=== PATIENT | male | born 1960 | race Caucasian/White ===

== ENCOUNTER 2019-12-28 15:12 | Inpatient (IN) | payer BC ==
[2019-12-28] VITALS (7 sets, daily range): BP systolic 110–151; BP diastolic 89–100
[~2019-12-28] VITALS: Ht 177 cm; Wt 111.9 kg
[2019-12-28] MEDS ORDERED: THIAMINE INJECTION 100 MG, FOLIC ACID INJECTION 1 MG, VITAMIN MULTI INJECTION 10 ML, MA... IV STA ×5 (15:24)
--- NOTE | 2019-12-28 15:35 | ED Psychosocial ---
General Stated Complaint: SUICIDAL THOUGHTS Source: patient Exam Limitations: no limitations (DARSHAN CEJA) History of Present Illness Date Seen by Provider: Dec 28, 2019 Time Seen by Provider: 15:10 Initial Comments Patient presents to ER by EMS from home with chief complaint this morning he woke up felt very very depressed and wanted to . No plan how to kill himself. He found a bottle water in his refrigerator about 1 pint that had been replaced by vodka and he drank it. He is a recovering alcoholic and his was in [place] for the past couple days visiting family. She says whenever she leaves [facility] to visit family he behaves this way. He has had multiple suicidal ideations in the past but never a suicidal attempt according to the and patient. He's never stayed in inpatient psychiatric facility. He says the last time he drank was a few days before this. He said the reason he felt so bad and wanted to is because as a recovering alcoholic he is upset with himself for having started drinking again. He denies drinking anything else. He does not smoke or use recreational drugs. He says he has pain from his head down to his toe at the shame of having drank alcohol again. His further related to EMS that he has a background of dementia related to his alcoholism. (DARSHAN CEJA) Allergies and Home Medications Allergies Coded Allergies: No Known Drug Allergies (Unverified , 12/28/19) Patient Home Medication List Home Medication List Reviewed: Yes (DARSHAN CEJA) Review of Systems Constitutional: No chills, No diaphoresis EENTM: No ear discharge, No hearing loss Respiratory: No cough, No short of breath Cardiovascular: No chest pain, No edema Gastrointestinal: No abdominal pain, No nausea, No vomiting Genitourinary: No discharge, No dysuria Musculoskeletal: No back pain, No joint pain (DARSHAN CEJA) All Other Systems Reviewed Negative Unless Noted: Yes (DARSHAN CEJA) Past Rvxppub-Wefswd-Mkdner Hx Patient Social History Alcohol Use: Regular Use Alcohol Beverage of Choice: Vodka Smoking Status: Never a Smoker Recent Foreign Travel: No Contact w/Someone Who Travel: No (DARSHAN CEJA) Physical Exam Vital Signs - First Documented 12/28/19 15:12 Temp 36.9 Pulse 116 Resp 20 B/P (MAP) 118/88 (98) Pulse Ox 99 O2 Delivery Room Air (FABIOLA RO APRN) Capillary Refill : (DARSHAN CEJA) Height, Weight, BMI Height: '" Weight: lbs. oz. 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 tested, no motor/sensory deficits, alert, normal mood/affect, oriented x 3 Appearance/Memory: No denies illness; disheveled Behavior/Eye Contact: cooperative, good eye contact, normal speech, other (tearful) Thoughts/Hallucinations: normal thought pattern, no apparent hallucination; No delusions Skin: normal color, warm/dry (DARSHAN CEJA) Progress/Results/Core Measures Results/Orders Lab Results Laboratory Tests Test 12/28/19 15:25 12/28/19 16:01 12/28/19 19:14 Range/Units White Blood Count 6.5 4.3-11.0 10^3/uL Red Blood Count 4.35 4.35-5.85 10^6/uL Hemoglobin 15.1 13.3-17.7 G/DL Hematocrit 44 40-54 % Mean Corpuscular Volume 101 H 80-99 FL Mean Corpuscular Hemoglobin 35 H 25-34 PG Mean Corpuscular Hemoglobin Concent 34 32-36 G/DL Red Cell Distribution Width 14.0 10.0-14.5 % Platelet Count 107 L 130-400 10^3/uL Mean Platelet Volume 9.8 7.4-10.4 FL Neutrophils (%) (Auto) 49 42-75 % Lymphocytes (%) (Auto) 37 12-44 % Monocytes (%) (Auto) 11 0-12 % Eosinophils (%) (Auto) 3 0-10 % Basophils (%) (Auto) 0 0-10 % Neutrophils # (Auto) 3.2 1.8-7.8 X 10^3 Lymphocytes # (Auto) 2.4 1.0-4.0 X 10^3 Monocytes # (Auto) 0.7 0.0-1.0 X 10^3 Eosinophils # (Auto) 0.2 0.0-0.3 10^3/uL Basophils # (Auto) 0.0 0.0-0.1 10^3/uL Sodium Level 143 135-145 MMOL/L Potassium Level 3.5 L 3.6-5.0 MMOL/L Chloride Level 109 H 98-107 MMOL/L Carbon Dioxide Level 20 L 21-32 MMOL/L Anion Gap 14 5-14 MMOL/L Blood Urea Nitrogen 20 H 7-18 MG/DL Creatinine 1.12 0.60-1.30 MG/DL Estimat Glomerular Filtration Rate > 60 BUN/Creatinine Ratio 18 Glucose Level 123 H 70-105 MG/DL Calcium Level 9.8 8.5-10.1 MG/DL Corrected Calcium 10.2 H 8.5-10.1 MG/DL Total Bilirubin 0.4 0.1-1.0 MG/DL Aspartate Amino Transf (AST/SGOT) 64 H 5-34 U/L Alanine Aminotransferase (ALT/SGPT) 55 0-55 U/L Alkaline Phosphatase 85 40-136 U/L Total Protein 7.0 6.4-8.2 GM/DL Albumin 3.5 3.2-4.5 GM/DL Salicylates Level < 5.0 L 5.0-20.0 MG/DL Acetaminophen Level < 10 L 10-30 UG/ML Serum Alcohol 274 H 199 H <10 MG/DL Urine Color YELLOW Urine Clarity CLEAR Urine pH 6.0 5-9 Urine Specific [place] 1.020 1.016-1.022 Urine Protein 1+ H NEGATIVE Urine Glucose (UA) NEGATIVE NEGATIVE Urine Ketones NEGATIVE NEGATIVE Urine Nitrite NEGATIVE NEGATIVE Urine Bilirubin NEGATIVE NEGATIVE Urine Urobilinogen 1.0 < = 1.0 MG/DL Urine Leukocyte Esterase NEGATIVE NEGATIVE Urine RBC (Auto) 2+ H NEGATIVE Urine RBC 5-10 H /HPF Urine WBC 0-2 /HPF Urine Crystals PRESENT H /LPF Urine Amorphous Sediment FEW MESHA URATES H /LPF Urine Bacteria TRACE /HPF Urine Casts NONE /LPF Urine Mucus MODERATE H /LPF Urine Culture Indicated NO Urine Opiates Screen NEGATIVE NEGATIVE Urine Oxycodone Screen NEGATIVE NEGATIVE Urine Methadone Screen NEGATIVE NEGATIVE Urine Propoxyphene Screen NEGATIVE NEGATIVE Urine Barbiturates Screen NEGATIVE NEGATIVE Ur Tricyclic Antidepressants Screen NEGATIVE NEGATIVE Urine Phencyclidine Screen NEGATIVE NEGATIVE Urine Amphetamines Screen NEGATIVE NEGATIVE Urine Methamphetamines Screen NEGATIVE NEGATIVE Urine Benzodiazepines Screen POSITIVE H NEGATIVE Urine Cocaine Screen NEGATIVE NEGATIVE Urine Cannabinoids Screen NEGATIVE NEGATIVE (FABIOLA RO APRN) My Orders Orders - FABIOLA RO APRN Lorazepam Injection (Ativan Injection) (12/28/19 20:30) (FABIOLA RO APRN) Vital Signs/I&O 12/28/19 15:12 Temp 36.9 Pulse 116 Resp 20 B/P (MAP) 118/88 (98) Pulse Ox 99 O2 Delivery Room Air (FABIOLA RO APRN) Progress Progress Note : Time: 15:33 Progress Note Banana bag, tox screen and alcohol level. When his alcohol level is below the legal limit we can have [facility] evaluate him. We'll see if he still endorsing suicidality at that time. His says that typically when he myke up he's no longer suicidal. We'll give him a second liter of fluids and observe him. (DARSHAN CEJA) Initial ECG Impression Date: Dec 28, 2019 Initial ECG Impression Time: 15:19 Initial ECG Rate: 109 Initial ECG Rhythm: S.Tach Initial ECG Intervals: QT (480) Initial ECG Impression: Normal Initial ECG Comparisson: No Previous ECG Available Comment Sinus tachycardia with prolonged QT interval but no ST elevation or depression. (DARSHAN CEJA) Transfer of Care Time: 18:00 Care transferred to: Fabiola Ro (DARSHAN CEJA) Departure Communication (Admissions) Time/Spoke to Admitting Phy: 20:24 2022-I discussed the case with [facility] screening [facility] bath at [facility]. They would like him to be likely detoxed for 24 hours to ensure he doesn't develop detox symptoms while in the unit over there. She would be happy to come screen him today and tentatively accept him over there on Thursday. Patient is agreeable with this plan and would like to go. Patient's called, she is in [place] visiting [employer]. Patient himself reports that he hasn't drank for a couple of months and then restarted today. Patient's states this is absolutely not true, he's been drinking frequently including the past few days. She also reports that they just moved here from [facility], he most recently just completed a 3 month inpatient rehabilitation program and did very well, but then as soon as she leaves or soon as he gets home he relapses. (FABIOLA RO APRN) Impression Primary Impression: Suicidal intent Additional Impression: Alcohol use Disposition: HOME, SELF-CARE Condition: Stable Admissions Decision to Admit Reason: Admit from ER (General) Decision to Admit/Date: Dec 28, 2019 Time/Decision to Admit Time: 20:25 (FABIOLA RO APRN) Departure-Patient Inst. Referrals: NO,LOCAL PHYSICIAN (PCP) Primary Care Physician DARSHAN CEJA Dec 28, 2019 15:34 FABIOLA RO APRN Dec 28, 2019 19:49
[2019-12-28 15:38] LABS: BASOPHILS % (AUTO) 0 % (0-10); EOSINOPHILS # (AUTO) 0.2 10^3/uL (0.0-0.3); EOSINOPHILS % (AUTO) 3 % (0-10); HEMATOCRIT 44 % (40-54); HEMOGLOBIN 15.1 G/DL (13.3-17.7); LYMPHOCYTES # (AUTO) 2.4 X 10^3 (1.0-4.0); LYMPHOCYTES % (AUTO) 37 % (12-44); MEAN CORPUSCULAR HEMOGLOBIN 35 PG (25-34); MEAN CORPUSCULAR HGB CONC 34 G/DL (32-36); MEAN CORPUSCULAR VOLUME 101 FL (80-99); MEAN PLATELET VOLUME 9.8 FL (7.4-10.4); MONOCYTES # (AUTO) 0.7 X 10^3 (0.0-1.0); MONOCYTES % (AUTO) 11 % (0-12); NEUTROPHILS # (AUTO) 3.2 X 10^3 (1.8-7.8); NEUTROPHILS % (AUTO) 49 % (42-75); PLATELET COUNT 107 10^3/uL (130-400); WHITE BLOOD COUNT 6.5 10^3/uL (4.3-11.0)
[2019-12-28 16:05] LABS: ACETAMINOPHEN < 10 UG/ML (10-30); ALANINE AMINOTRANSFERASE 55 U/L (0-55); ALBUMIN 3.5 GM/DL (3.2-4.5); ALKALINE PHOSPHATASE 85 U/L (40-136); BILIRUBIN,TOTAL 0.4 MG/DL (0.1-1.0); BUN/CREATININE RATIO 18; CALCIUM 9.8 MG/DL (8.5-10.1); CARBON DIOXIDE 20 MMOL/L (21-32); CHLORIDE 109 MMOL/L (98-107); CREATININE SERUM 1.12 MG/DL (0.60-1.30); GFR ESTIMATED > 60; GLUCOSE 123 MG/DL (70-105); POTASSIUM 3.5 MMOL/L (3.6-5.0); SALICYLATE < 5.0 MG/DL (5.0-20.0); SODIUM 143 MMOL/L (135-145)
[2019-12-28 16:18] LABS: BILIRUBIN,URINE NEGATIVE (NEGATIVE); CLARITY,URINE CLEAR; COLOR,URINE YELLOW; GLUCOSE, URINE (UA) NEGATIVE (NEGATIVE); KETONES,URINE NEGATIVE (NEGATIVE); LEUKOCYTE ESTERASE ,URINE NEGATIVE (NEGATIVE); NITRITE,URINE NEGATIVE (NEGATIVE); PROTEIN,URINE 1+ (NEGATIVE)
[2019-12-28 16:27] LABS: WBC,URINE 0-2 /HPF
[2019-12-28 16:28] LABS: AMORPHOUS SEDIMENT,UR FEW AMOR URATES /LPF; BACTERIA,URINE TRACE /HPF
--- NOTE | 2019-12-28 16:47 | NUR ---
[facility] MH CONTACTS THIS NURSE FOR OVER THE PHONE REPORT. BAO WITH [facility] STATES THE PT DOES NOT REQUIRE A MH SCREEN AT THIS TIME D/T NOT VERBALIZING S.I.
[2019-12-28 17:06] LABS: AMPHETAMINE SCREEN, URINE NEGATIVE (NEGATIVE); BARBITURATE SCREEN URINE NEGATIVE (NEGATIVE); BENZODIAZEPINES SCREEN URINE POSITIVE (NEGATIVE); CANNABINOID SCREEN, URINE NEGATIVE (NEGATIVE); COCAINE SCREEN URINE NEGATIVE (NEGATIVE); METHADONE STAT NEGATIVE (NEGATIVE); METHAMPHETAMINE SCREEN URINE S NEGATIVE (NEGATIVE); OPIATE SCREEN URINE NEGATIVE (NEGATIVE); OXYCODONE STAT NEGATIVE (NEGATIVE); PROPOXYPHENE STAT NEGATIVE (NEGATIVE); TRICYCLIC ANTIDEPRESSANTS SCRE NEGATIVE (NEGATIVE)
[2019-12-28] MEDS ORDERED: NS IV 1000 ML 1,000 ML IV SCH (17:31)
[2019-12-28] MEDS ORDERED: 1/2 NS W/KCL 20 MEQ/L 1,000 ML IV SCH (17:45)
[2019-12-28] MEDS ORDERED: LORazepam INJ 2 MG/ML (ATIVAN) VIAL IVP ONE (20:30)
--- NOTE | 2019-12-28 21:03 | NUR ---
RECEIVED REPORT FROM ROBERT LEWIS.
--- NOTE | 2019-12-28 21:22 | NUR ---
JORGE A FIELD admitted to room CU9-1, with an admitting diagnosis of SUICIDAL IDEATIONS, ETOH ABUSE, on 12/28/19 from [facility] ER via [facility], accompanied by ROBERT LEWIS. JORGE A FIELD introduced to surroundings, call light, bed controls, phone, TV, temperature control, lights, meal times, smoking policy, visitor policy, side rail policy, bathrooms and showers. Patient Rights given to patient in the handbook.JORGE A FIELD verbalizes understanding that [facility] is not responsible for the loss or damage to any personal effects or valuables that are kept in the patients possession during their hospitalization. JORGE A FIELD verbalizes understanding of Interdisciplinary Patient Education. Patient and/or family were informed about the Rapid Response Team and its purpose.
[2019-12-28] MEDS ORDERED: 1/2 NS IV SOLUTION 1,000 ML IV PRN (21:54)
[2019-12-28] MEDS ORDERED: LORazepam INJ 2 MG/ML (ATIVAN) VIAL IV PRN (22:00)
[2019-12-28] MEDS ORDERED: LORazepam 1 MG (ATIVAN) TAB PO PRN (22:00)
[2019-12-28] MEDS ORDERED: ONDANSETRON 4 MG/2 ML (SDV) Z0FRAN IV PRN (22:00)
[2019-12-28] MEDS ORDERED: D5 1/2 NS 1000 ML IV SOLUTION 1,000 ML IV PRN (22:00)
[2019-12-28] MEDS ORDERED: PROMETHAZINE INJ 25 MG/ML (PHENERGAN) AMP IV PRN (22:00)
[2019-12-28] MEDS ORDERED: ONDANSETRON 4 MG (ZOFRAN) ORAL DISSOLVE TAB SL PRN (22:00)
[2019-12-28] MEDS ORDERED: ANTACID SUSP 30 ML UDC (MYLANTA) PO PRN (22:00)
[2019-12-28] MEDS ORDERED: SENNA W/DOCUSATE (SENOKOT S) TABLET PO PRN (22:00)
[2019-12-28] MEDS ORDERED: LORazepam INJ 2 MG/ML (ATIVAN) VIAL IM/IV PRN (22:00)
--- NOTE | 2019-12-28 22:25 | NUR ---
PT CELLPHONE PLACED INTO BIOHAZARD BAG AND LABELED WITH PATIENT STICKER AND PLACED INTO SAFE PROOF BAG. SHINGLES ROOFER LOCKED BAGGED CELLPHONE IN SAFE LOCATED IN ER. PATIENT CLOTHING PLACED IN GREEN PT BELONGINGS BAG AND LABELED WITH PT STICKER AND LOCKED IN [place] CABINET IN ICU STORAGE AREA ALONG WITH PT'S CANE THAT WAS ALSO LABELED WITH PT STICKER. PT AWARE OF REASONING OF TAKING PT BELONGINGS AND AGREED WITH PROTOCOL.
[2019-12-28] MEDS: THIAMINE INJECTION 100 MG, FOLIC ACID INJECTION 1 MG, MAGNESIUM SULFATE 2 GM, VITAMIN M... IV SCH ×5 (22:38)
[2019-12-28] MEDS: D5 1/2 NS W/KCL 20 MEQ/L 1,000 ML IV SCH (23:18)
--- NOTE | 2019-12-28 23:28 | NUR ---
SCDs NOT APPLIED DUE TO PT HAVING SUICIDAL IDEATIONS AND SUICIDE RISK. PT BLOOD ALCOHOL LEVELS ELEVATED AND RISK FOR FALLS.
[2019-12-29] VITALS (15 sets, daily range): BP systolic 120–154; BP diastolic 72–112
[2019-12-29 03:42] LABS: BASOPHILS % (AUTO) 1 % (0-10); EOSINOPHILS # (AUTO) 0.2 10^3/uL (0.0-0.3); EOSINOPHILS % (AUTO) 6 % (0-10); HEMATOCRIT 39 % (40-54); HEMOGLOBIN 13.4 G/DL (13.3-17.7); LYMPHOCYTES # (AUTO) 1.4 X 10^3 (1.0-4.0); LYMPHOCYTES % (AUTO) 31 % (12-44); MEAN CORPUSCULAR HEMOGLOBIN 35 PG (25-34); MEAN CORPUSCULAR HGB CONC 34 G/DL (32-36); MEAN CORPUSCULAR VOLUME 103 FL (80-99); MEAN PLATELET VOLUME 10.1 FL (7.4-10.4); MONOCYTES # (AUTO) 0.5 X 10^3 (0.0-1.0); MONOCYTES % (AUTO) 11 % (0-12); NEUTROPHILS # (AUTO) 2.3 X 10^3 (1.8-7.8); NEUTROPHILS % (AUTO) 52 % (42-75); PLATELET COUNT 77 10^3/uL (130-400); RED CELL DISTRIBUTION WIDTH 13.8 % (10.0-14.5); WHITE BLOOD COUNT 4.3 10^3/uL (4.3-11.0)
--- NOTE | 2019-12-29 03:50 | Pulmonary Consultation ---
History of Present Illness History of Present Illness Date Seen by Provider: Dec 29, 2019 Time Seen by Provider: 03:47 Date of Admission History of Present Illness 59yo with hx of alcohol dependance, depression presented to ED secondary to wanting to quit alcohol use and also feeling suicidal. Pt has no plan to kill himself. Pt states he has been trying to quit drinking however has been unsuccessful. He does not smoke or use recreational drugs. Pt was admitted to ICU with alcohol dependance. Allergies and Home Medications Allergies Coded Allergies: No Known Drug Allergies (Unverified , 12/28/19) Past Iteaylz-Zietjs-Kdkztr Hx Patient Social History Alcohol Use: Regular Use Number of Drinks Today: 8 Alcohol Beverage of Choice: Vodka Recreational Drug Use: No Smoking Status: Never a Smoker Recent Foreign Travel: No Contact w/Someone Who Travel: No Recent Infectious Disease Expo: No Recent Hopitalizations: No Physical Abuse: No Sexual Abuse: No Mistreated: No Fear: No Immunizations Up To Date Tetanus Booster (TDap): Unknown PED Vaccines UTD: Yes Seasonal Allergies Seasonal Allergies: No Past Medical History Surgeries: Yes (HEMRRHOID) Respiratory: No Cardiac: No Neurological: Yes (TREMORS) Dementia Genitourinary: No Gastrointestinal: No Musculoskeletal: No Endocrine: No HEENT: No Cancer: No Psychosocial: Yes (ETOH ABUSE HX) Integumentary: No Blood Disorders: No Adverse Reaction/Blood Tranf: No Family Medical History FH: breast cancer 19 MOTHER Hypertension 19 MOTHER Review of Systems Time Seen by Provider: 05:55 Constitutional: Weakness, Malaise; No: Fever, Chills, Sweats, Other Eyes: Pain, Vision change, Conjunctivae inflammation, Eyelid inflammation, Other, Redness ENT: No: Ear pain, Ear discharge, Nose pain, Nose discharge, Nose congestion, Mouth pain, Mouth swelling, Throat pain, Throat swelling, Other Respiratory: No: Cough, Dry, Shortness of breath, SOB with excertion, Wheezing, Hemoptysis, Pleuritic Pain, Sputum, Wheezing, Other Cardiovascular: No: Chest Pain, Palpitations, Orthopnea, Paroxysmal Noc. Dyspnea, Edema, Lt Headedness, Other Gastrointestinal: No: Nausea, Vomiting, Abdominal Pain, Diarrhea, Constipation, Melena, Hematochezia, Other Sepsis Event Evaluation Height, Weight, BMI Height: '" Weight: lbs. oz. kg; 31.00 BMI Method: Exam Exam Vital Signs Date Time Temp Pulse Resp B/P (MAP) Pulse Ox O2 Delivery O2 Flow Rate FiO2 12/29/19 01:00 109 12/29/19 01:00 106 23 139/90 (106) 92 Room Air 12/29/19 00:04 Room Air 12/29/19 00:00 109 19 120/82 (95) 95 Room Air 12/28/19 23:40 37.8 12/28/19 23:00 110 19 142/93 (109) 94 Room Air 12/28/19 22:45 106 19 131/92 (105) 94 Room Air 12/28/19 22:32 37.8 12/28/19 22:30 105 16 136/92 (107) 97 Room Air 12/28/19 22:15 111 13 110/92 (98) 96 Room Air 12/28/19 22:00 110 20 143/89 (107) 97 Room Air 12/28/19 21:45 114 10 151/100 (117) 97 Room Air 12/28/19 21:34 112 12/28/19 21:30 112 17 143/97 (112) Room Air 12/28/19 21:22 98 Room Air 12/28/19 21:18 36.9 98 20 118/88 (98) 99 12/28/19 15:12 36.9 116 20 118/88 (98) 99 Room Air I & O 12/29/19 07:00 Intake Total 3775 ml Output Total 405 ml Balance 3370 ml Height & Weight Height: '" Weight: lbs. oz. kg; 31.00 BMI Method: General Appearance: No Apparent Distress, WD/WN, Anxious HEENT: PERRL/EOMI, Pharynx Normal Neck: Full Range of Motion, Non Tender, Supple Respiratory: Chest Non Tender, Lungs Clear, No Accessory Muscle Use, No Respiratory Distress Cardiovascular: Regular Rate, Rhythm, No Edema, No Murmur Capillary Refill: Less Than 3 Seconds Gastrointestinal: normal bowel sounds, non tender, soft Extremity: Normal Capillary Refill, No Pedal Edema Neurologic/Psychiatric: Alert, Oriented x3 Skin: Normal Color, Warm/Dry Lymphatic: No Adenopathy Results Lab Laboratory Tests 12/28/19 15:25 12/29/19 03:35 Assessment/Plan Assessment/Plan Suicidal ideation/major depression -Suicidal precautions -Behavioral health ETOH intoxication/Dependance -[facility] protocol -Monitor LINDA YU DO Dec 29, 2019 03:50
[2019-12-29] MEDS: D5 1/2 NS W/KCL 20 MEQ/L 1,000 ML IV SCH ×4 (04:24→23:39)
[2019-12-29] MEDS: THIAMINE INJECTION 100 MG, FOLIC ACID INJECTION 1 MG, MAGNESIUM SULFATE 2 GM, VITAMIN M... IV SCH ×5 (04:37)
[2019-12-29 04:38] LABS: ALANINE AMINOTRANSFERASE 42 U/L (0-55); ALBUMIN 3.1 GM/DL (3.2-4.5); ALKALINE PHOSPHATASE 65 U/L (40-136); BILIRUBIN,TOTAL 0.6 MG/DL (0.1-1.0); BUN/CREATININE RATIO 15; CALCIUM 7.8 MG/DL (8.5-10.1); CARBON DIOXIDE 21 MMOL/L (21-32); CHLORIDE 110 MMOL/L (98-107); CREATININE SERUM 0.97 MG/DL (0.60-1.30); GFR ESTIMATED > 60; GLUCOSE 104 MG/DL (70-105); PHOSPHORUS 2.6 MG/DL (2.3-4.7); POTASSIUM 3.8 MMOL/L (3.6-5.0); SODIUM 142 MMOL/L (135-145); TOTAL PROTEIN 6.1 GM/DL (6.4-8.2)
[2019-12-29 04:54] LABS: MAGNESIUM 1.8 MG/DL (1.6-2.4)
[2019-12-29] MEDS: morphine INJ 4 MG/ML 1 ML (VIAL/SYRINGE) IVP PRN ×3 (05:16→21:47)
[2019-12-29] MEDS ORDERED: KCL 20 MEQ TAB (K-DUR) PO SCH (06:00)
[2019-12-29] MEDS ORDERED: POTASSIUM CL 10MEQ/50ML IVPB 50 ML IV SCH (06:00)
[2019-12-29] MEDS ORDERED: MAGNESIUM 1 GM/100 ML IVPB 100 ML IV SCH (06:00)
--- NOTE | 2019-12-29 07:26 | Diagnostic Imaging Report ---
INDICATION: Ethanol abuse and suicidal ideation. FINDINGS: The heart size, mediastinal configuration, and pulmonary vascularity are within normal limits. There is no pleural effusion, pneumothorax, or pneumonia. The osseous structures are unremarkable. IMPRESSION: No acute cardiopulmonary abnormality. Dictated by: Dictated on workstation # [id number]
[2019-12-29] MEDS ORDERED: FLU QUADRIvalent (5+ YOA) 2019-2020 (AFLURIA) 0.5 ML IM ONE (07:30)
[2019-12-29] MEDS: PANTOPRAZOLE 40 MG (PROTONIX) VIAL IV SCH (08:03)
[2019-12-29] MEDS: ENOXAPARIN 40 MG/0.4 ML (LOVENOX) SYR SC SCH (08:03)
[2019-12-29] MEDS: THIAMINE INJECTION 100 MG, FOLIC ACID INJECTION 1 MG, VITAMIN MULTI INJECTION 10 ML, MA... IV SCH ×5 (08:04)
[2019-12-29] MEDS ORDERED: PROP10TA8 PO (11:11)
[2019-12-29] MEDS ORDERED: CHLO25CA10 PO (11:11)
[2019-12-29] MEDS ORDERED: NALT50TA PO (11:11)
[2019-12-29] MEDS ORDERED: SERT100T8 PO (11:11)
[2019-12-29] MEDS ORDERED: POTA10TA36 PO (11:11)
[2019-12-29] MEDS ORDERED: TOPI25TA10 PO (11:11)
[2019-12-29] MEDS: PROPRANOLOL 20 MG (INDERAL) TABLET PO SCH ×3 (12:24→21:35)
[2019-12-29] MEDS ORDERED: chlordiazePOXIDE 25 MG (LIBRIUM) CAP NON-FORMULARY PO SCH (13:00)
--- NOTE | 2019-12-29 13:17 | History & Physical-Hospitalist ---
History of Present Illness HPI/Chief Complaint Tavo Pichardo is a 59-year-old male with past medical history of depression, alcohol abuse, essential tremor, who presented with acute alcohol intoxication and passive suicidal ideation. He reports that he has a long history of alcoholism. He says that he has been drinking vodka for the past couple days. His went on vacation and he started drinking a stash of vodka that he had set aside. He reports that last night he got depressed and thought about ending his life. He did not have any specific plan. He became very concerned and called 911 who came to his house and brought him to the emergency room. This morning, he reports no suicidal ideation or intent. He is worried that if he goes home he will drink again and then want to harm himself. He has no other complaints or concerns including: Fevers, chills, chest pain, shortness of breath, abdominal pain, nausea, vomiting, diarrhea, dysuria, rash. Source: patient Exam Limitations: no limitations Date Seen 12/29/19 Time Seen by a Provider: 09:05 Attending Physician Piper Steinberg DO PCP No,Local Physician Referring Physician Date of Admission Dec 28, 2019 at 20:08 Home Medications & Allergies Home Medications Reviewed patient Home Medication Reconciliation performed by pharmacy medication reconciliations safe technician and/or nursing. Patients Allergies have been reviewed. Allergies Allergies Coded Allergies No Known Drug Allergies (Unverified12/28/19) Past Kyaqlrr-Wzmhys-Zjhtlk Hx Past Med/Social Hx: Reviewed Nursing Past Med/Soc Hx Patient Social History Alcohol Use: Regular Use Number of Drinks Today: 8 Alcohol Beverage of Choice: Vodka Recreational Drug Use: No Smoking Status: Never a Smoker Recent Foreign Travel: No Contact w/other who traveled: No Recent Hopitalizations: No Recent Infectious Disease Expo: No Immunizations Up To Date Tetanus Booster (TDap): Unknown Pediatric: Yes Seasonal Allergies Seasonal Allergies: No Past Medical History Neurological: Dementia History of Blood Disorders: No Adverse Reaction to Blood Lee: No Family History FH: breast cancer 19 MOTHER Hypertension 19 MOTHER Review of Systems Constitutional: no symptoms reported EENTM: no symptoms reported Respiratory: no symptoms reported Cardiovascular: no symptoms reported Gastrointestinal: no symptoms reported Genitourinary: no symptoms reported Musculoskeletal: no symptoms reported Skin: no symptoms reported Psychiatric/Neurological: See HPI, Depressed Physical Exam Physical Exam Vital Signs Vital Signs - First Documented 12/28/19 15:12 Temp 36.9 Pulse 116 Resp 20 B/P (MAP) 118/88 (98) Pulse Ox 99 O2 Delivery Room Air Capillary Refill : Less Than 3 Seconds Height, Weight, BMI Height: '" Weight: lbs. oz. kg; 31.00 BMI Method: General Appearance: No Apparent Distress, WD/WN, Obese HEENT: PERRL/EOMI, Pharynx Normal Neck: Normal Inspection, Supple Respiratory: Lungs Clear, Normal Breath Sounds, No Respiratory Distress Cardiovascular: Regular Rate, Rhythm, No Edema, No Murmur Gastrointestinal: Normal Bowel Sounds, Non Tender, Soft Extremity: Normal Inspection, Non Tender, No Pedal Edema Neurologic/Psychiatric: Alert, Oriented x3, No Motor/Sensory Deficits, Depressed Affect Skin: Normal Color, Warm/Dry Results Results/Procedures Labs Laboratory Tests 12/28/19 15:25 12/29/19 03:35 Patient resulted labs reviewed. Imaging: Reviewed Imaging Report Assessment/Plan Admission Diagnosis Suicidal ideation Admission Status: Inpatient Order (span 2 midnights) Reason for Inpatient Admission: acute alcohol intoxication with suicidal ideation Assessment and Plan Alcohol dependence with acute intoxication Suicidal ideation Depression called EMS due to suicidal ideation alcohol 274 on arrival monitor for withdrawal Will screen for inpatient psychiatry Social work consulted, appreciate assistance Tele-sitter in place continue sertraline Essential tremor Continue propranolol DVT prophylaxis: Lovenox Clinical Quality Measures DVT/VTE Risk/Contraindication: Risk Factor Score Per Nursin RFS Level Per Nursing on Admit: 4+=Very High JD BERNABE MD Dec 29, 2019 13:17
--- NOTE | 2019-12-29 14:25 | NUR ---
Pt states he's not safe to go home alone and won't return till Thursday. Discussed treatment options due to history of depression and anxiety. He has battled alcohol addiction for nearly 17 years. He's been to multiple treatment facilities and longest period of sobriety has been over 2 years. Pt is estranged from adult children due to his alcoholism. He is very dependent on his of nearly 40 years. They recently moved here to be near 's family. doesn't really live with pt due to the severity of his symptoms and behavior but she remains his DPOA. Nicole Mai, Director of [facility] will be here this afternoon to discuss possible admission to their facility. Pt is willing to be evaluated for possible admission.
--- NOTE | 2019-12-29 20:00 | NUR ---
PATIENT TRANSFERRED TO MED/SURG FLOOR. REPORT GIVEN TO ROBERT GREEN
--- NOTE | 2019-12-29 20:05 | NUR ---
PT ARRIVE ON FLOOR, BEDSIDE REPORT RECEIVED FROM ROBERT SHAIKH
[2019-12-29] MEDS ORDERED: NALTREXONE HCL 50 MG PO SCH (21:00)
[2019-12-29] MEDS: toPIRamate 25 MG (TOPAMAX) TAB PO SCH (21:36)
[2019-12-30] VITALS: BP 131/61
[2019-12-30 04:00] VITALS: BP 135/75
[2019-12-30] MEDS: morphine INJ 4 MG/ML 1 ML (VIAL/SYRINGE) IVP PRN (04:44)
[2019-12-30 05:04] LABS: BASOPHILS % (AUTO) 0 % (0-10); EOSINOPHILS # (AUTO) 0.3 10^3/uL (0.0-0.3); EOSINOPHILS % (AUTO) 8 % (0-10); HEMATOCRIT 40 % (40-54); HEMOGLOBIN 13.1 G/DL (13.3-17.7); LYMPHOCYTES # (AUTO) 0.8 X 10^3 (1.0-4.0); LYMPHOCYTES % (AUTO) 22 % (12-44); MEAN CORPUSCULAR HEMOGLOBIN 34 PG (25-34); MEAN CORPUSCULAR HGB CONC 33 G/DL (32-36); MEAN CORPUSCULAR VOLUME 103 FL (80-99); MEAN PLATELET VOLUME 10.6 FL (7.4-10.4); MONOCYTES # (AUTO) 0.4 X 10^3 (0.0-1.0); MONOCYTES % (AUTO) 11 % (0-12); NEUTROPHILS % (AUTO) 59 % (42-75); PLATELET COUNT 56 10^3/uL (130-400); RED CELL DISTRIBUTION WIDTH 13.3 % (10.0-14.5); WHITE BLOOD COUNT 3.4 10^3/uL (4.3-11.0)
[2019-12-30 05:22] LABS: BUN/CREATININE RATIO 15; CALCIUM 7.7 MG/DL (8.5-10.1); CARBON DIOXIDE 18 MMOL/L (21-32); CHLORIDE 109 MMOL/L (98-107); CREATININE SERUM 0.81 MG/DL (0.60-1.30); GFR ESTIMATED > 60; GLUCOSE 100 MG/DL (70-105); MAGNESIUM 2.1 MG/DL (1.6-2.4); PHOSPHORUS 1.8 MG/DL (2.3-4.7); SODIUM 136 MMOL/L (135-145)
[2019-12-30] MEDS: D5 1/2 NS W/KCL 20 MEQ/L 1,000 ML IV SCH (07:37)
[2019-12-30 08:00] VITALS: BP 151/80
--- NOTE | 2019-12-30 09:17 | NUR ---
Pt denied admission to the [facility]. They recommended drug and alcohol treatment . Will discuss options and continued care plans with pt.
[2019-12-30] MEDS: PROPRANOLOL 20 MG (INDERAL) TABLET PO SCH ×4 (09:52→21:54)
[2019-12-30] MEDS: SERTRALINE 100 MG (ZOLOFT) TAB PO SCH (09:52)
[2019-12-30] MEDS: PANTOPRAZOLE 40 MG (PROTONIX) VIAL IV SCH (09:53)
[2019-12-30] MEDS: ENOXAPARIN 40 MG/0.4 ML (LOVENOX) SYR SC SCH (09:53)
[2019-12-30] MEDS: THIAMINE INJECTION 100 MG, FOLIC ACID INJECTION 1 MG, VITAMIN MULTI INJECTION 10 ML, MA... IV SCH ×5 (10:42)
--- NOTE | 2019-12-30 11:32 | Progress Note - Hospitalist ---
Subjective HPI/CC On Admission Date Seen by Provider: Dec 30, 2019 Time Seen by Provider: 09:05 Tavo Pichardo is a 59-year-old male with past medical history of depression, alcohol abuse, essential tremor, who presented with acute alcohol intoxication and passive suicidal ideation. He reports that he has a long history of alcoholism. He says that he has been drinking vodka for the past couple days. His went on vacation and he started drinking a stash of vodka that he had set aside. He reports that last night he got depressed and thought about ending his life. He did not have any specific plan. He became very concerned and called 911 who came to his house and brought him to the emergency room. This morning, he reports no suicidal ideation or intent. He is worried that if he goes home he will drink again and then want to harm himself. He has no other complaints or concerns including: Fevers, chills, chest pain, shortness of breath, abdominal pain, nausea, vomiting, diarrhea, dysuria, rash. Subjective/Events-last exam he denies any complaints or concerns. He does not feel like he is withdrawing from alcohol. He denies any fevers or chills. He denies any shortness of breath or cough. He denies any chest pain. He denies any abdominal pain, nausea, or vomiting. Objective Exam Vital Signs Vital Signs Date Time Temp Pulse Resp B/P (MAP) Pulse Ox O2 Delivery O2 Flow Rate FiO2 12/30/19 09:00 97 Room Air 12/30/19 08:00 37.2 71 20 151/80 (103) Capillary Refill : Less Than 3 Seconds General Appearance: No Apparent Distress, Obese Respiratory: Lungs Clear, Normal Breath Sounds, No Respiratory Distress Cardiovascular: Regular Rate, Rhythm, No Edema, No Murmur Gastrointestinal: Normal Bowel Sounds, Non Tender, Soft Extremity: Normal Inspection, Non Tender, No Pedal Edema Neurologic/Psychiatric: Alert, Oriented x3, No Motor/Sensory Deficits, Normal Mood/Affect Skin: Normal Color, Warm/Dry Results/Procedures Lab Laboratory Tests 12/30/19 04:12 Patient resulted labs reviewed. Assessment/Plan Assessment and Plan Assess & Plan/Chief Complaint Alcohol dependence with acute intoxication Suicidal ideation Depression did not qualify for inpatient psychiatry due to no active suicidal ideation Social work consulted, appreciate assistance continue sertraline planning to discharge to [facility] tomorrow Essential tremor Continue propranolol DVT prophylaxis: Lovenox Diagnosis/Problems Diagnosis/Problems (1) Alcohol dependence with acute alcoholic intoxication Status: Resolved Qualifiers: Complication of substance-induced condition: uncomplicated Qualified Codes: F10.220 - Alcohol dependence with intoxication, uncomplicated Resolution Date/Time: 12/30/19 @ 11:32 (2) Suicidal ideation Status: Resolved Resolution Date/Time: 12/30/19 @ 11:32 (3) Depression Status: Chronic (4) Essential tremor Status: Chronic Clinical Quality Measures DVT/VTE Risk/Contraindication: Risk Factor Score Per Nursin RFS Level Per Nursing on Admit: 4+=Very High JD BERNABE MD Dec 30, 2019 11:32
[2019-12-30 12:00] VITALS: BP 132/72
--- NOTE | 2019-12-30 12:07 | Physical Therapy Evaluation ---
PT Evaluation-General Medical Diagnosis Admission Date Dec 28, 2019 at 20:08 Medical Diagnosis: Suicidal, ETOH abuse Onset Date: Dec 28, 2019 Therapy Diagnosis Therapy Diagnosis: Deconditioning Precautions Precautions/Isolations: Fall Prevention, Standard Precautions, Suicide Weight Bear Status Right Lower Extremity: Right Weight Bearing/Tolerated Left Lower Extremity: Left Weight Bearing/Tolerated Referral Physician: April Reason for Referral: Evaluation/Treatment Medical History Pertinent Medical History: Alcoholism, Dementia Current History Patient presents to ER with suicidal ideation, stating that he woke up and wanted to . Reviewed History: Yes Social History Home: Single Level Current Living Status: Spouse ( but states does not really live with him anymore but she is his DPOA) PT Steps Into Home: 0 PT Steps Inside Home: 0 Prior Prior Level of Function SCALE: Activities may be completed with or without assistive devices. 7-Qrnmwtheer-oybdfec completes the activity by him/herself with no assistance from a helper. 5-Set-up or Clean-up Assistance-helper sets up or cleans up; patient completes activity. [place] assists only prior to or following the activity. 4-Supervision or Touching Assistance-helper provides verbal cues and/or touching/steadying and/or contact guard assistance as patient completes activity. Assistance may be provided throughout the activity or intermittently. 3-Partial/Moderate Assistance-helper does LESS THAN HALF the effort. [place] lifts, holds or supports trunk or limbs, but provides less than half the effort. 2-Substantial/Maximal Assistance-helper does MORE THAN HALF the effort. [place] lifts or holds trunk or limbs and provides more than half the effort. 8-Tthbghmil-ybmfqc does ALL the effort. Patient does none of the effort to complete the activity. Or, the assistance of 2 or more helpers is required for the patient to complete the activity. If activity was not attempted, code reason: 7-Patient Refused. 9-Not Applicable-not attempted and the patient did not perform the activity before the current illness, exacerbation or injury. 10-Not Attempted due to Environmental Limitations-(lack of equipment, weather restraints, etc.). 88-Not Attempted due to Medical Conditions or Safety Concerns. Bed Mobility: 6 Transfers (B,C,W/C): 6 Gait: 6 Indoor Mobility (Ambulation): Independent Stairs: Independent Prior Devices Use: Walker PT Evaluation-Current Subjective Patient is agreeable to therapy at this time and reports no pain. Pain Numeric Pain Scale: 0-No Pain Objective Patient Orientation: Person, Place Attachments: IV ROM/Strength ROM Lower Extremities WNL BLE Strength Lower Extremities 4+/5 gross BLE Integumentary/Posture Integumentary See nursing notes. Bowel Incontinence: No Bladder Incontinence: No Neuromuscular (Tone, Coordination, Reflexes) grossly intact Sensory Vision: Wears Glasses Hearing: Functional Transfers Roll Left to Right (QC): 6 Sit to Lying (QC): 6 Lying to Sitting/Side of Bed(Q: 6 Sit to Stand (QC): 6 Chair/Krd-op-Yccvu Xfer(QC): 6 Toilet Transfer: 6 IND toileting hygiene Gait Does the Patient Walk?: Yes Mode of Locomotion: Walk Anticipated Mode of Locomotion: Walk Walk 10 feet (QC): 6 Walk 50 ft with 2 Turns(QC): 6 Walk 150 ft (QC): 6 Distance: 400' Gait Assistive Device: FWW Comments/Gait Description Patient is steady during ambulation. Balance Sitting Static: Normal Sitting Dynamic: Normal Standing Static: Normal Standing Dynamic: Normal Assessment/Needs Patient is steady during ambulation and tolerates ambulation well. Patient does not require skilled services at this time due to high functioning level. Rehab Potential: Good PT Plan Treatment/Plan Treatment Plan: Discontinue PT Treatment Duration: Dec 30, 2019 Frequency: 1 time per week Estimated Hrs Per Day: .25 hour per day Patient and/or Family Agrees t: Yes Time/GCodes Time In: 1055 Time Out: 1109 Total Billed Treatment Time: 14 Total Billed Treatment 1 visit EVL 14 GÓMEZ MAIER PT Dec 30, 2019 12:07
--- NOTE | 2019-12-30 13:27 | NUR ---
Met with pt to discuss treatment options. Currently due to his history of completing multiple alcohol treatment programs he doesn't want to admit to another treatment program at this time. He is wanting to return to [facility] but will not be returning to [place] [facility] [place] but rather he will have a room inside the Assisted Living facility so will have staff available to assist and he won't be alone which is when he is most vulnerable to depression and anxiety symptoms. He states he will arrange for transportation from the hospital to [place] and will be meeting with his AA sponsors until his returns on Thursday. His Didi Pichardo was notified of plan and is in agreement and made the care arrangement with Mirella who is the Director of [facility].
--- NOTE | 2019-12-30 13:28 | Occupational Therapy Eval ---
OT Evaluation-General/PLF Medical Diagnosis Admission Date Dec 28, 2019 at 20:08 Medical Diagnosis: Suicidal, ETOH abuse Onset Date: Dec 28, 2019 Therapy Diagnosis Therapy Diagnosis: debility Precautions Precautions/Isolations: Fall Prevention, Standard Precautions, Suicide Safety Interventions: Bed Exit Alarm Referral Physician: April Medical History Pertinent Medical History: Alcoholism, Dementia Additional Medical History essential tremors Reviewed History: Yes Social History Home: Single Level Current Living Status: Spouse ( but states does not really live with him anymore but she is his DPOA) Steps Into Home: 0 Steps Inside Home: 0 ADL-Prior Level of Function SCALE: Activities may be completed with or without assistive devices. 2-Yxsdtqbswx-iwxypif completes the activity by him/herself with no assistance from a helper. 5-Set-up or Clean-up Assistance-helper sets up or cleans up; patient completes activity. [place] assists only prior to or following the activity. 4-Supervision or Touching Assistance-helper provides verbal cues and/or touching/steadying and/or contact guard assistance as patient completes activity. Assistance may be provided throughout the activity or intermittently. 3-Partial/Moderate Assistance-helper does LESS THAN HALF the effort. [place] lifts, holds or supports trunk or limbs, but provides less than half the effort. 2-Substantial/Maximal Assistance-helper does MORE THAN HALF the effort. [place] lifts or holds trunk or limbs and provides more than half the effort. 3-Ytsqastls-jtlmyz does ALL the effort. Patient does none of the effort to complete the activity. Or, the assistance of 2 or more helpers is required for the patient to complete the activity. If activity was not attempted, code reason: 7-Patient Refused. 9-Not Applicable-not attempted and the patient did not perform the activity before the current illness, exacerbation or injury. 10-Not Attempted due to Environmental Limitations-(lack of equipment, weather restraints, etc.). 88-Not Attempted due to Medical Conditions or Safety Concerns. ADL PLOF Comments Pt reports being independent prior to admission. Used FWW or cane for mobility. Self Care: Independent DME/Equipment: Grab Bars (by toilet), Tub/Shower Drive Self: Yes OT Current Status Subjective Pt sitting in chair, agrees to therapy. Pt reports pain in knees. Mental Status/Objective Patient Orientation: Person, Place, Situation Current Glasses/Contacts: Yes Hearing Aids: No Dentures/Partials: No Hand Dominance: Right Upper Extremity ROM WFL Upper Extremity Coordination Decreased secondary to tremors. Pt states this is baseline Upper Extremity Strength grossly WFL ADL-Treatment ADL-Current Pt participated in UE assessment while seated. Doff/don socks independently. Sit to stand with modified independence. Gait to restroom without LOB. Pt stood at toilet to urinate without assist. Washed hands at sink independently. Pt has already showered this morning. Nurse aide states pt completed task independently. Pt sitting in chair with needs met and telesitter in room after session. Eating (QC): 6 Shower/Bathe Self (QC): 6 (per nurse aide report) On/Off Footwear (QC): 6 Toileting Hygiene (QC): 6 Education OT Patient Education: Rehab process Teaching Recipient: Patient Teaching Methods: Discussion Response to Teaching: Verbalize Understanding OT Education/Plan Problem List/Assessment Assessment: No Skilled OT Needs ID'd Pt admitted to hospital with suicidal ideations/ ETOH abuse. Pt demonstrates good strength. Performed transfers in room with modified independence. Pt demonstrates ability to perform dressing tasks. Per nurse aide, pt showered without assist this morning. No skilled OT intervention indicated at this time. D/c OT at this time. Discharge Recommendations Plan/Recommendations: Discontinue OT Treatment Plan/Plan of Care Treatment,Training & Education: No Plan of Care: OTHER (not skilled OT intervention indicated) Treatment Duration: Dec 30, 2019 Frequency: 1 time per week (eval only) Estimated Hrs Per Day: Other (eval only) Rehab Potential: Good Time/GCodes Start Time: 11:19 Stop Time: 11:45 Total Time Billed (hr/min): 26 Billed Treatment Time 1 visit, EVL(15minutes), ADL(11minutes) PETR VILLAGOMEZ OT Dec 30, 2019 13:28
[2019-12-30 16:28] VITALS: BP 154/80
[2019-12-30] MEDS ORDERED: ACETAMINOPHEN 500 MG TAB (TYLENOL) PO PRN (16:45)
[2019-12-30] MEDS ORDERED: IBUPROFEN 600 MG (MOTRIN) TAB PO PRN (16:45)
[2019-12-30] MEDS ORDERED: ACETAMINOPHEN 325 MG TABLET PO PRN (17:15)
[2019-12-30 20:12] VITALS: BP 142/74
[2019-12-30] MEDS: toPIRamate 25 MG (TOPAMAX) TAB PO SCH (21:46)
[2019-12-30] MEDS: oxyCODONE/APAP 5/325MG (PERCOCET 5) TABLET PO PRN (21:48)
[2019-12-31 00:10] VITALS: BP 156/79
[2019-12-31 04:30] VITALS: BP 120/71
[2019-12-31 04:51] LABS: BASOPHILS % (AUTO) 0 % (0-10); EOSINOPHILS # (AUTO) 0.3 10^3/uL (0.0-0.3); EOSINOPHILS % (AUTO) 8 % (0-10); HEMATOCRIT 41 % (40-54); HEMOGLOBIN 13.7 G/DL (13.3-17.7); LYMPHOCYTES # (AUTO) 1.1 X 10^3 (1.0-4.0); LYMPHOCYTES % (AUTO) 30 % (12-44); MEAN CORPUSCULAR HEMOGLOBIN 34 PG (25-34); MEAN CORPUSCULAR HGB CONC 33 G/DL (32-36); MEAN CORPUSCULAR VOLUME 103 FL (80-99); MEAN PLATELET VOLUME 10.4 FL (7.4-10.4); MONOCYTES # (AUTO) 0.4 X 10^3 (0.0-1.0); MONOCYTES % (AUTO) 11 % (0-12); NEUTROPHILS # (AUTO) 1.9 X 10^3 (1.8-7.8); NEUTROPHILS % (AUTO) 51 % (42-75); PLATELET COUNT 56 10^3/uL (130-400); RED CELL DISTRIBUTION WIDTH 13.6 % (10.0-14.5); WHITE BLOOD COUNT 3.7 10^3/uL (4.3-11.0)
[2019-12-31 05:13] LABS: BUN/CREATININE RATIO 15; CALCIUM 8.1 MG/DL (8.5-10.1); CARBON DIOXIDE 18 MMOL/L (21-32); CHLORIDE 111 MMOL/L (98-107); GFR ESTIMATED > 60; GLUCOSE 85 MG/DL (70-105); MAGNESIUM 2.2 MG/DL (1.6-2.4); PHOSPHORUS 2.5 MG/DL (2.3-4.7); POTASSIUM 3.9 MMOL/L (3.6-5.0); SODIUM 138 MMOL/L (135-145)
[2019-12-31] MEDS: PANTOPRAZOLE 40 MG (PROTONIX) VIAL IV SCH (08:22)
[2019-12-31] MEDS: SERTRALINE 100 MG (ZOLOFT) TAB PO SCH (08:23)
[2019-12-31] MEDS: ENOXAPARIN 40 MG/0.4 ML (LOVENOX) SYR SC SCH (08:23)
[2019-12-31] MEDS: PROPRANOLOL 20 MG (INDERAL) TABLET PO SCH (08:24)
[2019-12-31] MEDS: oxyCODONE/APAP 5/325MG (PERCOCET 5) TABLET PO PRN (08:37)
[2019-12-31 08:47] VITALS: BP 105/76
--- NOTE | 2019-12-31 10:31 | Discharge Summary ---
Discharge Summary Hospital Course Problems/Dx: (1) Alcohol dependence with acute alcoholic intoxication Status: Resolved Qualifiers: Qualified Codes: F10.220 - Alcohol dependence with intoxication, uncomplicated (2) Suicidal ideation Status: Resolved (3) Depression Status: Chronic (4) Essential tremor Status: Chronic Hospital Course Date of Admission: Dec 28, 2019 at 20:08 Admission Diagnosis : Alcohol dependence with acute alcohol intoxication Family Physician/Provider: Inez Mcnair Physician Date of Discharge: 12/31/19 Discharge Diagnosis: Alcohol dependence with acute alcohol intoxication Hospital Course: Tavo Pichardo is a 59-year-old male with past medical history of alcohol dependence who presented with acute alcohol intoxication and suicidal ideation. Once through the acute alcohol intoxication, he did not have any significant withdrawals. He also did not have any ongoing suicidal ideation or intent. He never had a plan. He was screened by [facility] but not deemed a candidate for inpatient psychiatric hospitalization. He was discharged to [facility] and plans to participate in AA. He should follow-up with his primary care physician in about a week. Labs and Pending Lab Test: Laboratory Tests 12/31/19 04:28: White Blood Count 3.7L, Red Blood Count 3.98L, Hemoglobin 13.7, Hematocrit 41, Mean Corpuscular Volume 103H, Mean Corpuscular Hemoglobin 34, Mean Corpuscular Hemoglobin Concent 33, Red Cell Distribution Width 13.6, Platelet Count 56L, Mean Platelet Volume 10.4, Neutrophils (%) (Auto) 51, Lymphocytes (%) (Auto) 30, Monocytes (%) (Auto) 11, Eosinophils (%) (Auto) 8, Basophils (%) (Auto) 0, Neutrophils # (Auto) 1.9, Lymphocytes # (Auto) 1.1, Monocytes # (Auto) 0.4, Eosinophils # (Auto) 0.3, Basophils # (Auto) 0.0, Sodium Level 138, Potassium Level 3.9, Chloride Level 111H, Carbon Dioxide Level 18L, Anion Gap 9, Blood Urea Nitrogen 12, Creatinine 0.80, Estimat Glomerular Filtration Rate > 60, BUN/Creatinine Ratio 15, Glucose Level 85, Calcium Level 8.1L, Phosphorus Level 2.5, Magnesium Level 2.2 Microbiology 12/28/19 MRSA Screen - Final, Complete MRSA not isolated Home Meds Active Reported Sertraline HCl 100 Mg Tablet 100 Mg PO DAILY Naltrexone HCl 50 Mg Tablet 50 Mg PO HS Chlordiazepoxide HCl 25 Mg Capsule 25 Mg PO TID Potassium Chloride 10 Meq Tab.er.prt 20 Meq PO DAILY take 2 of the 10 meq tabs Topiramate 25 Mg Tablet 75 Mg PO HS takes 3 tabs of 25mg Propranolol HCl 10 Mg Tablet 10 Mg PO QID Assessment/Pt Instructions Take medications as prescribed. Avoid alcohol. Follow up with her primary care physician. Discharge Planning: <30 minutes discharge planning Discharge Instructions Discharge Diet: No Restrictions Activity as Tolerated: Yes Pneumonia Vaccine Order Indica: Yes Discharge Physical Examination Vital Signs Vital Signs Date Time Temp Pulse Resp B/P (MAP) Pulse Ox O2 Delivery O2 Flow Rate FiO2 12/31/19 08:47 36.5 102 20 105/76 (86) 92 Room Air General Appearance: No Apparent Distress, Obese Respiratory: Lungs Clear, Normal Breath Sounds, No Respiratory Distress Cardiovascular: Regular Rate, Rhythm, No Murmur Gastrointestinal: Normal Bowel Sounds, Non Tender, Soft Extremity: Normal Inspection, Non Tender, Pedal Edema Skin: Normal Color, Warm/Dry Neurologic/Psychiatric: Alert, Oriented x3, No Motor/Sensory Deficits, Normal Mood/Affect Allergies: Coded Allergies: No Known Drug Allergies (Unverified , 12/28/19) Discharge Summary Date of Admission Dec 28, 2019 at 20:08 Date of Discharge Discharge Date: Dec 31, 2019 Discharge Time: 10:31 Admission Diagnosis Suicidal ideation Discharge Diagnosis Alcohol dependence with acute intoxication, Suicidal ideation (1) Alcohol dependence with acute alcoholic intoxication Status: Resolved Qualifiers: Qualified Codes: F10.220 - Alcohol dependence with intoxication, u ncomplicated (2) Suicidal ideation Status: Resolved (3) Depression Status: Chronic (4) Essential tremor Status: Chronic Clinical Quality Measures DVT/VTE Risk/Contraindication: Risk Factor Score Per Nursin RFS Level Per Nursing on Admit: 4+=Very High JD BERNABE MD Dec 31, 2019 10:28
[2019-12-31 11:29] VITALS: BP 105/76
== END 2019-12-31 11:30 | DRG 897 ==
LOC: ER 15:14 → ICU 20:08 → 4TH 12-29 21:44
PROVIDERS: ADMIT Internal Medicine; ATTEND Internal Medicine
DX: F10.229 Alcohol dependence with intoxication, unspecified (principal); F10.27 Alcohol dependence with alcohol-induced persisting dementia; R45.851 Suicidal ideations; F32.9 Major depressive disorder, single episode, unspecified; G25.0 Essential tremor; E66.9 Obesity, unspecified; Y90.8 Blood alcohol level of 240 mg/100 ml or more; Z68.36 Body mass index [BMI] 36.0-36.9, adult; Z23 Encounter for immunization
CPT/HCPCS: 36415; 71045; 80048; 80053; 80306; 80320; 80329; 81000; 83735; 84100; 85025; 87081; 93005; 93041; 96361; 96365; 96366; 96375

== ENCOUNTER 2020-04-16 22:11 | Observation (INO) | payer BC ==
[~2020-04-16] VITALS: Ht 180 cm; Wt 105.0 kg
[~2020-04-16 22:11] MED LIST: CHLO25CA10 PO; NALT50TA PO; POTA10TA36 PO; PROP10TA8 PO; SERT100T8 PO; TOPI25TA10 PO
[2020-04-16] MEDS ORDERED: LACTATED RINGERS 1,000 ML IV ONE (22:24)
--- NOTE | 2020-04-16 22:26 | ED Fall/Injury ---
General Chief Complaint: Trauma-Non Activation Stated Complaint: FALL,ETOH Nursing Triage Note: PT TO rm 7 VIA [facility] AFTER FALLING ON FLOOR 2 HRS QUALITY MANAGEMENT COORDINATOR, REPORTS THEY DIDNT'T HIT ANYTHING. PT REPORTS THEY DRANK 1 PINT OF VODKA THIS EVENING. PT REPORTS HE WANTED TO COME IN BECAUSE WHEN HE FELL HE COULDN'T GET UP. PT DENIES HITTING HEAD OR LOC Source: patient, EMS Exam Limitations: no limitations History of Present Illness Date Seen by Provider: Apr 16, 2020 Time Seen by Provider: 22:14 Initial Comments Patient presents ER by private conveyance saying that he had a fall about 2 hours prior to arrival in the middle of his floor and denies striking anything or having any pain now. He says that he was just not able to stand back up. So he called EMS. He has a history of alcoholism drinking vodka but says he is not drinking more than usual. He denies use recreational drugs or smoking. He has no shortness of breath chest pain nausea fever chills cough or recent travel. He has a history of coming to the ER after a fall related to his drinking that usually happens while his is out of town in [place] visiting family. Allergies and Home Medications Allergies Coded Allergies: No Known Drug Allergies (Unverified , 12/28/19) Home Medications Chlordiazepoxide HCl 25 Mg Capsule, 25 MG PO TID, (Reported) Naltrexone HCl 50 Mg Tablet, 50 MG PO HS, (Reported) Potassium Chloride 10 Meq Tab.er.prt, 20 MEQ PO DAILY, (Reported) take 2 of the 10 meq tabs Propranolol HCl 10 Mg Tablet, 10 MG PO QID, (Reported) Sertraline HCl 100 Mg Tablet, 100 MG PO DAILY, (Reported) Topiramate 25 Mg Tablet, 75 MG PO HS, (Reported) takes 3 tabs of 25mg Patient Home Medication List Home Medication List Reviewed: Yes Review of Systems Review of Systems Constitutional: No chills, No diaphoresis Eyes: Denies Blindness, Denies Blurred Vision Ears, Nose, Mouth, Throat: denies ear pain, denies ear discharge Respiratory: No cough, No short of breath Cardiovascular: No chest pain, No edema Gastrointestinal: No abdominal pain, No nausea, No vomiting Genitourinary: No decreased output, No discharge Musculoskeletal: No back pain, No joint pain Skin: No pruritus, No rash Psychiatric/Neurological: Denies Headache, Denies Numbness All Other Systems Reviewed Negative Unless Noted: Yes Past Jxwxyqu-Ekhkfc-Ewwgpo Hx Patient Social History Alcohol Use: Regular Use Number of Drinks Today: FF Alcohol Beverage of Choice: Vodka Recreational Drug Use: No Smoking Status: Never a Smoker Recent Foreign Travel: No Contact w/Someone Who Travel: No Recent Infectious Disease Expo: No Recent Hopitalizations: No Physical Abuse: No Sexual Abuse: No Mistreated: No Fear: No Immunizations Up To Date Tetanus Booster (TDap): Unknown PED Vaccines UTD: Yes Seasonal Allergies Seasonal Allergies: No Past Medical History Surgeries: Yes (HEMRRHOID) Respiratory: No Cardiac: No Neurological: Yes (TREMORS) Dementia Genitourinary: No Gastrointestinal: No Musculoskeletal: No Endocrine: No HEENT: No Cancer: No Psychosocial: Yes (ETOH ABUSE HX) Integumentary: No Blood Disorders: No Adverse Reaction/Blood Tranf: No Family Medical History FH: breast cancer 19 MOTHER Hypertension 19 MOTHER Physical Exam Vital Signs Vital Signs - First Documented 04/16/20 22:16 Temp 37.1 Pulse 126 Resp 17 B/P (MAP) 116/75 (89) Pulse Ox 96 O2 Delivery Room Air Capillary Refill : Less Than 3 Seconds Height, Weight, BMI Height: '" Weight: lbs. oz. kg; 32.00 BMI Method: General Appearance: WD/WN, mild distress HEENT: PERRL/EOMI, normal ENT inspection, TMs normal, pharynx normal, other (atraumatic head without Joy sign or raccoon eyes) Neck: full range of motion, supple, normal inspection Cardiovascular: normal peripheral pulses, regular rate, rhythm, no edema Respiratory: lungs clear, normal breath sounds, no respiratory distress, no accessory muscle use Peripheral Pulses: 2+ Radial Pulses (R), 2+ Radial Pulses (L) Gastrointestinal: normal bowel sounds, non tender, soft Extremities: normal range of motion, non-tender, normal capillary refill Neurologic/Psychiatric: alert, normal mood/affect, other (oriented to person place and situation but not time which is consistent with his baseline of dementia) Skin: normal color, warm/dry Malina Coma Score Best Eye Response: (4) Open Spontaneously Best Verbal Response: (5) Oriented Best Motor Response: (6) Obeys Commands Malina Total: 15 Progress/Results/Core Measures Results/Orders Lab Results Laboratory Tests Test 04/16/20 22:22 04/16/20 23:45 Range/Units White Blood Count 6.2 4.3-11.0 10^3/uL Red Blood Count 3.55 L 4.35-5.85 10^6/uL Hemoglobin 12.6 L 13.3-17.7 G/DL Hematocrit 35 L 40-54 % Mean Corpuscular Volume 99 80-99 FL Mean Corpuscular Hemoglobin 36 H 25-34 PG Mean Corpuscular Hemoglobin Concent 36 32-36 G/DL Red Cell Distribution Width 13.5 10.0-14.5 % Platelet Count 89 L 130-400 10^3/uL Mean Platelet Volume 9.7 7.4-10.4 FL Neutrophils (%) (Auto) 52 42-75 % Lymphocytes (%) (Auto) 33 12-44 % Monocytes (%) (Auto) 13 H 0-12 % Eosinophils (%) (Auto) 2 0-10 % Basophils (%) (Auto) 0 0-10 % Neutrophils # (Auto) 3.2 1.8-7.8 X 10^3 Lymphocytes # (Auto) 2.0 1.0-4.0 X 10^3 Monocytes # (Auto) 0.8 0.0-1.0 X 10^3 Eosinophils # (Auto) 0.1 0.0-0.3 10^3/uL Basophils # (Auto) 0.0 0.0-0.1 10^3/uL Sodium Level 140 135-145 MMOL/L Potassium Level 2.7 L 3.6-5.0 MMOL/L Chloride Level 104 98-107 MMOL/L Carbon Dioxide Level 17 L 21-32 MMOL/L Anion Gap 19 H 5-14 MMOL/L Blood Urea Nitrogen 18 7-18 MG/DL Creatinine 1.46 H 0.60-1.30 MG/DL Estimat Glomerular Filtration Rate 49 BUN/Creatinine Ratio 12 Glucose Level 104 70-105 MG/DL Calcium Level 8.6 8.5-10.1 MG/DL Corrected Calcium 9.2 8.5-10.1 MG/DL Total Bilirubin 0.8 0.1-1.0 MG/DL Aspartate Amino Transf (AST/SGOT) 47 H 5-34 U/L Alanine Aminotransferase (ALT/SGPT) 26 0-55 U/L Alkaline Phosphatase 99 40-136 U/L Total Creatine Kinase 77 30-200 U/L Troponin I < 0.028 <0.028 NG/ML Total Protein 7.1 6.4-8.2 GM/DL Albumin 3.3 3.2-4.5 GM/DL Serum Alcohol 187 H <10 MG/DL Urine Color DARK YELLOW Urine Clarity CLOUDY H Urine pH 7.0 5-9 Urine Specific Benedict 1.015 L 1.016-1.022 Urine Protein TRACE H NEGATIVE Urine Glucose (UA) NEGATIVE NEGATIVE Urine Ketones NEGATIVE NEGATIVE Urine Nitrite NEGATIVE NEGATIVE Urine Bilirubin NEGATIVE NEGATIVE Urine Urobilinogen 0.2 < = 1.0 MG/DL Urine Leukocyte Esterase 3+ H NEGATIVE Urine RBC (Auto) 1+ H NEGATIVE Urine RBC 5-10 H /HPF Urine WBC TNTC H /HPF Urine Squamous Epithelial Cells 2-5 /HPF Urine Crystals PRESENT H /LPF Urine Amorphous Sediment FEW MESHA URATES H /LPF Urine Bacteria TRACE /HPF Urine Casts NONE /LPF Urine Mucus SMALL H /LPF Urine Culture Indicated YES Urine Opiates Screen NEGATIVE NEGATIVE Urine Oxycodone Screen NEGATIVE NEGATIVE Urine Methadone Screen NEGATIVE NEGATIVE Urine Propoxyphene Screen NEGATIVE NEGATIVE Urine Barbiturates Screen NEGATIVE NEGATIVE Ur Tricyclic Antidepressants Screen NEGATIVE NEGATIVE Urine Phencyclidine Screen NEGATIVE NEGATIVE Urine Amphetamines Screen NEGATIVE NEGATIVE Urine Methamphetamines Screen NEGATIVE NEGATIVE Urine Benzodiazepines Screen NEGATIVE NEGATIVE Urine Cocaine Screen NEGATIVE NEGATIVE Urine Cannabinoids Screen NEGATIVE NEGATIVE My Orders Orders - DARSHAN CEJA Ct Head/Cervical Spine Wo (04/16/20 22:22) Chest 1 View, Ap/Pa Only (04/16/20 22:22) Ed Iv/Invasive Line Start (04/16/20 22:22) Thiamine Tablet (Vitamin B-1 Tablet) (04/16/20 22:30) Folic Acid Tablet (Folic Acid Tablet) (04/16/20 22:30) Cbc With Automated Diff (04/16/20 22:22) Comprehensive Metabolic Panel (04/16/20 22:22) Creatine Kinase (04/16/20 22:22) Troponin I (04/16/20 22:22) Ua Culture If Indicated (04/16/20 22:22) Alcohol (04/16/20 22:22) Drug Screen Stat (Urine) (04/16/20 22:22) Ed Iv/Invasive Line Start (04/16/20 22:24) Lactated Ringers (Lr 1000 Ml Iv Solution (04/16/20 22:24) Acetaminophen Tablet (Tylenol Tablet) (04/17/20 00:15) Urine Culture (04/16/20 23:45) Potassium Chloride (Tablet) (K Dur Table (04/17/20 00:30) Ceftriaxone For Iv Use (Rocephin For I (04/17/20 00:30) Medications Given in ED Current Medications Medications Dose Ordered Sig/Una Route Start Time Stop Time Status Last Admin Dose Admin Acetaminophen 1,000 mg ONCE ONCE PO 04/17/20 00:15 04/17/20 00:16 DC 04/17/20 00:23 1,000 MG Ceftriaxone Sodium 1000 mg/ Sterile Water 10 ml @ 200 mls/hr ONCE ONCE IV 04/17/20 00:30 04/17/20 00:32 DC 04/17/20 00:35 200 MLS/HR Folic Acid 1 mg ONCE ONCE PO 04/16/20 22:30 04/16/20 22:31 DC 04/16/20 22:47 1 MG Lactated Ringer's 1,000 ml @ 0 mls/hr Q0M ONCE IV 04/16/20 22:24 04/16/20 22:25 DC 04/16/20 22:47 0 MLS/HR Potassium Chloride 40 meq ONCE ONCE PO 04/17/20 00:30 04/17/20 00:31 DC 04/17/20 00:36 40 MEQ Thiamine HCl 100 mg ONCE ONCE PO 04/16/20 22:30 04/16/20 22:31 DC 04/16/20 22:55 100 MG Vital Signs/I&O 04/16/20 22:16 Temp 37.1 Pulse 126 Resp 17 B/P (MAP) 116/75 (89) Pulse Ox 96 O2 Delivery Room Air Blood Pressure Mean: 89 Initial ECG Impression Date: Apr 16, 2020 Initial ECG Impression Time: 22:40 Initial ECG Rate: 119 Initial ECG Rhythm: S.Tach Initial ECG Intervals: QT (483) Initial ECG Impression: Normal, Nonspecific Changes Comment Sinus tachycardia without clinically relevant ST changes. Diagnostic Imaging Diagonstic Imaging: CT Plain Films/CT/US/NM/MRI: c-spine, head Comments No intracranial hemorrhage, mass effect, midline shift or tumor. No calvarial fracture. No C-spine fracture or malalignment. Reviewed: Reviewed [place] Study, Reviewed by Me Diagonstic Imaging: Xray Plain Films/CT/US/NM/MRI: chest Comments Unremarkable chest x-ray 1 view Reviewed: Reviewed by Me Departure Communication (Admissions) Time/Spoke to Admitting Phy: 00:35 Discussed the case with Dr. Steinberg and she is familiar with the patient and would like him put in the ICU overnight on observation. Impression Primary Impression: UTI (urinary tract infection) Qualified Codes: N30.01 - Acute cystitis with hematuria Additional Impressions: Dehydration Physical debility Hypokalemia Disposition: ADMITTED INPATIENT Condition: Stable Admissions Decision to Admit Reason: Admit from ER (General) Decision to Admit/Date: Apr 17, 2020 Time/Decision to Admit Time: 00:33 Departure-Patient Inst. Referrals: NO,LOCAL PHYSICIAN (PCP/Family) Primary Care Physician DARSHAN CEJA Apr 16, 2020 22:26
[2020-04-16 22:30] LABS: BASOPHILS % (AUTO) 0 % (0-10); EOSINOPHILS # (AUTO) 0.1 10^3/uL (0.0-0.3); EOSINOPHILS % (AUTO) 2 % (0-10); HEMATOCRIT 35 % (40-54); HEMOGLOBIN 12.6 G/DL (13.3-17.7); LYMPHOCYTES % (AUTO) 33 % (12-44); MEAN CORPUSCULAR HEMOGLOBIN 36 PG (25-34); MEAN CORPUSCULAR HGB CONC 36 G/DL (32-36); MEAN CORPUSCULAR VOLUME 99 FL (80-99); MEAN PLATELET VOLUME 9.7 FL (7.4-10.4); MONOCYTES # (AUTO) 0.8 X 10^3 (0.0-1.0); MONOCYTES % (AUTO) 13 % (0-12); NEUTROPHILS # (AUTO) 3.2 X 10^3 (1.8-7.8); NEUTROPHILS % (AUTO) 52 % (42-75); PLATELET COUNT 89 10^3/uL (130-400); RED CELL DISTRIBUTION WIDTH 13.5 % (10.0-14.5); WHITE BLOOD COUNT 6.2 10^3/uL (4.3-11.0)
[2020-04-16] MEDS ORDERED: THIAMINE 100 MG (VITAMIN B-1) TAB PO ONE (22:30)
[2020-04-16] MEDS ORDERED: FOLIC ACID 1 MG TAB PO ONE (22:30)
[2020-04-16 22:36] LABS: ALBUMIN 3.3 GM/DL (3.2-4.5); CHLORIDE 104 MMOL/L (98-107); POTASSIUM 2.7 MMOL/L (3.6-5.0); SODIUM 140 MMOL/L (135-145)
[2020-04-16 22:38] LABS: CALCIUM 8.6 MG/DL (8.5-10.1)
[2020-04-16 22:39] LABS: GLUCOSE 104 MG/DL (70-105); TOTAL PROTEIN 7.1 GM/DL (6.4-8.2)
[2020-04-16 22:40] LABS: CARBON DIOXIDE 17 MMOL/L (21-32)
[2020-04-16 22:41] LABS: BILIRUBIN,TOTAL 0.8 MG/DL (0.1-1.0)
[2020-04-16 22:42] LABS: ALKALINE PHOSPHATASE 99 U/L (40-136)
[2020-04-16 22:43] LABS: CREATININE SERUM 1.46 MG/DL (0.60-1.30); GFR ESTIMATED 49
[2020-04-16 22:44] LABS: BUN/CREATININE RATIO 12
[2020-04-16 22:45] LABS: ALANINE AMINOTRANSFERASE 26 U/L (0-55)
[2020-04-16 22:46] LABS: CREATINE KINASE 77 U/L (30-200)
[2020-04-17] VITALS (21 sets, daily range): BP systolic 102–150; BP diastolic 73–104
[2020-04-17 00:05] LABS: CLARITY,URINE CLOUDY; COLOR,URINE DARK YELLOW
[2020-04-17 00:06] LABS: GLUCOSE, URINE (UA) NEGATIVE (NEGATIVE); KETONES,URINE NEGATIVE (NEGATIVE); NITRITE,URINE NEGATIVE (NEGATIVE); PROTEIN,URINE TRACE (NEGATIVE)
[2020-04-17 00:07] LABS: BACTERIA,URINE TRACE /HPF; BILIRUBIN,URINE NEGATIVE (NEGATIVE); LEUKOCYTE ESTERASE ,URINE 3+ (NEGATIVE); WBC,URINE TNTC /HPF
[2020-04-17 00:08] LABS: AMORPHOUS SEDIMENT,UR FEW AMOR URATES /LPF
[2020-04-17 00:11] LABS: AMPHETAMINE SCREEN, URINE NEGATIVE (NEGATIVE); BARBITURATE SCREEN URINE NEGATIVE (NEGATIVE); BENZODIAZEPINES SCREEN URINE NEGATIVE (NEGATIVE); CANNABINOID SCREEN, URINE NEGATIVE (NEGATIVE); COCAINE SCREEN URINE NEGATIVE (NEGATIVE); METHADONE STAT NEGATIVE (NEGATIVE); METHAMPHETAMINE SCREEN URINE S NEGATIVE (NEGATIVE); OPIATE SCREEN URINE NEGATIVE (NEGATIVE); OXYCODONE STAT NEGATIVE (NEGATIVE); PROPOXYPHENE STAT NEGATIVE (NEGATIVE); TRICYCLIC ANTIDEPRESSANTS SCRE NEGATIVE (NEGATIVE)
[2020-04-17] MEDS ORDERED: ACETAMINOPHEN 500 MG TAB (TYLENOL) PO ONE (00:15)
[2020-04-17] MEDS ORDERED: cefTRIAXone FOR IV USE 1,000 MG in WATER (STERILE) FOR INJECTION 10 ML IV ONE (00:30)
[2020-04-17] MEDS ORDERED: KCL 20 MEQ TAB (K-DUR) PO ONE ×3 (00:30→07:45)
[2020-04-17] MEDS ORDERED: LACTATED RINGERS 1,000 ML IV ONE (01:38)
--- OUTSIDE RECORDS SUMMARY | 2020-04-17 01:39 | XMS REPORT | Continuity of Care Document ---
Demographics Preferred Language Unknown Marital Status Unknown Pentecostal Affiliation Unknown Race Unknown Ethnic Group Unknown Author Organization Unknown Address Unknown Phone Unavailable Allergies Active Description Code Type Severity Reaction Onset Reported/Identified Relationship to Patient Clinical Status Yes No Known Drug Allergies [id number] Drug Allergy Unknown N/A 12/28/2019 Medications There is no data. Problems Date Dx Coded Attending Type Code Diagnosis Diagnosed By 12/31/2019 MONTILLA DO, RAMSEY Ot E66.9 OBESITY, UNSPECIFIED 12/31/2019 MONTILLA DO, RAMSEY Ot F10.22 9 ALCOHOL DEPENDENCE WITH INTOXICATION, UN 12/31/2019 MONTILLA DO, RAMSEY Ot F10.27 ALCOHOL DEPENDENCE WITH ALCOHOL-INDUCED 12/31/2019 MONTILLA DO, RAMSEY Ot F32.9 MAJOR DEPRESSIVE DISORDER, SINGLE EPISOD 12/31/2019 MONTILLA DO, RAMSEY Ot G25.0 ESSENTIAL TREMOR 12/31/2019 MONTILLA DO, RAMSEY Ot R45.85 1 SUICIDAL IDEATIONS 12/31/2019 MONTILLA DO, RAMSEY Ot Y90.8 BLOOD ALCOHOL LEVEL OF 240 MG/100 ML OR 12/31/2019 MONTILLA DO, RAMSEY Ot Z23 ENCOUNTER FOR IMMUNIZATION 12/31/2019 MONTILLA DO, RAMSEY Ot Z68.36 BODY MASS INDEX (BMI) 36.0-36.9, ADULT 12/31/2019 MONTILLA DO, RAMSEY Ot E66.9 OBESITY, UNSPECIFIED 12/31/2019 MONTILAL DO, RAMSEY Ot F10.22 9 ALCOHOL DEPENDENCE WITH INTOXICATION, UN 12/31/2019 MONTILLA DO, RAMSEY Ot F10.27 ALCOHOL DEPENDENCE WITH ALCOHOL-INDUCED 12/31/2019 MONTILLA DO, RAMSEY Ot F32.9 MAJOR DEPRESSIVE DISORDER, SINGLE EPISOD 12/31/2019 MONTILLA DO, RAMSEY Ot G25.0 ESSENTIAL TREMOR 12/31/2019 MONTILLA DO, RAMSEY Ot R45.85 1 SUICIDAL IDEATIONS 12/31/2019 MONTILLA DO, RAMSEY Ot Y90.8 BLOOD ALCOHOL LEVEL OF 240 MG/100 ML OR 12/31/2019 MONTILLA DO, RAMSEY Ot Z23 ENCOUNTER FOR IMMUNIZATION 12/31/2019 MONTILLA DO, RAMSEY Ot Z68.36 BODY MASS INDEX (BMI) 36.0-36.9, ADULT Procedures There is no data. Results Test Result Range Complete blood count (CBC) with automate d white blood cell (WBC) differential - 12/28/19 15:25 Blood leukocytes automated count (number/volume) 6.5 10*3/uL 4.3-11.0 Blood erythrocytes automated count (number/volume) 4.35 10*6/uL 4.35-5.85 Venous blood hemoglobin measurement (mass/volume) 15.1 g/dL 13.3-17.7 Blood hematocrit (volume fraction) 44 % 40-54 Automated erythrocyte mean corpuscular volume 101 [foz_us] 80-99 Automated erythrocyte mean corpuscular h emoglobin (mass per erythrocyte) 35 pg 25-34 Automated erythrocyte mean corpuscular h emoglobin concentration measurement (mass/volume) 34 g/dL 32-36 Automated erythrocyte distribution width ratio 14. 0 % 10.0- 14.5 Automated blood platelet count (count/volume) 107 10*3/uL 130-400 Automated blood platelet mean volume measurement 9.8 [foz_us] 7.4-10.4 Automated blood neutrophils/100 leukocytes 49 % 42-75 Automated blood lymphocytes/100 leukocytes 37 % 12-44 Blood monocytes/100 leukocytes 11 % 0-12 Automated blood eosinophils/100 leukocytes 3 % 0-10 Automated blood basophils/100 leukocytes 0 % 0-10 Blood neutrophils automated count (number/volume) 3.2 10*3 1.8-7.8 Blood lymphocytes automated count (number/volume) 2.4 10*3 1.0-4.0 Blood monocytes automated count (number/volume) 0. 7 10*3 0.0-1.0 Automated eosinophil count 0.2 10*3/uL 0 .0-0.3 Automated blood basophil count (count/volume) 0.0 10*3/uL 0.0-0.1 Comprehensive metabolic panel - 12/28/19 15:25 Serum or plasma sodium measurement (moles/volume) 143 mmol/L 135-145 Serum or plasma potassium measurement (moles/volume) 3.5 mmol/L 3.6-5.0 Serum or plasma chloride measurement (moles/volume) 109 mmol/L 98-107 Carbon dioxide 20 mmol/L 21-32 Serum or plasma anion gap determination (moles/volume) 14 mmol/L 5-14 Serum or plasma urea nitrogen measurement (mass/volume ) 20 mg/dL 7-18 Serum or plasma creatinine measurement (mass/volume) 1.12 mg/dL 0.60-1.30 Serum or plasma urea nitrogen/creatinine mass ratio 18 NRG Serum or plasma creatinine measurement w ith calculation of estimated glomerular filtration rate > NRG Serum or plasma glucose measurement (mass/volume) 123 mg/dL 70-105 Serum or plasma calcium measurement (mass/volume) 9.8 mg/dL 8.5-10.1 Serum or plasma total bilirubin measurement (mass/volu me) 0.4 mg/dL 0.1-1.0 Serum or plasma alkaline phosphatase stephy surement (enzymatic activity/volume) 85 U/L 40-136 Serum or plasma aspartate aminotransfera se measurement (enzymatic activity/volume) 64 U/L 5-34 Serum or plasma alanine aminotransferase measurement (enzymatic activity/volume) 55 U/L 0-55 Serum or plasma protein measurement (mass/volume) 7.0 g/dL 6.4-8.2 Serum or plasma albumin measurement (mass/volume) 3.5 g/dL 3.2-4.5 CALCIUM CORRECTED 10.2 mg/dL 8.5-10.1 Serum or plasma ethanol measurement (mas s/volume) - 12/28/19 15:25 Serum or plasma ethanol measurement (mass/volume) 274 mg/dL <10 Serum or plasma salicylates measurement (mass/volume) - 12/28/19 15:25 Serum or plasma salicylates measurement (mass/volume) < mg/dL 5.0-20.0 Serum or plasma acetaminophen measuremen t (mass/volume) - 12/28/19 15:25 Serum or plasma acetaminophen measurement (mass/volume ) < ug/mL 10-30 Serum or plasma ethanol measurement (mas s/volume) - 12/28/19 15:25 Serum or plasma ethanol measurement (mass/volume) 274 mg/dL <10 Complete urinalysis with reflex to cultu re - 12/28/19 16:01 Urine color determination YELLOW NRG Urine clarity determination CLEAR NR G Urine pH measurement by test strip 6.0 5-9 Specific gravity of urine by test strip 1.020 1.016-1.022 Urine protein assay by test strip, semi-quantitative 1+ NEGATIVE Urine glucose detection by automated test strip NE GATIVE NEGATIVE Erythrocytes detection in urine sediment by light micr oscopy 2+ NEGATIVE Urine ketones detection by automated test strip NE GATIVE NEGATIVE Urine nitrite detection by test strip NEGATIVE NEGATIVE Urine total bilirubin detection by test strip NEGA TIVE NEGATIVE Urine urobilinogen measurement by automated test strip (mass/volume) 1.0 mg/dL < = 1.0 Urine leukocyte esterase detection by dipstick NEG ATIVE NEGATIVE Automated urine sediment erythrocyte cou nt by microscopy (number/high power field) [HPF] NRG Automated urine sediment leukocyte count by microscopy (number/high power field) [HPF] NRG Bacteria detection in urine sediment by light microsco py TRACE NRG Crystals detection in urine sediment by light microsco py PRESENT NRG Casts detection in urine sediment by light microscopy NONE NRG Mucus detection in urine sediment by light microscopy MODERATE NRG Complete urinalysis with reflex to culture NO NRG Amorphous sediment detection in urine sediment by ligh t microscopy FEW MESHA URATES NRG Urine drug screening test - 12/28/19 16: 01 Urine phencyclidine detection by screening method NEGATIVE NEGATIVE Urine benzodiazepines detection by screening method POSITIVE NEGATIVE Urine cocaine detection NEGATIVE NEGATI VE Urine amphetamines detection by screening method N EGATIVE NEGATIVE Urine methamphetamine detection by screening method NEGATIVE NEGATIVE Urine cannabinoids detection by screening method N EGATIVE NEGATIVE Urine opiates detection by screening method NEGATI VE NEGATIVE Urine barbiturates detection NEGATIVE N EGATIVE Screening urine tricyclic antidepressants detection NEGATIVE NEGATIVE Urine methadone detection by screening method NEGA TIVE NEGATIVE Urine oxycodone detection NEGATIVE NEGA TIVE Urine propoxyphene detection NEGATIVE N EGATIVE Serum or plasma ethanol measurement (mas s/volume) - 12/28/19 19:14 Serum or plasma ethanol measurement (mass/volume) 199 mg/dL <10 Methicillin resistant Staphylococcus aur eus (MRSA) screening culture - 12/28/19 21:30 Methicillin resistant Staphylococcus aureus (MRSA) scr eening culture NEG NRG Complete blood count (CBC) with automate d white blood cell (WBC) differential - 12/29/19 03:35 Blood leukocytes automated count (number/volume) 4.3 10*3/uL 4.3-11.0 Blood erythrocytes automated count (number/volume) 3.81 10*6/uL 4.35-5.85 Venous blood hemoglobin measurement (mass/volume) 13.4 g/dL 13.3-17.7 Blood hematocrit (volume fraction) 39 % 40-54 Automated erythrocyte mean corpuscular volume 103 [foz_us] 80-99 Automated erythrocyte mean corpuscular h emoglobin (mass per erythrocyte) 35 pg 25-34 Automated erythrocyte mean corpuscular h emoglobin concentration measurement (mass/volume) 34 g/dL 32-36 Automated erythrocyte distribution width ratio 13. 8 % 10.0- 14.5 Automated blood platelet count (count/volume) 77 1 0*3/uL 130-400 Automated blood platelet mean volume measurement 10.1 [foz_us] 7.4-10.4 Automated blood neutrophils/100 leukocytes 52 % 42-75 Automated blood lymphocytes/100 leukocytes 31 % 12-44 Blood monocytes/100 leukocytes 11 % 0-12 Automated blood eosinophils/100 leukocytes 6 % 0-10 Automated blood basophils/100 leukocytes 1 % 0-10 Blood neutrophils automated count (number/volume) 2.3 10*3 1.8-7.8 Blood lymphocytes automated count (number/volume) 1.4 10*3 1.0-4.0 Blood monocytes automated count (number/volume) 0. 5 10*3 0.0-1.0 Automated eosinophil count 0.2 10*3/uL 0 .0-0.3 Automated blood basophil count (count/volume) 0.0 10*3/uL 0.0-0.1 Comprehensive metabolic panel - 12/29/19 03:35 Serum or plasma sodium measurement (moles/volume) 142 mmol/L 135-145 Serum or plasma potassium measurement (moles/volume) 3.8 mmol/L 3.6-5.0 Serum or plasma chloride measurement (moles/volume) 110 mmol/L 98-107 Carbon dioxide 21 mmol/L 21-32 Serum or plasma anion gap determination (moles/volume) 11 mmol/L 5-14 Serum or plasma urea nitrogen measurement (mass/volume ) 15 mg/dL 7-18 Serum or plasma creatinine measurement (mass/volume) 0.97 mg/dL 0.60-1.30 Serum or plasma urea nitrogen/creatinine mass ratio 15 NRG Serum or plasma creatinine measurement w ith calculation of estimated glomerular filtration rate > NRG Serum or plasma glucose measurement (mass/volume) 104 mg/dL 70-105 Serum or plasma calcium measurement (mass/volume) 7.8 mg/dL 8.5-10.1 Serum or plasma total bilirubin measurement (mass/volu me) 0.6 mg/dL 0.1-1.0 Serum or plasma alkaline phosphatase stephy surement (enzymatic activity/volume) 65 U/L 40-136 Serum or plasma aspartate aminotransfera se measurement (enzymatic activity/volume) 48 U/L 5-34 Serum or plasma alanine aminotransferase measurement (enzymatic activity/volume) 42 U/L 0-55 Serum or plasma protein measurement (mass/volume) 6.1 g/dL 6.4-8.2 Serum or plasma albumin measurement (mass/volume) 3.1 g/dL 3.2-4.5 CALCIUM CORRECTED 8.5 mg/dL 8.5-10.1 Serum or plasma phosphate measurement (m ass/volume) - 12/29/19 03:35 Serum or plasma phosphate measurement (mass/volume) 2.6 mg/dL 2.3-4.7 Magnesium - 12/29/19 03:35 Magnesium 1.8 mg/dL 1.6-2.4 Complete blood count (CBC) with automate d white blood cell (WBC) differential - 12/30/19 04:12 Blood leukocytes automated count (number/volume) 3.4 10*3/uL 4.3-11.0 Blood erythrocytes automated count (number/volume) 3.84 10*6/uL 4.35-5.85 Venous blood hemoglobin measurement (mass/volume) 13.1 g/dL 13.3-17.7 Blood hematocrit (volume fraction) 40 % 40-54 Automated erythrocyte mean corpuscular volume 103 [foz_us] 80-99 Automated erythrocyte mean corpuscular h emoglobin (mass per erythrocyte) 34 pg 25-34 Automated erythrocyte mean corpuscular h emoglobin concentration measurement (mass/volume) 33 g/dL 32-36 Automated erythrocyte distribution width ratio 13. 3 % 10.0- 14.5 Automated blood platelet count (count/volume) 56 1 0*3/uL 130-400 Automated blood platelet mean volume measurement 10.6 [foz_us] 7.4-10.4 Automated blood neutrophils/100 leukocytes 59 % 42-75 Automated blood lymphocytes/100 leukocytes 22 % 12-44 Blood monocytes/100 leukocytes 11 % 0-12 Automated blood eosinophils/100 leukocytes 8 % 0-10 Automated blood basophils/100 leukocytes 0 % 0-10 Blood neutrophils automated count (number/volume) 2.0 10*3 1.8-7.8 Blood lymphocytes automated count (number/volume) 0.8 10*3 1.0-4.0 Blood monocytes automated count (number/volume) 0. 4 10*3 0.0-1.0 Automated eosinophil count 0.3 10*3/uL 0 .0-0.3 Automated blood basophil count (count/volume) 0.0 10*3/uL 0.0-0.1 Whole blood basic metabolic panel - 12/11 11/28 04:12 Serum or plasma sodium measurement (moles/volume) 136 mmol/L 135-145 Serum or plasma potassium measurement (moles/volume) 4.0 mmol/L 3.6-5.0 Serum or plasma chloride measurement (moles/volume) 109 mmol/L 98-107 Carbon dioxide 18 mmol/L 21-32 Serum or plasma anion gap determination (moles/volume) 9 mmol/L 5-14 Serum or plasma urea nitrogen measurement (mass/volume ) 12 mg/dL 7-18 Serum or plasma creatinine measurement (mass/volume) 0.81 mg/dL 0.60-1.30 Serum or plasma urea nitrogen/creatinine mass ratio 15 NRG Serum or plasma creatinine measurement w ith calculation of estimated glomerular filtration rate > NRG Serum or plasma glucose measurement (mass/volume) 100 mg/dL 70-105 Serum or plasma calcium measurement (mass/volume) 7.7 mg/dL 8.5-10.1 Serum or plasma phosphate measurement (m ass/volume) - 12/30/19 04:12 Serum or plasma phosphate measurement (mass/volume) 1.8 mg/dL 2.3-4.7 Magnesium - 12/30/19 04:12 Magnesium 2.1 mg/dL 1.6-2.4 Complete blood count (CBC) with automate d white blood cell (WBC) differential - 12/31/19 04:28 Blood leukocytes automated count (number/volume) 3.7 10*3/uL 4.3-11.0 Blood erythrocytes automated count (number/volume) 3.98 10*6/uL 4.35-5.85 Venous blood hemoglobin measurement (mass/volume) 13.7 g/dL 13.3-17.7 Blood hematocrit (volume fraction) 41 % 40-54 Automated erythrocyte mean corpuscular volume 103 [foz_us] 80-99 Automated erythrocyte mean corpuscular h emoglobin (mass per erythrocyte) 34 pg 25-34 Automated erythrocyte mean corpuscular h emoglobin concentration measurement (mass/volume) 33 g/dL 32-36 Automated erythrocyte distribution width ratio 13. 6 % 10.0- 14.5 Automated blood platelet count (count/volume) 56 1 0*3/uL 130-400 Automated blood platelet mean volume measurement 10.4 [foz_us] 7.4-10.4 Automated blood neutrophils/100 leukocytes 51 % 42-75 Automated blood lymphocytes/100 leukocytes 30 % 12-44 Blood monocytes/100 leukocytes 11 % 0-12 Automated blood eosinophils/100 leukocytes 8 % 0-10 Automated blood basophils/100 leukocytes 0 % 0-10 Blood neutrophils automated count (number/volume) 1.9 10*3 1.8-7.8 Blood lymphocytes automated count (number/volume) 1.1 10*3 1.0-4.0 Blood monocytes automated count (number/volume) 0. 4 10*3 0.0-1.0 Automated eosinophil count 0.3 10*3/uL 0 .0-0.3 Automated blood basophil count (count/volume) 0.0 10*3/uL 0.0-0.1 Whole blood basic metabolic panel - 12/11 12/29 04:28 Serum or plasma sodium measurement (moles/volume) 138 mmol/L 135-145 Serum or plasma potassium measurement (moles/volume) 3.9 mmol/L 3.6-5.0 Serum or plasma chloride measurement (moles/volume) 111 mmol/L 98-107 Carbon dioxide 18 mmol/L 21-32 Serum or plasma anion gap determination (moles/volume) 9 mmol/L 5-14 Serum or plasma urea nitrogen measurement (mass/volume ) 12 mg/dL 7-18 Serum or plasma creatinine measurement (mass/volume) 0.80 mg/dL 0.60-1.30 Serum or plasma urea nitrogen/creatinine mass ratio 15 NRG Serum or plasma creatinine measurement w ith calculation of estimated glomerular filtration rate > NRG Serum or plasma glucose measurement (mass/volume) 85 mg/dL 70-105 Serum or plasma calcium measurement (mass/volume) 8.1 mg/dL 8.5-10.1 Serum or plasma phosphate measurement (m ass/volume) - 12/31/19 04:28 Serum or plasma phosphate measurement (mass/volume) 2.5 mg/dL 2.3-4.7 Magnesium - 12/31/19 04:28 Magnesium 2.2 mg/dL 1.6-2.4 TSH - 04/04/20 11:11 TSH 2.39 mIU/L 0.40-4.50 VITAMIN B12/FOLATE, SERUM PANEL - 11:11 VITAMIN B12 686 pg/mL 200-1100 FOLATE, SERUM 7.5 ng/mL NRG Complete blood count (CBC) with automate d white blood cell (WBC) differential - 04/16/20 22:22 Blood leukocytes automated count (number/volume) 6.2 10*3/uL 4.3-11.0 Blood erythrocytes automated count (number/volume) 3.55 10*6/uL 4.35-5.85 Venous blood hemoglobin measurement (mass/volume) 12.6 g/dL 13.3-17.7 Blood hematocrit (volume fraction) 35 % 40-54 Automated erythrocyte mean corpuscular volume 99 [ foz_us] 80-99 Automated erythrocyte mean corpuscular h emoglobin (mass per erythrocyte) 36 pg 25-34 Automated erythrocyte mean corpuscular h emoglobin concentration measurement (mass/volume) 36 g/dL 32-36 Automated erythrocyte distribution width ratio 13. 5 % 10.0- 14.5 Automated blood platelet count (count/volume) 89 1 0*3/uL 130-400 Automated blood platelet mean volume measurement 9.7 [foz_us] 7.4-10.4 Automated blood neutrophils/100 leukocytes 52 % 42-75 Automated blood lymphocytes/100 leukocytes 33 % 12-44 Blood monocytes/100 leukocytes 13 % 0-12 Automated blood eosinophils/100 leukocytes 2 % 0-10 Automated blood basophils/100 leukocytes 0 % 0-10 Blood neutrophils automated count (number/volume) 3.2 10*3 1.8-7.8 Blood lymphocytes automated count (number/volume) 2.0 10*3 1.0-4.0 Blood monocytes automated count (number/volume) 0. 8 10*3 0.0-1.0 Automated eosinophil count 0.1 10*3/uL 0 .0-0.3 Automated blood basophil count (count/volume) 0.0 10*3/uL 0.0-0.1 Comprehensive metabolic panel - 04/16/20 22:22 Serum or plasma sodium measurement (moles/volume) 140 mmol/L 135-145 Serum or plasma potassium measurement (moles/volume) 2.7 mmol/L 3.6-5.0 Serum or plasma chloride measurement (moles/volume) 104 mmol/L 98-107 Carbon dioxide 17 mmol/L 21-32 Serum or plasma anion gap determination (moles/volume) 19 mmol/L 5-14 Serum or plasma urea nitrogen measurement (mass/volume ) 18 mg/dL 7-18 Serum or plasma creatinine measurement (mass/volume) 1.46 mg/dL 0.60-1.30 Serum or plasma urea nitrogen/creatinine mass ratio 12 NRG Serum or plasma creatinine measurement w ith calculation of estimated glomerular filtration rate 49 NRG Serum or plasma glucose measurement (mass/volume) 104 mg/dL 70-105 Serum or plasma calcium measurement (mass/volume) 8.6 mg/dL 8.5-10.1 Serum or plasma total bilirubin measurement (mass/volu me) 0.8 mg/dL 0.1-1.0 Serum or plasma alkaline phosphatase stephy surement (enzymatic activity/volume) 99 U/L 40-136 Serum or plasma aspartate aminotransfera se measurement (enzymatic activity/volume) 47 U/L 5-34 Serum or plasma alanine aminotransferase measurement (enzymatic activity/volume) 26 U/L 0-55 Serum or plasma protein measurement (mass/volume) 7.1 g/dL 6.4-8.2 Serum or plasma albumin measurement (mass/volume) 3.3 g/dL 3.2-4.5 CALCIUM CORRECTED 9.2 mg/dL 8.5-10.1 Serum or plasma creatine kinase measurem ent (enzymatic activity/volume) - 04/16/20 22:22 Serum or plasma creatine kinase measurem ent (enzymatic activity/volume) 77 U/L 30-200 Serum or plasma troponin i.cardiac measu rement (mass/volume) - 04/16/20 22:22 Serum or plasma troponin i.cardiac measurement (mass/v olume) < ng/mL <0.028 Serum or plasma ethanol measurement (mas s/volume) - 04/16/20 22:22 Serum or plasma ethanol measurement (mass/volume) 187 mg/dL <10 Complete urinalysis with reflex to cultu re - 04/16/20 23:45 Urine color determination DARK YELLOW N RG Urine clarity determination CLOUDY NR G Urine pH measurement by test strip 7.0 5-9 Specific gravity of urine by test strip 1.015 1.016-1.022 Urine protein assay by test strip, semi-quantitative TRACE NEGATIVE Urine glucose detection by automated test strip NE GATIVE NEGATIVE Erythrocytes detection in urine sediment by light micr oscopy 1+ NEGATIVE Urine ketones detection by automated test strip NE GATIVE NEGATIVE Urine nitrite detection by test strip NEGATIVE NEGATIVE Urine total bilirubin detection by test strip NEGA TIVE NEGATIVE Urine urobilinogen measurement by automated test strip (mass/volume) 0.2 mg/dL < = 1.0 Urine leukocyte esterase detection by dipstick 3+ NEGATIVE Automated urine sediment erythrocyte cou nt by microscopy (number/high power field) [HPF] NRG Automated urine sediment leukocyte count by microscopy (number/high power field) TNTC NRG Bacteria detection in urine sediment by light microsco py TRACE NRG Squamous epithelial cells detection in u rine sediment by light microscopy 2-5 NRG Crystals detection in urine sediment by light microsco py PRESENT NRG Casts detection in urine sediment by light microscopy NONE NRG Mucus detection in urine sediment by light microscopy SMALL NRG Complete urinalysis with reflex to culture YES NRG Amorphous sediment detection in urine sediment by ligh t microscopy FEW MESHA URATES NRG Urine drug screening test - 04/16/20 23: 45 Urine phencyclidine detection by screening method NEGATIVE NEGATIVE Urine benzodiazepines detection by screening method NEGATIVE NEGATIVE Urine cocaine detection NEGATIVE NEGATI VE Urine amphetamines detection by screening method N EGATIVE NEGATIVE Urine methamphetamine detection by screening method NEGATIVE NEGATIVE Urine cannabinoids detection by screening method N EGATIVE NEGATIVE Urine opiates detection by screening method NEGATI VE NEGATIVE Urine barbiturates detection NEGATIVE N EGATIVE Screening urine tricyclic antidepressants detection NEGATIVE NEGATIVE Urine methadone detection by screening method NEGA TIVE NEGATIVE Urine oxycodone detection NEGATIVE NEGA TIVE Urine propoxyphene detection NEGATIVE N EGATIVE Encounters ACCT No. Visit Date/Time Discharge Status Pt. Type Provider Facility Loc./Unit Complaint [id number] 04/04/2020 10:00:00 Document Registration [id number] 12/28/2019 20:08:00 020 11:30:00 DIS Inpatient MONTILLA DO, RAMSEY V ia [facility] 4TH SUICIDAL, ETOH ABUSE [id number] 04/17/2020 00:40:[address] Inpatient RAMSEY MONTILLA DO Via [facility] ICU UTI,DEBILITY,DEHYDRATION,HYP OKALEMIA
[2020-04-17] MEDS ORDERED: LORazepam 1 MG (ATIVAN) TAB PO PRN (01:45)
[2020-04-17] MEDS ORDERED: ONDANSETRON 4 MG/2 ML (SDV) Z0FRAN IV PRN (01:45)
[2020-04-17] MEDS ORDERED: ACETAMINOPHEN 500 MG TAB (TYLENOL) PO PRN (01:45)
[2020-04-17] MEDS ORDERED: IBUPROFEN 800 MG (MOTRIN) TAB PO PRN (01:45)
[2020-04-17] MEDS ORDERED: 1/2 NS IV SOLUTION 1,000 ML IV PRN (01:46)
[2020-04-17] MEDS ORDERED: LORazepam INJ 2 MG/ML (ATIVAN) VIAL IM/IV PRN (02:00)
[2020-04-17] MEDS ORDERED: ONDANSETRON 4 MG (ZOFRAN) ORAL DISSOLVE TAB SL PRN (02:00)
[2020-04-17] MEDS ORDERED: SENNA W/DOCUSATE (SENOKOT S) TABLET PO PRN (02:00)
[2020-04-17] MEDS ORDERED: LORazepam INJ 2 MG/ML (ATIVAN) VIAL IV PRN (02:00)
[2020-04-17] MEDS ORDERED: ANTACID SUSP 30 ML UDC (MYLANTA) PO PRN (02:00)
[2020-04-17] MEDS ORDERED: D5 1/2 NS 1000 ML IV SOLUTION 1,000 ML IV PRN (02:00)
[2020-04-17] MEDS: LACTATED RINGERS 1,000 ML IV SCH ×4 (02:18→23:15)
--- OUTSIDE RECORDS SUMMARY | 2020-04-17 03:03 | XMS REPORT | Continuity of Care Document ---
Demographics Preferred Language Unknown Marital Status Unknown Restoration Affiliation Unknown Race Unknown Ethnic Group Unknown Author Organization Unknown Address Unknown Phone Unavailable Allergies Active Description Code Type Severity Reaction Onset Reported/Identified Relationship to Patient Clinical Status Yes No Known Drug Allergies [id number] Drug Allergy Unknown N/A 12/28/2019 Medications There [...] Status Pt. Type Provider Facility Loc./Unit Complaint [id number] 04/04/2020 10:00:00 Document Registration [id number] 12/28/2019 20:08:00 020 11:30:00 DIS Inpatient MONTILLA DO, RAMSEY V ia [facility] 4TH SUICIDAL, ETOH ABUSE [id number] 04/17/2020 00:40:[address] Inpatient RAMSEY MONTILLA DO Via [facility] ICU UTI,DEBILITY,DEHYDRATION,HYP OKALEMIA
[2020-04-17 03:13] LABS: BASOPHILS % (AUTO) 0 % (0-10); EOSINOPHILS # (AUTO) 0.1 10^3/uL (0.0-0.3); EOSINOPHILS % (AUTO) 2 % (0-10); HEMATOCRIT 32 % (40-54); HEMOGLOBIN 11.4 G/DL (13.3-17.7); LYMPHOCYTES # (AUTO) 1.4 X 10^3 (1.0-4.0); LYMPHOCYTES % (AUTO) 38 % (12-44); MEAN CORPUSCULAR HEMOGLOBIN 35 PG (25-34); MEAN CORPUSCULAR HGB CONC 35 G/DL (32-36); MEAN CORPUSCULAR VOLUME 100 FL (80-99); MEAN PLATELET VOLUME 9.9 FL (7.4-10.4); MONOCYTES # (AUTO) 0.5 X 10^3 (0.0-1.0); MONOCYTES % (AUTO) 13 % (0-12); NEUTROPHILS # (AUTO) 1.7 X 10^3 (1.8-7.8); NEUTROPHILS % (AUTO) 46 % (42-75); PLATELET COUNT 63 10^3/uL (130-400); RED CELL DISTRIBUTION WIDTH 13.6 % (10.0-14.5); WHITE BLOOD COUNT 3.7 10^3/uL (4.3-11.0)
[2020-04-17 03:27] LABS: ALBUMIN 3.1 GM/DL (3.2-4.5); POTASSIUM 2.7 MMOL/L (3.6-5.0)
[2020-04-17 03:29] LABS: CALCIUM 8.3 MG/DL (8.5-10.1)
[2020-04-17 03:30] LABS: TOTAL PROTEIN 6.5 GM/DL (6.4-8.2)
[2020-04-17 03:32] LABS: BILIRUBIN,TOTAL 0.6 MG/DL (0.1-1.0)
[2020-04-17 03:33] LABS: PHOSPHORUS 2.4 MG/DL (2.3-4.7)
[2020-04-17 03:34] LABS: CREATININE SERUM 1.27 MG/DL (0.60-1.30)
[2020-04-17 03:36] LABS: MAGNESIUM 1.4 MG/DL (1.6-2.4)
--- NOTE | 2020-04-17 05:14 | Pulmonary Consultation ---
History of Present Illness History of Present Illness Date Seen by Provider: Apr 17, 2020 Time Seen by Provider: 05:09 Date of Admission Allergies and Home Medications Allergies Coded Allergies: No Known Drug Allergies (Unverified , 12/28/19) Home Medications Chlordiazepoxide HCl 25 Mg Capsule, 25 MG PO TID, (Reported) Naltrexone HCl 50 Mg Tablet, 50 MG PO HS, (Reported) Potassium Chloride 10 Meq Tab.er.prt, 20 MEQ PO DAILY, (Reported) take 2 of the 10 meq tabs Propranolol HCl 10 Mg Tablet, 10 MG PO QID, (Reported) Sertraline HCl 100 Mg Tablet, 100 MG PO DAILY, (Reported) Topiramate 25 Mg Tablet, 75 MG PO HS, (Reported) takes 3 tabs of 25mg Past Cuizhxy-Jrfcqo-Iufgaa Hx Patient Social History Alcohol Use: Regular Use Number of Drinks Today: FF Alcohol Beverage of Choice: Vodka Recreational Drug Use: No Smoking Status: Never a Smoker Recent Foreign Travel: No Contact w/Someone Who Travel: No Recent Infectious Disease Expo: No Recent Hopitalizations: No Physical Abuse: No Sexual Abuse: No Mistreated: No Fear: No Immunizations Up To Date Tetanus Booster (TDap): Unknown PED Vaccines UTD: Yes Seasonal Allergies Seasonal Allergies: No Past Medical History Surgeries: Yes (HEMRRHOID) Respiratory: No Cardiac: No Neurological: Yes (TREMORS) Dementia Genitourinary: No Gastrointestinal: No Musculoskeletal: No Endocrine: No HEENT: No Cancer: No Psychosocial: Yes (ETOH ABUSE HX) Integumentary: No Blood Disorders: No Adverse Reaction/Blood Tranf: No Family Medical History FH: breast cancer 19 MOTHER Hypertension 19 MOTHER Sepsis Event Evaluation Height, Weight, BMI Height: '" Weight: lbs. oz. kg; 32.00 BMI Method: Exam Exam Vital Signs Date Time Temp Pulse Resp B/P (MAP) Pulse Ox O2 Delivery O2 Flow Rate FiO2 04/17/20 04:00 115 23 125/86 (99) 96 Room Air 04/17/20 03:00 115 16 122/85 (97) 97 Room Air 04/17/20 02:30 112 15 127/89 (102) 98 Room Air 04/17/20 02:15 120 24 130/95 (107) 98 Room Air 04/17/20 02:00 116 18 129/83 (98) 96 Room Air 04/17/20 01:45 118 22 137/97 (110) 98 Room Air 04/17/20 01:41 117 04/17/20 01:37 122 19 150/104 (119) 97 Room Air 04/17/20 01:30 96 Room Air 04/17/20 01:18 37.1 113 18 130/86 (89) 97 04/16/20 22:16 37.1 126 17 116/75 (89) 96 Room Air I & O 04/17/20 07:00 Intake Total 1010 ml Balance 1010 ml Height & Weight Height: '" Weight: lbs. oz. kg; 32.00 BMI Method: Capillary Refill: Less Than 3 Seconds Peripheral Pulses: 2+ Radial Pulses (R), 2+ Radial Pulses (L) Gastrointestinal: normal bowel sounds, non tender, soft Results Lab Laboratory Tests 04/16/20 22:22 04/17/20 02:50 Assessment/Plan Assessment/Plan Alcohol dependance -CIWA -Monitor UTI -Rocephin Dehydration -LR at 150 Severe hypokalemia -replace hypophos and hypomag -replace debility from assisted living LINDA YU DO Apr 17, 2020 05:14
--- NOTE | 2020-04-17 05:24 | Diagnostic Imaging Report ---
INDICATION: Fall. COMPARISON: 12/29/2019 FINDINGS: Single frontal view of the chest demonstrates normal heart size and pulmonary vascularity. The lungs are well aerated and clear. No large pleural effusion or pneumothorax is seen. The visualized osseous structures show no acute abnormalities. IMPRESSION: 1. No acute cardiopulmonary process. Dictated by: Dictated on workstation # [id number]
[2020-04-17 05:33] LABS: BASOPHILS % (AUTO) 0 % (0-10); EOSINOPHILS # (AUTO) 0.1 10^3/uL (0.0-0.3); EOSINOPHILS % (AUTO) 3 % (0-10); HEMATOCRIT 32 % (40-54); HEMOGLOBIN 11.3 G/DL (13.3-17.7); LYMPHOCYTES % (AUTO) 30 % (12-44); MEAN CORPUSCULAR HEMOGLOBIN 36 PG (25-34); MEAN CORPUSCULAR HGB CONC 36 G/DL (32-36); MEAN CORPUSCULAR VOLUME 100 FL (80-99); MEAN PLATELET VOLUME 10.2 FL (7.4-10.4); MONOCYTES # (AUTO) 0.4 X 10^3 (0.0-1.0); MONOCYTES % (AUTO) 13 % (0-12); NEUTROPHILS # (AUTO) 1.8 X 10^3 (1.8-7.8); NEUTROPHILS % (AUTO) 54 % (42-75); PLATELET COUNT 54 10^3/uL (130-400); RED CELL DISTRIBUTION WIDTH 13.6 % (10.0-14.5); WHITE BLOOD COUNT 3.3 10^3/uL (4.3-11.0)
[2020-04-17] MEDS ORDERED: KCL 8 MEQ (MICRO K) TABLET PO ONE (05:45)
[2020-04-17] MEDS: POTASSIUM CL 10MEQ/50ML IVPB 50 ML IV SCH ×4 (05:57→10:39)
[2020-04-17] MEDS: ENOXAPARIN 40 MG/0.4 ML (LOVENOX) SYR SC SCH (06:00)
[2020-04-17] MEDS ORDERED: MAGNESIUM 1 GM/100 ML IVPB 100 ML IV SCH (06:00)
[2020-04-17] MEDS ORDERED: KCL 20 MEQ TAB (K-DUR) PO SCH (06:00)
[2020-04-17] MEDS ORDERED: POTASSIUM CL 10MEQ/50ML IVPB 50 ML IV SCH (06:00)
[2020-04-17] MEDS: THIAMINE 100 MG (VITAMIN B-1) TAB PO SCH (06:05)
[2020-04-17] MEDS: MULTIVIT W/MINERALS TAB (THERAGRAN M) PO SCH (06:05)
--- NOTE | 2020-04-17 06:10 | Diagnostic Imaging Report ---
PROCEDURE: CT head and CT cervical spine without contrast. TECHNIQUE: Multiple contiguous axial images were obtained through the brain and cervical spine without the use of intravenous contrast. Sagittal and coronal reformations through the cervical spine were then performed. Auto Exposure Controls were utilized during the CT exam to meet ALARA standards for radiation dose reduction. INDICATION: Fall. COMPARISON: None. FINDINGS: CT HEAD: No intracranial hemorrhage, mass effect, hydrocephalus or extra-axial fluid collections. No CT evidence of a territorial infarction. Complete opacification of the right maxillary sinus. Osseous structures are intact. The mastoids are clear. CT cervical spine: Normal alignment. Vertebral body heights are preserved. No fractures. Moderate degenerative endplate changes. No evidence of high-grade spinal canal stenosis on soft tissue windows. The visualized paravertebral soft tissues are unremarkable. IMPRESSION: No acute intracranial or cervical spine CT findings. Dictated by: Dictated on workstation # [id number]
[2020-04-17 06:13] LABS: CALCIUM 8.1 MG/DL (8.5-10.1); CHLORIDE 107 MMOL/L (98-107); GLUCOSE 88 MG/DL (70-105); POTASSIUM 2.9 MMOL/L (3.6-5.0); SODIUM 141 MMOL/L (135-145); TOTAL PROTEIN 6.3 GM/DL (6.4-8.2)
[2020-04-17 06:14] LABS: BILIRUBIN,TOTAL 0.7 MG/DL (0.1-1.0); CARBON DIOXIDE 19 MMOL/L (21-32); PHOSPHORUS 2.7 MG/DL (2.3-4.7)
[2020-04-17 06:25] LABS: MAGNESIUM 1.4 MG/DL (1.6-2.4)
[2020-04-17 06:29] LABS: ALANINE AMINOTRANSFERASE 23 U/L (0-55); ALKALINE PHOSPHATASE 82 U/L (40-136); BUN/CREATININE RATIO 14; CREATININE SERUM 1.18 MG/DL (0.60-1.30); GFR ESTIMATED > 60
[2020-04-17] MEDS: PANTOPRAZOLE 40 MG (PROTONIX) TAB PO SCH (08:00)
[2020-04-17] MEDS: MAGNESIUM OXIDE (MAG-OX)400 MG TAB PO SCH ×2 (08:00→20:03)
[2020-04-17] MEDS: FOLIC ACID 1 MG TAB PO SCH (08:01)
[2020-04-17] MEDS: MAGNESIUM 1 GM/100 ML IVPB 100 ML IV SCH ×3 (08:13→10:39)
[2020-04-17] MEDS: LORazepam 1 MG (ATIVAN) TAB PO PRN ×4 (09:19→21:55)
[2020-04-17] MEDS ORDERED: TOPI50TA13 PO (10:19)
[2020-04-17] MEDS ORDERED: NAPH30DR5 OU (10:19)
[2020-04-17] MEDS ORDERED: TOPI25CA4 PO (10:19)
[2020-04-17] MEDS ORDERED: MULT-1136 PO (10:19)
--- NOTE | 2020-04-17 10:20 | NUR ---
SPOKE WITH THE PT AND WENT THRU THE EXT MED HISTORY TO COMPLETE THE MED REC PT TAKES TOPAMAX 25MG & 50MG AND PROPRANOLOL 10MG BUT ONLY TAKES PRN TREMORS PT DOES TAKE SERTRALINE 100MG EVERY NIGHT OTC MEDS: [employer] CLEAR EYES REDNESS DROPS
--- NOTE | 2020-04-17 10:44 | Physical Therapy Evaluation ---
PT Evaluation-General Medical Diagnosis Admission Date Apr 17, 2020 at 00:40 Medical Diagnosis: UTI/debility/dehydration/hypokalemia Onset Date: Apr 17, 2020 Therapy Diagnosis Therapy Diagnosis: debility Precautions Precautions/Isolations: Fall Prevention, Standard Precautions Weight Bear Status Right Lower Extremity: Right Weight Bearing/Tolerated Left Lower Extremity: Left Weight Bearing/Tolerated Referral Physician: April Reason for Referral: Evaluation/Treatment Medical History Pertinent Medical History: Alcoholism, Dementia Current History EMS secondary to fall/ETOH Reviewed History: Yes Social History Home: Assisted Living Prior Prior Level of Function SCALE: Activities may be completed with or without assistive devices. 9-Lymkmtixnr-pbtdtxz completes the activity by him/herself with no assistance from a helper. 5-Set-up or Clean-up Assistance-helper sets up or cleans up; patient completes activity. [place] assists only prior to or following the activity. 4-Supervision or Touching Assistance-helper provides verbal cues and/or touching/steadying and/or contact guard assistance as patient completes activity. Assistance may be provided throughout the activity or intermittently. 3-Partial/Moderate Assistance-helper does LESS THAN HALF the effort. [place] lifts, holds or supports trunk or limbs, but provides less than half the effort. 2-Substantial/Maximal Assistance-helper does MORE THAN HALF the effort. [place] lifts or holds trunk or limbs and provides more than half the effort. 7-Jvhedybfe-avicum does ALL the effort. Patient does none of the effort to complete the activity. Or, the assistance of 2 or more helpers is required for the patient to complete the activity. If activity was not attempted, code reason: 7-Patient Refused. 9-Not Applicable-not attempted and the patient did not perform the activity before the current illness, exacerbation or injury. 10-Not Attempted due to Environmental Limitations-(lack of equipment, weather restraints, etc.). 88-Not Attempted due to Medical Conditions or Safety Concerns. Bed Mobility: 6 Transfers (B,C,W/C): 6 Gait: 6 Stairs: 9 Indoor Mobility (Ambulation): Independent Stairs: Not Applicalbe Prior Devices Use: Walker PT Evaluation-Current Subjective Patient agrees to PT. No c/o. Noted tremors total body. Pain Numeric Pain Scale: 0-No Pain Location: No Pain Reported Objective Patient Orientation: Person, Time, Situation Attachments: IV ROM/Strength ROM Lower Extremities bilateral LE WFL Strength Lower Extremities 4/5 grossly bilateral LE Integumentary/Posture Integumentary refer to nursing notes Bowel Incontinence: Yes Bladder Incontinence: Yes Posture WFL Neuromuscular (Tone, Coordination, Reflexes) noted tremors total body Sensory Vision: Wears Glasses Hearing: Functional Sensation Right Lower Extremit: Intact Sensation Left Lower Extremity: Intact Transfers Roll Left to Right (QC): 6 Sit to Lying (QC): 6 Lying to Sitting/Side of Bed(Q: 6 Sit to Stand (QC): 5 Chair/Tcq-ej-Twvyu Xfer(QC): 5 Gait Does the Patient Walk?: Yes Mode of Locomotion: Walk Anticipated Mode of Locomotion: Walk Walk 10 feet (QC): 5 Walk 50 ft with 2 Turns(QC): 5 Walk 150 ft (QC): 5 Distance: 275' Gait Assistive Device: FWW Comments/Gait Description safe and functional with no deviation Wheelchair Training Does the Pt Use a Wheelchair?: No Balance Sitting Static: Normal Sitting Dynamic: Normal Standing Static: Normal Standing Dynamic: Normal Assessment/Needs 60 y.o. male, will be seen short term by skilled PT to ensure safe return to AL at maximum LOF. Patient utilizes FWW at AL PLOF. Rehab Potential: Fair Post Rehab Potential-Barriers: compliance PT Short Term Goals Short Term Goals Time Frame: Apr 20, 2020 Roll Left & Right: 6 Sit to lyin Lying to sitting on side of be: 6 Sit to stand: 6 Chair/eyk-vq-okyfj transfer: 6 Toilet transfer: 6 Walk 10 feet: 6 Walk 50 feet with two turns: 6 Walk 150 feet: 6 PT Plan Problem List Problem List: Activity Tolerance, Safety Treatment/Plan Treatment Plan: Continue Plan of Care Treatment Plan: Education, Functional Activity Flex, Functional Strength, Gait, Safety, Therapeutic Exercise Treatment Duration: Apr 20, 2020 Frequency: 4 times per week Estimated Hrs Per Day: .25 hour per day Patient and/or Family Agrees t: Yes Time/GCodes Time In: 1015 Time Out: 1034 Total Billed Treatment Time: 19 Total Billed Treatment 1 visit EVModC 19 min GÓMEZ MAIER PT Apr 17, 2020 10:44
--- NOTE | 2020-04-17 11:00 | NUR ---
Pastoral care visit, extensive visit with pt regarding his addiction journey.
--- NOTE | 2020-04-17 11:56 | NUR ---
Pt lives in an independent cottage at [facility]. HE lives alone and admits quite isolated. His of 40 years is currently caring for grandchildren in [place], [place]. Pt has chronic addition to alcohol lasting the past 17 years. The recently relocated from their home in [place] and pt's resides with her mother locally due to pt's chronic use of alcohol and depression.Pt states he accidently found a water bottle filled with vodka in his freezer which set him off to resume drinking. Apparently he has a pattern of drinking when leaves town to visit their 3 children in [place]. pt became light headed during our interview but he did want me to check into a residential treatment program near [place].Attempted to contact his and she is to call me back about continued care plans will follow
[2020-04-17 12:45] LABS: BUN/CREATININE RATIO 13; CALCIUM 8.1 MG/DL (8.5-10.1); CARBON DIOXIDE 19 MMOL/L (21-32); CHLORIDE 106 MMOL/L (98-107); CREATININE SERUM 1.11 MG/DL (0.60-1.30); GFR ESTIMATED > 60; GLUCOSE 109 MG/DL (70-105); POTASSIUM 3.4 MMOL/L (3.6-5.0); SODIUM 137 MMOL/L (135-145)
--- NOTE | 2020-04-17 13:02 | Occupational Therapy Eval ---
OT Evaluation-General/PLF Medical Diagnosis Admission Date Apr 17, 2020 at 00:40 Medical Diagnosis: UTI/debility/dehydration/hypokalemia Onset Date: Apr 17, 2020 Therapy Diagnosis Therapy Diagnosis: weakness, Decreased ADL skills Precautions Precautions/Isolations: Fall Prevention, Standard Precautions Weight Bear Status Weight Bearing Restriction: Weight Bearing/Tolerated Referral Physician: April Referral Reason: Activity Tolerance, Self Care, Evaluation/Treatment, Strengthening/ROM Medical History Pertinent Medical History: Alcoholism, Dementia Additional Medical History Familial tremors Current History Pt. drank 1 pt. of vodka. Fell at home. Was unable to get up and so EMS was called. Reviewed History: Yes Social History Home: Single Level Current Living Status: Spouse ADL-Prior Level of Function SCALE: Activities may be completed with or without assistive devices. 5-Vcyqaxbecd-gcuyjjz completes the activity by him/herself with no assistance from a helper. 5-Set-up or Clean-up Assistance-helper sets up or cleans up; patient completes activity. [place] assists only prior to or following the activity. 4-Supervision or Touching Assistance-helper provides verbal cues and/or touching/steadying and/or contact guard assistance as patient completes activity. Assistance may be provided throughout the activity or intermittently. 3-Partial/Moderate Assistance-helper does LESS THAN HALF the effort. [place] lifts, holds or supports trunk or limbs, but provides less than half the effort. 2-Substantial/Maximal Assistance-helper does MORE THAN HALF the effort. [place] lifts or holds trunk or limbs and provides more than half the effort. 9-Nzeqxjsnh-hysyjp does ALL the effort. Patient does none of the effort to com plete the activity. Or, the assistance of 2 or more helpers is required for the patient to complete the activity. If activity was not attempted, code reason: 7-Patient Refused. 9-Not Applicable-not attempted and the patient did not perform the activity before the current illness, exacerbation or injury. 10-Not Attempted due to Environmental Limitations-(lack of equipment, weather restraints, etc.). 88-Not Attempted due to Medical Conditions or Safety Concerns. 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 Otherwise, pt. states that he typically has no difficulty with bathing/dressing, toileting. Pt. uses a walker in his home. Pt. drives. Retired. Self Care: Independent Functional Cognition: Unknown DME/Equipment: Bath Chair, Grab Bars, Shower Drive Self: Yes OT Current Status Subjective Pt. does not report pain. Appearance Pt. in bed. Alert and agrees to work with OT. Mental Status/Objective Patient Orientation: Person, Place, Time, Situation Attachments: IV, Telemetry Current Upper Extremity ROM WFL Upper Extremity Coordination Impaired due to tremors. ADL-Treatment Eating (QC): 4 On/Off Footwear (QC): 4 Other Treatments Pt. agrees to work with OT. Pt. transfers supine-sit with SBA. Increased eff ort noted. Pt. able to bring bilateral feet up to him and doff/don slipper socks. Pt. able to stand with CGA and take steps toward HOB. Pt. verbalizes that due to his tremors, he has difficulty keeping his food on his spoon. OT brought in 1 lb. wrist weight, built up foam handles, plate guard, and weighted fork in. Pt. educated on using the weight and weighted utensil to assist with decreasing tremors. Pt. verbalizes that he will attempt this. Pt. educated on using plate guard and other equipment as well. Also educated on safety when donning clothing, and need to bring feet to him vs. bending over to them. Pt. verbalizes understanding. Pt. transferred sit-supine with SBA. All needs met. Education OT Patient Education: Correct positioning, Modified ADL techniques, Progress toward Goal/Update tx plan, Purpose of tx/functional activities, Reviewed precautions, Rehab process, Transfer techniques, Use of adapted equipment Teaching Recipient: Patient Teaching Methods: Demonstration, Discussion Response to Teaching: Verbalize Understanding, Return Demonstration OT Half-Way Goals Smoking Pipe Mounter Goals Time Frame: Apr 24, 2020 Eating (QC): 6 Oral Hygiene (QC): 6 Toileting Hygiene (QC): 5 Shower/Bathe Self (QC): 4 Upper Body Dressing (QC): 5 Lower Body Dressing (QC): 5 On/Off Footwear (QC): 5 Additional Goals: 1-Demonstrate ADL Tasks, 2-Verbalize Understanding, 3- ImproveStrength/Flex 1=Demonstrate adherence to instructed precautions during ADL tasks. 2=Patient will verbalize/demonstrate understanding of assistive devices/modifications for ADL. 3=Patient will improve strength/tolerance for activity to enable patient to perform ADL's. OT Education/Plan Problem List/Assessment Assessment: Decreased Activ Tolerance, Dependent Transfers, Impaired Bed Mobility, Impaired Coordination, Impaired Funct Balance, Impaired I ADL's, Impaired Self-Care Skills Discharge Recommendations Plan/Recommendations: Continue POC Therapy Discharge Recommendati: Home & Family, Post Acute OT Treatment Plan/Plan of Care Treatment,Training & Education: Yes Patient would benefit from OT for education, treatment and training to promote independence in ADL's, mobility, safety and/or upper extremity function for ADL's. Plan of Care: ADL Retraining, Functional Mobility, UE Funct Exercise/Act Treatment Duration: Apr 24, 2020 Frequency: 5 times per week Estimated Hrs Per Day: .25 hour per day Agreement: Yes Rehab Potential: Good Time/GCodes Start Time: 11:15 Stop Time: 11:35 Total Time Billed (hr/min): 20 Billed Treatment Time 1, KLAUS ROSSI OT Apr 17, 2020 13:02
--- NOTE | 2020-04-17 14:10 | History & Physical-Hospitalist ---
History of Present Illness HPI/Chief Complaint Tavo Pichardo is a 60-year-old male with past medical history of depression, alcohol abuse, essential tremor, who presented after a fall. He denies striking anything on his way down. He denies hitting his head. He denies any pain at this time. He had been drinking. He has a history of alcohol abuse and dependence. His last drink was yesterday. He is complaining of a headache. He has having a tremor, which she attributes to his essential tremor. He denies any fevers or chills. He denies any shortness of breath or cough. He denies any chest pain. He denies any nausea or vomiting. He denies any abdominal pain. Source: patient Exam Limitations: no limitations Date Seen 04/17/20 Time Seen by a Provider: 09:20 Attending Physician Laury Bernabe MD PCP No,Local Physician Referring Physician Date of Admission Apr 17, 2020 at 00:40 Home Medications & Allergies Home Medications Reviewed patient Home Medication Reconciliation performed by pharmacy medication reconciliations auto transmission technician and/or nursing. Patients Allergies have been reviewed. Allergies Allergies Coded Allergies No Known Drug Allergies (Unverified12/28/19) Past Jxytdiq-Smkeqs-Ysyozc Hx Past Med/Social Hx: Reviewed Nursing Past Med/Soc Hx Patient Social History Alcohol Use: Regular Use Number of Drinks Today: FF Alcohol Beverage of Choice: Vodka Recreational Drug Use: No Smoking Status: Never a Smoker Recent Foreign Travel: No Contact w/other who traveled: No Recent Hopitalizations: No Recent Infectious Disease Expo: No Immunizations Up To Date Tetanus Booster (TDap): Unknown Pediatric: Yes Seasonal Allergies Seasonal Allergies: No Past Medical History Neurological: Dementia History of Blood Disorders: No Adverse Reaction to Blood Lee: No Family History FH: breast cancer 19 MOTHER Hypertension 19 MOTHER Review of Systems Constitutional: weakness EENTM: no symptoms reported Respiratory: no symptoms reported Cardiovascular: no symptoms reported Gastrointestinal: no symptoms reported Genitourinary: no symptoms reported Musculoskeletal: muscle weakness Skin: no symptoms reported Psychiatric/Neurological: No Symptoms Reported Physical Exam Physical Exam Vital Signs Vital Signs - First Documented 04/16/20 22:16 Temp 37.1 Pulse 126 Resp 17 B/P (MAP) 116/75 (89) Pulse Ox 96 O2 Delivery Room Air Capillary Refill : Less Than 3 Seconds Height, Weight, BMI Height: '" Weight: lbs. oz. kg; 32.00 BMI Method: General Appearance: No Apparent Distress, Obese HEENT: PERRL/EOMI, Pharynx Normal Neck: Normal Inspection, Supple Respiratory: Lungs Clear, Normal Breath Sounds, No Respiratory Distress Cardiovascular: Regular Rate, Rhythm, No Edema, No Murmur Gastrointestinal: Normal Bowel Sounds, Non Tender, Soft Extremity: Normal Inspection, Non Tender, No Pedal Edema Neurologic/Psychiatric: Alert, Oriented x3, No Motor/Sensory Deficits, Normal Mood/Affect, Other (Tremulous) Skin: Normal Color, Warm/Dry Results Results/Procedures Labs Laboratory Tests 04/16/20 22:22 04/17/20 02:50 04/17/20 05:25 04/17/20 11:58 Patient resulted labs reviewed. Imaging: Reviewed Imaging Report Assessment/Plan Admission Diagnosis Acute alcohol intoxication Admission Status: Observation Assessment and Plan Acute alcohol intoxication Alcohol withdrawal CT head with no acute abnormalities Alcohol level 187 on arrival, down to 95 this morning WA protocol ordered Debility PT/OT consulted Pancytopenia WBC 3.3, hemoglobin 11.3, platelets 54 Check folic acid level, pancytopenia likely due to alcohol abuse Electrolyte abnormalities Potassium 2.9, magnesium 1.4, continue to monitor and replace as needed Urinary tract infection UA consistent with urinary tract infection Started on ceftriaxone Await urine culture DVT prophylaxis: Lovenox Diagnosis/Problems Diagnosis/Problems (1) Alcohol dependence with acute alcoholic intoxication Status: Acute Qualifiers: Complication of substance-induced condition: uncomplicated Qualified Codes: F10.220 - Alcohol dependence with intoxication, uncomplicated (2) Pancytopenia Status: Acute (3) Electrolyte abnormality Status: Acute (4) UTI (urinary tract infection) Status: Acute Qualifiers: Urinary tract infection type: acute cystitis Hematuria presence: with hematuria Qualified Codes: N30.01 - Acute cystitis with hematuria (5) Physical debility Status: Acute Clinical Quality Measures DVT/VTE Risk/Contraindication: Risk Factor Score Per Nursin RFS Level Per Nursing on Admit: 4+=Very High LAURY BERNABE MD Apr 17, 2020 14:10
--- NOTE | 2020-04-17 23:03 | NUR ---
PT MOVED TO CSD STATUS PER DR MONTILLA.
[2020-04-17] MEDS ORDERED: cefTRIAXone 1,000 MG IV (ROCEPHIN) VIAL ONE (23:11)
[2020-04-17] MEDS ORDERED: WATER (STERILE) FOR INJECTION 10 ML ONE (23:11)
[2020-04-18] MEDS ORDERED: cefTRIAXone 1,000 MG/SWFI 10 ML IV PUSH IV SCH ×2
[2020-04-18 03:40] VITALS: BP 147/84
[2020-04-18 04:00] VITALS: BP 147/84
--- NOTE | 2020-04-18 04:59 | Pulmonary Progress Note ---
Subjective Time Seen by a Provider: 04:58 Subjective/Events-last exam Pt is doing well no complications noted. Sepsis Event Evaluation Height, Weight, BMI Height: '" Weight: lbs. oz. kg; 32.00 BMI Method: Exam Exam Vital Signs Date Time Temp Pulse Resp B/P (MAP) Pulse Ox O2 Delivery O2 Flow Rate FiO2 04/18/20 03:40 37.2 93 20 147/84 (105) 97 Room Air 04/18/20 01:00 103 04/17/20 23:18 36.6 94 16 121/73 (89) 96 Room Air 04/17/20 20:06 37.3 04/17/20 20:00 Room Air 04/17/20 19:00 114 04/17/20 18:00 116 25 140/96 (111) 99 Room Air 04/17/20 17:00 107 19 143/88 (106) 98 Room Air 04/17/20 16:00 37.2 04/17/20 16:00 107 20 141/93 (109) 96 Room Air 04/17/20 15:00 105 15 132/88 (103) 98 Room Air 04/17/20 15:00 100 Room Air 04/17/20 14:00 109 13 133/94 (107) 94 Room Air 04/17/20 13:00 123 21 123/92 (102) 97 Room Air 04/17/20 12:50 121 04/17/20 12:00 120 17 102/79 (87) 97 Room Air 04/17/20 12:00 99 Room Air 04/17/20 12:00 37.7 04/17/20 11:00 129 20 128/92 (104) 97 Room Air 04/17/20 10:00 117 12 98 Room Air 04/17/20 09:00 124 19 127/95 (106) 98 Room Air 04/17/20 08:16 99 Room Air 04/17/20 08:00 118 19 125/81 (96) 97 Room Air 04/17/20 08:00 36.6 04/17/20 07:00 106 9 130/83 (99) 97 Room Air 04/17/20 07:00 117 04/17/20 06:00 111 13 143/74 (97) 96 Room Air 04/17/20 05:00 116 18 140/89 (106) 97 Room Air I & O 04/18/20 07:00 Intake Total 2720 ml Output Total 3075 ml Balance -355 ml Height & Weight Height: '" Weight: lbs. oz. kg; 32.00 BMI Method: General Appearance: No Apparent Distress, Obese HEENT: PERRL/EOMI, Pharynx Normal Neck: Normal Inspection, Supple Respiratory: Lungs Clear, Normal Breath Sounds, No Respiratory Distress Cardiovascular: Regular Rate, Rhythm, No Edema, No Murmur Capillary Refill: Less Than 3 Seconds Peripheral Pulses: 2+ Radial Pulses (R), 2+ Radial Pulses (L) Gastrointestinal: normal bowel sounds, non tender, soft Extremity: Normal Inspection, Non Tender, No Pedal Edema Neurologic/Psychiatric: Alert, Oriented x3, No Motor/Sensory Deficits, Normal Mood/Affect, Other (Tremulous) Skin: Normal Color, Warm/Dry Results Lab Laboratory Tests 04/16/20 22:22 04/17/20 02:50 04/17/20 05:25 04/17/20 11:58 Assessment/Plan Assessment/Plan Alcohol dependance -WA -Monitor -Labs pending UTI -Rocephin Dehydration -LR at 150 Severe hypokalemia -replace hypophos and hypomag -replace debility from assisted living LINDA YU DO Apr 18, 2020 04:59
[2020-04-18] MEDS: THIAMINE 100 MG (VITAMIN B-1) TAB PO SCH (05:42)
[2020-04-18] MEDS: LACTATED RINGERS 1,000 ML IV SCH (05:42)
[2020-04-18] MEDS: MULTIVIT W/MINERALS TAB (THERAGRAN M) PO SCH (05:42)
[2020-04-18 05:51] LABS: BASOPHILS % (AUTO) 1 % (0-10); EOSINOPHILS # (AUTO) 0.1 10^3/uL (0.0-0.3); EOSINOPHILS % (AUTO) 4 % (0-10); HEMATOCRIT 31 % (40-54); HEMOGLOBIN 10.7 G/DL (13.3-17.7); LYMPHOCYTES # (AUTO) 0.6 X 10^3 (1.0-4.0); LYMPHOCYTES % (AUTO) 28 % (12-44); MEAN CORPUSCULAR HEMOGLOBIN 35 PG (25-34); MEAN CORPUSCULAR HGB CONC 34 G/DL (32-36); MEAN CORPUSCULAR VOLUME 103 FL (80-99); MEAN PLATELET VOLUME 9.8 FL (7.4-10.4); MONOCYTES # (AUTO) 0.3 X 10^3 (0.0-1.0); MONOCYTES % (AUTO) 13 % (0-12); NEUTROPHILS # (AUTO) 1.1 X 10^3 (1.8-7.8); NEUTROPHILS % (AUTO) 55 % (42-75); PLATELET COUNT 41 10^3/uL (130-400)
[2020-04-18] MEDS: ENOXAPARIN 40 MG/0.4 ML (LOVENOX) SYR SC SCH (05:58)
--- NOTE | 2020-04-18 05:59 | NUR ---
D/C MARKY PER DR YU
[2020-04-18 06:22] LABS: CHLORIDE 110 MMOL/L (98-107); SODIUM 142 MMOL/L (135-145)
[2020-04-18 06:23] LABS: CALCIUM 7.8 MG/DL (8.5-10.1)
[2020-04-18 06:24] LABS: GLUCOSE 95 MG/DL (70-105)
[2020-04-18 06:25] LABS: CARBON DIOXIDE 21 MMOL/L (21-32)
[2020-04-18] MEDS ORDERED: POTASSIUM CL 10MEQ/50ML IVPB 250 ML IV ONE (06:26)
[2020-04-18 06:28] LABS: CREATININE SERUM 1.03 MG/DL (0.60-1.30); GFR ESTIMATED > 60; PHOSPHORUS 2.4 MG/DL (2.3-4.7)
[2020-04-18 06:29] LABS: BUN/CREATININE RATIO 11
[2020-04-18 06:30] LABS: MAGNESIUM 1.8 MG/DL (1.6-2.4)
[2020-04-18] MEDS: POTASSIUM CL 10MEQ/50ML IVPB 50 ML IV SCH ×4 (06:33→10:48)
[2020-04-18] MEDS ORDERED: MAGNESIUM 1 GM/100 ML IVPB 100 ML IV SCH (07:15)
[2020-04-18 07:54] VITALS: BP 151/85
[2020-04-18] MEDS: PANTOPRAZOLE 40 MG (PROTONIX) TAB PO SCH (08:14)
[2020-04-18] MEDS: FOLIC ACID 1 MG TAB PO SCH (08:14)
[2020-04-18] MEDS: POTASSIUM PHOSPHATE INJ 30 MM in NS (IVPB) 250 ML IV NR ×2 (08:14→10:48)
[2020-04-18] MEDS: MAGNESIUM OXIDE (MAG-OX)400 MG TAB PO SCH (08:14)
--- NOTE | 2020-04-18 10:11 | Occupational Ther Daily Note ---
OT Current Status-Daily Note Subjective Pt seen in bed, pt alert though confused. Pt acknowledges he's in hospital, educated on dx per charts and reasoning for confusion. Pt denies pain and agrees to sponge bath EOB/ in recliner. Mental Status/Objective Attachments: IV ADL-Treatment Therapy Code Descriptions/Definitions Functional [place] Measure: 0=Not Assessed/NA 4=Minimal Assistance 1=Total Assistance 5=Supervision or Setup 2=Maximal Assistance 6=Modified [place] 3=Moderate Assistance 7=Complete IndependenceSCALE: Activities may be completed with or without assistive devices. 1-Rmtpevhkkx-oqcdcgj completes the activity by him/herself with no assistance from a helper. 5-Set-up or Clean-up Assistance-helper sets up or cleans up; patient completes activity. [place] assists only prior to or following the activity. 4-Supervision or Touching Assistance-helper provides verbal cues and/or touching/steadying and/or contact guard assistance as patient completes activity. Assistance may be provided throughout the activity or intermittently. 3-Partial/Moderate Assistance-helper does LESS THAN HALF the effort. [place] lifts, holds or supports trunk or limbs, but provides less than half the effort. 2-Substantial/Maximal Assistance-helper does MORE THAN HALF the effort. [place] lifts or holds trunk or limbs and provides more than half the effort. 4-Uhqlwriyj-aucbgk does ALL the effort. Patient does none of the effort to complete the activity. Or, the assistance of 2 or more helpers is required for the patient to complete the activity. If activity was not attempted, code reason: 7-Patient Refused. 9-Not Applicable-not attempted and the patient did not perform the activity before the current illness, exacerbation or injury. 10-Not Attempted due to Environmental Limitations-(lack of equipment, weather restraints, etc.). 88-Not Attempted due to Medical Conditions or Safety Concerns. Bathing Location: L Arm, R Arm, L Upper Leg, R Upper Leg, L Lower Leg (including foot), R Lower Leg (including foot), Chest, Abdomen, Perineal Area Shower/Bathe Self (QC): 3 (min A for feet/ bottom hygiene. CGA in stance. ) Upper Body Dressing (QC): 3 (min A due to confusion of gown.) Lower Body Dressing (QC): 2 (max A breif donning while in stance) On/Off Footwear: 4 (CGA EOB due to decreased balance.) Toileting Hygiene (QC): 2 (max A bottom hygiene for thoroughness) Other Treatment Pt agrees to therapy. Pt completes bed mob with SBA, reaches EOB and slight LOB requiring CGA at first. Pt states lightheaded/ dizziness; nursing and DO come in during session. Pt continues sponge bath EOB, requires clean up on bottom due to incontinence of bowel/ bladder. Pt sits recliner chair after sit to stand SBA and c/o lightheadedness. pt monitors self. Pt completes rest of ADLs in recliner, requires cues for attention throughout. Pt states he has been eating with normal utensils, though has utilized weighted fork and found benefits in tremor activity. Pt left in recliner with all needs met, call light attached to blanket on lap. Nursing notified of pt's incontinence and placement in chair. Education OT Patient Education: Correct positioning, Modified ADL techniques, Purpose of tx/functional activities, Safety issues, Transfer techniques Teaching Recipient: Patient Teaching Methods: Demonstration, Discussion Response to Teaching: Verbalize Understanding, Return Demonstration, Reinforcement Needed OT Biological Science Technician Fish Goals Longterm Goals Time Frame: Apr 24, 2020 Eating (QC): 6 Oral Hygiene (QC): 6 Toileting Hygiene (QC): 5 Shower/Bathe Self (QC): 4 Upper Body Dressing (QC): 5 Lower Body Dressing (QC): 5 On/Off Footwear (QC): 5 Additional Goals: 1-Demonstrate ADL Tasks, 2-Verbalize Understanding, 3- ImproveStrength/Flex 1=Demonstrate adherence to instructed precautions during ADL tasks. 2=Patient will verbalize/demonstrate understanding of assistive devices/modifications for ADL. 3=Patient will improve strength/tolerance for activity to enable patient to perform ADL's. OT Education/Plan Problem List/Assessment Assessment: Decreased Activ Tolerance, Decreased Safety Aware, Dependent Transfers, Impaired Cognition, Impaired Funct Balance, Impaired I ADL's, Impaired Self-Care Skills Discharge Recommendations Plan/Recommendations: Continue POC Therapy Discharge Recommendati: Scheduled Assistance, Assisted Living, Home & Family Equpiment Recommendations-D/C: Other, See Comments (adaptive utensils ) Treatment Plan/Plan of Care Treatment,Training & Education: Yes Patient would benefit from OT for education, treatment and training to promote independence in ADL's, mobility, safety and/or upper extremity function for ADL's. Plan of Care: ADL Retraining, Functional Mobility, UE Funct Exercise/Act Treatment Duration: Apr 24, 2020 Frequency: 5 times per week Estimated Hrs Per Day: .25 hour per day Agreement: Yes Rehab Potential: Good Time/GCodes Start Time: 09:23 Stop Time: 10:03 Total Time Billed (hr/min): 40 Billed Treatment Time 1, ADL 3 (40) TREVOR DOMÍNGUEZ OTR Apr 18, 2020 10:11
[2020-04-18] MEDS ORDERED: POTASSIUM CL 10MEQ/50ML IVPB 50 ML IV ONE (10:30)
--- NOTE | 2020-04-18 10:32 | NUR ---
Discussed continued care options with pt's Didi who states since December when pt was dismissed from our hospital with AA support pt gradually stopped attending meetings and working closely with his sponsor. Last week he was seen by Dr. Fatuma Crabtree at the [facility] in [place] and plans to continue with her as his Primary. He also has appt. with Sriram Jones PhD Clinical Psychologist on the of this month. Pt's plans to return to [place] in a 1to 2 days and states that pt drinks vodka intermittently whether she iin town or out of town. She cares for him when going through Detox as she states he becomes unable to ambulate, becomes incontinent, weak, with inability to care for himself. She states he's participated in multiple short and skilled nursing treatment programs and has not been able to sustain sobriety so doesn't think residential treatment would be helpful.She would like him to [place] [facility] [place] and she will resume care and accompany him to see next week. She states that pt hasn't been the same since he lost his [employer] position due to his alcohol addiction 16 years ago.She states that cognitively he struggles with short-term memory impairment. will follow and arrange home health follow-up
--- NOTE | 2020-04-18 11:07 | Physical Therapy Daily Note ---
PT Daily Note-Current Subjective Patient in chair pre tx, agrees to PT, has no complaints of pain. Patient has to use his urinal and he does so without assist. Appearance Patient in recliner post tx with nurse call,phone, tray, all needs met. Mental Status Patient Orientation: Person, Confused (patient seems oriented but also slightly confused), Place, Situation Attachments: IV Transfers SCALE: Activities may be completed with or without assistive devices. 4-Piofmidjkl-hycoxvv completes the activity by him/herself with no assistance from a helper. 5-Set-up or Clean-up Assistance-helper sets up or cleans up; patient completes activity. [place] assists only prior to or following the activity. 4-Supervision or Touching Assistance-helper provides verbal cues and/or touching/steadying and/or contact guard assistance as patient completes activity. Assistance may be provided throughout the activity or intermittently. 3-Partial/Moderate Assistance-helper does LESS THAN HALF the effort. [place] lifts, holds or supports trunk or limbs, but provides less than half the effort. 2-Substantial/Maximal Assistance-helper does MORE THAN HALF the effort. [place] lifts or holds trunk or limbs and provides more than half the effort. 3-Qniutxlzg-abqxpw does ALL the effort. Patient does none of the effort to complete the activity. Or, the assistance of 2 or more helpers is required for the patient to complete the activity. If activity was not attempted, code reason: 7-Patient Refused. 9-Not Applicable-not attempted and the patient did not perform the activity before the current illness, exacerbation or injury. 10-Not Attempted due to Environmental Limitations-(lack of equipment, weather restraints, etc.). 88-Not Attempted due to Medical Conditions or Safety Concerns. Sit to Stand (QC): 4 Chair/Zha-lx-Pmcsi Xfer(QC): 4 Weight Bearing Right Lower Extremity: Right Weight Bearing/Tolerated Left Lower Extremity: Left Weight Bearing/Tolerated Gait Training Distance: 200' Walk 10 feet (QC): 4 Walk 50 ft with 2 Turns(QC): 4 Walk 150 ft (QC): 4 Gait Assistive Device: FWW CGA, slow ambulation, slight unsteadiness but no LOB Exercises Seated Therapy Exercises: Ankle pumps, Long arc quads Seated Reps: 20 Treatments transfers, ambulation, LE exercise Assessment Current Status: Poor Progress Patient was very shaky this morning not only during ambulation but while sitting using the urinal PT Short Term Goals Short Term Goals Time Frame: Apr 20, 2020 Roll Left & Right: 6 Sit to lyin Lying to sitting on side of be: 6 Sit to stand: 6 Chair/wdb-bb-cvxvq transfer: 6 Toilet transfer: 6 Walk 10 feet: 6 Walk 50 feet with two turns: 6 Walk 150 feet: 6 PT Plan Problem List Problem List: Activity Tolerance, Functional Strength, Safety, Balance, Gait, Transfer Treatment/Plan Treatment Plan: Continue Plan of Care Treatment Plan: Education, Functional Activity Flex, Functional Strength, Gait, Safety, Therapeutic Exercise Treatment Duration: Apr 20, 2020 Frequency: 4 times per week Estimated Hrs Per Day: .25 hour per day Patient and/or Family Agrees t: Yes Safety Risks/Education Patient Education: Gait Training, Transfer Techniques, Correct Positioning, Safety Issues Teaching Recipient: Patient Teaching Methods: Demonstration, Discussion Response to Teaching: Reinforcement Needed Time/GCodes Time In: 1040 Time Out: 1055 Total Billed Treatment Time: 15 Total Billed Treatment 1 visit GT 15' TARAH ROSS PT Apr 18, 2020 11:07
--- NOTE | 2020-04-18 11:08 | NUR ---
Pt states he's anxious about discharge back to his [facility] alone but states he will do whatever his physician recommends.
[2020-04-18 11:34] VITALS: BP 134/85
--- NOTE | 2020-04-18 13:56 | Discharge Summary ---
Discharge Summary Reconcile Patient Problems Problems Reviewed?: Yes Instructions for Patient Via Glance App, Assessment/Instructions Take medications as prescribed. You're being set up with home health for therapies. Follow-up with your primary care physician. Abstain from alcohol use. Physician to follow Patient: Fatuma Crabtree Discharge Diet for Home: No Restrictions Hospital Course Date of Admission: Apr 17, 2020 at 00:40 Admission Diagnosis : Alcohol dependence with acute alcohol intoxication Family Physician/Provider: Tabby,Local Physician Date of Discharge: 04/18/20 Discharge Diagnosis: Alcohol dependence with acute alcohol intoxication Hospital Course: Tavo Pichardo is a 60-year-old male with alcohol dependence who presented with acute alcohol intoxication. He was monitored for alcohol withdrawal but did not have any significant withdrawal symptoms. He suffered a fall at home and was evaluated by physical therapy and occupational therapy while inpatient. He was set up with home health care on discharge for ongoing therapies. He should follow-up with his primary care physician. Labs and Pending Lab Test: Laboratory Tests 04/18/20 05:05: White Blood Count 2.0L, Red Blood Count 3.06L, Hemoglobin 10.7L, Hematocrit 31L, Mean Corpuscular Volume 103H, Mean Corpuscular Hemoglobin 35H, Mean Corpuscular Hemoglobin Concent 34, Red Cell Distribution Width 14.0, Platelet Count 41L, Mean Platelet Volume 9.8, Neutrophils (%) (Auto) 55, Lymphocytes (%) (Auto) 28, Monocytes (%) (Auto) 13H, Eosinophils (%) (Auto) 4, Basophils (%) (Auto) 1, Neutrophils # (Auto) 1.1L, Lymphocytes # (Auto) 0.6L, Monocytes # (Auto) 0.3, Eosinophils # (Auto) 0.1, Basophils # (Auto) 0.0, Sodium Level 142, Potassium Level 3.0L, Chloride Level 110H, Carbon Dioxide Level 21, Anion Gap 11, Blood Urea Nitrogen 11, Creatinine 1.03, Estimat Glomerular Filtration Rate > 60, BUN/Creatinine Ratio 11, Glucose Level 95, Calcium Level 7.8L, Phosphorus Level 2.4, Magnesium Level 1.8 Microbiology 04/17/20 MRSA Screen - Final, Complete MRSA not isolated 04/16/20 Urine Culture - Preliminary, Resulted Probable Coag Negative Staph Home Meds Active Reported Clear Eyes Max Redness Rlf Drp (Naphazoline HCl/Glycerin) 30 Ml Drops 2 Drops OU PRN PRN Multivitamin 1 Each Tablet 1 Each PO DAILY Topiramate 50 Mg Tablet 50 Mg PO QID PRN Topiramate 25 Mg Cap.sprink 75 Mg PO HS PRN TAKES 3 (25MG) TABS Sertraline HCl 100 Mg Tablet 100 Mg PO HS Propranolol HCl 10 Mg Tablet 10 Mg PO QID PRN Patient Allergies: Coded Allergies: No Known Drug Allergies (Unverified , 12/28/19) Home Health Need/Face to Face Date of Face to Face: Apr 18, 2020 Clinical Findings: Instability, Muscle weakness, Unsteady gait I have seen Pt bggg-[id number]-avgh: Yes Discharged To: Home Diagnosis/Conditions: Debility, alcohol dependence Problems/Diagnosis/Condition: (1) Physical debility (2) Alcohol dependence with acute alcoholic intoxication Patient is Homebound due to: [place] fall risk due to instabilty, Muscle weakness Homebound Status Due to the above stated illness, injury or surgical procedure (medical condition or diagnosis) and associated clinical findings, the patient is homebound because of his/her inability to leave home except with aid of a supportive device and/or person AND leaving the home requires a considerable and taxing effort or is medically contraindicated. Pt req the following assistanc: Aid of another person Home Health Nursing Orders Home Health Services Order: Nursing Services, Campground Cleaning Attendant-Evaluate & Treat, Physical Therapy-Evaluate & Treat Home Health Infusion Therapy Line Start Date: Apr 16, 2020 Therapy Orders Therapy Orders: OT (must have SN or PT order), Physical Therapy Therapy Specific Orders: Gait training, Increase strength/endurance Certify Stmt I certify that this patient is under my care and that I, a nurse practitioner or a physician; a title i instructional assistant working with me, had a face to face encounter that - meets the physician face to face encounter requirements with this patient as dated. Discharge Physical Exam General: Alert, Oriented X3, Cooperative, No Acute Distress HEENT: Atraumatic, EOMI, Mucous Memb Moist/[place] Lungs: Clear to Auscultation, Normal Air Movement Heart: Regular Rate, Normal S1, Normal S2, No Murmurs Abdomen: Normal Bowel Sounds, Soft, No Tenderness Extremities: No Edema, Normal Pulses Skin: No Rashes, No Significant Lesion Neuro: Normal Speech, Normal Tone Psych/Mental Status: Mental Status NL, Mood NL JD BERNABE MD Apr 18, 2020 13:56
--- NOTE | 2020-04-18 15:16 | NUR ---
Arrangements complete for pt discharge to [place] [facility]. Received Dr. Chen's orders for home health care. Pt chose [facility] as they have a behavior home health program and will visit pt tomorrow. [facility] staff will provide pt transportation from the hospital and asked if staff could check on him intermittently as pt's will not return to the area till Thursday the . Physician orders and medical reports faxed to [facility], Advised pt and that Dr. Chen would like pt seen by Dr. Crabtree in one week. stated she will contact her office and make follow=up appt.
--- NOTE | 2020-04-18 15:25 | NUR ---
IV removed. entire discharge packet discussed with patient. Patient advised to follow up with his primary care physician per 's orders. pupil personnel services director set up arrangements with [facility] (facility patient resides) to cigar packer and picker patient. This nurse received a call at 1516 from registration that the [facility] transportation was here to get patient. Patient given his discharge packet. All of patients belongings gathered by patient, this nurse and patient both checked room to ensure that patient has all of his belongings. this nurse took patient to registration entrance and ensured patient made it safely into [facility] transportation vehicle. Patient entering vehicle at 1525.
== END 2020-04-18 15:25 | disposition home health service (06) ==
LOC: EDUNIT# 22:11 → ER 22:12 → ICU 04-17 00:40 → CSD 04-17 19:54
PROVIDERS: ADMIT Internal Medicine; ATTEND Internal Medicine
DX: F10.220 Alcohol dependence with intoxication, uncomplicated (principal); N30.01 Acute cystitis with hematuria; F02.80 Dementia in other diseases classified elsewhere, unspecified severity, without behavioral disturbance, psychotic disturbance, mood disturbance, and anxiety; F10.239 Alcohol dependence with withdrawal, unspecified; E86.0 Dehydration; E87.6 Hypokalemia; R53.81 Other malaise; D61.818 Other pancytopenia; R88.8 Abnormal findings in other body fluids and substances; F32.9 Major depressive disorder, single episode, unspecified; W01.0XXA Fall on same level from slipping, tripping and stumbling without subsequent striking against object, initial encounter; Z79.899 Other long term (current) drug therapy; Z80.3 Family history of malignant neoplasm of breast; Z82.49 Family history of ischemic heart disease and other diseases of the circulatory system
CPT/HCPCS: 36415; 70450; 71045; 72125; 80048; 80053; 80306; 80320; 81000; 82550; 82746; 83735; 84100; 84484; 85025; 85610; 85730; 87077; 87081; 87088; 87186; 93005

== ENCOUNTER 2020-04-21 23:28 | Observation (INO) | payer BC ==
[~2020-04-21 23:28] MED LIST changes: +MULT-1136 PO; +NAPH30DR5 OU; +TOPI25CA4 PO; +TOPI50TA13 PO
--- OUTSIDE RECORDS SUMMARY | 2020-04-21 23:33 | XMS REPORT | Continuity of Care Document ---
Demographics Preferred Language Unknown Marital Status Unknown Zoroastrianism Affiliation Unknown Race Unknown Ethnic Group Unknown Author Organization Unknown Address Unknown Phone Unavailable Allergies Active Description Code Type Severity Reaction Onset Reported/Identified Relationship to Patient Clinical Status Yes No Known Drug Allergies [id number] Drug Allergy Unknown N/A 12/28/2019 Medications There [...] Z68.36 BODY MASS INDEX (BMI) 36.0-36.9, ADULT 04/18/2020 JD BERNABE MD, Ot D61.818 OTHER PANCYTOPENIA 04/18/2020 JD BERNABE MD, Ot E86. 0 DEHYDRATION 04/18/2020 JD BERNABE MD, Ot E87. 6 HYPOKALEMIA 04/18/2020 JD BERNABE MD, Ot F02. 80 DEMENTIA IN OTH DISEASES CLASSD ELSWHR W 04/18/2020 JD BERNABE MD, Ot F10.220 ALCOHOL DEPENDENCE WITH INTOXICATION, UN 04/18/2020 JD BERNABE MD, Ot F10.239 ALCOHOL DEPENDENCE WITH WITHDRAWAL, UNSP 04/18/2020 JD BERNABE MD, Ot F32. 9 MAJOR DEPRESSIVE DISORDER, SINGLE EPISOD 04/18/2020 JD BERNABE MD, Ot N30. 01 ACUTE CYSTITIS WITH HEMATURIA 04/18/2020 JD BERNABE MD, Ot R53. 81 OTHER MALAISE 04/18/2020 JD BERNABE MD, Ot R88. 8 ABNORMAL FINDINGS IN OTHER BODY FLUIDS A 04/18/2020 JD BERNABE MD, Ot W01.0XXA FALL SAME LEV FROM SLIP/TRIP W/O STRIKE 04/18/2020 JD BERNABE MD, Ot Z79.899 OTHER LEAF BLENDER (CURRENT) DRUG THERAPY 04/18/2020 JD BERNABE MD, Ot Z80. 3 FAMILY HISTORY OF MALIGNANT NEOPLASM OF 04/18/2020 JD BERNABE MD, Ot Z82. 49 FAMILY HX OF ISCHEM HEART DIS AND OT DI Procedures There is no data. Results Test [...] TIVE Urine propoxyphene detection NEGATIVE N EGATIVE Bacterial urine culture - 04/16/20 23:45 Bacterial urine culture [id number] NRG COLONY COUNT >100,000/ML NRG SUSCEPTIBILITY SUSCEPTIBILITY REPORTED 04-20-20, 10 18 NRG RAPID ID PRELIM RAPID ID TESTING AT [facility] 04/17 17:40 NRG ID CONFIRMATION ID CONFIRMED [id number]. NRG Dirithromycin susceptibility test by dis k diffusion - 04/16/20 23:45 Oxacillin susceptibility test by minimum inhibitory co ncentration <= NRG Vancomycin susceptibility test by minimum inhibitory c oncentration 1 NRG Levofloxacin susceptibility test by minimum inhibitory concentration <= NRG Rifampin susceptibility test by minimum inhibitory con centration <= NRG Cefazolin susceptibility test by minimum inhibitory co ncentration <= NRG Nitrofurantoin susceptibility test by mi nimum inhibitory concentration <= NRG Methicillin resistant Staphylococcus aur eus (MRSA) screening culture - 04/17/20 01:45 Methicillin resistant Staphylococcus aureus (MRSA) scr eening culture NEG NRG Complete blood count (CBC) with automate d white blood cell (WBC) differential - 04/17/20 02:50 Blood leukocytes automated count (number/volume) 3.7 10*3/uL 4.3-11.0 Blood erythrocytes automated count (number/volume) 3.23 10*6/uL 4.35-5.85 Venous blood hemoglobin measurement (mass/volume) 11.4 g/dL 13.3-17.7 Blood hematocrit (volume fraction) 32 % 40-54 Automated erythrocyte mean corpuscular volume 100 [foz_us] 80-99 Automated erythrocyte mean corpuscular h emoglobin (mass per erythrocyte) 35 pg 25-34 Automated erythrocyte mean corpuscular h emoglobin concentration measurement (mass/volume) 35 g/dL 32-36 Automated erythrocyte distribution width ratio 13. 6 % 10.0- 14.5 Automated blood platelet count (count/volume) 63 1 0*3/uL 130-400 Automated blood platelet mean volume measurement 9.9 [foz_us] 7.4-10.4 Automated blood neutrophils/100 leukocytes 46 % 42-75 Automated blood lymphocytes/100 leukocytes 38 % 12-44 Blood monocytes/100 leukocytes 13 % 0-12 Automated blood eosinophils/100 leukocytes 2 % 0-10 Automated blood basophils/100 leukocytes 0 % 0-10 Blood neutrophils automated count (number/volume) 1.7 10*3 1.8-7.8 Blood lymphocytes automated count (number/volume) 1.4 10*3 1.0-4.0 Blood monocytes automated count (number/volume) 0. 5 10*3 0.0-1.0 Automated eosinophil count 0.1 10*3/uL 0 .0-0.3 Automated blood basophil count (count/volume) 0.0 10*3/uL 0.0-0.1 Comprehensive metabolic panel - 04/17/20 02:50 Serum or plasma sodium measurement (moles/volume) 141 mmol/L 135-145 Serum or plasma potassium measurement (moles/volume) 2.7 mmol/L 3.6-5.0 Serum or plasma chloride measurement (moles/volume) 106 mmol/L 98-107 Carbon dioxide 19 mmol/L 21-32 Serum or plasma anion gap determination (moles/volume) 16 mmol/L 5-14 Serum or plasma urea nitrogen measurement (mass/volume ) 16 mg/dL 7-18 Serum or plasma creatinine measurement (mass/volume) 1.27 mg/dL 0.60-1.30 Serum or plasma urea nitrogen/creatinine mass ratio 13 NRG Serum or plasma creatinine measurement w ith calculation of estimated glomerular filtration rate 58 NRG Serum or plasma glucose measurement (mass/volume) 86 mg/dL 70-105 Serum or plasma calcium measurement (mass/volume) 8.3 mg/dL 8.5-10.1 Serum or plasma total bilirubin measurement (mass/volu me) 0.6 mg/dL 0.1-1.0 Serum or plasma alkaline phosphatase stephy surement (enzymatic activity/volume) 82 U/L 40-136 Serum or plasma aspartate aminotransfera se measurement (enzymatic activity/volume) 43 U/L 5-34 Serum or plasma alanine aminotransferase measurement (enzymatic activity/volume) 23 U/L 0-55 Serum or plasma protein measurement (mass/volume) 6.5 g/dL 6.4-8.2 Serum or plasma albumin measurement (mass/volume) 3.1 g/dL 3.2-4.5 CALCIUM CORRECTED 9.0 mg/dL 8.5-10.1 Serum or plasma phosphate measurement (m ass/volume) - 04/17/20 02:50 Serum or plasma phosphate measurement (mass/volume) 2.4 mg/dL 2.3-4.7 Magnesium - 04/17/20 02:50 Magnesium 1.4 mg/dL 1.6-2.4 Serum or plasma ethanol measurement (mas s/volume) - 04/17/20 02:50 Serum or plasma ethanol measurement (mass/volume) 95 mg/dL <10 Serum or plasma folate measurement (mass /volume) - 04/17/20 02:50 Serum or plasma folate measurement (mass/volume) 7 .2 % >=4.0 PT panel in platelet poor plasma by coag ulation assay - 04/17/20 03:00 Prothrombin time (PT) in platelet poor plasma by coagu lation assay 14.0 s 12.2-14.7 INR in platelet poor plasma or blood by coagulation as say 1.0 0.8-1.4 Activated partial thromboplastin time (a PTT) in platelet poor plasma bycoagulation assay - 04/17/20 03:00 Activated partial thromboplastin time (a PTT) in platelet poor plasma bycoagulation assay 29 s 24-35 Complete blood count (CBC) with automate d white blood cell (WBC) differential - 04/17/20 05:25 Blood leukocytes automated count (number/volume) 3.3 10*3/uL 4.3-11.0 Blood erythrocytes automated count (number/volume) 3.17 10*6/uL 4.35-5.85 Venous blood hemoglobin measurement (mass/volume) 11.3 g/dL 13.3-17.7 Blood hematocrit (volume fraction) 32 % 40-54 Automated erythrocyte mean corpuscular volume 100 [foz_us] 80-99 Automated erythrocyte mean corpuscular h emoglobin (mass per erythrocyte) 36 pg 25-34 Automated erythrocyte mean corpuscular h emoglobin concentration measurement (mass/volume) 36 g/dL 32-36 Automated erythrocyte distribution width ratio 13. 6 % 10.0- 14.5 Automated blood platelet count (count/volume) 54 1 0*3/uL 130-400 Automated blood platelet mean volume measurement 10.2 [foz_us] 7.4-10.4 Automated blood neutrophils/100 leukocytes 54 % 42-75 Automated blood lymphocytes/100 leukocytes 30 % 12-44 Blood monocytes/100 leukocytes 13 % 0-12 Automated blood eosinophils/100 leukocytes 3 % 0-10 Automated blood basophils/100 leukocytes 0 % 0-10 Blood neutrophils automated count (number/volume) 1.8 10*3 1.8-7.8 Blood lymphocytes automated count (number/volume) 1.0 10*3 1.0-4.0 Blood monocytes automated count (number/volume) 0. 4 10*3 0.0-1.0 Automated eosinophil count 0.1 10*3/uL 0 .0-0.3 Automated blood basophil count (count/volume) 0.0 10*3/uL 0.0-0.1 Comprehensive metabolic panel - 04/17/20 05:25 Serum or plasma sodium measurement (moles/volume) 141 mmol/L 135-145 Serum or plasma potassium measurement (moles/volume) 2.9 mmol/L 3.6-5.0 Serum or plasma chloride measurement (moles/volume) 107 mmol/L 98-107 Carbon dioxide 19 mmol/L 21-32 Serum or plasma anion gap determination (moles/volume) 15 mmol/L 5-14 Serum or plasma urea nitrogen measurement (mass/volume ) 16 mg/dL 7-18 Serum or plasma creatinine measurement (mass/volume) 1.18 mg/dL 0.60-1.30 Serum or plasma urea nitrogen/creatinine mass ratio 14 NRG Serum or plasma creatinine measurement w ith calculation of estimated glomerular filtration rate > NRG Serum or plasma glucose measurement (mass/volume) 88 mg/dL 70-105 Serum or plasma calcium measurement (mass/volume) 8.1 mg/dL 8.5-10.1 Serum or plasma total bilirubin measurement (mass/volu me) 0.7 mg/dL 0.1-1.0 Serum or plasma alkaline phosphatase stephy surement (enzymatic activity/volume) 82 U/L 40-136 Serum or plasma aspartate aminotransfera se measurement (enzymatic activity/volume) 42 U/L 5-34 Serum or plasma alanine aminotransferase measurement (enzymatic activity/volume) 23 U/L 0-55 Serum or plasma protein measurement (mass/volume) 6.3 g/dL 6.4-8.2 Serum or plasma albumin measurement (mass/volume) 3.0 g/dL 3.2-4.5 CALCIUM CORRECTED 8.9 mg/dL 8.5-10.1 Serum or plasma phosphate measurement (m ass/volume) - 04/17/20 05:25 Serum or plasma phosphate measurement (mass/volume) 2.7 mg/dL 2.3-4.7 Magnesium - 04/17/20 05:25 Magnesium 1.4 mg/dL 1.6-2.4 Whole blood basic metabolic panel - 07/29 11:58 Serum or plasma sodium measurement (moles/volume) 137 mmol/L 135-145 Serum or plasma potassium measurement (moles/volume) 3.4 mmol/L 3.6-5.0 Serum or plasma chloride measurement (moles/volume) 106 mmol/L 98-107 Carbon dioxide 19 mmol/L 21-32 Serum or plasma anion gap determination (moles/volume) 12 mmol/L 5-14 Serum or plasma urea nitrogen measurement (mass/volume ) 14 mg/dL 7-18 Serum or plasma creatinine measurement (mass/volume) 1.11 mg/dL 0.60-1.30 Serum or plasma urea nitrogen/creatinine mass ratio 13 NRG Serum or plasma creatinine measurement w ith calculation of estimated glomerular filtration rate > NRG Serum or plasma glucose measurement (mass/volume) 109 mg/dL 70-105 Serum or plasma calcium measurement (mass/volume) 8.1 mg/dL 8.5-10.1 Complete blood count (CBC) with automate d white blood cell (WBC) differential - 04/18/20 05:05 Blood leukocytes automated count (number/volume) 2.0 10*3/uL 4.3-11.0 Blood erythrocytes automated count (number/volume) 3.06 10*6/uL 4.35-5.85 Venous blood hemoglobin measurement (mass/volume) 10.7 g/dL 13.3-17.7 Blood hematocrit (volume fraction) 31 % 40-54 Automated erythrocyte mean corpuscular volume 103 [foz_us] 80-99 Automated erythrocyte mean corpuscular h emoglobin (mass per erythrocyte) 35 pg 25-34 Automated erythrocyte mean corpuscular h emoglobin concentration measurement (mass/volume) 34 g/dL 32-36 Automated erythrocyte distribution width ratio 14. 0 % 10.0- 14.5 Automated blood platelet count (count/volume) 41 1 0*3/uL 130-400 Automated blood platelet mean volume measurement 9.8 [foz_us] 7.4-10.4 Automated blood neutrophils/100 leukocytes 55 % 42-75 Automated blood lymphocytes/100 leukocytes 28 % 12-44 Blood monocytes/100 leukocytes 13 % 0-12 Automated blood eosinophils/100 leukocytes 4 % 0-10 Automated blood basophils/100 leukocytes 1 % 0-10 Blood neutrophils automated count (number/volume) 1.1 10*3 1.8-7.8 Blood lymphocytes automated count (number/volume) 0.6 10*3 1.0-4.0 Blood monocytes automated count (number/volume) 0. 3 10*3 0.0-1.0 Automated eosinophil count 0.1 10*3/uL 0 .0-0.3 Automated blood basophil count (count/volume) 0.0 10*3/uL 0.0-0.1 Whole blood basic metabolic panel - 04/09 05:05 Serum or plasma sodium measurement (moles/volume) 142 mmol/L 135-145 Serum or plasma potassium measurement (moles/volume) 3.0 mmol/L 3.6-5.0 Serum or plasma chloride measurement (moles/volume) 110 mmol/L 98-107 Carbon dioxide 21 mmol/L 21-32 Serum or plasma anion gap determination (moles/volume) 11 mmol/L 5-14 Serum or plasma urea nitrogen measurement (mass/volume ) 11 mg/dL 7-18 Serum or plasma creatinine measurement (mass/volume) 1.03 mg/dL 0.60-1.30 Serum or plasma urea nitrogen/creatinine mass ratio 11 NRG Serum or plasma creatinine measurement w ith calculation of estimated glomerular filtration rate > NRG Serum or plasma glucose measurement (mass/volume) 95 mg/dL 70-105 Serum or plasma calcium measurement (mass/volume) 7.8 mg/dL 8.5-10.1 Serum or plasma phosphate measurement (m ass/volume) - 04/18/20 05:05 Serum or plasma phosphate measurement (mass/volume) 2.4 mg/dL 2.3-4.7 Magnesium - 04/18/20 05:05 Magnesium 1.8 mg/dL 1.6-2.4 Encounters ACCT No. Visit Date/Time Discharge Status Pt. Type Provider Facility Loc./Unit Complaint [id number] 04/04/2020 10:00:00 Document Registration [id number] 04/17/2020 00:40:00 020 15:25:00 DIS Outpatient FLORECITA FARRIS, JD Gallagher [facility] CSD UTI,DEBILITY,DEHYDRATION,HYPOKALEMIA [id number] 12/28/2019 20:08:00 020 11:30:00 DIS Inpatient RAMSEY MONTILLA DO [facility] 4TH SUICIDAL, ETOH ABUSE
--- NOTE | 2020-04-22 00:14 | ED Psychosocial ---
General Chief Complaint: Psych/Social Disorder Stated Complaint: PSYCH EVAL Source: patient Exam Limitations: intoxication (ANA PAULA DRAPER,MED STUDENT) History of Present Illness Date Seen by Provider: Apr 22, 2020 Time Seen by Provider: 23:50 Initial Comments Mr. Pichardo is a 60 year old male presenting to the emergency department for suicidal ideation. Tavo states the thoughts of harming himself starting this evening just prior to his call to EMS. He states this was the first time he has ever had suicidal ideations and it scared him. He states at the time of the thoughts he thought of "hundreds of ways" to end his life but most prominently was using a big knife he had in the home. He denies current suicidal ideations but fears going home and the thoughts returning. His is out of town and due to return tomorrow (Thursday). He states he has been struggling with depression for a few weeks now. He denies any life changes at that time. He admits to decr eased sleep, decreased appetite, decreased memory/concentration, and decreased energy. Although he denies current suicidal ideations he repeatedly states he is scared to go home , that the thoughts may return, and what he might do. He states he and his recently moved back to the area from [place], [place] and he has not yet established care. He voiced his desire to get help for his daily alcohol use, he states he has been using daily for several years. Associated Symptoms: anxiety, impaired concentration, insomnia, suicidal ideation (ANA PAULA DRAPER,MED STUDENT) Allergies and Home Medications Allergies Coded Allergies: No Known Drug Allergies (Unverified , 12/28/19) Home Medications Multivitamin 1 Each Tablet, 1 EACH PO DAILY, (Reported) Naphazoline HCl/Glycerin 30 Ml Drops, 2 DROPS OU PRN PRN for EYE REDNESS, (Reported) Propranolol HCl 10 Mg Tablet, 10 MG PO QID PRN for TREMORS, (Reported) Sertraline HCl 100 Mg Tablet, 100 MG PO HS, (Reported) Topiramate 25 Mg Cap.sprink, 75 MG PO HS PRN for TREMORS, (Reported) TAKES 3 (25MG) TABS Topiramate 50 Mg Tablet, 50 MG PO QID PRN for TREMORS, (Reported) Patient Home Medication List Home Medication List Reviewed: Yes (MANJINDER ZARAGOZA MD) Review of Systems Constitutional: no symptoms reported Respiratory: no symptoms reported Cardiovascular: no symptoms reported Gastrointestinal: no symptoms reported Genitourinary: no symptoms reported Musculoskeletal: other (chronic bilateral knee pain) Skin: no symptoms reported Psychiatric/Neurological: Anxiety, Depressed, Tremors (chronic) (ANA PAULA DRAPER MED STUDENT) Past Nakvnsj-Qdpshi-Vyknna Hx Past Med/Social Hx: Reviewed Nursing Past Med/Soc Hx (MANJINDER ZARAGOZA MD) Patient Social History Alcohol Use: Regular Use Alcohol Beverage of Choice: Vodka Recreational Drug Use: No Smoking Status: Never a Smoker Recent Hopitalizations: No (ANA PAULA DRAPER MED STUDENT) Immunizations Up To Date Tetanus Booster (TDap): Unknown PED Vaccines UTD: Yes (ANA PAULA DRAPER MED STUDENT) Seasonal Allergies Seasonal Allergies: No (ANA PAULA DRAPER MED STUDENT) Past Medical History Surgeries: Yes (HEMRRHOID) Respiratory: No Cardiac: No Neurological: Yes (TREMORS) Dementia Genitourinary: No Gastrointestinal: No Musculoskeletal: No Endocrine: No HEENT: No Cancer: No Psychosocial: Yes (ETOH ABUSE HX) Depression Integumentary: No Blood Disorders: No Adverse Reaction/Blood Tranf: No (ANA PAULA DRAPER MED STUDENT) Family Medical History FH: breast cancer 19 MOTHER Hypertension 19 MOTHER Physical Exam Vital Signs - First Documented 04/21/20 04/22/20 23:30 04:46 Temp 36.2 Pulse 120 Resp 18 B/P (MAP) 145/93 (110) Pulse Ox 98 O2 Delivery Room Air (MANJINDER ZARAGOZA MD) Capillary Refill : (ANA PAULA DRAEPR MED STUDENT) Height, Weight, BMI Height: '" Weight: lbs. oz. kg; 32.00 BMI Method: General Appearance: WD/WN, no apparent distress, other (tearful) HEENT: PERRL/EOMI Neck: non-tender, full range of motion Respiratory: chest non-tender, lungs clear, normal breath sounds, no respiratory distress, no accessory muscle use Cardiovascular: regular rate, rhythm, systolic murmur (2/6) Gastrointestinal: non tender, soft, no organomegaly Extremities: no pedal edema, no calf tenderness Neurologic/Psychiatric: alert, normal mood/affect, other (oriented to person and place ) Behavior/Eye Contact: cooperative, good eye contact, normal speech Thoughts/Hallucinations: normal thought pattern, no apparent hallucination Skin: normal color, warm/dry (ANA PAULA DRAPER,MED STUDENT) Progress/Results/Core Measures Results/Orders Lab Results Laboratory Tests Test 04/21/20 00:29 04/21/20 23:56 Range/Units White Blood Count 4.1 L 4.3-11.0 10^3/uL Red Blood Count 3.16 L 4.35-5.85 10^6/uL Hemoglobin 11.1 L 13.3-17.7 G/DL Hematocrit 33 L 40-54 % Mean Corpuscular Volume 105 H 80-99 FL Mean Corpuscular Hemoglobin 35 H 25-34 PG Mean Corpuscular Hemoglobin Concent 34 32-36 G/DL Red Cell Distribution Width 14.9 H 10.0-14.5 % Platelet Count 88 L 130-400 10^3/uL Mean Platelet Volume 9.3 7.4-10.4 FL Neutrophils (%) (Auto) 35 L 42-75 % Lymphocytes (%) (Auto) 39 12-44 % Monocytes (%) (Auto) 23 H 0-12 % Eosinophils (%) (Auto) 2 0-10 % Basophils (%) (Auto) 1 0-10 % Neutrophils # (Auto) 1.4 L 1.8-7.8 X 10^3 Lymphocytes # (Auto) 1.6 1.0-4.0 X 10^3 Monocytes # (Auto) 1.0 0.0-1.0 X 10^3 Eosinophils # (Auto) 0.1 0.0-0.3 10^3/uL Basophils # (Auto) 0.0 0.0-0.1 10^3/uL Neutrophils % (Manual) 47 % Lymphocytes % (Manual) 33 % Monocytes % (Manual) 16 % Eosinophils % (Manual) 4 % Macrocytosis SLIGHT Sodium Level 143 135-145 MMOL/L Potassium Level 3.1 L 3.6-5.0 MMOL/L Chloride Level 110 H 98-107 MMOL/L Carbon Dioxide Level 22 21-32 MMOL/L Anion Gap 11 5-14 MMOL/L Blood Urea Nitrogen 18 7-18 MG/DL Creatinine 0.98 0.60-1.30 MG/DL Estimat Glomerular Filtration Rate > 60 BUN/Creatinine Ratio 18 Glucose Level 92 70-105 MG/DL Calcium Level 8.7 8.5-10.1 MG/DL Corrected Calcium 9.6 8.5-10.1 MG/DL Total Bilirubin 0.4 0.1-1.0 MG/DL Aspartate Amino Transf (AST/SGOT) 73 H 5-34 U/L Alanine Aminotransferase (ALT/SGPT) 41 0-55 U/L Alkaline Phosphatase 70 40-136 U/L Total Protein 6.2 L 6.4-8.2 GM/DL Albumin 2.9 L 3.2-4.5 GM/DL TSH [place] Testing 1.55 0.35-4.94 UIU/ML Salicylates Level < 5.0 L 5.0-20.0 MG/DL Acetaminophen Level < 10 L 10-30 UG/ML Serum Alcohol 232 H <10 MG/DL Urine Color YELLOW Urine Clarity CLEAR Urine pH 6.5 5-9 Urine Specific [place] 1.015 L 1.016-1.022 Urine Protein NEGATIVE NEGATIVE Urine Glucose (UA) NEGATIVE NEGATIVE Urine Ketones NEGATIVE NEGATIVE Urine Nitrite NEGATIVE NEGATIVE Urine Bilirubin NEGATIVE NEGATIVE Urine Urobilinogen 0.2 < = 1.0 MG/DL Urine Leukocyte Esterase TRACE H NEGATIVE Urine RBC (Auto) 2+ H NEGATIVE Urine RBC 2-5 H /HPF Urine WBC NONE /HPF Urine Squamous Epithelial Cells RARE /HPF Urine Crystals NONE /LPF Urine Bacteria NEGATIVE /HPF Urine Casts NONE /LPF Urine Mucus SMALL H /LPF Urine Culture Indicated NO Urine Opiates Screen NEGATIVE NEGATIVE Urine Oxycodone Screen NEGATIVE NEGATIVE Urine Methadone Screen NEGATIVE NEGATIVE Urine Propoxyphene Screen NEGATIVE NEGATIVE Urine Barbiturates Screen NEGATIVE NEGATIVE Ur Tricyclic Antidepressants Screen NEGATIVE NEGATIVE Urine Phencyclidine Screen NEGATIVE NEGATIVE Urine Amphetamines Screen NEGATIVE NEGATIVE Urine Methamphetamines Screen NEGATIVE NEGATIVE Urine Benzodiazepines Screen NEGATIVE NEGATIVE Urine Cocaine Screen NEGATIVE NEGATIVE Urine Cannabinoids Screen NEGATIVE NEGATIVE (MANJINDER ZARAGOZA MD) My Orders Orders - MANJINDER ZARAGOZA MD Acetaminophen (04/21/20 23:41) Alcohol (04/21/20 23:41) Cbc With Automated Diff (04/21/20 23:41) Comprehensive Metabolic Panel (04/21/20 23:41) Drug Screen Stat (Urine) (04/21/20 23:41) Salicylate (04/21/20 23:41) Thyroid Analyzer (04/21/20 23:41) Ua Culture If Indicated (04/21/20 23:41) Manual Differential (04/21/20 00:29) Potassium Chloride (Tablet) (Klor Con Ta (04/22/20 02:00) (MANJINDER ZARAGOZA MD) Medications Given in ED Current Medications Medications Dose Ordered Sig/Una Route Start Time Stop Time Status Last Admin Dose Admin Potassium Chloride 40 meq ONCE ONCE PO 04/22/20 02:00 04/22/20 02:01 DC 04/22/20 02:08 40 MEQ (MANJINDER ZARAGOZA MD) Vital Signs/I&O 04/21/20 04/22/20 04/22/20 23:30 04:46 05:10 Temp 36.2 36.9 Pulse 120 97 Resp 18 16 B/P (MAP) 145/93 (110) 151/96 (110) Pulse Ox 98 O2 Delivery Room Air Room Air Room Air (MANJINDER ZARAGOZA MD) Progress Progress Note : Progress Note This patient was seen and examined and labs reviewed. Patient reports he has had recent suicidal thinking and would like help, possibly even inpatient psychiatric help. He reports his plan this evening was [place] a [place] struck him. He decided against this because he thought that would be unfair to the stock driver of the vehicle. He asked that I contact his and visit with her. Mrs. Pichardo shares that patient has had a struggle with alcohol for about 16 years. He was forced into early alf because of alcohol use. He has attempted rehabilitation numerous times but has been unsuccessful. Her impression is that he sometimes makes suicidal comments or gestures to get her attention. Patient stated to the medical student and me that he had never had suicidal ideation in the past. However, there is an admission record on file for suicidal ideation in the past. Patient asserts he would really like to be admitted for detox and admission to a psychiatric facility. He states his life is "a mess" and he really needs help. (MANJINDER ZARAGOZA MD) Departure Communication (Admissions) Time/Spoke to Admitting Phy: 04:05 Dr. Chen (MANJINDER ZARAGOZA MD) Impression Primary Impression: Suicidal ideation Additional Impressions: Hypokalemia Alcohol dependence Qualified Codes: F10.24 - Alcohol dependence with alcohol-induced mood disorder Disposition: ADMITTED INPATIENT Condition: Stable Admissions Decision to Admit Reason: Admit from ER (General) Decision to Admit/Date: Apr 22, 2020 Time/Decision to Admit Time: 04:05 (MANJINDER ZARAGOZA MD) Departure-Patient Inst. Referrals: NO,LOCAL PHYSICIAN (PCP/Family) Primary Care Physician I have seen and examined this patient along with Ana Paula Draper MS4. I agree with her history, physical, assessment, and plan area Exam: Gen.: Alert, oriented to person, place, and age. No acute distress HEENT: Normocephalic and atraumatic mucous membranes moist. Heart: Regular rate and rhythm with slight murmur Lungs: Clear to auscultation bilaterally Neuropsych: Alert, oriented to person, place, and age, no focal deficits, expresses depression and suicidal ideation. Case was discussed with Dr. Chen who was gracious to admit the patient. (MANJINDER ZARAGOZA MD) ANA PAULA DRAPER,MED STUDENT Apr 22, 2020 00:14 MANJINDER ZARAGOZA MD Apr 22, 2020 04:24
[2020-04-22 00:18] LABS: BILIRUBIN,URINE NEGATIVE (NEGATIVE); CLARITY,URINE CLEAR; COLOR,URINE YELLOW; GLUCOSE, URINE (UA) NEGATIVE (NEGATIVE); KETONES,URINE NEGATIVE (NEGATIVE); LEUKOCYTE ESTERASE ,URINE TRACE (NEGATIVE); NITRITE,URINE NEGATIVE (NEGATIVE); PH,URINE 6.5 (5-9); PROTEIN,URINE NEGATIVE (NEGATIVE)
[2020-04-22 00:25] LABS: BACTERIA,URINE NEGATIVE /HPF; SQUAMOUS EPITHELIAL CELL,UR RARE /HPF
[2020-04-22 00:31] LABS: AMPHETAMINE SCREEN, URINE NEGATIVE (NEGATIVE); BARBITURATE SCREEN URINE NEGATIVE (NEGATIVE); BENZODIAZEPINES SCREEN URINE NEGATIVE (NEGATIVE); CANNABINOID SCREEN, URINE NEGATIVE (NEGATIVE); COCAINE SCREEN URINE NEGATIVE (NEGATIVE); METHADONE STAT NEGATIVE (NEGATIVE); METHAMPHETAMINE SCREEN URINE S NEGATIVE (NEGATIVE); OPIATE SCREEN URINE NEGATIVE (NEGATIVE); OXYCODONE STAT NEGATIVE (NEGATIVE); PROPOXYPHENE STAT NEGATIVE (NEGATIVE); TRICYCLIC ANTIDEPRESSANTS SCRE NEGATIVE (NEGATIVE)
[2020-04-22 00:43] LABS: BASOPHILS % (AUTO) 1 % (0-10); EOSINOPHILS # (AUTO) 0.1 10^3/uL (0.0-0.3); EOSINOPHILS % (AUTO) 2 % (0-10); HEMATOCRIT 33 % (40-54); HEMOGLOBIN 11.1 G/DL (13.3-17.7); LYMPHOCYTES # (AUTO) 1.6 X 10^3 (1.0-4.0); LYMPHOCYTES % (AUTO) 39 % (12-44); MEAN CORPUSCULAR HEMOGLOBIN 35 PG (25-34); MEAN CORPUSCULAR HGB CONC 34 G/DL (32-36); MEAN CORPUSCULAR VOLUME 105 FL (80-99); MEAN PLATELET VOLUME 9.3 FL (7.4-10.4); MONOCYTES % (AUTO) 23 % (0-12); NEUTROPHILS # (AUTO) 1.4 X 10^3 (1.8-7.8); NEUTROPHILS % (AUTO) 35 % (42-75); PLATELET COUNT 88 10^3/uL (130-400); RED CELL DISTRIBUTION WIDTH 14.9 % (10.0-14.5); WHITE BLOOD COUNT 4.1 10^3/uL (4.3-11.0)
[2020-04-22 00:50] LABS: ALBUMIN 2.9 GM/DL (3.2-4.5); CHLORIDE 110 MMOL/L (98-107); POTASSIUM 3.1 MMOL/L (3.6-5.0); SODIUM 143 MMOL/L (135-145)
[2020-04-22 00:51] LABS: CALCIUM 8.7 MG/DL (8.5-10.1)
[2020-04-22 00:52] LABS: GLUCOSE 92 MG/DL (70-105)
[2020-04-22 00:53] LABS: CARBON DIOXIDE 22 MMOL/L (21-32); TOTAL PROTEIN 6.2 GM/DL (6.4-8.2)
[2020-04-22 00:54] LABS: BILIRUBIN,TOTAL 0.4 MG/DL (0.1-1.0)
[2020-04-22 00:56] LABS: ALKALINE PHOSPHATASE 70 U/L (40-136); CREATININE SERUM 0.98 MG/DL (0.60-1.30); GFR ESTIMATED > 60
[2020-04-22 00:57] LABS: BUN/CREATININE RATIO 18
[2020-04-22 00:59] LABS: SALICYLATE < 5.0 MG/DL (5.0-20.0)
[2020-04-22 01:00] LABS: ACETAMINOPHEN < 10 UG/ML (10-30)
[2020-04-22 01:08] LABS: EOSINOPHILS % (MANUAL) 4 %; LYMPHOCYTES % (MANUAL) 33 %; MONOCYTES % (MANUAL) 16 %; NEUTROPHILS % (MANUAL) 47 %
[2020-04-22 01:12] LABS: ALANINE AMINOTRANSFERASE 41 U/L (0-55)
[2020-04-22 01:19] LABS: TSH (THYROID ANALYZER) 1.55 UIU/ML (0.35-4.94)
[2020-04-22] MEDS ORDERED: KCL 10 MEQ TAB (MICRO K) PO ONE (02:00)
--- OUTSIDE RECORDS SUMMARY | 2020-04-22 04:37 | XMS REPORT | Continuity of Care Document ---
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 04/18/2020 JD BERNABE MD, [...] culture - 04/16/20 23:45 Bacterial urine culture [id number] NRG COLONY COUNT >100,000/ML NRG SUSCEPTIBILITY SUSCEPTIBILITY REPORTED 04-20-20, 10 18 NRG RAPID ID PRELIM RAPID ID TESTING AT [facility] 04/17 17:40 NRG ID CONFIRMATION [...] - 04/18/20 05:05 Magnesium 1.8 mg/dL 1.6-2.4 Complete blood count (CBC) with automate d white blood cell (WBC) differential - 04/21/20 00:29 Blood leukocytes automated count (number/volume) 4.1 10*3/uL 4.3-11.0 Blood erythrocytes automated count (number/volume) 3.16 10*6/uL 4.35-5.85 Venous blood hemoglobin measurement (mass/volume) 11.1 g/dL 13.3-17.7 Blood hematocrit (volume fraction) 33 % 40-54 Automated erythrocyte mean corpuscular volume 105 [foz_us] 80-99 Automated erythrocyte mean corpuscular h emoglobin (mass per erythrocyte) 35 pg 25-34 Automated erythrocyte mean corpuscular h emoglobin concentration measurement (mass/volume) 34 g/dL 32-36 Automated erythrocyte distribution width ratio 14. 9 % 10.0- 14.5 Automated blood platelet count (count/volume) 88 1 0*3/uL 130-400 Automated blood platelet mean volume measurement 9.3 [foz_us] 7.4-10.4 Automated blood neutrophils/100 leukocytes 35 % 42-75 Automated blood lymphocytes/100 leukocytes 39 % 12-44 Blood monocytes/100 leukocytes 23 % 0-12 Automated blood eosinophils/100 leukocytes 2 % 0-10 Automated blood basophils/100 leukocytes 1 % 0-10 Blood neutrophils automated count (number/volume) 1.4 10*3 1.8-7.8 Blood lymphocytes automated count (number/volume) 1.6 10*3 1.0-4.0 Blood monocytes automated count (number/volume) 1. 0 10*3 0.0-1.0 Automated eosinophil count 0.1 10*3/uL 0 .0-0.3 Automated blood basophil count (count/volume) 0.0 10*3/uL 0.0-0.1 Comprehensive metabolic panel - 04/21/20 00:29 Serum or plasma sodium measurement (moles/volume) 143 mmol/L 135-145 Serum or plasma potassium measurement (moles/volume) 3.1 mmol/L 3.6-5.0 Serum or plasma chloride measurement (moles/volume) 110 mmol/L 98-107 Carbon dioxide 22 mmol/L 21-32 Serum or plasma anion gap determination (moles/volume) 11 mmol/L 5-14 Serum or plasma urea nitrogen measurement (mass/volume ) 18 mg/dL 7-18 Serum or plasma creatinine measurement (mass/volume) 0.98 mg/dL 0.60-1.30 Serum or plasma urea nitrogen/creatinine mass ratio 18 NRG Serum or plasma creatinine measurement w ith calculation of estimated glomerular filtration rate > NRG Serum or plasma glucose measurement (mass/volume) 92 mg/dL 70-105 Serum or plasma calcium measurement (mass/volume) 8.7 mg/dL 8.5-10.1 Serum or plasma total bilirubin measurement (mass/volu me) 0.4 mg/dL 0.1-1.0 Serum or plasma alkaline phosphatase stephy surement (enzymatic activity/volume) 70 U/L 40-136 Serum or plasma aspartate aminotransfera se measurement (enzymatic activity/volume) 73 U/L 5-34 Serum or plasma alanine aminotransferase measurement (enzymatic activity/volume) 41 U/L 0-55 Serum or plasma protein measurement (mass/volume) 6.2 g/dL 6.4-8.2 Serum or plasma albumin measurement (mass/volume) 2.9 g/dL 3.2-4.5 CALCIUM CORRECTED 9.6 mg/dL 8.5-10.1 Serum or plasma thyrotropin measurement by detection limit <=0.05 miu/l (units/volume) - 04/21/20 00:29 Serum or plasma thyrotropin measurement by detection limit <=0.05 miu/l (units/volume) 1.55 u[iU]/mL 0.35-4.94 Serum or plasma salicylates measurement (mass/volume) - 04/21/20 00:29 Serum or plasma salicylates measurement (mass/volume) < mg/dL 5.0-20.0 Serum or plasma acetaminophen measuremen t (mass/volume) - 04/21/20 00:29 Serum or plasma acetaminophen measurement (mass/volume ) < ug/mL 10-30 Manual absolute plasma cell count - 04/09 01/26 00:29 Blood monocytes/100 leukocytes 16 % NRG Manual blood segmented neutrophils/100 leukocytes 47 % NRG Manual blood lymphocytes/100 leukocytes 33 % NRG Manual eosinophils/100 leukocytes in nose 4 % NRG Blood macrocytes detection by light microscopy SLI GHT NRG Serum or plasma ethanol measurement (mas s/volume) - 04/21/20 00:29 Serum or plasma ethanol measurement (mass/volume) 232 mg/dL <10 Complete urinalysis with reflex to cultu re - 04/21/20 23:56 Urine color determination YELLOW NRG Urine clarity determination CLEAR NR G Urine pH measurement by test strip 6.5 5-9 Specific gravity of urine by test strip 1.015 1.016-1.022 Urine protein assay by test strip, semi-quantitative NEGATIVE NEGATIVE Urine glucose detection by automated test [...] 1.0 Urine leukocyte esterase detection by dipstick TRA CE NEGATIVE Automated urine sediment erythrocyte cou nt by microscopy (number/high power field) [HPF] NRG Automated urine sediment leukocyte count by microscopy (number/high power field) NONE NRG Bacteria detection in urine sediment by light microsco py NEGATIVE NRG Squamous epithelial cells detection in u rine sediment by light microscopy RARE NRG Crystals detection in urine sediment by light microsco py NONE NRG Casts detection in urine sediment by light microscopy NONE NRG Mucus detection in urine sediment by light microscopy SMALL NRG Complete urinalysis with reflex to culture NO NRG Urine drug screening test - 04/21/20 23: 56 Urine phencyclidine detection by screening method NEGATIVE [...] Status Pt. Type Provider Facility Loc./Unit Complaint [id number] 04/04/2020 10:00:00 Document Registration [id number] 04/17/2020 00:40:00 020 15:25:00 DIS Outpatient FLORECITA FARRIS, JD Gallagher [facility] CSD UTI,DEBILITY,DEHYDRATION,HYPOKALEMIA [id number] 12/28/2019 20:08:00 020 11:30:00 DIS Inpatient RAMSEY MONTILLA DO, V [facility] 4TH SUICIDAL, ETOH ABUSE [id number] 04/22/2020 00:26:00 Document Registration
--- NOTE | 2020-04-22 05:01 | NUR ---
JORGE A BOYKINNETT admitted to room 412-1, with an admitting diagnosis of SUICIDAL IDEATION , on 04/22/20 from AM via , accompanied by .JORGE A FIELD introduced to surroundings, call light, bed controls, phone, TV, temperature control, lights, meal times, smoking policy, visitor policy, side rail policy, bathrooms and showers. Patient Rights given to patient in the handbook.JORGE A FIELD verbalizes understanding that [facility] is not responsible for the loss or damage to any personal effects or valuables that are kept in the patients posession during their hospitalization.
[2020-04-22 07:14] VITALS: BP 155/86
[2020-04-22] MEDS ORDERED: ACETAMINOPHEN 325 MG TABLET PO PRN (09:30)
[2020-04-22] MEDS ORDERED: MELATONIN 3 MG TABLET PO PRN (11:15)
[2020-04-22] MEDS ORDERED: ANTACID SUSP 30 ML UDC (MYLANTA) PO PRN (11:15)
[2020-04-22] MEDS ORDERED: polyethylene glycoL POWDER 17 GM (MIRALAX) PACK PO PRN (11:15)
[2020-04-22] MEDS ORDERED: ONDANSETRON 4 MG/2 ML (SDV) Z0FRAN IV PRN (11:15)
[2020-04-22] MEDS ORDERED: ONDANSETRON 4 MG (ZOFRAN) ORAL DISSOLVE TAB PO PRN (11:15)
[2020-04-22] MEDS ORDERED: BISACODYL 10 MG SUPP (DULCOLAX) PR PRN (11:15)
[2020-04-22] MEDS ORDERED: diphenhydrAMINE 25 MG TAB (BENADRYL) PO PRN (11:15)
--- NOTE | 2020-04-22 11:24 | History & Physical-Hospitalist ---
History of Present Illness HPI/Chief Complaint Tavo Pichardo is a 60-year-old male with past medical history of alcohol dependence, depression, essential tremor, who presented with acute alcohol intoxication and suicidal ideation. He was recently admitted under eerily similar circumstances. He still says he was doing well when he went home but he began drinking again. He is unsure what the trigger was then made him start drinking again. He says he had a fall at home. He said he has been feeling depressed. He reports that he has not been sleeping well. He says that he doesn't find nel in many things anymore and he had to sell his motorcycle and other things that he enjoyed doing. Upon arrival, he says that he has thought of "100s of ways" to hurt himself. Specifically, he reported having a large knife at home that he could use to harm himself. He was making statements that he wanted to lay in the road so that he could get hit by a car. This morning upon my examination, he denies any suicidal ideation. He says he does not want to harm himself. He says he is willing to do whatever it takes to get better. He says that he has been taking his sertraline. Source: patient Exam Limitations: no limitations Date Seen 04/22/20 Time Seen by a Provider: 09:30 Attending Physician Laury Bernabe MD PCP No,Local Physician Referring Physician Date of Admission Apr 22, 2020 at 04:14 Home Medications & Allergies Home Medications Reviewed patient Home Medication Reconciliation performed by pharmacy medication reconciliations instrument and controls technician and/or nursing. Patients Allergies have been reviewed. Allergies Allergies Coded Allergies No Known Drug Allergies (Unverified12/28/19) Past Uqhrcmy-Raufnz-Mkofmr Hx Past Med/Social Hx: Reviewed Nursing Past Med/Soc Hx Patient Social History Alcohol Use: Regular Use Number of Drinks Today: FF Alcohol Beverage of Choice: Vodka Recreational Drug Use: No Smoking Status: Never a Smoker Recent Foreign Travel: No Contact w/other who traveled: No Recent Hopitalizations: No Recent Infectious Disease Expo: No Immunizations Up To Date Tetanus Booster (TDap): Unknown Pediatric: Yes Seasonal Allergies Seasonal Allergies: No Past Medical History Neurological: Dementia Psychosocial: Depression History of Blood Disorders: No Adverse Reaction to Blood Lee: No Family History FH: breast cancer 19 MOTHER Hypertension 19 MOTHER Review of Systems Constitutional: no symptoms reported EENTM: no symptoms reported Respiratory: no symptoms reported Cardiovascular: no symptoms reported Gastrointestinal: no symptoms reported Genitourinary: no symptoms reported Musculoskeletal: no symptoms reported Skin: no symptoms reported Psychiatric/Neurological: Depressed Physical Exam Physical Exam Vital Signs Vital Signs - First Documented 04/21/20 04/22/20 23:30 04:46 Temp 36.2 Pulse 120 Resp 18 B/P (MAP) 145/93 (110) Pulse Ox 98 O2 Delivery Room Air Capillary Refill : Less Than 3 Seconds Height, Weight, BMI Height: '" Weight: lbs. oz. kg; 32.00 BMI Method: General Appearance: No Apparent Distress, Anxious, Obese HEENT: PERRL/EOMI, Pharynx Normal Neck: Normal Inspection, Supple Respiratory: Lungs Clear, Normal Breath Sounds, No Respiratory Distress Cardiovascular: Regular Rate, Rhythm, No Murmur Gastrointestinal: Normal Bowel Sounds, Non Tender, Soft Extremity: Normal Inspection, Non Tender, Pedal Edema Neurologic/Psychiatric: Alert, Oriented x3, No Motor/Sensory Deficits, Depressed Affect Skin: Normal Color, Warm/Dry Results Results/Procedures Labs Laboratory Tests 04/21/20 00:29 Patient resulted labs reviewed. Assessment/Plan Admission Diagnosis Acute alcohol intoxication Admission Status: Observation Assessment and Plan Acute alcohol intoxication Alcohol dependence Suicidal ideation Depression IV fluids Sitter at bedside, will discontinue with no ongoing suicidal ideation Consult social media editor, appreciate assistance Would benefit from inpatient psychiatry with recurrent admissions Increase sertraline Hypokalemia Continue to monitor and replace as needed Essential tremor Continue propranolol Pancytopenia Secondary to alcohol abuse, continue to monitor DVT prophylaxis: Lovenox Diagnosis/Problems Diagnosis/Problems (1) Alcohol dependence with acute alcoholic intoxication Status: Acute (2) Suicidal ideation Status: Resolved Resolution Date/Time: 12/30/19 @ 11:32 (3) Pancytopenia Status: Acute (4) Depression Status: Chronic (5) Essential tremor Status: Chronic (6) Electrolyte abnormality Status: Acute Clinical Quality Measures DVT/VTE Risk/Contraindication: Risk Factor Score Per Nursin RFS Level Per Nursing on Admit: 2=Moderate LAURY BERNABE MD Apr 22, 2020 11:24
[2020-04-22] MEDS ORDERED: NS IV 1000 ML 1,000 ML IV SCH (11:30)
[2020-04-22 12:00] VITALS: BP 160/89
[2020-04-22] MEDS: ENOXAPARIN 40 MG/0.4 ML (LOVENOX) SYR SC SCH (12:07)
[2020-04-22] MEDS: PROPRANOLOL 20 MG (INDERAL) TABLET PO SCH ×2 (12:10→19:59)
[2020-04-22] MEDS ORDERED: chlordiazePOXIDE 25 MG (LIBRIUM) CAP NON-FORMULARY PO SCH (13:00)
[2020-04-22] MEDS: DIAZEPAM 5 MG (VALIUM) TABLET PO SCH ×2 (13:17→19:59)
[2020-04-22 15:25] VITALS: BP 158/99
[2020-04-22 19:18] VITALS: BP 137/86
[2020-04-22] MEDS: DOCUSATE SODIUM 100 MG (COLACE) CAP PO SCH (20:02)
[2020-04-22] MEDS: SENNOSIDES 8.6 MG (SENOKOT) TAB PO SCH (20:02)
[2020-04-22] MEDS ORDERED: SERTRALINE 100 MG (ZOLOFT) TAB PO SCH (21:00)
[2020-04-23] VITALS: BP 138/79
[2020-04-23 04:00] VITALS: BP 115/71
[2020-04-23] MEDS: PROPRANOLOL 20 MG (INDERAL) TABLET PO SCH ×2 (05:19→15:00)
[2020-04-23 05:31] LABS: BASOPHILS % (AUTO) 0 % (0-10); EOSINOPHILS # (AUTO) 0.1 10^3/uL (0.0-0.3); EOSINOPHILS % (AUTO) 3 % (0-10); HEMATOCRIT 34 % (40-54); HEMOGLOBIN 11.3 G/DL (13.3-17.7); LYMPHOCYTES # (AUTO) 0.8 X 10^3 (1.0-4.0); LYMPHOCYTES % (AUTO) 32 % (12-44); MEAN CORPUSCULAR HEMOGLOBIN 35 PG (25-34); MEAN CORPUSCULAR HGB CONC 34 G/DL (32-36); MEAN CORPUSCULAR VOLUME 104 FL (80-99); MEAN PLATELET VOLUME 10.1 FL (7.4-10.4); MONOCYTES # (AUTO) 0.6 X 10^3 (0.0-1.0); MONOCYTES % (AUTO) 24 % (0-12); NEUTROPHILS % (AUTO) 41 % (42-75); PLATELET COUNT 62 10^3/uL (130-400); RED CELL DISTRIBUTION WIDTH 14.1 % (10.0-14.5); WHITE BLOOD COUNT 2.5 10^3/uL (4.3-11.0)
[2020-04-23 05:54] LABS: BUN/CREATININE RATIO 14; CALCIUM 8.4 MG/DL (8.5-10.1); CARBON DIOXIDE 20 MMOL/L (21-32); CHLORIDE 108 MMOL/L (98-107); CREATININE SERUM 0.99 MG/DL (0.60-1.30); GFR ESTIMATED > 60; GLUCOSE 88 MG/DL (70-105); MAGNESIUM 1.5 MG/DL (1.6-2.4); SODIUM 141 MMOL/L (135-145)
[2020-04-23] MEDS: DOCUSATE SODIUM 100 MG (COLACE) CAP PO SCH (07:46)
[2020-04-23] MEDS: SENNOSIDES 8.6 MG (SENOKOT) TAB PO SCH (07:46)
[2020-04-23 08:00] VITALS: BP 144/90
[2020-04-23] MEDS: DIAZEPAM 5 MG (VALIUM) TABLET PO SCH (09:19)
--- NOTE | 2020-04-23 10:10 | NUR ---
SPOKE WITH THE PT TO COMPLETE THE MED REC PT WAS RECENTLY HERE AND I COMPLETED THE MED REC ON 04-17-2020- PT INDICATES NO MEDS HAVE CHANGED (I ALSO WENT THRU HIS DISCHARGE FROM THEN AND THERE WERE NO NEW MEDS, CHANGES OR DISCONTINUED ITEM. OTC MEDS: [employer] CLEAR EYES REDNESS DROPS
--- NOTE | 2020-04-23 10:35 | NUR ---
Pt was dismissed from our hospital April 18 after a 48 hour observation stay. He was referred to [facility] and Miguelangel JONES did visit pt at his independent living cottage at [facility] on April 20. Home Health Card did find him intoxicated and did set up his medications and placed meds not prescribed out of his reach. Pt did call EMS twice and the 2nd time was admitted here for suicidal ideation and was drinking alcohol. Pt 's returned from [place] last night and is to be here this morning and will meet with them for continued care plan.
--- NOTE | 2020-04-23 11:57 | NUR ---
Contacted [facility] and requested Mental Health screening. They will notify Matt Gordon, [place] Psychologist who will be here to screen patient but may not be able to complete till later this afternoon. Pt's notified of plan and was agreeable.
[2020-04-23 12:00] VITALS: BP 143/85
[2020-04-23] MEDS ORDERED: DIAZEPAM 5 MG (VALIUM) TABLET PO SCH (13:00)
[2020-04-23] MEDS: ENOXAPARIN 40 MG/0.4 ML (LOVENOX) SYR SC SCH (14:08)
--- NOTE | 2020-04-23 14:47 | NUR ---
Pt was provided mental health screening by Matt Gordon,[place] psychologist,[facility]. He gave patient Emergency SAVE line information and discussed follow-up care with pt and . He plans to meet with Dr. Jnoes,Clinical Psychologist at [facility] on the 26 of April. Pt's will transport pt to his [facility] and will be checking on him frequently. Currently pt denies any thoughts of self-harm.
--- NOTE | 2020-04-23 15:06 | Discharge Summary ---
Diagnosis/Chief Complaint Date of Admission Apr 22, 2020 at 04:14 Date of Discharge Admission Diagnosis Acute alcohol intoxication Primary Care No,Local Physician Discharge Diagnosis (1) Alcohol dependence with acute alcoholic intoxication Status: Acute (2) Suicidal ideation Status: Resolved (3) Pancytopenia Status: Acute (4) Depression Status: Chronic (5) Essential tremor Status: Chronic (6) Electrolyte abnormality Status: Acute Discharge Summary Discharge Physical Exam Allergies: Coded Allergies: No Known Drug Allergies (Unverified , 12/28/19) Vitals & I&Os Vital Signs Date Time Temp Pulse Resp B/P (MAP) Pulse Ox O2 Delivery O2 Flow Rate FiO2 04/23/20 12:00 37.4 66 20 143/85 (104) 97 Room Air General Appearance: No Apparent Distress, WD/WN Cardiovascular: Regular Rate, Rhythm, No Murmur Neurologic/Psychiatric: Alert, Oriented x3 Hospital Course Pt was admitted due to suicidal ideation while intoxicated. He was admitted in order to sober up for proper screening. Upon sobering he adamantly denied any suicidal thoughts. He denied a plan as well. He was screened by [facility] who deemed him safe for discharge home with outpatient follow up. He is to see [facility] on 04/26 and reportedly has an appointment with Dr Crabtree at [facility] tomorrow. He was discharged home in stable condition. Labs (last 24 hrs) Laboratory Tests 04/23/20 05:18: White Blood Count 2.5L, Red Blood Count 3.22L, Hemoglobin 11.3L, Hematocrit 34L, Mean Corpuscular Volume 104H, Mean Corpuscular Hemoglobin 35H, Mean Corpuscular Hemoglobin Concent 34, Red Cell Distribution Width 14.1, Platelet Count 62L, Mean Platelet Volume 10.1, Neutrophils (%) (Auto) 41L, Lymphocytes (%) (Auto) 32, Monocytes (%) (Auto) 24H, Eosinophils (%) (Auto) 3, Basophils (%) (Auto) 0, Neutrophils # (Auto) 1.0L, Lymphocytes # (Auto) 0.8L, Monocytes # (Auto) 0.6, Eosinophils # (Auto) 0.1, Basophils # (Auto) 0.0, Sodium Level 141, Potassium Level 4.0, Chloride Level 108H, Carbon Dioxide Level 20L, Anion Gap 13, Blood Urea Nitrogen 14, Creatinine 0.99, Estimat Glomerular Filtration Rate > 60, BUN/Creatinine Ratio 14, Glucose Level 88, Calcium Level 8.4L, Magnesium Level 1.5L Patient resulted labs reviewed. Discussion & Recommendations Discharge Planning: >30 minutes discharge planning Discharge Home Medications: Active Scripts Active Reported Clear Eyes Max Redness Rlf Drp (Naphazoline HCl/Glycerin) 30 Ml Drops 2 Drops OU PRN PRN Multivitamin 1 Each Tablet 1 Each PO DAILY Topiramate 50 Mg Tablet 50 Mg PO QID PRN Topiramate 25 Mg Cap.sprink 75 Mg PO HS PRN TAKES 3 (25MG) TABS Sertraline HCl 100 Mg Tablet 100 Mg PO HS Propranolol HCl 10 Mg Tablet 10 Mg PO QID PRN Instructions to patient/family Please see electronic discharge instructions given to patient. Clinical Quality Measures DVT/VTE Risk/Contraindication: Risk Factor Score Per Nursin RFS Level Per Nursing on Admit: 2=Moderate FOSTER CASTANEDA MD Apr 23, 2020 15:06
--- NOTE | 2020-04-23 15:11 | Discharge Inst-Simple/Standard ---
Discharge Inst-Standard Reconcile Patient Problems Problems Reviewed?: Yes Patient Instructions/Follow Up Plan of Care/Instructions/FU: Please continue to take your medications as written. Please follow up with Dr Fatuma Crabtree and with [facility] health as scheduled this week. Activity as Tolerated: Yes Discharge Diet: No Restrictions Return to The Hospital For: Chest pain, shortness of breath, fever, confusion, thoughts of self harm or homicidal thoughts, if you feel you are getting worse. FOSTER CASTANEDA MD Apr 23, 2020 15:11
--- NOTE | 2020-04-23 15:50 | NUR ---
DC'D PER WC WITH . RX AND INST AND VERBALIZED UNDERSTANDING.
--- OUTSIDE RECORDS SUMMARY | 2020-05-01 12:40 | XMS REPORT | Continuity of Care Document ---
Author Organization Unknown Address Unknown Phone Unavailable Allergies Active Description Code Type Severity Reaction Onset Reported/Identified Relationship to Patient Clinical Status Yes No Known Drug Allergies [id number] Drug Allergy Unknown N/A 12/28/2019 Medications There [...] RAMSEY Ot Z23 ENCOUNTER FOR IMMUNIZATION 12/31/2019 ROLDAN GRANGER, RAMSEY Ot Z68.36 BODY MASS INDEX (BMI) 36.0-36.9, ADULT 04/18/2020 JD BERNABE MD Ot D61.818 OTHER PANCYTOPENIA 04/18/2020 JD BERNABE MD Ot E86. 0 DEHYDRATION 04/18/2020 JD BERNABE MD Ot E87. 6 HYPOKALEMIA 04/18/2020 JD BERNABE MD Ot F02. 80 DEMENTIA IN OTH DISEASES CLASSD ELSWHR W 04/18/2020 JD BERNABE MD Ot F10.220 ALCOHOL DEPENDENCE WITH INTOXICATION, UN 04/18/2020 JD BERNABE MD Ot F10.239 ALCOHOL DEPENDENCE WITH WITHDRAWAL, UNSP 04/18/2020 JD BERNABE MD, Ot F32. 9 MAJOR DEPRESSIVE DISORDER, SINGLE EPISOD 04/18/2020 JD BERNABE MD Ot N30. 01 ACUTE CYSTITIS WITH HEMATURIA 04/18/2020 JD BERNABE MD Ot R53. 81 OTHER MALAISE 04/18/2020 JD BERNABE MD Ot R88. 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 3 FAMILY HISTORY OF MALIGNANT NEOPLASM OF 04/18/2020 JD BERNABE MD Ot Z82. 49 FAMILY HX OF ISCHEM HEART DIS AND OTH DI 04/23/2020 JD BERNABE MD Ot D61.818 OTHER PANCYTOPENIA 04/23/2020 JD BERNABE MD Ot E87. 6 HYPOKALEMIA 04/23/2020 JD BERNABE MD Ot E87. 8 OT DISORDERS OF ELECTROLYTE AND FLUID B 04/23/2020 JD BERNABE MD Ot F03. 90 UNSPECIFIED DEMENTIA WITHOUT BEHAVIORAL 04/23/2020 JD BERNABE MD Ot F10.229 ALCOHOL DEPENDENCE WITH INTOXICATION, UN 04/23/2020 JD BERNABE MD Ot F10. 24 ALCOHOL DEPENDENCE WITH ALCOHOL-INDUCED 04/23/2020 JD BERNABE MD Ot F32. 9 MAJOR DEPRESSIVE DISORDER, SINGLE EPISOD 04/23/2020 JD BERNABE MD Ot R25. 1 TREMOR, UNSPECIFIED 04/23/2020 JD BERNABE MD Ot R45.851 SUICIDAL IDEATIONS 04/23/2020 JD BERNABE MD, Ot Z79.899 OTHER INTERMEDIATE (CURRENT) DRUG THERAPY 04/23/2020 JD BERNABE MD, Ot Z82. 49 FAMILY HX OF ISCHEM HEART DIS AND OTH DI 04/23/2020 JD BERNABE MD, Ot Z83. 3 FAMILY HISTORY OF DIABETES MELLITUS 04/30/2020 JD BERNABE MD Ot D61.818 OTHER PANCYTOPENIA 04/30/2020 JD BERNABE MD Ot E86. 0 DEHYDRATION 04/30/2020 JD BERNABE MD, Ot E87. 6 HYPOKALEMIA 04/30/2020 JD BERNABE MD Ot F02. 80 DEMENTIA IN OTH DISEASES CLASSD ELSWHR W 04/30/2020 JD BERNABE MD, Ot F10.220 ALCOHOL DEPENDENCE WITH INTOXICATION, UN 04/30/2020 JD BERNABE MD Ot F10.239 ALCOHOL DEPENDENCE WITH WITHDRAWAL, UNSP 04/30/2020 JD BERANBE MD, Ot F32. 9 MAJOR DEPRESSIVE DISORDER, SINGLE EPISOD 04/30/2020 JD BERNABE MD Ot N30. 01 ACUTE CYSTITIS WITH HEMATURIA 04/30/2020 JD BERNABE MD Ot R53. 81 OTHER MALAISE 04/30/2020 JD BERNABE MD, Ot R88. 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 3 FAMILY HISTORY OF MALIGNANT NEOPLASM OF 04/30/2020 JD BERNABE MD Ot Z82. 49 FAMILY HX OF ISCHEM HEART DIS AND OTH DI Procedures There is no data. Results [...] culture - 04/16/20 23:45 Bacterial urine culture [id number] NRG COLONY COUNT >100,000/ML NRG SUSCEPTIBILITY SUSCEPTIBILITY REPORTED 04-20-20, 10 18 NRG RAPID ID PRELIM RAPID ID TESTING AT [facility] 04/17 17:40 NRG ID CONFIRMATION ID CONFIRMED 04-19-20, 0. NRG Dirithromycin susceptibility test by dis k [...] Manual absolute plasma cell count - 04/09 3 00:29 Blood monocytes/100 leukocytes 16 % NRG [...] TIVE Urine propoxyphene detection NEGATIVE N EGATIVE Complete blood count (CBC) with automate d white blood cell (WBC) differential - 04/23/20 05:18 Blood leukocytes automated count (number/volume) 2.5 10*3/uL 4.3-11.0 Blood erythrocytes automated count (number/volume) 3.22 10*6/uL 4.35-5.85 Venous blood hemoglobin measurement (mass/volume) 11.3 g/dL 13.3-17.7 Blood hematocrit (volume fraction) 34 % 40-54 Automated erythrocyte mean corpuscular volume 104 [foz_us] 80-99 Automated erythrocyte mean corpuscular h emoglobin (mass per erythrocyte) 35 pg 25-34 Automated erythrocyte mean corpuscular h emoglobin concentration measurement (mass/volume) 34 g/dL 32-36 Automated erythrocyte distribution width ratio 14. 1 % 10.0- 14.5 Automated blood platelet count (count/volume) 62 1 0*3/uL 130-400 Automated blood platelet mean volume measurement 10.1 [foz_us] 7.4-10.4 Automated blood neutrophils/100 leukocytes 41 % 42-75 Automated blood lymphocytes/100 leukocytes 32 % 12-44 Blood monocytes/100 leukocytes 24 % 0-12 Automated blood eosinophils/100 leukocytes 3 % 0-10 Automated blood basophils/100 leukocytes 0 % 0-10 Blood neutrophils automated count (number/volume) 1.0 10*3 1.8-7.8 Blood lymphocytes automated count (number/volume) 0.8 10*3 1.0-4.0 Blood monocytes automated count (number/volume) 0. 6 10*3 0.0-1.0 Automated eosinophil count 0.1 10*3/uL 0 .0-0.3 Automated blood basophil count (count/volume) 0.0 10*3/uL 0.0-0.1 Whole blood basic metabolic panel - 04/09 03/28 05:18 Serum or plasma sodium measurement (moles/volume) 141 mmol/L 135-145 Serum or plasma potassium measurement (moles/volume) 4.0 mmol/L 3.6-5.0 Serum or plasma chloride measurement (moles/volume) 108 mmol/L 98-107 Carbon dioxide 20 mmol/L 21-32 Serum or plasma anion gap determination (moles/volume) 13 mmol/L 5-14 Serum or plasma urea nitrogen measurement (mass/volume ) 14 mg/dL 7-18 Serum or plasma creatinine measurement (mass/volume) 0.99 mg/dL 0.60-1.30 Serum or plasma urea nitrogen/creatinine mass ratio 14 NRG Serum or plasma creatinine measurement w ith calculation of estimated glomerular filtration rate > NRG Serum or plasma glucose measurement (mass/volume) 88 mg/dL 70-105 Serum or plasma calcium measurement (mass/volume) 8.4 mg/dL 8.5-10.1 Magnesium - 04/23/20 05:18 Magnesium 1.5 mg/dL 1.6-2.4 Encounters ACCT No. Visit Date/Time Discharge Status Pt. Type Provider Facility Loc./Unit Complaint [id number] 04/26/2020 11:00:00 04/26/2020 23:59: 59 CLS Outpatient KRISTY FARRIS, ELYSSA Matson [facility] [id number] 04/04/2020 10:00:00 Document Registration [id number] 04/22/2020 04:14:00 020 15:52:00 DIS Outpatient FLORECITA FARRIS, JD Bowers Via [facility] 4TH SUDICIDAL IDEATATION, A LCOHOL DEP [id number] 04/16/2020 22:13:00 020 15:25:00 DIS Inpatient FLORECITA FARRIS, JD Bowers Via [facility] CSD UTI,DEBILITY,DEHYDRATION,HYPOKALEMIA [id number] 12/28/2019 20:08:00 020 11:30:00 DIS Inpatient RAMSEY MONTILLA DO [facility] 4TH SUICIDAL, ETOH ABUSE
== END 2020-04-23 15:11 | disposition home or self-care (01) ==
LOC: EDUNIT# 23:28 → ER 23:29 → 4TH 23:30 → UNDOADMOB 04-22 04:14 → UNDODISOB 04-23 15:52
PROVIDERS: ADMIT Internal Medicine; ATTEND Internal Medicine
DX: F10.229 Alcohol dependence with intoxication, unspecified (principal); R45.851 Suicidal ideations; R25.1 Tremor, unspecified; D61.818 Other pancytopenia; E87.8 Other disorders of electrolyte and fluid balance, not elsewhere classified; E87.6 Hypokalemia; F03.90 Unspecified dementia, unspecified severity, without behavioral disturbance, psychotic disturbance, mood disturbance, and anxiety; F32.9 Major depressive disorder, single episode, unspecified; Z79.899 Other long term (current) drug therapy; Z83.3 Family history of diabetes mellitus; Z82.49 Family history of ischemic heart disease and other diseases of the circulatory system
CPT/HCPCS: 80048; 80053; 80306; 81000; 83735; 84443; 85007; 85025; 85027; 99282; G0378; G0480 ×3; 36415; 80320; 80329

== ENCOUNTER 2020-05-06 14:04 | Observation (INO) | payer BC ==
[~2020-05-06] VITALS: Ht 177.8 cm; Wt 108.4 kg
--- OUTSIDE RECORDS SUMMARY | 2020-05-06 14:16 | XMS REPORT | Continuity of Care Document ---
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 3 FAMILY HISTORY OF MALIGNANT NEOPLASM OF 04/18/2020 JD BERNABE MD Ot Z82. 49 FAMILY HX OF ISCHEM HEART DIS AND OTH DI 04/23/2020 JD BERNABE MD Ot D61.818 OTHER PANCYTOPENIA 04/23/2020 JD BERNABE MD Ot E87. 6 HYPOKALEMIA 04/23/2020 JD BERNABE MD Ot E87. 8 OTH DISORDERS OF ELECTROLYTE AND FLUID B 04/23/2020 JD BERNABE MD Ot F03. 90 UNSPECIFIED DEMENTIA WITHOUT BEHAVIORAL 04/23/2020 JD BERNABE MD Ot F10.229 ALCOHOL DEPENDENCE WITH INTOXICATION, UN 04/23/2020 JD BERNABE MD Ot F32. 9 MAJOR DEPRESSIVE DISORDER, SINGLE EPISOD 04/23/2020 JD BERNABE MD Ot R25. 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 49 FAMILY HX OF ISCHEM HEART DIS AND OTH DI 04/23/2020 JD BERNABE MD Ot Z83. 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 49 FAMILY HX OF ISCHEM HEART DIS AND OTH DI 04/23/2020 JD BERNABE MD Ot Z83. 3 FAMILY HISTORY OF DIABETES MELLITUS 04/30/2020 JD BERNABE MD Ot D61.818 OTHER PANCYTOPENIA 04/30/2020 JD BERNABE MD Ot E86. 0 DEHYDRATION 04/30/2020 JD BERNABE MD Ot E87. 6 HYPOKALEMIA 04/30/2020 JD BERNABE MD Ot F02. 80 DEMENTIA IN OTH DISEASES CLASSD ELSWHR W 04/30/2020 JD BERNABE MD, Ot F10.220 ALCOHOL DEPENDENCE WITH INTOXICATION, UN 04/30/2020 JD BERNABE MD, Ot F10.239 ALCOHOL DEPENDENCE WITH WITHDRAWAL, UNSP 04/30/2020 JD BERNABE MD, Ot F32. 9 MAJOR DEPRESSIVE DISORDER, SINGLE EPISOD 04/30/2020 JD BERNABE MD, Ot N30. 01 ACUTE CYSTITIS WITH HEMATURIA 04/30/2020 JD BERNABE MD, Ot R53. 81 OTHER MALAISE 04/30/2020 JD BERNABE MD, Ot R88. 8 ABNORMAL FINDINGS IN OTHER BODY FLUIDS A 04/30/2020 JD BERNABE MD, Ot W01.0XXA FALL SAME LEV FROM SLIP/TRIP W/O STRIKE 04/30/2020 JD BERNABE MD, Ot Z79.899 OTHER [facility] (CURRENT) DRUG THERAPY 04/30/2020 JD BERNABE MD, Ot Z80. 3 FAMILY HISTORY OF MALIGNANT NEOPLASM OF 04/30/2020 JD BERNABE MD, Ot Z82. 49 FAMILY [...] culture - 04/16/20 23:45 Bacterial urine culture [id number] NRG COLONY COUNT >100,000/ML NRG SUSCEPTIBILITY SUSCEPTIBILITY REPORTED 04-20-20, 10 18 NRG RAPID ID PRELIM RAPID ID TESTING AT [facility] 04/17 17:40 NRG ID CONFIRMATION ID CONFIRMED [...] Whole blood basic metabolic panel - 04/09 0 05:05 Serum or plasma sodium measurement (moles/volume) [...] mg/dL 0.1-1.0 Serum or plasma alkaline phosphatase stehpy surement (enzymatic activity/volume) 70 U/L 40-136 Serum [...] Status Pt. Type Provider Facility Loc./Unit Complaint [id number] 05/02/2020 09:40:00 05/02/2020 23:59: 59 CLS Outpatient ELYSSA WAGNER MD [id number] 04/04/2020 10:00:00 Document Registration [id number] 04/21/2020 23:30:00 15:11:00 DIS Outpatient JD BERNABE MD Via [facility] 4TH SUDICIDAL IDEATATION, A LCOHOL DEP [id number] 04/16/2020 22:13:00 15:25:00 DIS Outpatient JD BERNABE MD Via [facility] CSD UTI,DEBILITY,DEHYDRATION,HYPOKALEMIA [id number] 12/28/2019 20:08:00 11:30:00 DIS Inpatient MONTILLA DO, RAMSEY V [facility] 4TH SUICIDAL, ETOH ABUSE [id number] 05/06/2020 14:12:[address] Emergency NIK FARRIS, MANJINDER Underwood Via [facility] ER ALCOHOL DETOX
[2020-05-06 14:51] LABS: BASOPHILS # (AUTO) 0.1 10^3/uL (0.0-0.1); BASOPHILS % (AUTO) 1 % (0-10); EOSINOPHILS # (AUTO) 0.2 10^3/uL (0.0-0.3); EOSINOPHILS % (AUTO) 4 % (0-10); HEMATOCRIT 37 % (40-54); HEMOGLOBIN 12.6 G/DL (13.3-17.7); LYMPHOCYTES # (AUTO) 2.8 X 10^3 (1.0-4.0); LYMPHOCYTES % (AUTO) 49 % (12-44); MEAN CORPUSCULAR HEMOGLOBIN 35 PG (25-34); MEAN CORPUSCULAR HGB CONC 34 G/DL (32-36); MEAN CORPUSCULAR VOLUME 105 FL (80-99); MEAN PLATELET VOLUME 9.4 FL (7.4-10.4); MONOCYTES # (AUTO) 0.6 X 10^3 (0.0-1.0); MONOCYTES % (AUTO) 11 % (0-12); NEUTROPHILS % (AUTO) 36 % (42-75); PLATELET COUNT 143 10^3/uL (130-400); RED CELL DISTRIBUTION WIDTH 13.6 % (10.0-14.5); WHITE BLOOD COUNT 5.7 10^3/uL (4.3-11.0)
[2020-05-06 15:00] LABS: ALBUMIN 3.4 GM/DL (3.2-4.5); CHLORIDE 113 MMOL/L (98-107); POTASSIUM 3.7 MMOL/L (3.6-5.0); SODIUM 144 MMOL/L (135-145)
[2020-05-06 15:01] LABS: CALCIUM 9.4 MG/DL (8.5-10.1)
[2020-05-06 15:02] LABS: GLUCOSE 104 MG/DL (70-105)
[2020-05-06 15:03] LABS: CARBON DIOXIDE 20 MMOL/L (21-32); TOTAL PROTEIN 7.2 GM/DL (6.4-8.2)
[2020-05-06 15:04] LABS: BILIRUBIN,TOTAL 0.4 MG/DL (0.1-1.0)
[2020-05-06 15:06] LABS: ALKALINE PHOSPHATASE 67 U/L (40-136); CREATININE SERUM 1.13 MG/DL (0.60-1.30); GFR ESTIMATED > 60
[2020-05-06 15:07] LABS: BUN/CREATININE RATIO 17
[2020-05-06 15:09] LABS: ALANINE AMINOTRANSFERASE 43 U/L (0-55); SALICYLATE < 5.0 MG/DL (5.0-20.0)
[2020-05-06 15:13] LABS: ACETAMINOPHEN < 10 UG/ML (10-30)
--- NOTE | 2020-05-06 15:30 | ED Psychosocial ---
General Chief Complaint: Detox Stated Complaint: ALCOHOL DETOX History of Present Illness Date Seen by Provider: May 06, 2020 Time Seen by Provider: 15:00 Initial Comments 60 year old male presents for acute alcohol detox. He has been admitte d here recently for suicidal ideations, denies any thoughts to harm himself or others. reports calling [facility] for admission and they were told to come here, since we are familiar with him. He has been in patient for alcohol rehab on multiple occasions, mainly in [place]. 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 She is now afraid that his past issues are causing depression and she had hopes that behavioral health would be appropriate. Spoke to Cindy at [facility], they could screen him in 2-3 days if he did a detox but she feels he would be better served with a regional intermodal truck driver in patient detox, then consider behavioral health. Discussed this with his . Patient does report being agreeable to wanting help and to quit drinking. He did fall on 05/04/20, on his driveway and hit his forehead. denies LOC, seizure activity or N/V. He complains of headache and neck pain. No symptoms to his arms. He was tested [facility] at [facility] for symptoms, denies cough, fever, change in smell/taste or other complaints related to COVID-19 today. Called [facility], they do not have his results. Timing/Duration: intermittent Severity: mild Associated Symptoms: denies symptoms Allergies and Home Medications Allergies Coded Allergies: No Known Drug Allergies (Unverified , 12/28/19) Home Medications Multivitamin 1 Each Tablet, 1 EACH PO DAILY, (Reported) Naphazoline HCl/Glycerin 30 Ml Drops, 2 DROPS OU PRN PRN for EYE REDNESS, (Reported) Propranolol HCl 10 Mg Tablet, 10 MG PO QID PRN for TREMORS, (Reported) Sertraline HCl 100 Mg Tablet, 100 MG PO HS, (Reported) Topiramate 25 Mg Cap.sprink, 75 MG PO HS PRN for TREMORS, (Reported) TAKES 3 (25MG) TABS Topiramate 50 Mg Tablet, 50 MG PO QID PRN for TREMORS, (Reported) Patient Home Medication List Home Medication List Reviewed: Yes Review of Systems Constitutional: no symptoms reported, see HPI Psychiatric/Neurological: See HPI, Depressed, Emotional Problems, Other (acute alcohol intoxication with alcohol dependence.) All Other Systems Reviewed Negative Unless Noted: Yes Past Yhnsiht-Ssyaqz-Ozmifs Hx Past Med/Social Hx: Reviewed Nursing Past Med/Soc Hx Patient Social History Alcohol Beverage of Choice: Vodka Recent Hopitalizations: No Physical Abuse: No Sexual Abuse: No Mistreated: No Fear: No Immunizations Up To Date Tetanus Booster (TDap): Unknown PED Vaccines UTD: Yes Seasonal Allergies Seasonal Allergies: No Past Medical History Surgeries: Yes (HEMRRHOIDECTOMY) Respiratory: No Cardiac: No Neurological: Yes (TREMORS) Dementia Genitourinary: No Gastrointestinal: No Musculoskeletal: No Endocrine: No HEENT: No Cancer: No Psychosocial: Yes (ETOH ABUSE HX) Depression Integumentary: No Blood Disorders: No Adverse Reaction/Blood Tranf: No Family Medical History FH: breast cancer 19 MOTHER Hypertension 19 MOTHER Physical Exam Vital Signs - First Documented 05/06/20 05/06/20 14:25 17:20 Temp 36.7 Pulse 105 Resp 18 B/P (MAP) 128/86 (100) Pulse Ox 91 O2 Delivery Room Air O2 Flow Rate 2.00 Capillary Refill : Height, Weight, BMI Height: '" Weight: lbs. oz. kg; 32.00 BMI Method: General Appearance: WD/WN, no apparent distress HEENT: PERRL/EOMI, normal ENT inspection, TMs normal, pharynx normal Neck: non-tender, full range of motion, supple, normal inspection Respiratory: chest non-tender, lungs clear, normal breath sounds Cardiovascular: normal peripheral pulses, regular rate, rhythm Gastrointestinal: normal bowel sounds, non tender, soft Extremities: normal range of motion, non-tender, normal inspection, pedal edema (2+) Neurologic/Psychiatric: no motor/sensory deficits, alert, normal mood/affect Appearance/Memory: appropriate appearance, appropriate insight, neat Behavior/Eye Contact: cooperative, good eye contact, decreased rate of speech ( states this has been normal in the last 2-3 years) Skin: normal color, warm/dry Lymphatic: no adenopathy Progress/Results/Core Measures Results/Orders Lab Results Laboratory Tests Test 05/06/20 14:44 05/06/20 16:30 Range/Units White Blood Count 5.7 4.3-11.0 10^3/uL Red Blood Count 3.58 L 4.35-5.85 10^6/uL Hemoglobin 12.6 L 13.3-17.7 G/DL Hematocrit 37 L 40-54 % Mean Corpuscular Volume 105 H 80-99 FL Mean Corpuscular Hemoglobin 35 H 25-34 PG Mean Corpuscular Hemoglobin Concent 34 32-36 G/DL Red Cell Distribution Width 13.6 10.0-14.5 % Platelet Count 143 130-400 10^3/uL Mean Platelet Volume 9.4 7.4-10.4 FL Neutrophils (%) (Auto) 36 L 42-75 % Lymphocytes (%) (Auto) 49 H 12-44 % Monocytes (%) (Auto) 11 0-12 % Eosinophils (%) (Auto) 4 0-10 % Basophils (%) (Auto) 1 0-10 % Neutrophils # (Auto) 2.0 1.8-7.8 X 10^3 Lymphocytes # (Auto) 2.8 1.0-4.0 X 10^3 Monocytes # (Auto) 0.6 0.0-1.0 X 10^3 Eosinophils # (Auto) 0.2 0.0-0.3 10^3/uL Basophils # (Auto) 0.1 0.0-0.1 10^3/uL Prothrombin Time 12.9 12.2-14.7 SEC INR Comment 0.9 0.8-1.4 Activated Partial Thromboplast Time 29 24-35 SEC Sodium Level 144 135-145 MMOL/L Potassium Level 3.7 3.6-5.0 MMOL/L Chloride Level 113 H 98-107 MMOL/L Carbon Dioxide Level 20 L 21-32 MMOL/L Anion Gap 11 5-14 MMOL/L Blood Urea Nitrogen 19 H 7-18 MG/DL Creatinine 1.13 0.60-1.30 MG/DL Estimat Glomerular Filtration Rate > 60 BUN/Creatinine Ratio 17 Glucose Level 104 70-105 MG/DL Calcium Level 9.4 8.5-10.1 MG/DL Corrected Calcium 9.9 8.5-10.1 MG/DL Total Bilirubin 0.4 0.1-1.0 MG/DL Aspartate Amino Transf (AST/SGOT) 64 H 5-34 U/L Alanine Aminotransferase (ALT/SGPT) 43 0-55 U/L Alkaline Phosphatase 67 40-136 U/L Total Protein 7.2 6.4-8.2 GM/DL Albumin 3.4 3.2-4.5 GM/DL TSH Arthur Testing 1.04 0.35-4.94 UIU/ML Salicylates Level < 5.0 L 5.0-20.0 MG/DL Acetaminophen Level < 10 L 10-30 UG/ML Serum Alcohol 344 *H <10 MG/DL Urine Color YELLOW Urine Clarity CLOUDY Urine pH 6.0 5-9 Urine Specific [place] 1.015 L 1.016-1.022 Urine Protein TRACE H NEGATIVE Urine Glucose (UA) NEGATIVE NEGATIVE Urine Ketones NEGATIVE NEGATIVE Urine Nitrite POSITIVE H NEGATIVE Urine Bilirubin NEGATIVE NEGATIVE Urine Urobilinogen 0.2 < = 1.0 MG/DL Urine Leukocyte Esterase 3+ H NEGATIVE Urine RBC (Auto) 2+ H NEGATIVE Urine RBC NONE /HPF Urine WBC TNTC H /HPF Urine Crystals NONE /LPF Urine Bacteria TRACE /HPF Urine Casts NONE /LPF Urine Mucus NEGATIVE /LPF Urine Culture Indicated YES Urine Opiates Screen NEGATIVE NEGATIVE Urine Oxycodone Screen NEGATIVE NEGATIVE Urine Methadone Screen NEGATIVE NEGATIVE Urine Propoxyphene Screen NEGATIVE NEGATIVE Urine Barbiturates Screen NEGATIVE NEGATIVE Ur Tricyclic Antidepressants Screen NEGATIVE NEGATIVE Urine Phencyclidine Screen NEGATIVE NEGATIVE Urine Amphetamines Screen NEGATIVE NEGATIVE Urine Methamphetamines Screen NEGATIVE NEGATIVE Urine Benzodiazepines Screen POSITIVE H NEGATIVE Urine Cocaine Screen NEGATIVE NEGATIVE Urine Cannabinoids Screen NEGATIVE NEGATIVE My Orders Orders - MARK,REGAN TOE [employer] Ua Culture If Indicated (05/06/20 14:20) Cbc With Automated Diff (05/06/20 14:20) Comprehensive Metabolic Panel (05/06/20 14:20) Alcohol (05/06/20 14:20) Drug Screen Stat (Urine) (05/06/20 14:20) Acetaminophen (05/06/20 14:20) Salicylate (05/06/20 14:20) Ekg Tracing (05/06/20 14:20) Ed Iv/Invasive Line Start (05/06/20 14:20) Thyroid Analyzer (05/06/20 14:20) Monitor-Rhythm Ecg Trace Only (05/06/20 14:20) Bh Status Checks/Observation Q15M (05/06/20 14:20) Ed Iv/Invasive Line Start (05/06/20 14:20) Ct Head/Cervical Spine Wo (05/06/20 15:42) Furosemide Injection (Lasix Injection) (05/06/20 15:45) Ed Iv/Invasive Line Start (05/06/20 15:43) Ns Iv 500 Ml (Sodium Chloride 0.9%) (05/06/20 15:43) Urine Culture (05/06/20 16:30) Protime With Inr (05/06/20 17:25) Partial Thromboplastin Time (05/06/20 17:25) Medications Given in ED Current Medications Medications Dose Ordered Sig/Una Route Start Time Stop Time Status Last Admin Dose Admin Furosemide 40 mg ONCE ONCE IVP 05/06/20 15:45 05/06/20 15:46 DC 05/06/20 16:15 40 MG Sodium Chloride 500 ml @ 0 mls/hr Q0M ONCE IV 05/06/20 15:43 05/06/20 15:44 DC 05/06/20 16:15 0 MLS/HR Vital Signs/I&O 05/06/20 05/06/20 05/06/20 05/06/20 14:25 17:20 18:40 18:54 Temp 36.7 36.9 36.4 Pulse 105 107 95 Resp 18 22 16 B/P (MAP) 128/86 (100) 138/98 122/70 Pulse Ox 91 94 96 96 O2 Delivery Room Air Nasal Cannula Nasal Cannula Nasal Cannula O2 Flow Rate 2.00 2.00 2.00 05/06/20 20:17 Temp 37.2 Pulse 113 Resp 16 B/P (MAP) 139/86 (103) Pulse Ox 99 Progress Progress Note : Time: 15:00 Progress Note Patient seen and evaluated, will obtain labs, EKG and x-ray. 1530 with recent fall, will obtain CT of head and neck. NS 500 ml and Lasix 40 mg IV for swelling in LEs. 1600 spoke to , explained that he needs admitted to a regional intermodal truck driver, inpatient alcohol rehab facility. There are none in the immediate vicinity. She discussed trying to get him back to the place he went in [place], in the past. [address] Lala, agreed to admit here for acute detox and withdrawal. No symptoms of withdrawal have been demonstrated, but ETOH elevated on admission, reports drinking vodka this am. 1700 Patient admitted to [address] [place] [address], will keep in isolation, until COVID results are documented. Will ask Social Service to assist with placement tomorrow. Initial ECG Impression Date: May 06, 2020 Initial ECG Impression Time: 14:25 Initial ECG Rhythm: S.Tach Initial ECG Intervals: Normal Initial ECG Intervals UT 184; QRSD 96; QT 360; QTc 469 Halma P 18; QRS -3; T 10 Initial ECG Impression: Normal Initial ECG Comparisson: Unchanged Comment Sinus Tachy, no ST elevation Diagnostic Imaging Diagonstic Imaging: CT Plain Films/CT/US/NM/MRI: c-spine, head Comments NAME: JORGE A FIELD [facility] REC#: [id number] PT STATUS: REG ER : 1960 PHYSICIAN: REGAN FLORES ADMIT DATE: 05/06/20/ER Draft Date of Exam:05/06/20 CT HEAD/CERVICAL SPINE WO PROCEDURE: CT head and CT cervical spine without contrast. TECHNIQUE: Multiple contiguous axial images were obtained through the brain and cervical spine without the use of intravenous contrast. Sagittal and coronal reformations through the cervical spine were then performed. Auto Exposure Controls were utilized during the CT exam to meet ALARA standards for radiation dose reduction. INDICATION: Trauma, fall. COMPARISON: CT head and C-spine of 04/16/2020. FINDINGS: CT head: No hyperdense hemorrhage or space-occupying mass. No hydrocephalus or midline shift. Johnston-white matter differentiation is well-preserved. Basilar cisterns are widely patent. No skull fracture. Paranasal sinuses are clear with the exception of chronic mucosal thickening in the right maxillary sinus. Mastoid air cells are clear. CT cervical spine: No acute fracture or traumatic malalignment in the cervical spine. Multilevel mild to moderate foraminal narrowing due to uncovertebral joint hypertrophy. No high-grade spinal stenosis. No cervical lymphadenopathy. Lung apices are clear. IMPRESSION: 1. No acute intracranial process by CT. 2. No skull fracture. 3. No acute fracture or traumatic malalignment in the cervical spine. Dictated on workstation # [id number] Reviewed: Reviewed by Me Departure Impression Primary Impression: Alcohol abuse Additional Impression: Edema, lower extremity Disposition: ADMITTED INPATIENT Condition: Stable Admissions Decision to Admit Reason: Admit from ER (General) Decision to Admit/Date: May 06, 2020 Time/Decision to Admit Time: 16:30 Departure-Patient Inst. Referrals: NO,LOCAL PHYSICIAN (PCP) Primary Care Physician ELYSSA VICTORIA MD Copy Copies To 1: ELYSSA VICTORIA MD, AMY ARNP May 06, 2020 15:29
[2020-05-06] MEDS ORDERED: NS IV 500 ML 500 ML IV ONE (15:43)
[2020-05-06] MEDS ORDERED: FUROSEMIDE 40 MG/4 ML INJ (LASIX) IVP ONE (15:45)
--- NOTE | 2020-05-06 16:29 | Diagnostic Imaging Report ---
PROCEDURE: CT head and CT cervical spine without contrast. TECHNIQUE: Multiple contiguous axial images were obtained through the brain and cervical spine without the use of intravenous contrast. Sagittal and coronal reformations through the cervical spine were then performed. Auto Exposure Controls were utilized during the CT exam to meet ALARA standards for radiation dose reduction. INDICATION: Trauma, fall. COMPARISON: CT head and C-spine of 04/16/2020. FINDINGS: CT head: No hyperdense hemorrhage or space-occupying mass. No hydrocephalus or midline shift. Johnston-white matter differentiation is well-preserved. Basilar cisterns are widely patent. No skull fracture. Paranasal sinuses are clear with the exception of chronic mucosal thickening in the right maxillary sinus. Mastoid air cells are clear. CT cervical spine: No acute fracture or traumatic malalignment in the cervical spine. Multilevel mild to moderate foraminal narrowing due to uncovertebral joint hypertrophy. No high-grade spinal stenosis. No cervical lymphadenopathy. Lung apices are clear. IMPRESSION: 1. No acute intracranial process by CT. 2. No skull fracture. 3. No acute fracture or traumatic malalignment in the cervical spine. Dictated by: Dictated on workstation # [id number]
[2020-05-06 16:55] LABS: BILIRUBIN,URINE NEGATIVE (NEGATIVE); CLARITY,URINE CLOUDY; COLOR,URINE YELLOW; GLUCOSE, URINE (UA) NEGATIVE (NEGATIVE); KETONES,URINE NEGATIVE (NEGATIVE); LEUKOCYTE ESTERASE ,URINE 3+ (NEGATIVE); NITRITE,URINE POSITIVE (NEGATIVE); PROTEIN,URINE TRACE (NEGATIVE)
[2020-05-06 17:10] LABS: AMPHETAMINE SCREEN, URINE NEGATIVE (NEGATIVE); BARBITURATE SCREEN URINE NEGATIVE (NEGATIVE); BENZODIAZEPINES SCREEN URINE POSITIVE (NEGATIVE); CANNABINOID SCREEN, URINE NEGATIVE (NEGATIVE); COCAINE SCREEN URINE NEGATIVE (NEGATIVE); METHADONE STAT NEGATIVE (NEGATIVE); METHAMPHETAMINE SCREEN URINE S NEGATIVE (NEGATIVE); OPIATE SCREEN URINE NEGATIVE (NEGATIVE); OXYCODONE STAT NEGATIVE (NEGATIVE); PROPOXYPHENE STAT NEGATIVE (NEGATIVE); TRICYCLIC ANTIDEPRESSANTS SCRE NEGATIVE (NEGATIVE)
[2020-05-06 17:13] LABS: BACTERIA,URINE TRACE /HPF; WBC,URINE TNTC /HPF
--- OUTSIDE RECORDS SUMMARY | 2020-05-06 17:38 | XMS REPORT | Continuity of Care Document ---
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 Type Provider Facility Loc./Unit Complaint [id number] 05/02/2020 09:40:00 05/02/2020 23:59: 59 CLS Outpatient ELYSSA WAGNER MD [id number] 04/04/2020 10:00:00 Document Registration [id number] 04/21/2020 23:30:00 15:11:00 DIS Outpatient JD BERNABE MD [facility] 4TH SUDICIDAL IDEATATION, A LCOHOL DEP [id number] 04/16/2020 22:13:00 15:25:00 DIS Outpatient JD BERNABE MD [facility] CSD UTI,DEBILITY,DEHYDRATION,HYPOKALEMIA [id number] 12/28/2019 20:08:00 11:30:00 DIS Inpatient MONTILLA DO, RAMSEY [facility] 4TH SUICIDAL, ETOH ABUSE [id number] 05/06/2020 16:40:[address] Inpatient SUSI FARRIS, KARL Campos [facility] 4TH ALCOHOL ABUSE, ALCOHOL DETOX , COVID 19 PUI
[2020-05-06 17:45] LABS: INR 0.9 (0.8-1.4); PROTHROMBIN TIME PATIENT 12.9 SEC (12.2-14.7)
--- NOTE | 2020-05-06 18:00 | NUR ---
Jorge A Field admitted to room 424, with an admitting diagnosis of alcohol detox , on 05/06/20 from [place] [facility] , accompanied by .JORGE A FIELD introduced to surroundings, call light, bed controls, phone, TV, temperature control, lights, meal times, smoking policy, visitor policy, side rail policy, bathrooms and showers. Patient Rights given to patient in the handbook.JORGE A FIELD verbalizes understanding that [facility] is not responsible for the loss or damage to any personal effects or valuables that are kept in the patients posession during their hospitalization. JORGE A FIELD verbalizes understanding of Interdisciplinary Patient Education. Patient and/or family were informed about the Rapid Response Team and its purpose.
[2020-05-06 18:40] VITALS: BP 122/70
[2020-05-06] MEDS ORDERED: NS IV 1000 ML 1,000 ML ONE (19:50)
[2020-05-06] MEDS ORDERED: ACETAMINOPHEN 325 MG TABLET ONE (19:53)
[2020-05-06] MEDS: ACETAMINOPHEN 325 MG TABLET PO PRN (20:05)
[2020-05-06] MEDS: NS IV 1000 ML 1,000 ML IV SCH (20:05)
[2020-05-06 20:17] VITALS: BP 139/86
[2020-05-06] MEDS ORDERED: 1/2 NS IV SOLUTION 1,000 ML IV PRN (21:29)
[2020-05-06] MEDS ORDERED: SENNA W/DOCUSATE (SENOKOT S) TABLET PO PRN (21:30)
[2020-05-06] MEDS ORDERED: ONDANSETRON 4 MG/2 ML (SDV) Z0FRAN IV PRN ×2 (21:30)
[2020-05-06] MEDS ORDERED: LORazepam INJ 2 MG/ML (ATIVAN) VIAL IV PRN (21:30)
[2020-05-06] MEDS ORDERED: ANTACID SUSP 30 ML UDC (MYLANTA) PO PRN (21:30)
[2020-05-06] MEDS ORDERED: D5 1/2 NS 1000 ML IV SOLUTION 1,000 ML IV PRN (21:30)
[2020-05-06] MEDS ORDERED: ONDANSETRON 4 MG (ZOFRAN) ORAL DISSOLVE TAB SL PRN (21:30)
[2020-05-06] MEDS ORDERED: LORazepam INJ 2 MG/ML (ATIVAN) VIAL IM/IV PRN (21:30)
[2020-05-06] MEDS: LORazepam 1 MG (ATIVAN) TAB PO PRN (22:14)
[2020-05-07] VITALS (7 sets, daily range): BP systolic 145–159; BP diastolic 80–97
[2020-05-07] MEDS: THIAMINE 100 MG (VITAMIN B-1) TAB PO SCH (06:20)
[2020-05-07] MEDS: FUROSEMIDE 40 MG (LASIX) TAB PO SCH (06:20)
[2020-05-07] MEDS: MULTIVIT W/MINERALS TAB (THERAGRAN M) PO SCH (06:20)
[2020-05-07] MEDS: NS IV 1000 ML 1,000 ML IV SCH ×3 (06:22→20:37)
[2020-05-07 06:41] LABS: BASOPHILS % (AUTO) 0 % (0-10); EOSINOPHILS # (AUTO) 0.1 10^3/uL (0.0-0.3); EOSINOPHILS % (AUTO) 3 % (0-10); HEMATOCRIT 36 % (40-54); LYMPHOCYTES % (AUTO) 31 % (12-44); MEAN CORPUSCULAR HEMOGLOBIN 35 PG (25-34); MEAN CORPUSCULAR HGB CONC 34 G/DL (32-36); MEAN CORPUSCULAR VOLUME 104 FL (80-99); MEAN PLATELET VOLUME 9.5 FL (7.4-10.4); MONOCYTES # (AUTO) 0.4 X 10^3 (0.0-1.0); MONOCYTES % (AUTO) 13 % (0-12); NEUTROPHILS # (AUTO) 1.6 X 10^3 (1.8-7.8); NEUTROPHILS % (AUTO) 52 % (42-75); PLATELET COUNT 73 10^3/uL (130-400); RED CELL DISTRIBUTION WIDTH 13.3 % (10.0-14.5); WHITE BLOOD COUNT 3.1 10^3/uL (4.3-11.0)
[2020-05-07 06:48] LABS: ALBUMIN 3.1 GM/DL (3.2-4.5); CHLORIDE 108 MMOL/L (98-107); POTASSIUM 3.5 MMOL/L (3.6-5.0); SODIUM 139 MMOL/L (135-145)
[2020-05-07 06:49] LABS: CALCIUM 8.6 MG/DL (8.5-10.1)
[2020-05-07 06:50] LABS: GLUCOSE 96 MG/DL (70-105)
[2020-05-07 06:51] LABS: TOTAL PROTEIN 6.5 GM/DL (6.4-8.2)
[2020-05-07 06:52] LABS: BILIRUBIN,TOTAL 0.8 MG/DL (0.1-1.0); CARBON DIOXIDE 21 MMOL/L (21-32)
[2020-05-07 06:54] LABS: ALKALINE PHOSPHATASE 62 U/L (40-136); CREATININE SERUM 1.02 MG/DL (0.60-1.30); GFR ESTIMATED > 60
[2020-05-07 06:55] LABS: BUN/CREATININE RATIO 19
[2020-05-07 06:57] LABS: ALANINE AMINOTRANSFERASE 36 U/L (0-55)
[2020-05-07] MEDS: FOLIC ACID 1 MG TAB PO SCH (07:53)
[2020-05-07] MEDS: MAGNESIUM OXIDE (MAG-OX)400 MG TAB PO SCH ×2 (07:53→20:35)
[2020-05-07] MEDS ORDERED: PROPRANOLOL 20 MG (INDERAL) TABLET PO NR (09:15)
--- NOTE | 2020-05-07 10:29 | NUR ---
Pt remains in isolation as COV-19 testing still pending. It was done on the 02 of May at the [facility]. rock dust sprayer will advise of results Faxed information to [facility] for their review as their evaluation for possible admission is pending. Pt's has contacted [facility] alcohol rehab program in [place] where pt has previously resided for several months and had some success with sobriety. She is awaiting their response. Discussed with pt's some other options -[facility], [facility] and she has also discussed treatment with Tavo's current out-pt therapist-Dr. Sriram Jones at [facility]. will follow and assist.
--- NOTE | 2020-05-07 12:56 | History & Physical-Hospitalist ---
History of Present Illness HPI/Chief Complaint Tavo Pichardo is a 60-year-old male with history of essential tremor, depression, alcohol attendance, who presented with acute alcohol intoxication. He has a history of suicidal ideation while intoxicated. He denied any suicidal ideation at this time. He reports that he had a relapse and started drinking again. He says that he would like to detox at this time. He is willing to undergo inpatient treatment. He denies any fevers or chills. He denies any shortness of breath or cough. He denies any chest pain. He denies any abdominal pain, nausea, or vomiting. He has no other complaints or concerns. Source: patient Exam Limitations: no limitations Date Seen 05/07/20 Time Seen by a Provider: 10:40 Attending Physician Mejia Lala MD PCP No,Local Physician Referring Physician Date of Admission May 06, 2020 at 16:40 Home Medications & Allergies Home Medications Reviewed patient Home Medication Reconciliation performed by pharmacy medication reconciliations solder technician and/or nursing. Patients Allergies have been reviewed. Allergies Allergies Coded Allergies No Known Drug Allergies (Unverified12/28/19) Past Pnbjjce-Wcghbj-Oiiwwa Hx Past Med/Social Hx: Reviewed Nursing Past Med/Soc Hx Patient Social History Alcohol Use: Regular Use Number of Drinks Today: FF Alcohol Beverage of Choice: Vodka Recreational Drug Use: No Smoking Status: Never a Smoker 2nd Hand Smoke Exposure: No Recent Foreign Travel: No Contact w/other who traveled: No Recent Hopitalizations: No Recent Infectious Disease Expo: No Immunizations Up To Date Tetanus Booster (TDap): Unknown Pediatric: Yes Seasonal Allergies Seasonal Allergies: No Past Medical History Neurological: Dementia Psychosocial: Depression History of Blood Disorders: No Adverse Reaction to Blood Lee: No Family History FH: breast cancer 19 MOTHER Hypertension 19 MOTHER Review of Systems Constitutional: no symptoms reported EENTM: no symptoms reported Respiratory: no symptoms reported Cardiovascular: no symptoms reported Gastrointestinal: no symptoms reported Genitourinary: no symptoms reported Musculoskeletal: no symptoms reported Skin: no symptoms reported Psychiatric/Neurological: Depressed Physical Exam Physical Exam Vital Signs Vital Signs - First Documented 05/06/20 05/06/20 14:25 17:20 Temp 36.7 Pulse 105 Resp 18 B/P (MAP) 128/86 (100) Pulse Ox 91 O2 Delivery Room Air O2 Flow Rate 2.00 Capillary Refill : Less Than 3 Seconds Height, Weight, BMI Height: '" Weight: lbs. oz. kg; 32.45 BMI Method: General Appearance: No Apparent Distress, Obese HEENT: PERRL/EOMI, Pharynx Normal Neck: Normal Inspection, Supple Respiratory: Lungs Clear, Normal Breath Sounds, No Respiratory Distress Cardiovascular: Regular Rate, Rhythm, No Murmur Gastrointestinal: Normal Bowel Sounds, Non Tender, Soft Extremity: Normal Inspection, Non Tender, Pedal Edema Neurologic/Psychiatric: Alert, Oriented x3, No Motor/Sensory Deficits, Normal Mood/Affect Skin: Normal Color, Warm/Dry Results Results/Procedures Labs Laboratory Tests 05/06/20 14:44 05/07/20 06:20 Patient resulted labs reviewed. Imaging: Reviewed Imaging Report Assessment/Plan Admission Diagnosis Acute alcohol intoxication Admission Status: Observation Assessment and Plan Acute alcohol intoxication Alcohol level greater than 300 on arrival Monitor for withdrawal Social work consulted, appreciate assistance Request evaluation for inpatient treatment at [place] Essential tremor Continue propranolol and topiramate Depression Continue sertraline DVT prophylaxis: Lovenox Diagnosis/Problems Diagnosis/Problems (1) Alcohol dependence with acute alcoholic intoxication Status: Acute (2) Depression Status: Chronic (3) Essential tremor Status: Chronic Clinical Quality Measures DVT/VTE Risk/Contraindication: Risk Factor Score Per Nursin RFS Level Per Nursing on Admit: 4+=Very High JD BERNABE MD May 07, 2020 12:56
--- NOTE | 2020-05-07 14:32 | NUR ---
I TRIED TO CALL THE PATIENTS ROOM- HE DID NOT ANSWER. I THEN CALLED THE NUMBER ON FILE FOR HIM (A CELL) AND HIS TRINI ANSWERED. TRINI SAID SINCE HE WAS HERE LAST NONE OF HIS MEDS HAD CHANGED (I SPOKE WITH THE PT LAST ON 04-23-2020 AND COMPLETED THE MED REC AT THAT TIME) AND WE WENT THRU THE EXT MED HISTORY. THE EXT MED HISTORY SHOWS METRONIDAZOLE 500MG FROM 05-02-2020 #30/10DS- TRINI SAYS THE PT HAS NOT STARTED TAKING AND SHE WAS CALLING [facility] TO CANCEL THE ORDER. THE OFFICE ADVISED THE PT TO NOT START TAKING UNTIL HE WENT 3 DAYS WITHOUT AN ALCOHOLIC DRINK. SINCE HE HAS NOT BEEN WITHOUT DRINKING AND THEN WAS ADMITTED HERE TRINI WAS GOING TO HAVE [facility] PUT THE ANTIBIOTIC BACK OTC MEDS: [employer] EYE DROPS
[2020-05-07] MEDS: PROPRANOLOL 20 MG (INDERAL) TABLET PO SCH ×2 (14:41→21:27)
[2020-05-07] MEDS: ACETAMINOPHEN 325 MG TABLET PO PRN (14:42)
[2020-05-07] MEDS: SERTRALINE 100 MG (ZOLOFT) TAB PO SCH (20:36)
[2020-05-07] MEDS: LORazepam 1 MG (ATIVAN) TAB PO PRN (20:42)
--- NOTE | 2020-05-07 20:53 | NUR ---
New order rec from Dr. Lala to continue Topamax per home medications and per Dr. Chen's H&P.
[2020-05-07] MEDS ORDERED: NON-FORMULARY MEDICATION 1 EA EA (Topiramate 50 MG) PO PRN (21:15)
[2020-05-07] MEDS ORDERED: TOPIRAMATE 75 MG PO PRN (21:15)
[2020-05-07] MEDS ORDERED: toPIRamate 25 MG (TOPAMAX) TAB PO PRN (21:30)
[2020-05-07] MEDS: toPIRamate 25 MG (TOPAMAX) TAB PO PRN (23:18)
[2020-05-08] MEDS: LORazepam 1 MG (ATIVAN) TAB PO PRN (02:08)
[2020-05-08 04:00] VITALS: BP 138/80
[2020-05-08] MEDS: FUROSEMIDE 40 MG (LASIX) TAB PO SCH (06:12)
[2020-05-08] MEDS: MULTIVIT W/MINERALS TAB (THERAGRAN M) PO SCH (06:12)
[2020-05-08] MEDS: PROPRANOLOL 20 MG (INDERAL) TABLET PO SCH ×3 (06:12→22:00)
[2020-05-08] MEDS: THIAMINE 100 MG (VITAMIN B-1) TAB PO SCH (06:12)
[2020-05-08 07:56] VITALS: BP 136/81
[2020-05-08] MEDS: FOLIC ACID 1 MG TAB PO SCH (07:57)
[2020-05-08] MEDS: ACETAMINOPHEN 325 MG TABLET PO PRN (07:58)
[2020-05-08] MEDS: NS IV 1000 ML 1,000 ML IV SCH (07:58)
[2020-05-08] MEDS: MAGNESIUM OXIDE (MAG-OX)400 MG TAB PO SCH ×2 (07:58→20:46)
--- NOTE | 2020-05-08 11:01 | NUR ---
TEMPERATURE AT RECHECK WAS 37.2. THIS RN WILL CONT TO MONITOR THIS PATIENT THROUGHOUT THE REMAINDER OF THIS SHIFT.
--- NOTE | 2020-05-08 11:20 | Progress Note - Hospitalist ---
Subjective HPI/CC On Admission Date Seen by Provider: May 08, 2020 Time Seen by Provider: 11:17 Tavo Pichadro is a 60-year-old male with history of essential tremor, depression, alcohol attendance, who presented with acute alcohol intoxication. He has a history of suicidal ideation while intoxicated. He denied any suicidal ideation at this time. He reports that he had a relapse and started drinking again. He says that he would like to detox at this time. He is willing to undergo inpatient treatment. He denies any fevers or chills. He denies any shortness of breath or cough. He denies any chest pain. He denies any abdominal pain, nausea, or vomiting. He has no other complaints or concerns. Subjective/Events-last exam Pt reports being tired today and has a headache but no other specific comp laints. Objective Exam Vital Signs Vital Signs Date Time Temp Pulse Resp B/P (MAP) Pulse Ox O2 Delivery O2 Flow Rate FiO2 05/08/20 08:00 Room Air 05/08/20 07:58 37.5 05/08/20 07:56 84 20 136/81 (99) 96 05/07/20 12:14 2.00 Capillary Refill : Less Than 3 Seconds General Appearance: No Apparent Distress, WD/WN Cardiovascular: Regular Rate, Rhythm, No Murmur Neurologic/Psychiatric: Alert, Oriented x3, Depressed Affect Results/Procedures Lab Patient resulted labs reviewed. Imaging: Reviewed Imaging Report Assessment/Plan Assessment and Plan Assess & Plan/Chief Complaint Acute alcohol intoxication- resolved Alcohol use disorder Alcohol level greater than 300 on arrival on 05/06 Monitor for withdrawal- WA protocol in place Social work consulted, appreciate assistance SW and are pursuing alcohol treatment placement Essential tremor Continue propranolol and topiramate Depression Continue sertraline COVID PUI - Outpatient testing is negative, confirmed with [facility]- take out of isolation DVT prophylaxis: Lovenox Clinical Quality Measures DVT/VTE Risk/Contraindication: Risk Factor Score Per Nursin RFS Level Per Nursing on Admit: 4+=Very High FOSTER CASTANEDA MD May 08, 2020 11:20
[2020-05-08] MEDS ORDERED: IBUPROFEN 600 MG (MOTRIN) TAB PO PRN (11:30)
[2020-05-08 12:00] VITALS: BP 136/90
[2020-05-08 16:16] VITALS: BP 141/88
--- NOTE | 2020-05-08 16:50 | NUR ---
Pt motivated and applying for admission to [facility] in [place], [place]. Pt has been in treatment there previously and had some success with sobriety. Interview with the Admission staff was this afternoon by phone and they will advise him of their decision within 24-48 hours.Both pt and are hopeful that he will be admitted. If they accept pt can be discharged and will transport him [place] about [address] The [facility] [place] deferred any assessment of pt till after his completion of alcohol treatment. will follow.
--- NOTE | 2020-05-08 17:15 | NUR ---
took over patient care at this time. patient alert and orientated. verbalizes no additional needs at this time
[2020-05-08] MEDS: toPIRamate 25 MG (TOPAMAX) TAB PO PRN (20:46)
[2020-05-08] MEDS: SERTRALINE 100 MG (ZOLOFT) TAB PO SCH (20:46)
[2020-05-08 20:52] VITALS: BP 161/93
[2020-05-09 00:08] VITALS: BP 134/79
[2020-05-09 04:00] VITALS: BP 129/77
[2020-05-09 05:57] VITALS: BP 129/77
[2020-05-09] MEDS: MULTIVIT W/MINERALS TAB (THERAGRAN M) PO SCH (06:15)
[2020-05-09] MEDS: FUROSEMIDE 40 MG (LASIX) TAB PO SCH (06:15)
[2020-05-09] MEDS: PROPRANOLOL 20 MG (INDERAL) TABLET PO SCH ×3 (06:15→20:10)
[2020-05-09] MEDS: THIAMINE 100 MG (VITAMIN B-1) TAB PO SCH (06:15)
[2020-05-09] MEDS: FOLIC ACID 1 MG TAB PO SCH (09:19)
[2020-05-09] MEDS: MAGNESIUM OXIDE (MAG-OX)400 MG TAB PO SCH ×2 (09:19→20:06)
[2020-05-09 12:00] VITALS: BP 149/81
--- NOTE | 2020-05-09 14:38 | NUR ---
Pt complaining of still feeling cognitively impaired and extremely tired. Awaiting decision from [facility] and is to call if she doesn't hear from them. Advising of needing to get alternative treatment plan if pt not accepted to the [facility] program. Pt and understand that pt will be discharged tomorrow and agreeable.
[2020-05-09 16:02] VITALS: BP 159/92
--- NOTE | 2020-05-09 16:07 | Progress Note - Hospitalist ---
Subjective HPI/CC On Admission Date Seen by Provider: May 09, 2020 Time Seen by Provider: 10:30 Tavo Pichardo is a 60-year-old male with history of essential tremor, depression, alcohol attendance, who presented with acute alcohol intoxication. He has a history of suicidal ideation while intoxicated. He denied any suicidal ideation at this time. He reports that he had a relapse and started drinking again. He says that he would like to detox at this time. He is willing to undergo inpatient treatment. He denies any fevers or chills. He denies any shortness of breath or cough. He denies any chest pain. He denies any abdominal pain, nausea, or vomiting. He has no other complaints or concerns. Subjective/Events-last exam Pt reports feeling better today. headache improving. Awaiting response from treatment center. Objective Exam Vital Signs Vital Signs Date Time Temp Pulse Resp B/P (MAP) Pulse Ox O2 Delivery O2 Flow Rate FiO2 05/09/20 12:00 37.2 75 20 149/81 (103) 96 Room Air 05/07/20 12:14 2.00 Capillary Refill : Less Than 3 Seconds General Appearance: No Apparent Distress, WD/WN Respiratory: Lungs Clear, No Respiratory Distress Cardiovascular: Regular Rate, Rhythm, No Murmur Neurologic/Psychiatric: Alert, Oriented x3 Results/Procedures Lab Patient resulted labs reviewed. Imaging: Reviewed Imaging Report Assessment/Plan Assessment and Plan Assess & Plan/Chief Complaint Acute alcohol intoxication- resolved Alcohol use disorder Alcohol level greater than 300 on arrival on 05/06 Monitor for withdrawal- CIWA protocol in place Social work consulted, appreciate assistance SW and are pursuing alcohol treatment placement - Awaiting response - If not response by tomorrow is agreeable to taking him home until placement available Essential tremor Continue propranolol and topiramate Depression Continue sertraline COVID PUI - Outpatient testing is negative, confirmed with [facility]- take out of isolation DVT prophylaxis: Lovenox Clinical Quality Measures DVT/VTE Risk/Contraindication: Risk Factor Score Per Nursin RFS Level Per Nursing on Admit: 4+=Very High FOSTER CASTANEDA MD May 09, 2020 16:07
[2020-05-09 20:03] VITALS: BP 135/85
[2020-05-09] MEDS: SERTRALINE 100 MG (ZOLOFT) TAB PO SCH (20:06)
[2020-05-09] MEDS: toPIRamate 25 MG (TOPAMAX) TAB PO PRN (20:06)
[2020-05-09] MEDS ORDERED: MELATONIN 3 MG TABLET PO SCH (21:00)
[2020-05-10 00:48] VITALS: BP 132/80
[2020-05-10 04:20] VITALS: BP 143/86
[2020-05-10] MEDS: PROPRANOLOL 20 MG (INDERAL) TABLET PO SCH (06:06)
[2020-05-10] MEDS: MULTIVIT W/MINERALS TAB (THERAGRAN M) PO SCH (06:06)
[2020-05-10] MEDS: FUROSEMIDE 40 MG (LASIX) TAB PO SCH (06:06)
[2020-05-10 08:00] VITALS: BP 129/80
[2020-05-10] MEDS: FOLIC ACID 1 MG TAB PO SCH (08:33)
--- NOTE | 2020-05-10 11:27 | Discharge Summary ---
Discharge Summary Hospital Course Was the Problem List Reviewed?: Yes Problems/Dx: (1) Alcohol dependence with acute alcoholic intoxication Status: Acute (2) Depression Status: Chronic (3) Essential tremor Status: Chronic Hospital Course Date of Admission: May 06, 2020 at 16:40 Admission Diagnosis : Alcohol dependence with acute alcohol intoxication Family Physician/Provider: Tabby,Local Physician Date of Discharge: 05/10/20 Discharge Diagnosis: Alcohol dependence with acute alcohol intoxication Hospital Course: Tavo Pichardo is a 60-year-old male with past medical history of alcohol dependence who presented with acute alcohol intoxication. He was monitored for alcohol withdrawal but did not have any complications. He and his are in agreement that he should enter a long-term treatment program for alcohol dependence. Social work assisted with placement. They were working to obtain placement to a facility in [place]. He was discharged home with his while awaiting acceptance. Labs and Pending Lab Test: Microbiology 05/06/20 Urine Culture - Final, Complete Staphylococcus epidermidis Staphylococcus epidermidis#2 Home Meds Active Reported Clear Eyes Max Redness Rlf Drp (Naphazoline HCl/Glycerin) 30 Ml Drops 2 Drops OU PRN PRN Multivitamin 1 Each Tablet 1 Each PO DAILY Topiramate 50 Mg Tablet 50 Mg PO QID PRN Topiramate 25 Mg Cap.sprink 75 Mg PO HS PRN TAKES 3 (25MG) TABS Sertraline HCl 100 Mg Tablet 100 Mg PO HS Propranolol HCl 10 Mg Tablet 10 Mg PO QID PRN Assessment/Pt Instructions Take medications as prescribed. Abstain from alcohol use. We are awaiting approval to the detox program in [place]. Discharge Planning: <30 minutes discharge planning Discharge Instructions Discharge Diet: No Restrictions Activity as Tolerated: Yes Discharge Physical Examination Vital Signs Vital Signs Date Time Temp Pulse Resp B/P (MAP) Pulse Ox O2 Delivery O2 Flow Rate FiO2 05/10/20 08:37 Room Air 05/10/20 08:00 37.1 60 20 129/80 (96) 96 05/07/20 12:14 2.00 General Appearance: No Apparent Distress, Obese Respiratory: Lungs Clear, Normal Breath Sounds, No Respiratory Distress Cardiovascular: Regular Rate, Rhythm, No Edema, No Murmur Gastrointestinal: Normal Bowel Sounds, Non Tender, Soft Extremity: Normal Inspection, Non Tender, No Pedal Edema Skin: Normal Color, Warm/Dry Neurologic/Psychiatric: Alert, Oriented x3, No Motor/Sensory Deficits, Normal Mood/Affect, Other (Tremors) Allergies: Coded Allergies: No Known Drug Allergies (Unverified , 12/28/19) Discharge Summary Date of Admission May 06, 2020 at 16:40 Date of Discharge Discharge Date: May 10, 2020 Discharge Time: 11:26 Admission Diagnosis Acute alcohol intoxication Discharge Diagnosis Alcohol dependence with acute alcohol intoxication (1) Alcohol dependence with acute alcoholic intoxication Status: Acute (2) Depression Status: Chronic (3) Essential tremor Status: Chronic Clinical Quality Measures DVT/VTE Risk/Contraindication: Risk Factor Score Per Nursin RFS Level Per Nursing on Admit: 4+=Very High JD BERNABE MD May 10, 2020 11:27
[2020-05-10 12:00] VITALS: BP 124/76
--- NOTE | 2020-05-10 16:39 | NUR ---
On date of discharge pt feeling much better and requesting to be discharged awaiting acceptance to [facility] in [place] where he was treated previously. Pt still hadn't heard of their decision but has appt. on May [address] Sriram Jones,Clinical Psychologist at the [facility] and plans to discuss treatment options with him if not accepted by the [facility] program Pt will be staying with his at her mother's home so won't be alone and pt was agreeable to that plan. Pt's Didi will be his primary caregiver.
== END 2020-05-10 12:07 | disposition home or self-care (01) ==
LOC: EDUNIT# 14:04 → ER 14:12 → 4TH 16:40
PROVIDERS: ADMIT Internal Medicine; ATTEND Internal Medicine
DX: F10.229 Alcohol dependence with intoxication, unspecified (principal); Y90.8 Blood alcohol level of 240 mg/100 ml or more; R60.0 Localized edema; F03.90 Unspecified dementia, unspecified severity, without behavioral disturbance, psychotic disturbance, mood disturbance, and anxiety; F32.9 Major depressive disorder, single episode, unspecified; G25.0 Essential tremor; Z20.828 Contact with and (suspected) exposure to other viral communicable diseases
CPT/HCPCS: 70450; 72125; 80053 ×2; 80306; 81000; 84443; 85025 ×2; 85610; 85730; 87077; 87088; 87186; 93005; 93041; 96361; 96374; 99284; G0378 ×2; G0480 ×3; 36415; 80320; 80329

== ENCOUNTER 2020-08-08 19:31 | Emergency (ER) | payer BC ==
[~2020-08-08] VITALS: Ht 175 cm; Wt 90.0 kg
[2020-08-08] MEDS ORDERED: LACTATED RINGERS 1,000 ML IV ONE (19:40)
[2020-08-08] MEDS ORDERED: ONDANSETRON 4 MG/2 ML (SDV) Z0FRAN IVP ONE (19:45)
--- NOTE | 2020-08-08 19:49 | ED Psychosocial ---
General Chief Complaint: Substance Abuse Stated Complaint: ETOH Nursing Triage Note: TO ED ROOM 6 VIA [facility] FROM [facility]. WAS FOUND OUTSIDE ON GROUND CLUTCHING [place]OD[employer] BOTTLE. PT STATES "I'M VERY INTOXICATED" UPON ARRIVAL. Source: patient, EMS Exam Limitations: no limitations History of Present Illness Date Seen by Provider: Aug 08, 2020 Time Seen by Provider: 19:30 Initial Comments This 60 year old gentleman presents to the emergency room via EMS after found lying in the grass outside his assisted living facility. He was unresponsive at that time but awoke for EMS staff. He has a history of alcoholism and appears to be intoxicated at this time. He is alert to person and the fact that he is intoxicated but is otherwise disoriented. There were no obvious injuries but he does complain of headache. C-collar was applied upon arrival. Patient does have a history of alcoholism. Allergies and Home Medications Allergies Coded Allergies: No Known Drug Allergies (Unverified , 12/28/19) Home Medications Cephalexin 500 Mg Capsule, 500 MG PO TID Prescribed by: MANJINDER BAHENA on 08/08/202231 Multivitamin 1 Each Tablet, 1 EACH PO DAILY, (Reported) Naphazoline HCl/Glycerin 30 Ml Drops, 2 DROPS OU PRN PRN for EYE REDNESS, (Reported) Propranolol HCl 10 Mg Tablet, 10 MG PO QID PRN for TREMORS, (Reported) Sertraline HCl 100 Mg Tablet, 100 MG PO HS, (Reported) Topiramate 25 Mg Cap.sprink, 75 MG PO HS PRN for TREMORS, (Reported) TAKES 3 (25MG) TABS Topiramate 50 Mg Tablet, 50 MG PO QID PRN for TREMORS, (Reported) Patient Home Medication List Home Medication List Reviewed: Yes Review of Systems Constitutional: see HPI EENTM: see HPI Respiratory: no symptoms reported Cardiovascular: no symptoms reported Gastrointestinal: no symptoms reported Genitourinary: no symptoms reported Musculoskeletal: see HPI Skin: no symptoms reported Psychiatric/Neurological: See HPI Past Lntzdzz-Ppohud-Aukwcn Hx Past Med/Social Hx: Reviewed Nursing Past Med/Soc Hx Patient Social History Alcohol Use: Regular Use Alcohol Beverage of Choice: Vodka 2nd Hand Smoke Exposure: No Recent Foreign Travel: No Contact w/Someone Who Travel: No Recent Infectious Disease Expo: No Recent Hopitalizations: No Immunizations Up To Date Tetanus Booster (TDap): Unknown PED Vaccines UTD: Yes Seasonal Allergies Seasonal Allergies: No Past Medical History Surgeries: Yes (HEMRRHOIDECTOMY) Respiratory: No Cardiac: No Neurological: Yes (TREMORS, alcoholism) Dementia Genitourinary: No Gastrointestinal: No Musculoskeletal: No Endocrine: No HEENT: No Cancer: No Psychosocial: Yes (ETOH ABUSE HX) Depression Integumentary: No Blood Disorders: No Adverse Reaction/Blood Tranf: No Family Medical History Reviewed Nursing Family Hx FH: breast cancer 19 MOTHER Hypertension 19 MOTHER Physical Exam Vital Signs - First Documented 08/08/20 08/08/20 19:32 22:55 Temp 36.5 Pulse 93 Resp 16 B/P (MAP) 145/88 (107) Pulse Ox 98 O2 Delivery Room Air Capillary Refill : Less Than 3 Seconds Height, Weight, BMI Height: '" Weight: lbs. oz. kg; 29.00 BMI Method: General Appearance: WD/WN, no apparent distress, other (appears intoxicated) HEENT: PERRL/EOMI, normal ENT inspection, pharynx normal Neck: non-tender, normal inspection Respiratory: lungs clear, normal breath sounds, no respiratory distress, no accessory muscle use Cardiovascular: regular rate, rhythm, no edema, no murmur Gastrointestinal: normal bowel sounds, non tender, soft Extremities: normal inspection, no pedal edema, no calf tenderness Neurologic/Psychiatric: transfer operator II-XII nml as tested, alert, motor weakness ( generalized weakness with no focal deficits. Moves all 4 extremities equally.), other (disoriented to age, place, and situation) Behavior/Eye Contact: cooperative, good eye contact Thoughts/Hallucinations: normal thought pattern, no apparent hallucination Skin: normal color, warm/dry Progress/Results/Core Measures Results/Orders Lab Results Laboratory Tests Test 08/08/20 19:38 08/08/20 20:10 08/08/20 21:07 Range/Units White Blood Count 6.7 4.3-11.0 10^3/uL Red Blood Count 4.48 4.30-5.52 10^6/uL Hemoglobin 15.0 13.3-17.7 g/dL Hematocrit 45 40-54 % Mean Corpuscular Volume 101 H 80-99 fL Mean Corpuscular Hemoglobin 34 25-34 pg Mean Corpuscular Hemoglobin Concent 33 32-36 g/dL Red Cell Distribution Width 14.6 H 10.0-14.5 % Platelet Count 136 130-400 10^3/uL Mean Platelet Volume 10.0 9.0-12.2 fL Immature Granulocyte % (Auto) 0 % Neutrophils (%) (Auto) 40 L 42-75 % Lymphocytes (%) (Auto) 47 H 12-44 % Monocytes (%) (Auto) 11 0-12 % Eosinophils (%) (Auto) 1 0-10 % Basophils (%) (Auto) 1 0-10 % Neutrophils # (Auto) 2.7 1.8-7.8 10^3/uL Lymphocytes # (Auto) 3.1 1.0-4.0 10^3/uL Monocytes # (Auto) 0.7 0.0-1.0 10^3/uL Eosinophils # (Auto) 0.0 0.0-0.3 10^3/uL Basophils # (Auto) 0.1 0.0-0.1 10^3/uL Immature Granulocyte # (Auto) 0.0 0.0-0.1 10^3/uL Sodium Level 145 135-145 MMOL/L Potassium Level 3.7 3.6-5.0 MMOL/L Chloride Level 107 98-107 MMOL/L Carbon Dioxide Level 19 L 21-32 MMOL/L Anion Gap 19 H 5-14 MMOL/L Blood Urea Nitrogen 21 H 7-18 MG/DL Creatinine 1.30 0.60-1.30 MG/DL Estimat Glomerular Filtration Rate 56 BUN/Creatinine Ratio 16 Glucose Level 90 70-105 MG/DL Calcium Level 9.2 8.5-10.1 MG/DL Corrected Calcium 9.4 8.5-10.1 MG/DL Magnesium Level 2.2 1.6-2.4 MG/DL Total Bilirubin 1.0 0.1-1.0 MG/DL Aspartate Amino Transf (AST/SGOT) 195 H 5-34 U/L Alanine Aminotransferase (ALT/SGPT) 101 H 0-55 U/L Alkaline Phosphatase 91 40-136 U/L Total Protein 7.4 6.4-8.2 GM/DL Albumin 3.7 3.2-4.5 GM/DL Serum Alcohol 397 *H <10 MG/DL Urine Color YELLOW Urine Clarity SL CLOUDY Urine pH 6.0 5-9 Urine Specific [place] 1.015 L 1.016-1.022 Urine Protein 2+ H NEGATIVE Urine Glucose (UA) NEGATIVE NEGATIVE Urine Ketones TRACE H NEGATIVE Urine Nitrite POSITIVE H NEGATIVE Urine Bilirubin NEGATIVE NEGATIVE Urine Urobilinogen 1.0 < = 1.0 MG/DL Urine Leukocyte Esterase 3+ H NEGATIVE Urine RBC (Auto) 2+ H NEGATIVE Urine RBC 5-10 H /HPF Urine WBC >100 H /HPF Urine Crystals NONE /LPF Urine Bacteria LARGE H /HPF Urine Casts NONE /LPF Urine Mucus NEGATIVE /LPF Urine Culture Indicated YES Urine Opiates Screen NEGATIVE NEGATIVE Urine Oxycodone Screen NEGATIVE NEGATIVE Urine Methadone Screen NEGATIVE NEGATIVE Urine Propoxyphene Screen NEGATIVE NEGATIVE Urine Barbiturates Screen NEGATIVE NEGATIVE Ur Tricyclic Antidepressants Screen NEGATIVE NEGATIVE Urine Phencyclidine Screen NEGATIVE NEGATIVE Urine Amphetamines Screen NEGATIVE NEGATIVE Urine Methamphetamines Screen NEGATIVE NEGATIVE Urine Benzodiazepines Screen NEGATIVE NEGATIVE Urine Cocaine Screen NEGATIVE NEGATIVE Urine Cannabinoids Screen NEGATIVE NEGATIVE My Orders Orders - MANJINDER ZARAGOZA MD Alcohol (08/08/20 19:40) Cbc With Automated Diff (08/08/20 19:40) Comprehensive Metabolic Panel (08/08/20 19:40) Magnesium (08/08/20 19:40) Ua Culture If Indicated (08/08/20 19:40) Ct Head/Cervical Spine Wo (08/08/20 19:40) Ed Iv/Invasive Line Start (08/08/20 19:40) Lactated Ringers (Lr 1000 Ml Iv Solution (08/08/20 19:40) Ondansetron Injection (Zofran Injectio (08/08/20 19:45) Drug Screen Stat (Urine) (08/08/20 20:19) Urine Culture (08/08/20 21:07) Cefazolin Injection (Ancef Injection) (08/08/20 21:45) Medications Given in ED Current Medications Medications Dose Ordered Sig/Una Route Start Time Stop Time Status Last Admin Dose Admin Cefazolin Sodium 1000 mg/Sterile Water 10 ml @ 200 mls/hr ONCE ONCE IV 08/08/20 21:45 08/08/20 21:47 DC 08/08/20 21:44 200 MLS/HR Lactated Ringer's 1,000 ml @ 0 mls/hr Q0M ONCE IV 08/08/20 19:40 08/08/20 19:43 DC 08/08/20 19:47 999 MLS/HR Ondansetron HCl 8 mg ONCE ONCE IVP 08/08/20 19:45 08/08/20 19:46 DC 08/08/20 19:47 8 MG Vital Signs/I&O 08/08/20 08/08/20 19:32 22:55 Temp 36.5 36.5 Pulse 93 87 Resp 16 16 B/P (MAP) 145/88 (107) 141/87 (107) Pulse Ox 98 O2 Delivery Room Air Room Air 08/09/20 00:00 Intake Total 1010 ml Balance 1010 ml Blood Pressure Mean: 107 Progress Progress Note : Time: 22:38 Progress Note Because patient complained of headache a CT of the head and cervical spine was obtained. C-collar remained in place until CT spine was cleared by CT. No acute injuries were identified. Patient gradually became more alert and oriented. He was able to ambulate independently with his cane. Urinary tract was identified. Ancef was administered based on prior culture results. Patient's was contacted to pick him up once he was sober enough. Diagnostic Imaging Diagonstic Imaging: CT Plain Films/CT/US/NM/MRI: c-spine, head Comments CT head and cervical spine viewed by me and report reviewed. See report below: NAME: JORGE A FIELD [facility] REC#: [id number] PT STATUS: REG ER : 1960 PHYSICIAN: MANJINDER ZARAGOZA MD ADMIT DATE: 08/08/20/ER Draft Date of Exam:08/08/20 CT HEAD/CERVICAL SPINE WO PROCEDURE: CT head and CT cervical spine without contrast. TECHNIQUE: Multiple contiguous axial images were obtained through the brain and cervical spine without the use of intravenous contrast. Sagittal and coronal reformations through the cervical spine were then performed. Auto Exposure Controls were utilized during the CT exam to meet ALARA standards for radiation dose reduction. INDICATION: Trauma, found down, alcohol intoxication. COMPARISON: 05/06/2020. FINDINGS: CT head: Ventricles and cortical sulci demonstrate generalized parenchymal volume loss. No acute intracranial hemorrhage is seen. There is no CT evidence of acute territorial ischemia. The calvarium appears intact. Visualized paranasal sinuses are clear. CT cervical spine: There are moderate degenerative changes at C3-C4, C4-C5, C5-C6 and C6-C7. There is no spondylolisthesis. There is facet arthropathy, right greater than left. No bony fragment or hyperdense fluid collection is seen in the spinal canal. No acute fracture is seen. Soft tissues about the cervical spine demonstrate no acute abnormality. IMPRESSION: 1. No acute intracranial hemorrhage or calvarium fracture. 2. No acute fracture seen in the cervical spine. Dictated on workstation # [id number] Dict: 08/08/202010 Trans: 08/08/202017 PJE [id number] Interpreted by: KARSON NEGRETE MD Departure Impression Primary Impression: Alcohol dependence with acute alcoholic intoxication Qualified Codes: F10.221 - Alcohol dependence with intoxication delirium Additional Impression: Urinary tract infection Qualified Codes: N39.0 - Urinary tract infection, site not specified Disposition: 01 HOME, SELF-CARE Condition: Improved Departure-Patient Inst. Decision time for Depature: 22:39 Referrals: NO,LOCAL PHYSICIAN (PCP/Family) Primary Care Physician Patient Instructions: ALCOHOL AND SUBSTANCE ABUSE, Urinary Tract Infections in Adults Add. Discharge Instructions: Drink plenty of water to stay well-hydrated. Eat a well-balanced diet. Call your primary care provider tomorrow for follow-up. Your urine culture results should be reviewed after 48 hours with your doctor. Until then, continue with your antibiotic as prescribed. Work toward alcohol reduction but avoid abrupt complete cessation as this may cause dangerous withdrawals. Return to care if you have worsening symptoms. All discharge instructions reviewed with patient and/or family. Voiced understanding. Scripts Cephalexin (Keflex) 500 Mg Capsule 500 MG PO TID, #20 CAP Prov: MANJINDER ZARAGOZA MD 08/08/20 Copy Copies To 1: ELYSSA VICTORIA MD, JOSHUA T MD Aug 08, 2020 19:49
[2020-08-08 19:52] LABS: BASOPHILS # (AUTO) 0.1 10^3/uL (0.0-0.1); BASOPHILS % (AUTO) 1 % (0-10); EOSINOPHILS % (AUTO) 1 % (0-10); HEMATOCRIT 45 % (40-54); LYMPHOCYTES # (AUTO) 3.1 10^3/uL (1.0-4.0); LYMPHOCYTES % (AUTO) 47 % (12-44); MEAN CORPUSCULAR HEMOGLOBIN 34 pg (25-34); MEAN CORPUSCULAR HGB CONC 33 g/dL (32-36); MEAN CORPUSCULAR VOLUME 101 fL (80-99); MONOCYTES # (AUTO) 0.7 10^3/uL (0.0-1.0); MONOCYTES % (AUTO) 11 % (0-12); NEUTROPHILS # (AUTO) 2.7 10^3/uL (1.8-7.8); NEUTROPHILS % (AUTO) 40 % (42-75); PLATELET COUNT 136 10^3/uL (130-400); WHITE BLOOD COUNT 6.7 10^3/uL (4.3-11.0)
--- NOTE | 2020-08-08 20:19 | Diagnostic Imaging Report ---
PROCEDURE: CT head and CT cervical spine without contrast. TECHNIQUE: Multiple contiguous axial images were obtained through the brain and cervical spine without the use of intravenous contrast. Sagittal and coronal reformations through the cervical spine were then performed. Auto Exposure Controls were utilized during the CT exam to meet ALARA standards for radiation dose reduction. INDICATION: Trauma, found down, alcohol intoxication. COMPARISON: 05/06/2020. FINDINGS: CT head: Ventricles and cortical sulci demonstrate generalized parenchymal volume loss. No acute intracranial hemorrhage is seen. There is no CT evidence of acute territorial ischemia. The calvarium appears intact. Visualized paranasal sinuses are clear. CT cervical spine: There are moderate degenerative changes at C3-C4, C4-C5, C5-C6 and C6-C7. There is no spondylolisthesis. There is facet arthropathy, right greater than left. No bony fragment or hyperdense fluid collection is seen in the spinal canal. No acute fracture is seen. Soft tissues about the cervical spine demonstrate no acute abnormality. IMPRESSION: 1. No acute intracranial hemorrhage or calvarium fracture. 2. No acute fracture seen in the cervical spine. Dictated by: Dictated on workstation # [id number]
--- NOTE | 2020-08-08 20:28 | NUR ---
PT FOUND STANDING AT SIDE OF BED WITH C COLLAR OFF. ASSISTED BACK TO BED AT THIS TIME. PT CLEANED AND CHANGED INTO GOWN AFTER BOWEL INCONTINENCE. DR. GUNDERSONMANN AWARE OF C COLLAR REMOVAL AND WAS SOON TO REMOVE IT AFTER REVIEWING CT.
[2020-08-08 20:29] LABS: ALBUMIN 3.7 GM/DL (3.2-4.5)
[2020-08-08 20:30] LABS: POTASSIUM 3.7 MMOL/L (3.6-5.0)
[2020-08-08 20:31] LABS: CALCIUM 9.2 MG/DL (8.5-10.1)
[2020-08-08 20:32] LABS: TOTAL PROTEIN 7.4 GM/DL (6.4-8.2)
[2020-08-08 20:36] LABS: CREATININE SERUM 1.3 MG/DL (0.60-1.30)
[2020-08-08 20:38] LABS: MAGNESIUM 2.2 MG/DL (1.6-2.4)
--- NOTE | 2020-08-08 20:49 | NUR ---
pt found standing by side of bed, assissted back to bed, call light in reach. pt remains confused. reorientation provided.
[2020-08-08 21:20] LABS: BILIRUBIN,URINE NEGATIVE (NEGATIVE); CLARITY,URINE SL CLOUDY; COLOR,URINE YELLOW; GLUCOSE, URINE (UA) NEGATIVE (NEGATIVE); KETONES,URINE TRACE (NEGATIVE); LEUKOCYTE ESTERASE ,URINE 3+ (NEGATIVE); NITRITE,URINE POSITIVE (NEGATIVE); PROTEIN,URINE 2+ (NEGATIVE)
[2020-08-08 21:28] LABS: BACTERIA,URINE LARGE /HPF; WBC,URINE >100 /HPF
[2020-08-08 21:31] LABS: AMPHETAMINE SCREEN, URINE NEGATIVE (NEGATIVE); BARBITURATE SCREEN URINE NEGATIVE (NEGATIVE); BENZODIAZEPINES SCREEN URINE NEGATIVE (NEGATIVE); CANNABINOID SCREEN, URINE NEGATIVE (NEGATIVE); COCAINE SCREEN URINE NEGATIVE (NEGATIVE); METHADONE STAT NEGATIVE (NEGATIVE); METHAMPHETAMINE SCREEN URINE S NEGATIVE (NEGATIVE); OPIATE SCREEN URINE NEGATIVE (NEGATIVE); OXYCODONE STAT NEGATIVE (NEGATIVE); PROPOXYPHENE STAT NEGATIVE (NEGATIVE); TRICYCLIC ANTIDEPRESSANTS SCRE NEGATIVE (NEGATIVE)
[2020-08-08] MEDS ORDERED: ceFAZolin INJECTION 1,000 MG in WATER (STERILE) FOR INJECTION 10 ML IV ONE (21:45)
--- NOTE | 2020-08-08 22:31 | NUR ---
PT , TRINI, NOTIFIED OF PT CONDITION AND PENDING DC. LABS REVIEWED. TRINI TO [facility] CHIEF DELIVERY PT.
[2020-08-08] MEDS ORDERED: CEPH-507 PO (22:32)
[2020-08-08 22:55] VITALS: BP 141/87
--- NOTE | 2020-08-08 22:55 | NUR ---
PT ASSISTED TO PRIVATE VEHICLE. DC INSTRUCTIONS AND PRINTED RX GIVEN TO , WHO SIGNED DC INSTRUCTION FORM.
== END 2020-08-08 22:55 | disposition home or self-care (01) ==
LOC: EDUNIT# 19:31 → ER 19:32
DX: F10.229 Alcohol dependence with intoxication, unspecified (principal); N39.0 Urinary tract infection, site not specified; F32.9 Major depressive disorder, single episode, unspecified; Z80.3 Family history of malignant neoplasm of breast; Z82.49 Family history of ischemic heart disease and other diseases of the circulatory system; Y90.8 Blood alcohol level of 240 mg/100 ml or more
CPT/HCPCS: 70450; 72125; 80053; 80306; 81000; 83735; 85025; 87077; 87088; 87186; 99284; G0480; 36415; 80320

== ENCOUNTER → 2020-08-29 | Emergency (ER) | payer BC ==
[~2020-08-29] VITALS: Ht 177 cm; Wt 104.0 kg
[~2020-08-29] MED LIST changes: +1/2 NS W/KCL 20 MEQ/L 1,000 ML IV ONE; +CEPH-507 PO; +D5 1/2 NS W/KCL 20 MEQ/L 1,000 ML IV SCH; +FOLIC ACID 5MG/ML 10 ML IV ONE; +HOLD METFORMIN - RECEIVED CONTRAST 20 ML VIAL IV SCH; +IOHEXOL 350 MG/ML 100 ML (OMNIPAQUE 350) VIAL IV ONE; +KETOROLAC 30 MG/ML VIAL IVP ONE; +LORazepam INJ 2 MG/ML (ATIVAN) VIAL IVP ONE; +LORazepam INJ 2 MG/ML (ATIVAN) VIAL ONE; +NS 100 ML (IVPB) BAG IV ONE; +ONDANSETRON 4 MG/2 ML (SDV) Z0FRAN IVP ONE; +THIAMINE 100 MG/ML 2 ML (VITAMIN B-1) VIAL IV ONE; +THIAMINE INJECTION 100 MG, FOLIC ACID INJECTION 1 MG, VITAMIN MULTI INJECTION 10 ML, MA... IV ONE; +cefTRIAXone FOR IV USE 1,000 MG in WATER (STERILE) FOR INJECTION 10 ML IV ONE; +toPIRamate 25 MG (TOPAMAX) TAB PO ONE
[2020-08-29 15:14] LABS: BASOPHILS % (AUTO) 0 % (0-10); HEMATOCRIT 35 % (40-54); MEAN PLATELET VOLUME 11.4 fL (9.0-12.2)
--- NOTE | 2020-08-29 15:15 | ED GI ---
General Chief Complaint: General Problems/Pain Stated Complaint: VOMITING; WEAKNESS; DIARRHEA Nursing Triage Note: PT ARRIVES BY [facility] EMS FROM [facility] WHERE HE LIVES WITH C/O WEAKNESS, DIARRHEA, VOMITTING FOR 3-4 DAYS. Sepsis Screen: Possible Sepsis Risk Source of Information: Patient, EMS, Family Exam Limitations: Other (mild dementia) (DARSHAN CEJA) History of Present Illness Date Seen by Provider: Aug 29, 2020 Time Seen by Provider: 14:41 Initial Comments The patient presents to the ER by EMS from [facility] with chief complaint that for 1 day he's had nausea vomiting diarrhea. He is a chronic several complaint of vodka a day drinker. He is known to this facility and presents routinely for self neglect. His who lives with him is out of town visiting family and he is known to present with self-neglect whenever she goes out of town. He does have some dementia and does not recall seeing a doctor for anything but he is on medications and his relates over the phone that he is a patient of Dr. Fatuma Fortune. He's not having any fevers chills pain. He says is moderate nausea is mild and he has not actually vomited. He denies smoking cigarettes or recreational drugs. He is not having any chest pain or abdominal pain. (DARSHAN CEJA) Allergies and Home Medications Allergies Coded Allergies: No Known Drug Allergies (Unverified , 12/28/19) Home Medications Cephalexin 500 Mg Capsule, 500 MG PO TID Prescribed by: MANJINDER BAHENA on 08/08/20 091 Multivitamin 1 Each Tablet, 1 EACH PO DAILY, (Reported) Naphazoline HCl/Glycerin 30 Ml Drops, 2 DROPS OU PRN PRN for EYE REDNESS, (Reported) Propranolol HCl 10 Mg Tablet, 10 MG PO QID PRN for TREMORS, (Reported) Sertraline HCl 100 Mg Tablet, 100 MG PO HS, (Reported) Topiramate 25 Mg Cap.sprink, 75 MG PO HS PRN for TREMORS, (Reported) TAKES 3 (25MG) TABS Topiramate 50 Mg Tablet, 50 MG PO QID PRN for TREMORS, (Reported) Patient Home Medication List Home Medication List Reviewed: Yes (DARSHAN CEJA) Review of Systems Review of Systems Constitutional: No chills, No diaphoresis EENTM: See HPI (EMS reports scleral icterus); No Blurred Vision, No Double Vision Respiratory: Denies Cough, Denies Shortness of Air Cardiovascular: Denies Chest Pain, Denies Lightheadedness Gastrointestinal: See HPI; Denies Abdominal Pain, Denies Constipated; Diarrhea, Nausea Genitourinary: Denies Burning, Denies Discharge Musculoskeletal: No back pain, No joint pain (DARSHAN CEJA) All Other Systems Reviewed Negative Unless Noted: Yes (DARSHAN CEJA) Past Adislxg-Prulxu-Rzkugv Hx Patient Social History Alcohol Use: Regular Use Alcohol Beverage of Choice: Vodka Recreational Drug Use: No Smoking Status: Never a Smoker 2nd Hand Smoke Exposure: No Recent Foreign Travel: No Contact w/Someone Who Travel: No Recent Infectious Disease Expo: No Recent Hopitalizations: No (DARSHAN CEJA) Immunizations Up To Date Tetanus Booster (TDap): Unknown PED Vaccines UTD: Yes (DARSHAN CEJA) Seasonal Allergies Seasonal Allergies: No (DARSHAN CEJA) Past Medical History Surgeries: Yes (HEMRRHOIDECTOMY) Respiratory: No Cardiac: No Neurological: Yes (TREMORS, alcoholism) Dementia Genitourinary: No Gastrointestinal: No Musculoskeletal: No Endocrine: No HEENT: No Cancer: No Psychosocial: Yes (ETOH ABUSE HX) Depression Integumentary: No Blood Disorders: No Adverse Reaction/Blood Tranf: No (DARSHAN CEJA) Family Medical History FH: breast cancer 19 MOTHER Hypertension 19 MOTHER Physical Exam Vital Signs Vital Signs - First Documented 08/29/20 14:50 Temp 36.6 Pulse 114 Resp 18 B/P (MAP) 177/98 (124) (VEDA,HIPOLITO K DO) Vital Signs Capillary Refill : Less Than 3 Seconds (DARSHAN CEJA) Height/Weight/BMI Height: '" Weight: lbs. oz. kg; 33.00 BMI Method: General Appearance: WD/WN, moderate distress HEENT: PERRL/EOMI, pharynx normal (mildly dry), other (mild icterus) Neck: full range of motion, normal inspection Respiratory: lungs clear, normal breath sounds, no respiratory distress, no accessory muscle use Cardiovascular: normal peripheral pulses, regular rate, rhythm, tachycardia (115) Peripheral Pulses: 2+ Radial Pulses (R), 2+ Radial Pulses (L) Gastrointestinal: normal bowel sounds, non tender, soft Extremities: normal range of motion, non-tender, normal capillary refill Neurologic/Psychiatric: alert, normal mood/affect, oriented x 3 Skin: warm/dry, other (covered on his lower half in feces) (DARSHAN CEJA) Progress/Results/Core Measures Results/Orders Lab Results Laboratory Tests Test 08/29/20 15:03 08/29/20 15:26 08/29/20 19:05 08/30/20 05:37 Range/Units White Blood Count 3.6 L 4.3-11.0 10^3/uL Red Blood Count 3.60 L 4.30-5.52 10^6/uL Hemoglobin 12.3 L 13.3-17.7 g/dL Hematocrit 35 L 40-54 % Mean Corpuscular Volume 97 80-99 fL Mean Corpuscular Hemoglobin 34 25-34 pg Mean Corpuscular Hemoglobin Concent 35 32-36 g/dL Red Cell Distribution Width 15.8 H 10.0-14.5 % Platelet Count 54 L 130-400 10^3/uL Mean Platelet Volume 11.4 9.0-12.2 fL Immature Granulocyte % (Auto) 2 % Neutrophils (%) (Auto) 64 42-75 % Lymphocytes (%) (Auto) 18 12-44 % Monocytes (%) (Auto) 15 H 0-12 % Eosinophils (%) (Auto) 1 0-10 % Basophils (%) (Auto) 0 0-10 % Neutrophils # (Auto) 2.3 1.8-7.8 10^3/uL Lymphocytes # (Auto) 0.6 L 1.0-4.0 10^3/uL Monocytes # (Auto) 0.6 0.0-1.0 10^3/uL Eosinophils # (Auto) 0.0 0.0-0.3 10^3/uL Basophils # (Auto) 0.0 0.0-0.1 10^3/uL Immature Granulocyte # (Auto) 0.1 0.0-0.1 10^3/uL Prothrombin Time 14.7 12.2-14.7 SEC INR Comment 1.1 0.8-1.4 Activated Partial Thromboplast Time 27 24-35 SEC Sodium Level 134 L 135-145 MMOL/L Potassium Level 3.2 L 3.6-5.0 MMOL/L Chloride Level 97 L 98-107 MMOL/L Carbon Dioxide Level 15 L 21-32 MMOL/L Anion Gap 22 H 5-14 MMOL/L Blood Urea Nitrogen 22 H 7-18 MG/DL Creatinine 1.04 0.60-1.30 MG/DL Estimat Glomerular Filtration Rate > 60 BUN/Creatinine Ratio 21 Glucose Level 65 L 70-105 MG/DL Calcium Level 7.8 L 8.5-10.1 MG/DL Corrected Calcium 8.8 8.5-10.1 MG/DL Total Bilirubin 5.5 H 0.1-1.0 MG/DL Aspartate Amino Transf (AST/SGOT) 222 H 5-34 U/L Alanine Aminotransferase (ALT/SGPT) 88 H 0-55 U/L Alkaline Phosphatase 141 H 40-136 U/L Total Protein 6.1 L 6.4-8.2 GM/DL Albumin 2.8 L 3.2-4.5 GM/DL Lipase 648 H 8-78 U/L Serum Alcohol 15 H <10 MG/DL Urine Color DARK YELLOW Urine Clarity SL CLOUDY Urine pH 6.5 5-9 Urine Specific Maribel 1.010 L 1.016-1.022 Urine Protein 1+ H NEGATIVE Urine Glucose (UA) NEGATIVE NEGATIVE Urine Ketones 2+ H NEGATIVE Urine Nitrite POSITIVE H NEGATIVE Urine Bilirubin 2+ H NEGATIVE Urine Urobilinogen 2.0 < = 1.0 MG/DL Urine Leukocyte Esterase 3+ H NEGATIVE Urine RBC (Auto) 3+ H NEGATIVE Urine RBC 25-50 H /HPF Urine WBC >100 H /HPF Urine Squamous Epithelial Cells RARE /HPF Urine Crystals PRESENT H /LPF Urine Amorphous Sediment FEW MESHA URATES H /LPF Urine Bacteria FEW H /HPF Urine Casts NONE /LPF Urine Mucus NEGATIVE /LPF Urine Culture Indicated YES Urine Opiates Screen NEGATIVE NEGATIVE Urine Oxycodone Screen NEGATIVE NEGATIVE Urine Methadone Screen NEGATIVE NEGATIVE Urine Propoxyphene Screen NEGATIVE NEGATIVE Urine Barbiturates Screen NEGATIVE NEGATIVE Ur Tricyclic Antidepressants Screen NEGATIVE NEGATIVE Urine Phencyclidine Screen NEGATIVE NEGATIVE Urine Amphetamines Screen NEGATIVE NEGATIVE Urine Methamphetamines Screen NEGATIVE NEGATIVE Urine Benzodiazepines Screen NEGATIVE NEGATIVE Urine Cocaine Screen NEGATIVE NEGATIVE Urine Cannabinoids Screen NEGATIVE NEGATIVE Ammonia 45 H 11-32 UMOL/L Glucometer 117 H 70-110 MG/DL (HIPOLITO STEVE DO) My Orders Orders - VEDALORYA K DO D5 1/2 Ns W/Kcl 20 Meq/L (Dextrose 5%/0. (08/29/20 20:45) 1/2 Ns W/Kcl 20 Meq/L (0.45% Sodium Chlo (08/29/20 20:35) Catheter(Urinary) Insert & Ass 03,15 (08/29/20 20:37) Lorazepam Injection (Ativan Injection) (08/29/20 20:36) Clear Liquid (08/29/20 Dinner) D5 1/2 Ns W/Kcl 20 Meq/L (Dextrose 5%/0. (08/30/20 05:45) Accucheck Stat ONCE (08/30/20 05:35) Monitor-Rhythm Ecg Trace Only (08/30/20 05:35) (VEDA,HIPOLITO K DO) Medications Given in ED (VEDA,HIPOLITO K DO) Vital Signs/I&O 08/29/20 14:50 Temp 36.6 Pulse 114 Resp 18 B/P (MAP) 177/98 (124) 08/30/20 00:00 Intake Total 1500 ml Balance 1500 ml (EVDA,HIPOLITO K DO) Blood Pressure Mean: 124 Progress Progress Note #1: Time: 15:12 Progress Note After staff cleans the patient up we are going to give him the rest of the liter fluids initiated by EMS. Then we will give him a banana bag with thiamine and folate. Check some basic labs including bilirubin. 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 4 mg IV Zofran for his nausea. We have asked social services analyst to come down and meet with the patient. She is familiar with the patient. Progress Note #2: Time: 16:[address] Steinberg declined to admit because we do not have appropriate GI staff to workup, diagnosis, treat. Progress Note #3: Time: 17:20 Progress Note Nikolay and jose angel Falcon are at capacity. We discussed the case with [facility]. We are getting a CT since the ultrasound has limited diagnostic value. They will call us back. Progress Note #4: Time: 18:06 Progress Note MELD score 17 points. We did discuss this with his over the phone. We updated the patient that he has an accepting physician at [facility] but will probably not have a bed assignment before tomorrow. We have given him a milligram of Ativan to help with his agitation that we suspect is likely due to alcohol withdrawal. Care of the patient has been transferred at shift change to Dr. Steve. Progress Note #5: Time: 08:42 Progress Note Resumed care of the patient at shift change. Patient is sleeping comfortably until just recently. We provided him with some breakfast. [facility] was contacted and they still do not have a bed available. (DARSHAN CEJA) Progress Note : Progress Note PT HAS RESTED QUIETLY THROUGHOUT THE NIGHT. NO COMPLAINTS PT TOLERATED CLEAR LIQUIDS 0600--CARE TURNED BACK OVER TO DR. CEJA, STILL AWAITING BED ASSIGNMENT FROM . (HIPOLITO STEVE DO) Initial ECG Impression Date: Aug 29, 2020 Initial ECG Impression Time: 15:08 Initial ECG Rate: 97 Initial ECG Rhythm: Normal Sinus Initial ECG Intervals: QT (470) Initial ECG Impression: Normal Initial ECG Comparisson: Unchanged Comment Normal sinus rhythm without clinically relevant ST changes (DARSHAN CEJA) Diagnostic Imaging Diagonstic Imaging: Ultrasound Plain Films/CT/US/NM/MRI: abdomen (right upper quadrant) Comments Liver is very fibrotic and not able to adequately visualize the ductal system. Right kidney unremarkable. Gallbladder is not thickened Nor is there any free fluid noticed. Reviewed: Reviewed by Me Diagonstic Imaging: CT Plain Films/CT/US/NM/MRI: abdomen, pelvis Comments NAME: JORGE A FIELD [facility] REC#: [id number] PT STATUS: REG ER : 1960 PHYSICIAN: DARSHAN CEJA MD ADMIT DATE: 08/29/20/ER Signed Date of Exam:08/29/20 CT ABDOMEN/PELVIS W PROCEDURE: CT abdomen and pelvis with contrast. TECHNIQUE: Multiple contiguous axial images were obtained through the abdomen and pelvis after administration of intravenous contrast. Auto Exposure Controls were utilized during the CT exam to meet ALARA standards for radiation dose reduction. All CT scans use one or more of the following dose optimizing techniques: automated exposure control, MA and/or KvP adjustment based on patient size and exam type or iterative reconstruction. INDICATION: Elevated liver enzymes Lung bases are clear. There is fatty infiltration of liver. There are no masses seen in the liver. The portal vein is patent. Pancreas appears normal. Spleen is not enlarged. Adrenals are normal. There is a small calculus in the inferior pole calyx of left kidney. Left ureter is mildly dilated throughout its course but there is no evidence of calculus or mass. Right ureter is nondilated. There is calcific atherosclerosis of aorta but no aneurysm. The appendix is normal. Small bowel and colon are moderately distended with gas suggesting an adynamic ileus. There is no intraperitoneal free air or free fluid. Prostate is not enlarged. Urinary bladder is unremarkable. IMPRESSION: Severe hepatic steatosis. There is a large left splenorenal shunt suggesting portal hypertension. Left nephrolithiasis Dictated by: Dictated on workstation # [id number] Dict: 08/29/201944 Trans: 08/29/202046 CVB [id number] Interpreted by: KARLIE ENGEL MD Electronically signed by: KARLIE ENGEL MD 08/29/202046 Reviewed: Reviewed by Me (DARSHAN CEJA) Comments CT ABDOMEN/PELVIS--PER RADIOLOGIST REPORT AT 1959 Lung bases are clear. There is fatty infiltration of liver. There are no masses seen in the liver. The portal vein is patent. Pancreas appears normal. Spleen is not enlarged. Adrenals are normal. There is a small calculus in the inferior pole calyx of left kidney. Left ureter is mildly dilated throughout its course but there is no evidence of calculus or mass. Right ureter is nondilated. There is calcific atherosclerosis of aorta but no aneurysm. The appendix is normal. Small bowel and colon are moderately distended with gas suggesting an adynamic ileus. There is no intraperitoneal free air or free fluid. Prostate is not enlarged. Urinary bladder is unremarkable. IMPRESSION: Severe hepatic steatosis. There is a large left splenorenal shunt suggesting portal hypertension. Left (VEDALORYA K DO) Departure Impression Primary Impression: Alcohol dependence with acute alcoholic intoxication Qualified Codes: F10.220 - Alcohol dependence with intoxication, uncomplicated Additional Impressions: Essential tremor Diarrhea Qualified Codes: R19.7 - Diarrhea, unspecified Dehydration Hepatitis Jaundice Urinary tract infection Qualified Codes: N30.01 - Acute cystitis with hematuria Electrolyte abnormality Renal insufficiency Thrombocytopenia Elevated lipase Disposition: XFER SHT-TRM HOSP Condition: Stable Transfer Transfer Reason: Exceeds level of care (No GI) Time Spoke to Accepting Phy: 18:00 Transfer Progress Notes Accepted by Dr. De Paz at [facility] No beds available until 08/30/20. Transfer Facility: [facility] Method of Transfer: EMS (DARSHAN CEJA) Departure-Patient Inst. Referrals: NO,LOCAL PHYSICIAN (PCP/Family) Primary Care Physician Patient Instructions: LOCAL PHYSICIAN LIST DARSHAN CEJA Aug 29, 2020 15:15 HIPOLITO STEVE DO Aug 29, 2020 18:10
[2020-08-29 15:16] LABS: EOSINOPHILS % (AUTO) 1 % (0-10); HEMOGLOBIN 12.3 g/dL (13.3-17.7); LYMPHOCYTES # (AUTO) 0.6 10^3/uL (1.0-4.0); LYMPHOCYTES % (AUTO) 18 % (12-44); MEAN CORPUSCULAR HEMOGLOBIN 34 pg (25-34); MEAN CORPUSCULAR HGB CONC 35 g/dL (32-36); MEAN CORPUSCULAR VOLUME 97 fL (80-99); MONOCYTES # (AUTO) 0.6 10^3/uL (0.0-1.0); MONOCYTES % (AUTO) 15 % (0-12); NEUTROPHILS # (AUTO) 2.3 10^3/uL (1.8-7.8); NEUTROPHILS % (AUTO) 64 % (42-75); PLATELET COUNT 54 10^3/uL (130-400); WHITE BLOOD COUNT 3.6 10^3/uL (4.3-11.0)
[2020-08-29 15:29] LABS: ALBUMIN 2.8 GM/DL (3.2-4.5); CHLORIDE 97 MMOL/L (98-107); POTASSIUM 3.2 MMOL/L (3.6-5.0); SODIUM 134 MMOL/L (135-145)
[2020-08-29 15:30] LABS: CALCIUM 7.8 MG/DL (8.5-10.1)
[2020-08-29 15:31] LABS: GLUCOSE 65 MG/DL (70-105); TOTAL PROTEIN 6.1 GM/DL (6.4-8.2)
[2020-08-29 15:32] LABS: CARBON DIOXIDE 15 MMOL/L (21-32)
[2020-08-29 15:33] LABS: BILIRUBIN,TOTAL 5.5 MG/DL (0.1-1.0)
[2020-08-29 15:34] LABS: CLARITY,URINE SL CLOUDY; COLOR,URINE DARK YELLOW; GLUCOSE, URINE (UA) NEGATIVE (NEGATIVE); KETONES,URINE 2+ (NEGATIVE); LEUKOCYTE ESTERASE ,URINE 3+ (NEGATIVE); NITRITE,URINE POSITIVE (NEGATIVE); PH,URINE 6.5 (5-9); PROTEIN,URINE 1+ (NEGATIVE)
[2020-08-29 15:35] LABS: ALKALINE PHOSPHATASE 141 U/L (40-136); CREATININE SERUM 1.04 MG/DL (0.60-1.30); GFR ESTIMATED > 60
[2020-08-29 15:36] LABS: BUN/CREATININE RATIO 21
[2020-08-29 15:38] LABS: ALANINE AMINOTRANSFERASE 88 U/L (0-55)
[2020-08-29 15:48] LABS: AMPHETAMINE SCREEN, URINE NEGATIVE (NEGATIVE); BARBITURATE SCREEN URINE NEGATIVE (NEGATIVE); BENZODIAZEPINES SCREEN URINE NEGATIVE (NEGATIVE); CANNABINOID SCREEN, URINE NEGATIVE (NEGATIVE); COCAINE SCREEN URINE NEGATIVE (NEGATIVE); METHADONE STAT NEGATIVE (NEGATIVE); METHAMPHETAMINE SCREEN URINE S NEGATIVE (NEGATIVE); OPIATE SCREEN URINE NEGATIVE (NEGATIVE); OXYCODONE STAT NEGATIVE (NEGATIVE); PROPOXYPHENE STAT NEGATIVE (NEGATIVE); TRICYCLIC ANTIDEPRESSANTS SCRE NEGATIVE (NEGATIVE)
[2020-08-29 15:49] LABS: AMORPHOUS SEDIMENT,UR FEW AMOR URATES /LPF; BACTERIA,URINE FEW /HPF; BILIRUBIN,URINE 2+ (NEGATIVE); RBC,URINE 25-50 /HPF; SQUAMOUS EPITHELIAL CELL,UR RARE /HPF; WBC,URINE >100 /HPF
[2020-08-29 16:26] LABS: INR 1.1 (0.8-1.4); PROTHROMBIN TIME PATIENT 14.7 SEC (12.2-14.7)
--- NOTE | 2020-08-29 17:23 | Diagnostic Imaging Report ---
PROCEDURE: US Gallbladder. TECHNIQUE: Multiple real-time grayscale images were obtained over the right upper quadrant in various projections. INDICATION: Hyperbilirubinemia The liver has heterogeneous echotexture suggesting fibrosis. Neither the portal vein or hepatic veins could be detected by Doppler. The gallbladder is nondilated. There are no calculi seen. The common duct is not seen. Pancreas is obscured by bowel gas as is the aorta and IVC. Right kidney measures 11.7 cm length and appears normal. There is a trace amount of ascites adjacent to liver. IMPRESSION: Cirrhotic-appearing liver. There is no detectable flow in the hepatic or portal veins. Dictated by: Dictated on workstation # [id number]
--- NOTE | 2020-08-29 19:50 | Diagnostic Imaging Report ---
PROCEDURE: CT abdomen and pelvis with contrast. TECHNIQUE: Multiple contiguous axial images were obtained through the abdomen and pelvis after administration of intravenous contrast. Auto Exposure Controls were utilized during the CT exam to meet ALARA standards for radiation dose reduction. All CT scans use one or more of the following dose optimizing techniques: automated exposure control, MA and/or KvP adjustment based on patient size and exam type or iterative reconstruction. INDICATION: Elevated liver enzymes Lung bases are clear. There is fatty infiltration of liver. There are no masses seen in the liver. The portal vein is patent. Pancreas appears normal. Spleen is not enlarged. Adrenals are normal. There is a small calculus in the inferior pole calyx of left kidney. Left ureter is mildly dilated throughout its course but there is no evidence of calculus or mass. Right ureter is nondilated. There is calcific atherosclerosis of aorta but no aneurysm. The appendix is normal. Small bowel and colon are moderately distended with gas suggesting an adynamic ileus. There is no intraperitoneal free air or free fluid. Prostate is not enlarged. Urinary bladder is unremarkable. IMPRESSION: Severe hepatic steatosis. There is a large left splenorenal shunt suggesting portal hypertension. Left nephrolithiasis Dictated by: Dictated on workstation # [id number]
[2020-08-29] MEDS: D5 1/2 NS W/KCL 20 MEQ/L 1,000 ML IV SCH ×3 (20:38→20:43)
--- NOTE | 2020-08-29 21:00 | NUR ---
TRANSFERED PT TO NEW BED SINCE HE IS STAYING OVER NIGHT IN ER
--- NOTE | 2020-08-29 23:00 | NUR ---
ASSUMED CARE OF THIS PATIENT AT THIS TIME. PATIENT IS A PENDING TRANSFER TO , ED HOLD OVERNIGHT. PATIENT IS IN A INPATIENT BED, ALERT AND ORIENTED X4, CALL LIGHT IN REACH. INTRODUCED SELF AND DISCUSSED PLAN OF CARE. PATIENT IS ENCOURAGED TO CALL FOR ANY NEEDS ACKNOWLEDGEMENT VERBALIZED. MONITORING MAINTAINED.
--- NOTE | 2020-08-30 01:00 | NUR ---
VITAL SIGNS REMAIN STABLE. PATIENT IS RESTING QUIETLY IN ROOM WITH CALL LIGHT IN REACH. NEEDS ASSESSED PATIENT CALLS. MONITORING MAINTAINED.
--- NOTE | 2020-08-30 03:15 | NUR ---
IN ROOM TO CHECK ON PATIENT. PATIENT APPEARS TO BE ASLEEP WITH CALL LIGHT IN REACH. HEART MONITOR REMAINS IN PLACE WITH VITAL SIGNS RECORDING EVERY 15 MINUTES. VISUAL MONITORING MAINTAINED.
--- NOTE | 2020-08-30 04:30 | NUR ---
THIS RN TO ROOM AND FINDS PATIENT RESTING QUIETLY IN BED WITH CALL LIGHT IN REACH. APPEARS ASLEEP. WILL CONTINUE TO MONITOR.
--- NOTE | 2020-08-30 05:30 | NUR ---
IN ROOM TO CHECK ON PATIENT. BLOOD PRESSURE APPERAS LOW, CUFF RESPOSITIONED. PATIEN IS LYING ON HIS LEFT SIDE WITH HIS ARM EXTENDED. WAKES EASILY DENIES PAIN OR NEED AT THIS TIME. BLOOD PRESSURE REPORTED TO DR MCCOLLUM. CALL TEVIN GAO IN REACH, BED IN LOW POSITION. WILL CONTINUE TO MONITOR.
--- NOTE | 2020-08-30 05:45 | NUR ---
CAN OF SPRITE AND CONTAINER OF ENSURE CLEAR PROVIDED TO PATIENT.
--- NOTE | 2020-08-30 07:00 | NUR ---
REPORT FROM LOKI PAYNE'T TO WAIT FOR BED AT .
--- NOTE | 2020-08-30 07:38 | NUR ---
TO ROOM BREAKFAST OFFERED PATIENT FEELING LIKE HE COULD EAT . BREAKFAST ORDERED.
--- NOTE | 2020-08-30 08:19 | NUR ---
CALLED TRANSFER CENTER STILL NO BEDS,
--- NOTE | 2020-08-30 08:29 | NUR ---
FOOD TRAY GIVEN.
--- NOTE | 2020-08-30 08:47 | NUR ---
SITTING UP IN BED EATING BREAKFAST. CALLED AND UPDATE GIVEN
--- NOTE | 2020-08-30 10:07 | NUR ---
POA PAPERS PLACED ON CHART.
--- NOTE | 2020-08-30 10:08 | NUR ---
500CC OUT IN [facility]
--- NOTE | 2020-08-30 10:23 | NUR ---
TOLERATED BREAKFAST WELL REPORTED IT WAS GOOD. Addendum: 08/30/20 at 1023 by PMCCLURE FLUIDS CON'T TO INFUSE PER PUMP AT 100CCHR
--- NOTE | 2020-08-30 10:54 | NUR ---
PATIENT REQUESTING ELAN
--- NOTE | 2020-08-30 11:47 | NUR ---
HAD LG SOFT STOOL AREA ON BUTTOCKS, AND TESTICLE AREA BROKEN DOWN. CLEANED AND BARRIER CREAM PLACED . [facility] EMPTIED AND 600CC FROM [facility].
--- NOTE | 2020-08-30 12:47 | NUR ---
LAB HERE TO DRAW BLOOD
[2020-08-30 12:52] LABS: BASOPHILS % (AUTO) 1 % (0-10); EOSINOPHILS % (AUTO) 2 % (0-10); HEMATOCRIT 30 % (40-54); HEMOGLOBIN 10.5 g/dL (13.3-17.7); LYMPHOCYTES # (AUTO) 0.5 10^3/uL (1.0-4.0); LYMPHOCYTES % (AUTO) 24 % (12-44); MEAN CORPUSCULAR HEMOGLOBIN 34 pg (25-34); MEAN CORPUSCULAR HGB CONC 35 g/dL (32-36); MEAN CORPUSCULAR VOLUME 97 fL (80-99); MEAN PLATELET VOLUME 10.9 fL (9.0-12.2); MONOCYTES # (AUTO) 0.5 10^3/uL (0.0-1.0); MONOCYTES % (AUTO) 22 % (0-12); NEUTROPHILS % (AUTO) 45 % (42-75); WHITE BLOOD COUNT 2.1 10^3/uL (4.3-11.0)
[2020-08-30 12:55] LABS: PLATELET COUNT 38 10^3/uL (130-400)
[2020-08-30 12:59] LABS: ALBUMIN 2.4 GM/DL (3.2-4.5)
[2020-08-30 13:00] LABS: CHLORIDE 100 MMOL/L (98-107); POTASSIUM 2.6 MMOL/L (3.6-5.0); SODIUM 131 MMOL/L (135-145)
[2020-08-30 13:01] LABS: CALCIUM 7.5 MG/DL (8.5-10.1)
[2020-08-30 13:02] LABS: GLUCOSE 157 MG/DL (70-105); TOTAL PROTEIN 5.1 GM/DL (6.4-8.2)
[2020-08-30 13:03] LABS: CARBON DIOXIDE 22 MMOL/L (21-32)
[2020-08-30 13:04] LABS: BILIRUBIN,TOTAL 4.8 MG/DL (0.1-1.0)
[2020-08-30 13:06] LABS: ALKALINE PHOSPHATASE 133 U/L (40-136); CREATININE SERUM 1.08 MG/DL (0.60-1.30); GFR ESTIMATED > 60
[2020-08-30 13:07] LABS: BUN/CREATININE RATIO 15
[2020-08-30 13:09] LABS: ALANINE AMINOTRANSFERASE 68 U/L (0-55)
--- NOTE | 2020-08-30 13:17 | NUR ---
ORDERED LUNCH TRAY FOR PATIENT
[2020-08-30 13:30] LABS: ANISOCYTOSIS SLIGHT; BAND NEUTROPHILS 3 %; BASOPHILS % (MANUAL) 0 %; EOSINOPHILS % (MANUAL) 4 %; LYMPHOCYTES % (MANUAL) 26 %; MONOCYTES % (MANUAL) 18 %; NEUTROPHILS % (MANUAL) 49 %; NUCLEATED RED BLOOD CELLS 1
--- NOTE | 2020-08-30 13:40 | NUR ---
LUNCH TRAY TO PT AT THIS TIME. PT RESTING QUIETLY, NO C/O VOICED AT THIS TIME.
--- NOTE | 2020-08-30 13:50 | NUR ---
[facility] CALLED WITH BED [id number] REPORT [phone]
--- NOTE | 2020-08-30 14:11 | NUR ---
NURSE FROM [facility] TO CALL BACK FOR REPORT.
[2020-08-30 14:28] VITALS: BP 122/87
--- NOTE | 2020-08-30 14:28 | NUR ---
EMS HERE FOR TRANSFER
--- NOTE | 2020-08-30 14:46 | NUR ---
200 CC EMPITED FROM [facility] ON DISCHARGE.
== END ==
LOC: EDUNIT# 14:50 → ER 14:51
DX: F10.229 Alcohol dependence with intoxication, unspecified (principal); G25.0 Essential tremor; R19.7 Diarrhea, unspecified; E86.0 Dehydration; K75.9 Inflammatory liver disease, unspecified; N39.0 Urinary tract infection, site not specified; E87.8 Other disorders of electrolyte and fluid balance, not elsewhere classified; N28.9 Disorder of kidney and ureter, unspecified; D69.6 Thrombocytopenia, unspecified; F32.9 Major depressive disorder, single episode, unspecified; F03.90 Unspecified dementia, unspecified severity, without behavioral disturbance, psychotic disturbance, mood disturbance, and anxiety; R74.8 Abnormal levels of other serum enzymes; Z82.49 Family history of ischemic heart disease and other diseases of the circulatory system; Z80.3 Family history of malignant neoplasm of breast
CPT/HCPCS: 51702; 74177; 76705; 80053; 80306; 81000; 82140; 83690; 85025; 85610; 85730; 87088; G0480; 36415; 80320; 93005

== ENCOUNTER 2020-09-11 01:14 | Inpatient (IN) | payer MEDICARE, OTHER ==
[~2020-09-11] VITALS: Ht 172 cm; Wt 129.0 kg
[~2020-09-11 01:14] MED LIST changes: -1/2 NS W/KCL 20 MEQ/L 1,000 ML IV ONE; -D5 1/2 NS W/KCL 20 MEQ/L 1,000 ML IV SCH; -FOLIC ACID 5MG/ML 10 ML IV ONE; -HOLD METFORMIN - RECEIVED CONTRAST 20 ML VIAL IV SCH; -IOHEXOL 350 MG/ML 100 ML (OMNIPAQUE 350) VIAL IV ONE; -KETOROLAC 30 MG/ML VIAL IVP ONE; -LORazepam INJ 2 MG/ML (ATIVAN) VIAL IVP ONE; -LORazepam INJ 2 MG/ML (ATIVAN) VIAL ONE; -NS 100 ML (IVPB) BAG IV ONE; -ONDANSETRON 4 MG/2 ML (SDV) Z0FRAN IVP ONE; -THIAMINE 100 MG/ML 2 ML (VITAMIN B-1) VIAL IV ONE; -THIAMINE INJECTION 100 MG, FOLIC ACID INJECTION 1 MG, VITAMIN MULTI INJECTION 10 ML, MA... IV ONE; -cefTRIAXone FOR IV USE 1,000 MG in WATER (STERILE) FOR INJECTION 10 ML IV ONE; -toPIRamate 25 MG (TOPAMAX) TAB PO ONE
--- NOTE | 2020-09-11 01:20 | NUR ---
Pt arrives by EMS with confusion after he called 911 for unknown reasons. Pt admits to drinking a large amount of vodka this morning and last night. Pt states he is a daily drinker and has struggled with alcholism for some time. Pt also reports he fell at some point during the night but does not have good recall of the events. Pt has an abrasion to his forehead. Bruise noted on his left hip. Significant edema noted to bilateral lower extremities as well. Pt has feces noted on his feet. Pt is alert and oriented to self, situation, and place.
[2020-09-11 01:48] LABS: BASOPHILS # (AUTO) 0.1 10^3/uL (0.0-0.1); BASOPHILS % (AUTO) 2 % (0-10); EOSINOPHILS # (AUTO) 0.1 10^3/uL (0.0-0.3); EOSINOPHILS % (AUTO) 1 % (0-10); HEMATOCRIT 38 % (40-54); HEMOGLOBIN 12.5 g/dL (13.3-17.7); LYMPHOCYTES # (AUTO) 3.2 10^3/uL (1.0-4.0); LYMPHOCYTES % (AUTO) 51 % (12-44); MEAN CORPUSCULAR HEMOGLOBIN 36 pg (25-34); MEAN CORPUSCULAR HGB CONC 33 g/dL (32-36); MEAN CORPUSCULAR VOLUME 108 fL (80-99); MEAN PLATELET VOLUME 10.2 fL (9.0-12.2); MONOCYTES # (AUTO) 0.7 10^3/uL (0.0-1.0); MONOCYTES % (AUTO) 11 % (0-12); NEUTROPHILS # (AUTO) 2.1 10^3/uL (1.8-7.8); NEUTROPHILS % (AUTO) 35 % (42-75); PLATELET COUNT 197 10^3/uL (130-400); WHITE BLOOD COUNT 6.2 10^3/uL (4.3-11.0)
--- NOTE | 2020-09-11 01:48 | ED General ---
General Chief Complaint: Altered Mental Status Stated Complaint: CONFUSSION Source of Information: Patient Exam Limitations: No Limitations History of Present Illness Date Seen by Provider: Sep 11, 2020 Time Seen by Provider: 01:15 Initial Comments Here with report of confusion from [facility] assisted [facility]. Patient admits to drinking vodka and is a known alcoholic and has been seen under similar circumstances multiple times this year including at least 3 times in the last 6 weeks. Alcohol intoxication seems to be a common theme. Does have liver disease. He has been seen by GI specialty at [facility]. Follows with Dr. Crabtree. Admits to a fall tonight. Legs are quite edematous and does have fecal material on his legs and has been incontinent of stool. Presentations typically occur when his who is out of town. Patient denies chest pain, breathing problems, sore throat, runny nose, nausea, vomiting. Does have abrasions to his forehead, nose congestion. Denies neck or back pain. Admits to drinking vodka and states that he had half a fifth to a quart any amount and is not exactly sure how much. 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) Severity: Moderate Associated Systoms: No Chest Pain, No Cough, No Fever/Chills, No Nausea/Vomiting, No Shortness of Air; Weakness Allergies and Home Medications Allergies Coded Allergies: No Known Drug Allergies (Unverified , 12/28/19) Home Medications Cephalexin 500 Mg Capsule, 500 MG PO TID Prescribed by: MANJINDER BAHENA on 08/08/20 2240 Multivitamin 1 Each Tablet, 1 EACH PO DAILY, (Reported) Naphazoline HCl/Glycerin 30 Ml Drops, 2 DROPS OU PRN PRN for EYE REDNESS, (Reported) Propranolol HCl 10 Mg Tablet, 10 MG PO QID PRN for TREMORS, (Reported) Sertraline HCl 100 Mg Tablet, 100 MG PO HS, (Reported) Topiramate 25 Mg Cap.sprink, 75 MG PO HS PRN for TREMORS, (Reported) TAKES 3 (25MG) TABS Topiramate 50 Mg Tablet, 50 MG PO QID PRN for TREMORS, (Reported) Patient Home Medication List Home Medication List Reviewed: Yes Review of Systems Review of Systems Constitutional: see HPI; No chills, No fever EENTM: No nose congestion, No throat pain Respiratory: No cough, No short of breath Cardiovascular: No chest pain; edema Gastrointestinal: No abdominal pain, No nausea, No vomiting Genitourinary: No dysuria, No pain Musculoskeletal: no symptoms reported Skin: change in color, lesions Psychiatric/Neurological: Depressed; Denies Headache; Other (confusion) All Other Systems Reviewed Negative Unless Noted: Yes Past Ervzdzl-Gddhti-Anxivo Hx Past Med/Social Hx: Reviewed Nursing Past Med/Soc Hx Patient Social History Alcohol Use: Regular Use Alcohol Beverage of Choice: Vodka Recreational Drug Use: No Smoking Status: Unknown if Ever Smoked 2nd Hand Smoke Exposure: No Recent Hopitalizations: No Immunizations Up To Date Tetanus Booster (TDap): Unknown PED Vaccines UTD: Yes Date of Influenza Vaccine: Aug 09, 2020 Seasonal Allergies Seasonal Allergies: No Past Medical History Surgeries: Yes (HEMRRHOIDECTOMY) Respiratory: No Cardiac: No Neurological: Yes (TREMORS, alcoholism) Dementia Genitourinary: No Gastrointestinal: No Musculoskeletal: No Endocrine: No HEENT: No Cancer: No Psychosocial: Yes (ETOH ABUSE HX) Depression Integumentary: No Blood Disorders: No Adverse Reaction/Blood Tranf: No Family Medical History Reviewed Nursing Family Hx FH: breast cancer 19 MOTHER Hypertension 19 MOTHER Physical Exam Vital Signs Vital Signs - First Documented 09/11/20 01:15 Temp 36.4 Pulse 98 Resp 20 B/P (MAP) 115/81 (92) Pulse Ox 99 O2 Delivery Room Air Capillary Refill : Height, Weight, BMI Height: '" Weight: lbs. oz. kg; 33.00 BMI Method: General Appearance: Anxious, Obese HEENT: PERRL/EOMI, TMs Normal, Pharynx Normal Neck: Non Tender, Supple Respiratory: Lungs Clear, Normal Breath Sounds Cardiovascular: Regular Rate, Rhythm, No Murmur Gastrointestinal: Non Tender, Soft Back: Normal Inspection, No CVA Tenderness, No Vertebral Tenderness Extremity: Non Tender, No Calf Tenderness Neurologic/Psychiatric: Alert, Oriented x3 Skin: Normal Color, Warm/Dry Focused Exam Lactate Level 09/11/20 01:30: Lactic Acid Level 2.28*H Lactic Acid Level Laboratory Tests Test 09/11/20 01:30 Lactic Acid Level 2.28 MMOL/L (0.50-2.00) *H Progress/Results/Core Measures Suspected Sepsis SIRS Temperature: Pulse: Respiratory Rate: Laboratory Tests 09/11/20 01:30: White Blood Count 6.2 Blood Pressure / Mean: 09/11/20 01:30: Lactic Acid Level 2.28*H Laboratory Tests 09/11/20 01:30: Creatinine 1.12, INR Comment 1.0, Platelet Count 197, Total Bilirubin 1.6H Results/Orders Lab Results Laboratory Tests Test 09/11/20 01:30 09/11/20 02:45 Range/Units White Blood Count 6.2 4.3-11.0 10^3/uL Red Blood Count 3.52 L 4.30-5.52 10^6/uL Hemoglobin 12.5 L 13.3-17.7 g/dL Hematocrit 38 L 40-54 % Mean Corpuscular Volume 108 H 80-99 fL Mean Corpuscular Hemoglobin 36 H 25-34 pg Mean Corpuscular Hemoglobin Concent 33 32-36 g/dL Red Cell Distribution Width 18.1 H 10.0-14.5 % Platelet Count 197 130-400 10^3/uL Mean Platelet Volume 10.2 9.0-12.2 fL Immature Granulocyte % (Auto) 0 % Neutrophils (%) (Auto) 35 L 42-75 % Lymphocytes (%) (Auto) 51 H 12-44 % Monocytes (%) (Auto) 11 0-12 % Eosinophils (%) (Auto) 1 0-10 % Basophils (%) (Auto) 2 0-10 % Neutrophils # (Auto) 2.1 1.8-7.8 10^3/uL Lymphocytes # (Auto) 3.2 1.0-4.0 10^3/uL Monocytes # (Auto) 0.7 0.0-1.0 10^3/uL Eosinophils # (Auto) 0.1 0.0-0.3 10^3/uL Basophils # (Auto) 0.1 0.0-0.1 10^3/uL Immature Granulocyte # (Auto) 0.0 0.0-0.1 10^3/uL Prothrombin Time 13.4 12.2-14.7 SEC INR Comment 1.0 0.8-1.4 Activated Partial Thromboplast Time 27 24-35 SEC Sodium Level 144 135-145 MMOL/L Potassium Level 3.8 3.6-5.0 MMOL/L Chloride Level 113 H 98-107 MMOL/L Carbon Dioxide Level 19 L 21-32 MMOL/L Anion Gap 12 5-14 MMOL/L Blood Urea Nitrogen 17 7-18 MG/DL Creatinine 1.12 0.60-1.30 MG/DL Estimat Glomerular Filtration Rate > 60 BUN/Creatinine Ratio 15 Glucose Level 107 H 70-105 MG/DL Lactic Acid Level 2.28 *H 0.50-2.00 MMOL/L Calcium Level 8.6 8.5-10.1 MG/DL Corrected Calcium 9.2 8.5-10.1 MG/DL Total Bilirubin 1.6 H 0.1-1.0 MG/DL Aspartate Amino Transf (AST/SGOT) 182 H 5-34 U/L Alanine Aminotransferase (ALT/SGPT) 95 H 0-55 U/L Alkaline Phosphatase 132 40-136 U/L Troponin I < 0.028 <0.028 NG/ML C-Reactive Protein High Sensitivity 0.89 H 0.00-0.50 MG/DL B-Type Natriuretic Peptide 39.6 <100.0 PG/ML Total Protein 7.0 6.4-8.2 GM/DL Albumin 3.2 3.2-4.5 GM/DL Procalcitonin 0.10 H <0.10 NG/ML TSH [place] Testing 3.45 0.35-4.94 UIU/ML Serum Alcohol 337 *H <10 MG/DL Urine Color YELLOW Urine Clarity CLEAR Urine pH 6.0 5-9 Urine Specific Malone 1.020 1.016-1.022 Urine Protein TRACE H NEGATIVE Urine Glucose (UA) NEGATIVE NEGATIVE Urine Ketones NEGATIVE NEGATIVE Urine Nitrite POSITIVE H NEGATIVE Urine Bilirubin NEGATIVE NEGATIVE Urine Urobilinogen 0.2 < = 1.0 MG/DL Urine Leukocyte Esterase 1+ H NEGATIVE Urine RBC (Auto) 2+ H NEGATIVE Urine RBC 10-25 H /HPF Urine WBC >100 H /HPF Urine Squamous Epithelial Cells RARE /HPF Urine Crystals NONE /LPF Urine Bacteria FEW H /HPF Urine Casts NONE /LPF Urine Mucus SMALL H /LPF Urine Culture Indicated CULTURE PENDING My Orders Orders - KARLIE TOMAS MD Cbc With Automated Diff (09/11/20 01:37) Comprehensive Metabolic Panel (09/11/20 01:37) Blood Culture (09/11/20 01:37) Sputum Culture (09/11/20 01:37) Urinalysis (09/11/20 01:37) Urine Culture (09/11/20 01:37) Protime With Inr (09/11/20 01:37) Partial Thromboplastin Time (09/11/20 01:37) Chest 1 View, Ap/Pa Only (09/11/20 01:37) Ed Iv/Invasive Line Start (09/11/20 01:37) Ed Iv/Invasive Line Start (09/11/20 01:37) Ekg Tracing (09/11/20 01:37) Troponin I (09/11/20 01:37) Vital Signs Adult Sepsis Patie Q15M (09/11/20 01:37) O2 (09/11/20 01:37) Remove Rings In Anticipation O (09/11/20 01:37) Lactic Acid Analyzer (09/11/20 01:37) Alcohol (09/11/20 01:37) BNP (09/11/20 01:37) Hs C Reactive Protein (09/11/20 01:37) Procalcitonin (Pct) (09/11/20 01:37) Thyroid Analyzer (09/11/20 01:37) Ct Head Wo (09/11/20 01:42) Lactated Ringers (Lr 1000 Ml Iv Solution (09/11/20 01:57) Lactated Ringers (Lr 1000 Ml Iv Solution (09/11/20 01:58) Ceftriaxone For Iv Use (Rocephin For I (09/11/20 03:08) Vital Signs/I&O 09/11/20 09/11/20 09/11/20 01:15 01:56 02:48 Temp 36.4 Pulse 98 90 97 Resp 20 18 B/P (MAP) 115/81 (92) 125/100 147/108 Pulse Ox 99 98 100 O2 Delivery Room Air Room Air Room Air Capillary Refill : Progress Note : Progress Note Seen and evaluated. IV, labs, UA, blood cultures, lactic acid, EKG, chest x-ray and CT head ordered. Reviewed previous history. Monitor patient. 0318: Nitrite positive UTI noted. Rocephin [address] results noted and I have discussed the case with the radiologist at 0245: I discussed those results with on-call trauma surgeon, Dr. Collins. Likely subacute findings of subdural hematoma. This may not need any further evaluation other than consult with neurosurgery. I have called [facility] as the other local facilities are closed for admissions due to facilities are full. We have electronically sent CT images to for review by the neurosurgeon. If this is subacute and requires no further management then patient can be admitted here on medicine service with trauma consult. We will await reviewed from neurosurgery services at to determine admission direction. Patient remained stable without complaint. LR 1 L bolus was ordered earlier for lactic acid findings. Monitor patient. 0357: I have spoken to triage nurse again. The neurosurgeon on-call, Dr. Reyes has reviewed the films. He agrees that this is chronic in nature and not a new bleed. Patient needs repeat CT scan in 24 hours but does not need transfer and there is no surgical issue currently. I have rediscussed the case with Dr. Collins and he accepts patient for admission to the trauma service and will get repeat CT scan of the head. Patient also has urinary tract infection and alcohol abuse issues as well. For those I have consulted Dr. Steinberg who will manage that aspect. Patient will be placed on alcohol withdrawal protocol and sepsis protocol to continue Rocephin. Patient is stable for admission to the floor currently. He will be placed on telemetry due to his arrival alcohol level. All of this was discussed with the patient who agrees with plan. ECG Initial ECG Impression Date: Sep 11, 2020 Initial ECG Impression Time: 01:34 Initial ECG Rate: 90 Initial ECG Rhythm: Normal Sinus Comment Sinus rhythm with normal axis. No evidence of ST elevation NH. Questionable elevation in the lateral leads interpreted by me. Similar to previous of 08/29/20. Diagnostic Imaging Diagonstic Imaging: Xray Plain Films/CT/US/NM/MRI: chest Comments Enlarged cardiac silhouette but poor expansion. No infiltrate. Reviewed: Reviewed by Me Diagonstic Imaging: CT Plain Films/CT/US/NM/MRI: head Comments There is a new small left parietal hyperdense subdural hematoma hypodensity cortex angry matter but increased attenuation relative to CSF. No skull fracture. I did discuss this with the radiologist. His belief is this is subacute but different than the July CT head. Does not appear to be from today. Reviewed: [facility], Reviewed by Me, Discussed w/Radiologist Departure Communication (Admissions) Time/Spoke to Admitting Phy: 03:50 Time/Spoke to Consulting Phy: 03:55 Impression Primary Impression: Chronic subdural hematoma Additional Impressions: Alcohol abuse Urinary tract infection Qualified Codes: N30.00 - Acute cystitis without hematuria Disposition: ADMITTED INPATIENT Condition: Stable Admissions Decision to Admit Reason: Admit from ER (Trauma) Decision to Admit/Date: Sep 11, 2020 Time/Decision to Admit Time: 03:50 Departure-Patient Inst. Referrals: NO,LOCAL PHYSICIAN (PCP/Family) Primary Care Physician KARLIE TOMAS MD Sep 11, 2020 01:48
[2020-09-11 01:53] LABS: ALBUMIN 3.2 GM/DL (3.2-4.5); CHLORIDE 113 MMOL/L (98-107); POTASSIUM 3.8 MMOL/L (3.6-5.0); SODIUM 144 MMOL/L (135-145)
[2020-09-11 01:54] LABS: CALCIUM 8.6 MG/DL (8.5-10.1)
[2020-09-11 01:55] LABS: GLUCOSE 107 MG/DL (70-105); PROTHROMBIN TIME PATIENT 13.4 SEC (12.2-14.7)
[2020-09-11 01:56] LABS: CARBON DIOXIDE 19 MMOL/L (21-32)
[2020-09-11 01:57] LABS: BILIRUBIN,TOTAL 1.6 MG/DL (0.1-1.0)
[2020-09-11] MEDS ORDERED: LACTATED RINGERS 1,000 ML IV STA (01:57)
--- NOTE | 2020-09-11 01:57 | NUR ---
Pt noted to be incontinent of small, formed bowel. This RN with PCCT assistance cleaned, changed, et repositioned. Approx 5cmx1.5cm unstagable pressure wound noted to superior medial coccyx (unknown treated drsg to wound bed). Approx [id number] stage 2 pressure would noted to R lateral buttocks. Approx 0.5cmx0.5cm stage 2 pressure wound noted R lateral buttocks. Pressure wounds cleaned, dried, et covered with mepilix foam drsg.
[2020-09-11] MEDS ORDERED: LACTATED RINGERS 1,000 ML IV ONE (01:58)
[2020-09-11 01:59] LABS: ALKALINE PHOSPHATASE 132 U/L (40-136); CREATININE SERUM 1.12 MG/DL (0.60-1.30); GFR ESTIMATED > 60
[2020-09-11 02:00] LABS: BUN/CREATININE RATIO 15
[2020-09-11 02:02] LABS: ALANINE AMINOTRANSFERASE 95 U/L (0-55)
--- NOTE | 2020-09-11 02:11 | NUR ---
Pt to CT by cart.
[2020-09-11 02:22] LABS: TSH (THYROID ANALYZER) 3.45 UIU/ML (0.35-4.94)
[2020-09-11 02:51] LABS: BILIRUBIN,URINE NEGATIVE (NEGATIVE); CLARITY,URINE CLEAR; COLOR,URINE YELLOW; GLUCOSE, URINE (UA) NEGATIVE (NEGATIVE); KETONES,URINE NEGATIVE (NEGATIVE); LEUKOCYTE ESTERASE ,URINE 1+ (NEGATIVE); NITRITE,URINE POSITIVE (NEGATIVE); PROTEIN,URINE TRACE (NEGATIVE)
[2020-09-11 03:03] LABS: BACTERIA,URINE FEW /HPF; SQUAMOUS EPITHELIAL CELL,UR RARE /HPF; WBC,URINE >100 /HPF
[2020-09-11] MEDS ORDERED: cefTRIAXone FOR IV USE 1,000 MG in WATER (STERILE) FOR INJECTION 10 ML IV STA (03:08)
--- NOTE | 2020-09-11 04:49 | NUR ---
Pt to room with GCS 15, he continues to be conversant and A&Ox3.
--- NOTE | 2020-09-11 04:50 | NUR ---
JORGE A FIELD admitted to room 412-1, with an admitting diagnosis of Subacute Subdural Hematoma; UTI; Aclohol Abuse, on 09/11/20 from ED via wheelchair, accompanied by staff.JORGE A FIELD introduced to surroundings, call light, bed controls, phone, TV, temperature control, lights, meal times, smoking policy, visitor policy, side rail policy, bathrooms and showers. Patient Rights given to patient in the handbook. JORGE A FIELD verbalizes understanding that [facility] is not responsible for the loss or damage to any personal effects or valuables that are kept in the patients possession during their hospitalization. JORGE A FIELD verbalizes understanding of Interdisciplinary Patient Education. Patient and/or family were informed about the Rapid Response Team and its purpose.
[2020-09-11 05:00] VITALS: BP 131/81
[2020-09-11] MEDS ORDERED: 1/2 NS IV SOLUTION 1,000 ML IV PRN (05:09)
[2020-09-11] MEDS ORDERED: D5 1/2 NS 1000 ML IV SOLUTION 1,000 ML IV PRN (05:15)
[2020-09-11] MEDS ORDERED: ONDANSETRON 4 MG/2 ML (SDV) Z0FRAN IV PRN (05:15)
[2020-09-11] MEDS ORDERED: ANTACID SUSP 30 ML UDC (MYLANTA) PO PRN (05:15)
[2020-09-11] MEDS ORDERED: LORazepam INJ 2 MG/ML (ATIVAN) VIAL IM/IV PRN (05:15)
[2020-09-11] MEDS ORDERED: SENNA W/DOCUSATE (SENOKOT S) TABLET PO PRN (05:15)
[2020-09-11] MEDS ORDERED: LORazepam INJ 2 MG/ML (ATIVAN) VIAL IV PRN (05:15)
[2020-09-11] MEDS ORDERED: ONDANSETRON 4 MG (ZOFRAN) ORAL DISSOLVE TAB SL PRN (05:15)
[2020-09-11] MEDS ORDERED: CATHETER FLUSH 10 ML SYR IV PRN (05:15)
--- NOTE | 2020-09-11 06:21 | Diagnostic Imaging Report ---
Portable erect AP chest at 221 hours. INDICATION: Sepsis. FINDINGS: The heart size is within normal limits and stable when compared to 04/16/2020. The lungs are generally clear although there is somewhat shallow inspiration. There is no pneumonia or pleural effusion identified and there is no sign of failure. The mediastinum is not widened. The osseous structures are intact. IMPRESSION: 1. There is no evidence for an acute cardiopulmonary abnormality on this suboptimal exam. 2. If clinical concern regarding an underlying abnormality persists, then a follow-up PA and lateral chest would be recommended. Dictated by: Dictated on workstation # [id number]
[2020-09-11] MEDS: MULTIVIT W/MINERALS TAB (THERAGRAN M) PO SCH (06:40)
[2020-09-11] MEDS: THIAMINE 100 MG (VITAMIN B-1) TAB PO SCH (06:40)
--- NOTE | 2020-09-11 07:20 | Diagnostic Imaging Report ---
PROCEDURE: CT head without contrast. TECHNIQUE: Multiple contiguous axial images were obtained through the brain without the use of intravenous contrast. Auto Exposure Controls were utilized during the CT exam to meet ALARA standards for radiation dose reduction. INDICATION: Sepsis. Study compared 08/08/2020. Iso to slightly hypoechoic dense left hemispheric frontoparietal subdural hemorrhage has developed measuring 7 mm in thickness as measured in the coronal reconstructions. No resultant shift or herniation. No evidence for intraventricular blood. The basilar cisterns are patent. No findings suggestive of an elevation of the intracranial pressures. No calvarial fracture deformity. No hemo-sinus. There is some membrane thickening in the paranasal sinuses chronic, orbital contents nonacute. The mastoids clear. IMPRESSION: Interval development of likely subacute left hemispheric subcentimeter subdural hematoma without resultant mass effect, shift, herniation or evidence for elevated intracerebral pressures. I agree with preliminary. Dictated by: Dictated on workstation # [id number]
[2020-09-11 07:27] VITALS: BP 144/88
--- NOTE | 2020-09-11 09:09 | History & Physical-Surgical ---
History of Present Illness History of Present Illness Reason for visit/HPI Trauma Surgery asked to admit pt with subdural hematoma. HPI per ED: Here with report of confusion from [facility] [place] assisted living. Tiffany rangel admits to drinking vodka and is a known alcoholic and has been seen under similar circumstances multiple times this year including at least 3 times in the last 6 weeks. Alcohol intoxication seems to be a common theme. Does have liver disease. He has been seen by GI specialty at [facility]. Follows with Dr. Crabtree. Admits to a fall tonight. Legs are quite edematous and does have fecal material on his legs and has been incontinent of stool. Presentations typically occur when his who is out of town. Patient denies chest pain, breathing problems, sore throat, runny nose, nausea, vomiting. Does have abrasions to his forehead, nose congestion. Denies neck or back pain. Admits to drinking vodka and states that he had half a fifth to a quart any amount and is not exactly sure how much. 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 He describes a dull pressure in the front, "like a band" that has been going on since he arrived. He denies dysuria or hematuria. Pt states his feet are hurting him which is new. Date of Admission Sep 11, 2020 at 03:56 Time Seen by a Provider: 08:41 I consulted on this patient on 09/11/20 09:03 Attending Physician Isaac Lopez DO Admitting Physician No,Local Physician Consult Allergies and Home Medications Allergies Coded Allergies: No Known Drug Allergies (Unverified , 12/28/19) Home Medications Cephalexin 500 Mg Capsule, 500 MG PO TID Prescribed by: MANJINDER BAHENA on 08/08/20 452 Multivitamin 1 Each Tablet, 1 EACH PO DAILY, (Reported) Naphazoline HCl/Glycerin 30 Ml Drops, 2 DROPS OU PRN PRN for EYE REDNESS, (Reported) Propranolol HCl 10 Mg Tablet, 10 MG PO QID PRN for TREMORS, (Reported) Sertraline HCl 100 Mg Tablet, 100 MG PO HS, (Reported) Topiramate 25 Mg Cap.sprink, 75 MG PO HS PRN for TREMORS, (Reported) TAKES 3 (25MG) TABS Topiramate 50 Mg Tablet, 50 MG PO QID PRN for TREMORS, (Reported) Patient Home Medication List Home Medication List Reviewed: Yes Past Mzdxasr-Fyqnsi-Ycflhe Hx Patient Social History Alcohol Use: Regular Use Number of Drinks Today: 6 Recreational Drug Use: No Smoking Status: Unknown if Ever Smoked 2nd Hand Smoke Exposure: No Recent Foreign Travel: No Contact w/Someone Who Travel: No Recent Infectious Disease Expo: No Recent Hopitalizations: No Immunizations Up To Date Tetanus Booster (TDap): Unknown PED Vaccines UTD: Yes Date of Influenza Vaccine: Aug 11, 2020 Seasonal Allergies Seasonal Allergies: No Surgeries History of Surgeries: Yes (HEMRRHOIDECTOMY) Respiratory History of Respiratory Disorde: No Cardiovascular History of Cardiac Disorders: No Neurological History of Neurological Disord: Yes (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, alcoholism) Neurological Disorders: Dementia, Traumatic Brain Injury Genitourinary History of Genitourinary Disor: No Gastrointestinal History of Gastrointestinal Di: Yes Gastrointestinal Disorders: Liver Disease/Jaundice Musculoskeletal History of Musculoskeletal Dis: No Endocrine History of Endocrine Disorders: No HEENT History of HEENT Disorders: No Cancer History of Cancer: No Psychosocial History of Psychiatric Problem: Yes (ETOH ABUSE HX) Behavioral Health Disorders: Depression Integumentary History of Skin or Integumenta: No Blood Transfusions History of Blood Disorders: No Adverse Reaction to a Blood Tr: No Family Medical History Significant Family History: Cancer, Hypertension Family Medial History: FH: breast cancer 19 MOTHER Hypertension 19 MOTHER Review of Systems Constitutional: No chills, No diaphoresis; malaise, weakness EENTM: No blurred vision, No double vision, No mouth pain, No mouth swelling, No epistaxis Respiratory: No cough, No dyspnea on exertion, No hemoptysis, No short of breath Cardiovascular: No chest pain; edema; No palpitations Gastrointestinal: No abdominal pain, No jaundice, No melena, No nausea, No vomiting Genitourinary: No dysuria; frequency; No hematuria Musculoskeletal: joint pain, joint swelling, muscle stiffness Skin: No change in color, No change in hair/nails, No rash Psychiatric/Neurological: Denies Anxiety; Depressed; Denies Seizure; Tremors pt denies any hx of abnormal bleeding or bruising Physical Exam Vital Signs Vital Signs - First Documented 09/11/20 01:15 Temp 36.4 Pulse 98 Resp 20 B/P (MAP) 115/81 (92) Pulse Ox 99 O2 Delivery Room Air Capillary Refill : Less Than 3 Seconds Height, Weight, BMI Height: '" Weight: lbs. oz. kg; 43.60 BMI Method: General Appearance: No Apparent Distress, Obese Eyes: Bilateral Eye PERRL, Bilateral Eye EOMI HEENT: Pharynx Normal; No Pale Conjunctivae (L), No Pale Conjunctivae (R), No Scleral Icterus (L), No Scleral Icterus (R) Neck: Full Range of Motion, Supple Respiratory: Chest Non Tender, Lungs Clear, Normal Breath Sounds, No Accessory Muscle Use, No Respiratory Distress Cardiovascular: Regular Rate, Rhythm, No Murmur Gastrointestinal: Normal Bowel Sounds, No Pulsatile Mass, Non Tender, Soft Rectal: Deferred Back: No CVA Tenderness, No Vertebral Tenderness Extremity: No Calf Tenderness, Pedal Edema (+2 pitting edema bilaterally) Neurologic/Psychiatric: Alert, Oriented x3, Normal Mood/Affect, bias binding cutter II-XII Norm as Tested Skin: Normal Color, Warm/Dry Lymphatic: No Adenopathy (neck, axilla or groin) Data Review Labs Laboratory Tests 09/11/20 01:30: White Blood Count 6.2, Red Blood Count 3.52L, Hemoglobin 12.5L, Hematocrit 38L, Mean Corpuscular Volume 108H, Mean Corpuscular Hemoglobin 36H, Mean Corpuscular Hemoglobin Concent 33, Red Cell Distribution Width 18.1H, Platelet Count 197, Mean Platelet Volume 10.2, Immature Granulocyte % (Auto) 0, Neutrophils (%) (Auto) 35L, Lymphocytes (%) (Auto) 51H, Monocytes (%) (Auto) 11, Eosinophils (%) (Auto) 1, Basophils (%) (Auto) 2, Neutrophils # (Auto) 2.1, Lymphocytes # (Auto) 3.2, Monocytes # (Auto) 0.7, Eosinophils # (Auto) 0.1, Basophils # (Auto) 0.1, Immature Granulocyte # (Auto) 0.0, Prothrombin Time 13.4, INR Comment 1.0, Activated Partial Thromboplast Time 27, Sodium Level 144, Potassium Level 3.8, Chloride Level 113H, Carbon Dioxide Level 19L, Anion Gap 12, Blood Urea Nitrogen 17, Creatinine 1.12, Estimat Glomerular Filtration Rate > 60, BUN/Creatinine Ratio 15, Glucose Level 107H, Lactic Acid Level 2.28*H, Calcium Level 8.6, Corrected Calcium 9.2, Total Bilirubin 1.6H, Aspartate Amino Transf (AST/SGOT) 182H, Alanine Aminotransferase (ALT/SGPT) 95H, Alkaline Phosphatase 132, Troponin I < 0.028, C-Reactive Protein High Sensitivity 0.89H, B-Type N atriuretic Peptide 39.6, Total Protein 7.0, Albumin 3.2, Procalcitonin 0.10H, TSH [place] Testing 3.45, Serum Alcohol 337*H 09/11/20 02:45: Urine Color YELLOW, Urine Clarity CLEAR, Urine pH 6.0, Urine Specific [place] 1.020, Urine Protein TRACEH, Urine Glucose (UA) NEGATIVE, Urine Ketones NEGATIVE, Urine Nitrite POSITIVEH, Urine Bilirubin NEGATIVE, Urine Urobilinogen 0.2, Urine Leukocyte Esterase 1+H, Urine RBC (Auto) 2+H, Urine RBC 10-25H, Urine WBC >100H, Urine Squamous Epithelial Cells RARE, Urine Crystals NONE, Urine Bacteria FEWH, Urine Casts NONE, Urine Mucus SMALLH, Urine Culture Indicated CULTURE PENDING 09/11/20 04:33: Lactic Acid Level 2.00 Radiology Date of Exam:09/11/20 CT HEAD WO PROCEDURE: CT head without contrast. TECHNIQUE: Multiple contiguous axial images were obtained through the brain without the use of intravenous contrast. Auto Exposure Controls were utilized during the CT exam to meet ALARA standards for radiation dose reduction. INDICATION: Sepsis. Study compared 08/08/2020. Iso to slightly hypoechoic dense left hemispheric frontoparietal subdural hemorrhage has developed measuring 7 mm in thickness as measured in the coronal reconstructions. No resultant shift or herniation. No evidence for intraventricular blood. The basilar cisterns are patent. No findings suggestive of an elevation of the intracranial pressures. No calvarial fracture deformity. No hemo-sinus. There is some membrane thickening in the paranasal sinuses chronic, orbital contents nonacute. The mastoids clear. IMPRESSION: Interval development of likely subacute left hemispheric subcentimeter subdural hematoma without resultant mass effect, shift, herniation or evidence for elevated intracerebral pressures. I agree with preliminary. Dictated on workstation # [id number] Dict: 09/11/20 0637 Trans: 09/11/20 0719 CV [id number] Interpreted by: RIYA STARR Electronically signed by: Assessment/Plan Assessment/Plan Admission Diagonsis Subdural Hematoma - subacute UTI Elevated LFT's EtOH abuse/intoxication Admission Status: Observation Assessment/Plan Subdural Hematoma - subacute UTI Elevated LFT's EtOH abuse/intoxication Pt is getting neurochecks Q4 hours and will need a repeat head CT 24 hours after his last one. Will start diet. He is on ABX for UTI and will wait for final microbiology. He will be put on EtOH withdrawal protocol. IV fluids, pain control with tylenol. Clinical Quality Measures DVT/VTE Risk/Contraindication: Risk Factor Score Per Nursin RFS Level Per Nursing on Admit: 4+=Very High ISAAC LOPEZ DO Sep 11, 2020 09:09
[2020-09-11] MEDS: MAGNESIUM OXIDE (MAG-OX)400 MG TAB PO SCH ×2 (09:17→20:19)
[2020-09-11] MEDS: FOLIC ACID 1 MG TAB PO SCH (09:17)
--- NOTE | 2020-09-11 09:56 | NUR ---
Pt alert and able to discuss long standing alcohol addiction. Recently returned from for treatment of liver disease and reports they painted a grim prognosis of his survival if he continues to abuse alcohol. He is stating that he knows that he can't quiat on his own and is asking for help. Calling to find out what she is considering for his extended treatment.
--- NOTE | 2020-09-11 11:03 | History & Physical-Hospitalist ---
TOREY DESOUZA MED STUDENT 09/11/20 1103: History of Present Illness HPI/Chief Complaint HPI per ED: Here with report of confusion from [place] assisted living. Patient admits to drinking vodka and is a known alcoholic and has been seen under similar circumstances multiple times this year including at least 3 times in the last 6 weeks. Alcohol intoxication seems to be a common theme. Does have liver disease. He has been seen by GI specialty at [facility]. Follows with Dr. Crabtree. Admits to a fall tonight. Legs are quite edematous and does have fecal material on his legs and has been incontinent of stool. Presentations typically occur when his who is out of town. Patient denies chest pain, breathing problems, sore throat, runny nose, nausea, vomiting. Does have abrasions to his forehead, nose congestion. Denies neck or back pain. Admits to drinking vodka and states that he had half a fifth to a quart any amount and is not exactly sure how much. Patient denies fevers, chills, chest pain, shortness of breath, nauseas, vomiti ng, and diarrhea. States " I drink a fifth of vodka every day and I have for a very long time." Reports he fell last night and was brought to the ED because of that. Denies loss of consciousness but admits "I was in a bad fog last night." He currently denies headache, dizziness, blurry vision, nausea, and vomiting. Reports he's not having any pain. He has no complaints currently. Source: RN/MD (ED notes) Exam Limitations: no limitations Date Seen 09/11/20 Time Seen by a Provider: 08:00 Attending Physician Adis Collins DO PCP No,Local Physician Referring Physician Date of Admission Sep 11, 2020 at 03:56 Home Medications & Allergies Home Medications Reviewed patient Home Medication Reconciliation performed by pharmacy medication reconciliations bioinformatics technician and/or nursing. Patients Allergies have been reviewed. Allergies Allergies Coded Allergies No Known Drug Allergies (Unverified12/28/19) Past Prqsoxb-Jtlhos-Eecdlt Hx Past Med/Social Hx: Reviewed Nursing Past Med/Soc Hx Patient Social History Marrital Status: Number of living children: 3 Alcohol Use: Regular Use Alcohol Beverage of Choice: Vodka (Pt reports drinking a fifth per day) Recreational Drug Use: No Smoking Status: Unknown if Ever Smoked 2nd Hand Smoke Exposure: No Recent Foreign Travel: No Contact w/other who traveled: No Recent Hopitalizations: No Recent Infectious Disease Expo: No Immunizations Up To Date Tetanus Booster (TDap): Unknown Pediatric: Yes Date of Influenza Vaccine: Aug 11, 2020 Seasonal Allergies Seasonal Allergies: No Past Medical History Currently Using CPAP: No Currently Using BIPAP: No Neurological: Traumatic Brain Injury Essential tremors Gastrointestinal: Liver Disease/Jaundice Loss of Vision: Denies Hearing Impairment: Denies Psychosocial: Anxiety, Depression History of Blood Disorders: No Adverse Reaction to Blood Lee: No Family History Reviewed Nursing Family Hx FH: breast cancer 19 MOTHER Hypertension 19 MOTHER Cancer, Hypertension Review of Systems Constitutional: no symptoms reported; No chills, No diaphoresis, No dizziness, No fever, No weight loss EENTM: No ear discharge, No hearing loss, No ear pain, No blurred vision, No double vision, No vision loss Respiratory: no symptoms reported; No cough, No dyspnea on exertion, No hemoptysis, No short of breath Cardiovascular: no symptoms reported; No chest pain, No edema Gastrointestinal: no symptoms reported; No abdominal pain, No constipation, No diarrhea, No hematemesis, No nausea, No vomiting Genitourinary: no symptoms reported; No dysuria, No frequency Musculoskeletal: no symptoms reported; No back pain, No joint pain Skin: other (abrasion to forehead) Psychiatric/Neurological: Anxiety, Depressed, Headache, Tremors (patient reports essential tremors) All Other Systems Reviewed Negative Unless Noted: Yes Physical Exam Physical Exam Vital Signs Vital Signs - First Documented 09/11/20 01:15 Temp 36.4 Pulse 98 Resp 20 B/P (MAP) 115/81 (92) Pulse Ox 99 O2 Delivery Room Air Capillary Refill : Less Than 3 Seconds Height, Weight, BMI Height: '" Weight: lbs. oz. kg; 43.60 BMI Method: General Appearance: No Apparent Distress, WD/WN Eyes: Bilateral Eye EOMI HEENT: PERRL/EOMI, Pharynx Normal Neck: Normal Inspection, Non Tender Respiratory: Chest Non Tender, Lungs Clear, Normal Breath Sounds, No Accessory Muscle Use Cardiovascular: Regular Rate, Rhythm, Normal Peripheral Pulses Gastrointestinal: Normal Bowel Sounds, Non Tender, Soft; No Distended, No G uarding Back: Normal Inspection; No Muscle Spasm, No Vertebral Tenderness Extremity: Normal Capillary Refill, Non Tender, No Calf Tenderness Neurologic/Psychiatric: Alert, Oriented x3, No Motor/Sensory Deficits Skin: Normal Color, Warm/Dry, Other (abrasion to forehead) Lymphatic: No Adenopathy Results Results/Procedures Labs Laboratory Tests 09/11/20 01:30 Patient resulted labs reviewed. Imaging: Reviewed Imaging Films, Reviewed Imaging Report Assessment/Plan Admission Diagnosis subacute subdural hematoma UTI Alcohol abuse Elevated LFT's Reason for Inpatient Admission: Subacute subdural hematoma UTI Alcohol intoxication Elevated LFT's Assessment and Plan Subacute subdural hematoma UTI Alcohol abuse Elevated LFT's 1. Repeat CT of head [address] 2. Continue Rocephin for UTI, await urine culture results 3. Neurochecks Q 4 hours 4. CIWA lorazepam per protocol Clinical Quality Measures DVT/VTE Risk/Contraindication: Risk Factor Score Per Nursin RFS Level Per Nursing on Admit: 4+=Very High PIPER MONTILLA DO 09/11/202109: History of Present Illness HPI/Chief Complaint CC: Falls with subdural hematoma HPI: This is a 60yo profound and severe alcoholic who resides at assisted living because of the severity of his disease who has frequent falls intoxicated who presents to the ER with altered mental status after fall found to have an acute on chronic subdural hematoma and a UTI so we will consult PT and OT. Trauma surgery will monitor CT scan and monitor the subdural hematoma for an extension and currently pt is ready to get moving around. He will be on alcohol withdrawal protocol. Past Zfupfjw-Wbkzcx-Okzims Hx Past Med/Social Hx: Reviewed Nursing Past Med/Soc Hx, Reviewed and Corrections made Patient Social History Alcohol Use: Regular Use Family History FH: breast cancer 19 MOTHER Hypertension 19 MOTHER Review of Systems Constitutional: see HPI Physical Exam Physical Exam General Appearance: No Apparent Distress, Chronically ill Respiratory: Lungs Clear Assessment/Plan Admission Diagnosis Assessment: Subdural hematoma acute on chronic Severe alcoholism Admission Status: Inpatient Order (span 2 midnights) Reason for Inpatient Admission: subdural hematoma Diagnosis/Problems Diagnosis/Problems (1) Subacute subdural hematoma (2) Alcohol abuse Status: Acute (3) Chronic subdural hematoma Status: Acute (4) Urinary tract infection Status: Acute Qualifiers: Urinary tract infection type: acute cystitis Hematuria presence: without hematuria Qualified Codes: N30.00 - Acute cystitis without hematuria Supervisory-Addendum Brief Verification & Attestation Participated in pt care: history, MDM, physical Personally performed: exam, history, MDM, supervision of care Care discussed with: Medical Student Procedures: n/a Results interpretation: Verified all documentation Verification and Attestation of Medical Student E/M Service A medical student performed and documented this service in my presence. I reviewed and verified all information documented by the medical student and made modifications to such information, when appropriate. I personally performed the physical exam and medical decision making. Piper Montilla, Sep 11, 2020,21:10 TOREY DESOUZA MED STUDENT Sep 11, 2020 11:03 PIPER MONTILLA DO Sep 11, 2020 21:10
[2020-09-11 11:18] VITALS: BP 123/58
--- NOTE | 2020-09-11 11:44 | Occupational Therapy Eval ---
OT Evaluation-General/PLF Medical Diagnosis Admission Date Sep 11, 2020 at 03:56 Medical Diagnosis: ETOH abuse, AMS Onset Date: Sep 10, 2020 Therapy Diagnosis Therapy Diagnosis: Decreased ADLs Precautions Precautions/Isolations: Fall Prevention, Standard Precautions Referral Physician: Idris Referral Reason: Activity Tolerance, Self Care, Evaluation/Treatment, Strengthening/ROM Medical History Pertinent Medical History: Alcoholism, Dementia Additional Medical History jaundice/ liver disease, dementia, TBI, depression, HTN, Ca, alcohol dependence Current History subdural hematoma, confusion/ fall lives at [facility] hx of ETOH abuse Reviewed History: Yes Social History Home: Assisted Living Entry Into Home: Level Entry Steps Into Home: 0 ADL-Prior Level of Function SCALE: Activities may be completed with or without assistive devices. 4-Ugnpeoxslf-gvqxhrj completes the activity by him/herself with no assistance from a helper. 5-Set-up or Clean-up Assistance-helper sets up or cleans up; patient completes activity. Micanopy assists only prior to or following the activity. 4-Supervision or Touching Assistance-helper provides verbal cues and/or touching/steadying and/or contact guard assistance as patient completes ac tivity. Assistance may be provided throughout the activity or intermittently. 3-Partial/Moderate Assistance-helper does LESS THAN HALF the effort. Micanopy lifts, holds or supports trunk or limbs, but provides less than half the effort. 2-Substantial/Maximal Assistance-helper does MORE THAN HALF the effort. Micanopy lifts or holds trunk or limbs and provides more than half the effort. 4-Zkpjkdoln-ithhel does ALL the effort. Patient does none of the effort to complete the activity. Or, the assistance of 2 or more helpers is required for the patient to complete the activity. If activity was not attempted, code reason: 7-Patient Refused. 9-Not Applicable-not attempted and the patient did not perform the activity before the current illness, exacerbation or injury. 10-Not Attempted due to Environmental Limitations-(lack of equipment, weather restraints, etc.). 88-Not Attempted due to Medical Conditions or Safety Concerns. ADL PLOF Comments IND ADLs, assist IADLs Self Care: Independent Functional Cognition: Independent DME/Equipment: Bath Chair, Grab Bars, Shower DME/Equipment Comments use of walker or cane, sc, gb, walk in shower. Occupation: retired Drive Self: No OT Current Status Subjective Pt in bed. Alert/ oriented to person/ place. Pt agrees to OT eval/ treat. Pt denies pain, noticeable shaking though UE's through session. Mental Status/Objective Patient Orientation: Person, Place Attachments: Telemetry Current Glasses/Contacts: Yes Hearing Aids: No Dentures/Partials: No Hand Dominance: Right Upper Extremity ROM WFL BUE Upper Extremity Coordination WFL BUE Upper Extremity Sensation WFL BUE Upper Extremity Strength WFL BUE (4/5) Edema: BUE, warm/ reddened. ADL-Treatment Eating (QC): 5 (per clinical judgment, pt will require minimal s/u for opening packaging based on inability to open Q-tip packaging.) Shower/Bathe Self (QC): 3 (OT assists with bottom cleaning. Pt completes all other areas.) Upper Body Dressing (QC): 5 (s/u gown donning.) Lower Body Dressing (QC): 2 (Post shower, pt fatigued/ shaking, pt is assisted with threading and bringing over hips.) On/Off Footwear (QC): 3 (Pt able to complete RLE, assist for LLE) Toileting Hygiene (QC): 2 (max A) Other Treatments Telesitter present. Bed mob with increased time. Sits EOB for ~10 min during evaluation. MMT/ ROM, dons sock with mod A. Pt's nurse states need for shower. Pt is prepped. Sit to stand CGA, ambulates with cues for directionality with CGA. Pt requires cues for shower transfer. Sits with control. Pt showers on sc, stands for extra cleansing of bottom. Intermittently, pt grimaces/ face gets red. Pt states he's trying to, "Fart, but not poo." Pt has BM in shower and requires extra cleaning. Pt dresses in shower, sit to stand with CGA and ambulates to recliner. Telemetry donned, pt positioned for success with LE's elevated/ pillow placed under ankles-calves. Pt requests Q-tips/ water- all needs met with assist for Q-tip package opening. All needs met, call light in reach, pt in recliner with nursing aware of position. Education OT Patient Education: Correct positioning, Modified ADL techniques, Purpose of tx/functional activities, Safety issues, Transfer techniques Teaching Recipient: Patient Teaching Methods: Demonstration, Discussion Response to Teaching: Verbalize Understanding, Return Demonstration OT Portal Architect Goals Usp Goals Time Frame: Sep 18, 2020 Eating (QC): 6 Oral Hygiene (QC): 6 Toileting Hygiene (QC): 6 Shower/Bathe Self (QC): 6 Upper Body Dressing (QC): 6 Lower Body Dressing (QC): 6 On/Off Footwear (QC): 6 Additional Goals: 1-Demonstrate ADL Tasks, 2-Verbalize Understanding, 3- ImproveStrength/Flex 1=Demonstrate adherence to instructed precautions during ADL tasks. 2=Patient will verbalize/demonstrate understanding of assistive devices/modific ations for ADL. 3=Patient will improve strength/tolerance for activity to enable patient to perform ADL's. OT Education/Plan Problem List/Assessment Assessment: Decreased Activ Tolerance, Decreased Safety Aware, Decreased UE Strength, Dependent Transfers, Edema, Impaired Cognition, Impaired Coordination, Impaired Funct Balance, Impaired I ADL's, Impaired Self-Care Skills Discharge Recommendations Plan/Recommendations: Continue POC Therapy Discharge Recommendati: 24 Hour Supervision, Assisted Living, Bath Aide Treatment Plan/Plan of Care Treatment,Training & Education: Yes Patient would benefit from OT for education, treatment and training to promote independence in ADL's, mobility, safety and/or upper extremity function for ADL's. Plan of Care: ADL Retraining, Functional Mobility, UE Funct Exercise/Act Treatment Duration: Sep 18, 2020 Frequency: 5 times per week Estimated Hrs Per Day: .25 hour per day Agreement: Yes Rehab Potential: Fair Time/GCodes Start Time: 10:20 Stop Time: 10:55 Total Time Billed (hr/min): 35 Billed Treatment Time 1, EVM (15), ADL (20)= 35 TREVOR DOMÍNGUEZ OTR Sep 11, 2020 11:43
[2020-09-11] MEDS: LORazepam 1 MG (ATIVAN) TAB PO PRN ×4 (13:28→22:15)
--- NOTE | 2020-09-11 14:18 | Physical Therapy Evaluation ---
PT Evaluation-General Medical Diagnosis Admission Date Sep 11, 2020 at 03:56 Medical Diagnosis: ETOH abuse, AMS Onset Date: Sep 10, 2020 Therapy Diagnosis Therapy Diagnosis: debility/weakness Precautions Precautions/Isolations: Fall Prevention, Standard Precautions Referral Physician: Idris Reason for Referral: Evaluation/Treatment Medical History Pertinent Medical History: Alcoholism, Dementia Current History EMS from [place] secondary to fall Reviewed History: Yes Social History Home: Assisted Living Entry Into Home: Level Entry PT Steps Into Home: 0 Prior Prior Level of Function SCALE: Activities may be completed with or without assistive devices. 6-Ulwhosakzn-lfqvisu completes the activity by him/herself with no assistance from a helper. 5-Set-up or Clean-up Assistance-helper sets up or cleans up; patient completes activity. [place] assists only prior to or following the activity. 4-Supervision or Touching Assistance-helper provides verbal cues and/or touching/steadying and/or contact guard assistance as patient completes activity. Assistance may be provided throughout the activity or intermittently. 3-Partial/Moderate Assistance-helper does LESS THAN HALF the effort. [place] lifts, holds or supports trunk or limbs, but provides less than half the effort. 2-Substantial/Maximal Assistance-helper does MORE THAN HALF the effort. [place] lifts or holds trunk or limbs and provides more than half the effort. 9-Ywxagrenn-dkgluk does ALL the effort. Patient does none of the effort to complete the activity. Or, the assistance of 2 or more helpers is required for the patient to complete the activity. If activity was not attempted, code reason: 7-Patient Refused. 9-Not Applicable-not attempted and the patient did not perform the activity before the current illness, exacerbation or injury. 10-Not Attempted due to Environmental Limitations-(lack of equipment, weather restraints, etc.). 88-Not Attempted due to Medical Conditions or Safety Concerns. Bed Mobility: 5 Transfers (B,C,W/C): 5 Gait: 5 Stairs: 9 Indoor Mobility (Ambulation): Independent Stairs: Not [place] Prior Devices Use: Walker PT Evaluation-Current Subjective Patient agrees to PT. Patient is noticeably shaking total body. Pain Numeric Pain Scale: 8 Location: Right, Left, Lower Location Body Site: Calf Pain Description: Acute, Burning Objective Patient Orientation: Person ROM/Strength ROM Lower Extremities bilateral LE limited due to edema Strength Lower Extremities 3/5 grossly bilateral LE Integumentary/Posture Integumentary refer to nursing notes Bowel Incontinence: Yes Bladder Incontinence: Yes Posture WFL Neuromuscular (Tone, Coordination, Reflexes) diminished coordination due to alcoholism and debility Sensory Vision: Functional Hearing: Functional Hand Dominance: Right Transfers Roll Left to Right (QC): 4 Sit to Lying (QC): 4 Lying to Sitting/Side of Bed(Q: 4 Sit to Stand (QC): 4 Chair/Cdm-kh-Zsrbb Xfer(QC): 4 Toilet Transfer (QC): 4 Gait Does the Patient Walk?: Yes Mode of Locomotion: Walk Anticipated Mode of Locomotion: Walk Walk 10 feet (QC): 3 Walk 50 ft with 2 Turns(QC): 3 Walk 150 ft (QC): 3 Distance: 175' Gait Assistive Device: FWW Comments/Gait Description slow, shuffle gait sequence Balance Sitting Static: Normal Sitting Dynamic: Normal Standing Static: Fair Standing Dynamic: Fair Assessment/Needs 60 y.o. male, will benefit from skilled PT to address functional strength and mobility to improve current LOF to safely return to [place] at maximum LOF. Rehab Potential: Guarded Post Rehab Potential-Barriers: compliance PT Registered Dental Hygienist Goals Registered Dental Hygienist Goals PT Assisted Goals Time Frame: Sep 22, 2020 Roll Left & Right (QC): 5 Sit to Lying (QC): 5 Lying-Sitting on Side/Bed(QC): 5 Sit to Stand (QC): 5 Chair/Zhc-bs-Lohpy Xfer(QC): 5 Toilet Transfer (QC): 5 Does the Patient Walk: Yes Walk 10 feet (QC): 5 Walk 50ft with 2 Turns (QC): 5 Walk 150 ft (QC): 5 PT Plan Problem List Problem List: Activity Tolerance, Functional Strength, Safety, Balance, Gait, Transfer, Bed Mobility Treatment/Plan Treatment Plan: Continue Plan of Care Treatment Plan: Bed Mobility, Education, Functional Activity Flex, Functional Strength, Gait, Safety, Therapeutic Exercise, Transfers Treatment Duration: Sep 22, 2020 Frequency: 6 times per week Estimated Hrs Per Day: .25 hour per day Time/GCodes Time In: 1338 Time Out: 1350 Total Billed Treatment Time: 12 Total Billed Treatment 1 visit EVMod 12 min GÓMEZ MAIER PT Sep 11, 2020 14:18
--- NOTE | 2020-09-11 14:45 | NUR ---
wounds assessed. patient has a 4.7cm x1.7cmx unstageable pressure ulcer in his upper gluteal cleft with slough. area cleansed, aquacel AG dressing applied. patient has a second smaller area of MASD on the right buttock. patient has had some loose stools recently. area cleansed, barrier cream applied. education given, enc. patient to turn to sides while in bed and to use waffle cushion while sitting in chair. patient has another area to his rt knee with some scabbing that he received from his fall at home, which had brought him into the hospital. periwound is reddened and warm. periwound cleansed with alcohol swab, woundbed of 1.7cm x 2.1cm x0.0xm cleansed with NS and minor dressing applied. Pt also has small cuts and scrapes on forehead, lips and nose from recent fall. these are scabbed over, so lanolin only was applied to these areas. will con't to monitor.
[2020-09-11] MEDS ORDERED: FOLIC ACID PO (15:33)
--- NOTE | 2020-09-11 15:37 | NUR ---
SPOKE WITH THE PT AND WENT THRU THE EXT MED HISTORY TO COMPLETE THE MED REC OTC MEDS: [employer] REDNESS EYE DROPS
--- NOTE | 2020-09-11 17:27 | NUR ---
Met with pt and discussed continued care plans with Didi by phone. All available treatment centers were contacted and final agreement was for pt to seek Medicare skilled care and they chose [facility]. [facility] is reviewing his medical information and will have decision of acceptance in morning. 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
--- NOTE | 2020-09-11 17:40 | NUR ---
this social work supervisor will not be in house tomorrow but CORY Richmond is agreeable to assist with discharge plans in my absence.
[2020-09-11 20:00] VITALS: BP_SYST 124; BP_SYST 131; BP_DIAS 78; BP_DIAS 80
--- NOTE | 2020-09-11 21:00 | NUR ---
Notified Dr. Steinberg that pt urine color was pink to red. Received orders to monitor only, will be addressed in the morning.
[2020-09-11 23:42] VITALS: BP 135/82
[2020-09-12] MEDS: LORazepam 1 MG (ATIVAN) TAB PO PRN ×2 (01:17→06:34)
[2020-09-12 04:23] VITALS: BP 131/86
[2020-09-12 05:17] LABS: BASOPHILS % (AUTO) 1 % (0-10); EOSINOPHILS % (AUTO) 1 % (0-10); HEMATOCRIT 33 % (40-54); HEMOGLOBIN 10.7 g/dL (13.3-17.7); LYMPHOCYTES # (AUTO) 1.1 10^3/uL (1.0-4.0); LYMPHOCYTES % (AUTO) 47 % (12-44); MEAN CORPUSCULAR HEMOGLOBIN 35 pg (25-34); MEAN CORPUSCULAR HGB CONC 33 g/dL (32-36); MEAN CORPUSCULAR VOLUME 108 fL (80-99); MEAN PLATELET VOLUME 10.3 fL (9.0-12.2); MONOCYTES # (AUTO) 0.3 10^3/uL (0.0-1.0); MONOCYTES % (AUTO) 12 % (0-12); NEUTROPHILS # (AUTO) 0.9 10^3/uL (1.8-7.8); NEUTROPHILS % (AUTO) 39 % (42-75); PLATELET COUNT 80 10^3/uL (130-400); WHITE BLOOD COUNT 2.3 10^3/uL (4.3-11.0)
[2020-09-12 05:35] LABS: ALBUMIN 2.7 GM/DL (3.2-4.5); CHLORIDE 105 MMOL/L (98-107); POTASSIUM 3.7 MMOL/L (3.6-5.0); SODIUM 136 MMOL/L (135-145)
[2020-09-12 05:37] LABS: CALCIUM 7.7 MG/DL (8.5-10.1)
[2020-09-12 05:38] LABS: GLUCOSE 93 MG/DL (70-105); TOTAL PROTEIN 5.9 GM/DL (6.4-8.2)
[2020-09-12 05:39] LABS: BILIRUBIN,TOTAL 2.4 MG/DL (0.1-1.0); CARBON DIOXIDE 22 MMOL/L (21-32)
[2020-09-12 05:41] LABS: ALKALINE PHOSPHATASE 102 U/L (40-136); CREATININE SERUM 0.92 MG/DL (0.60-1.30); GFR ESTIMATED > 60
[2020-09-12 05:42] LABS: BUN/CREATININE RATIO 15
[2020-09-12 05:44] LABS: ALANINE AMINOTRANSFERASE 69 U/L (0-55)
[2020-09-12] MEDS ORDERED: cefTRIAXone 1,000 MG/SWFI 10 ML IV PUSH IV SCH ×2 (06:00)
[2020-09-12] MEDS: MULTIVIT W/MINERALS TAB (THERAGRAN M) PO SCH (06:29)
[2020-09-12] MEDS: THIAMINE 100 MG (VITAMIN B-1) TAB PO SCH (06:29)
--- NOTE | 2020-09-12 07:01 | NUR ---
Notified Dr. Steinberg of the following: - WBC = 2.3 (from 6.2 yesterday) - HgB = 10.7 - Platelet = 80 (from 197 yesterday) - Bilirubin = 2.4 - Pt scored as severe sepsis risk. - Pt is more swollen than the start of shift. No new orders for now.
--- NOTE | 2020-09-12 07:23 | Progress Note - Surgery ---
MEDINA JARRELL MED STUDENT 09/12/20 0723: Subjective Date Seen by a Provider: Sep 12, 2020 Time Seen by a Provider: 07:10 Subjective/Events-last exam Pt is groggy this morning and had to be aroused for each question. He only responded w/ 1 word answers. Pt states he feels about the same as yesterday. Pt still has [place] that hasn't changed. Pt had BM and urinated this morning. Pt doesn't remember how BM was, ie soft or hard or normal. Pt is walking around w/ assist. Pt states his R foot still bothers him but the pain has spread up to his knee. Review of Systems General: No Chills HEENT: Head Aches (same as yesterday); No Visual Changes, No Ear Pain Pulmonary: No Cough Cardiovascular: Edema (bilateral LE, 4+. bilateral UE 1+.); No: Chest Pain Gastrointestinal: No: Nausea, Vomiting, Abdominal Pain Musculoskeletal: leg pain, foot pain Focused Exam Lactate Level 09/11/20 01:30: Lactic Acid Level 2.28*H 09/11/20 04:33: Lactic Acid Level 2.00 Objective Exam Vital Signs Date Time Temp Pulse Resp B/P (MAP) Pulse Ox O2 Delivery O2 Flow Rate FiO2 09/12/20 04:23 36.7 97 16 131/86 (101) 96 Room Air 09/12/20 01:00 101 09/11/20 23:42 36.8 98 16 135/82 (99) 97 Room Air 09/11/20 20:19 Room Air 09/11/20 20:00 37.2 78 16 124/80 (95) 96 Room Air 09/11/20 19:00 110 09/11/20 12:50 110 09/11/20 11:18 36.1 103 18 123/58 (79) 99 Room Air 09/11/20 08:00 Room Air 09/11/20 07:27 36.3 107 18 144/88 (106) 97 Room Air I & O 09/12/20 07:00 Intake Total 3700 ml Output Total 525 ml Balance 3175 ml Capillary Refill : Less Than 3 Seconds General Appearance: No Apparent Distress, Other (sleepy and difficulty staying awake to answer questions) HEENT: PERRL/EOMI Respiratory: Lungs Clear, Normal Breath Sounds, No Accessory Muscle Use, No Respiratory Distress Cardiovascular: Regular Rate, Rhythm Gastrointestinal: non tender Extremity: Normal Capillary Refill, Non Tender, Pedal Edema Neurologic/Psychiatric: Alert, Oriented x3 Skin: Normal Color, Warm/Dry, Other (abrasion to forehead) Results Lab Laboratory Tests 09/12/20 04:55: White Blood Count 2.3L, Red Blood Count 3.04L, Hemoglobin 10.7L, Hematocrit 33L, Mean Corpuscular Volume 108H, Mean Corpuscular Hemoglobin 35H, Mean Corpuscular Hemoglobin Concent 33, Red Cell Distribution Width 17.0H, Platelet Count 80L, Mean Platelet Volume 10.3, Immature Granulocyte % (Auto) 0, Neutrophils (%) (Auto) 39L, Lymphocytes (%) (Auto) 47H, Monocytes (%) (Auto) 12, Eosinophils (%) (Auto) 1, Basophils (%) (Auto) 1, Neutrophils # (Auto) 0.9L, Lymphocytes # (Auto) 1.1, Monocytes # (Auto) 0.3, Eosinophils # (Auto) 0.0, Basophils # (Auto) 0.0, Immature Granulocyte # (Auto) 0.0, Sodium Level 136, Potassium Level 3.7, Chloride Level 105, Carbon Dioxide Level 22, Anion Gap 9, Blood Urea Nitrogen 14 , Creatinine 0.92, Estimat Glomerular Filtration Rate > 60, BUN/Creatinine Ratio 15, Glucose Level 93, Calcium Level 7.7L, Corrected Calcium 8.7, Total Bilirubin 2.4H, Aspartate Amino Transf (AST/SGOT) 118H, Alanine Aminotransferase (ALT/SGPT) 69H, Alkaline Phosphatase 102, Total Protein 5.9L, Albumin 2.7L Microbiology 09/11/20 Blood Culture - Preliminary, Resulted No growth Assessment/Plan Assessment/Plan Assessment/Plan subdural hematoma - CT today UTI - continue abx alcohol intoxication - alcohol withdrawl protocol. continue IV fluids and pain meds. Clinical Quality Measures DVT/VTE Risk/Contraindication: Risk Factor Score Per Nursin RFS Level Per Nursing on Admit: 4+=Very High ADIS LOPEZ DO 09/12/20 1343: Subjective Time Seen by a Provider: 13:38 Subjective/Events-last exam Pt seen and examined, states he feels good with no significant changes. Review of Systems General: No Chills; Malaise HEENT: Head Aches (same as yesterday); No Visual Changes Pulmonary: No Cough Cardiovascular: No: Chest Pain Gastrointestinal: No: Nausea, Vomiting, Abdominal Pain Objective Exam General Appearance: No Apparent Distress, Obese HEENT: PERRL/EOMI, Moist Mucous Membranes Respiratory: Lungs Clear, Normal Breath Sounds, No Accessory Muscle Use, No Respiratory Distress Cardiovascular: Regular Rate, Rhythm, No Murmur Gastrointestinal: non tender, soft, no organomegaly Extremity: Pedal Edema Assessment/Plan Assessment/Plan Assessment/Plan Subdural Hematoma - no change UTI - continue ABX EtOH intoxication - withdrawal protocol started Pt going to [facility] rehab today. Supervisory-Addendum Brief Verification & Attestation Participated in pt care: history, MDM, physical Personally performed: exam, history, MDM Care discussed with: Medical Student Procedures: n/a Verification and Attestation of Medical Student E/M Service A medical student performed and documented this service. I then reviewed and verified all information documented by the medical student and made modifications to such information, when appropriate. I personally performed a physical exam, medical decision making and then discussed any differences between the notes and made revisions as necessary to create one note. Adis Lopez , 09/12/20 , 13:43 MEDINA JARRELL MED STUDENT Sep 12, 2020 07:23 ADIS LOPEZ DO Sep 12, 2020 13:43
[2020-09-12 08:00] VITALS: BP 117/78
--- NOTE | 2020-09-12 08:11 | Diagnostic Imaging Report ---
EXAMINATION: CT head without contrast. TECHNIQUE: Multiple contiguous axial images were obtained through the brain without the use of intravenous contrast. All CT scans use one or more of the following dose optimizing techniques: automated exposure control, MA and/or KvP adjustment based on a patient size and exam type, or iterative reconstruction. HISTORY: Follow-up subdural hematoma. COMPARISON: 09/11/2020. FINDINGS: There is stable size of the left convexity, subacute subdural hematoma measuring approximately 0.9 cm in maximum thickness. Stable effacement of the cortical sulci of the left frontal and parietal lobes is unchanged. Stable small amount of slen-ra-hfxgg midline shift of 0.2 cm. No evidence of uncal or tonsillar herniation. No new intra-axial or extra-axial hemorrhage. No evidence of large acute territorial ischemia. The orbits are normal. Retained secretions are seen in the bilateral maxillary sinuses. Mastoid air cells are clear. No soft tissue abnormality is seen. No osseus lesions or fractures are seen. IMPRESSION: 1. Stable appearance of the subacute left convexity subdural hematoma with stable mild effacement of the underlying cortical sulci and stable minimal zbtp-ai-yxfmn midline shift. No evidence of herniation. No new intra-axial or extra-axial hemorrhage. Dictated by: Dictated on workstation # [id number]
[2020-09-12] MEDS: MAGNESIUM OXIDE (MAG-OX)400 MG TAB PO SCH (08:29)
[2020-09-12] MEDS: FOLIC ACID 1 MG TAB PO SCH (08:29)
--- NOTE | 2020-09-12 10:00 | Occupational Ther Daily Note ---
OT Current Status-Daily Note Subjective Pt in bed asleep. Upon waking, pt oriented x3. Pt agrees to tx. States pain in head/ B knees. Mental Status/Objective Patient Orientation: Person, Place, Situation ADL-Treatment Therapy Code Descriptions/Definitions Functional [place] Measure: 0=Not Assessed/NA 4=Minimal Assistance 1=Total Assistance 5=Supervision or Setup 2=Maximal Assistance 6=Modified [place] 3=Moderate Assistance 7=Complete IndependenceSCALE: Activities may be completed with or without assistive devices. 5-Uxulbhijst-jtoaizo completes the activity by him/herself with no assistance from a helper. 5-Set-up or Clean-up Assistance-helper sets up or cleans up; patient completes activity. [place] assists only prior to or following the activity. 4-Supervision or Touching Assistance-helper provides verbal cues and/or touching/steadying and/or contact guard assistance as patient completes activity. Assistance may be provided throughout the activity or intermittently. 3-Partial/Moderate Assistance-helper does LESS THAN HALF the effort. [place] lifts, holds or supports trunk or limbs, but provides less than half the effort. 2-Substantial/Maximal Assistance-helper does MORE THAN HALF the effort. [place] lifts or holds trunk or limbs and provides more than half the effort. 4-Bwzcnuscy-wxkeif does ALL the effort. Patient does none of the effort to complete the activity. Or, the assistance of 2 or more helpers is required for the patient to complete the activity. If activity was not attempted, code reason: 7-Patient Refused. 9-Not Applicable-not attempted and the patient did not perform the activity before the current illness, exacerbation or injury. 10-Not Attempted due to Environmental Limitations-(lack of equipment, weather restraints, etc.). 88-Not Attempted due to Medical Conditions or Safety Concerns. Eating (QC): 5 (s/u milk carton opening.) Toileting Hygiene (QC): 5 (manohar area only ) Other Treatment Pt requests urinal in bed. Pt requires assist to place while in bed. Pt urinates/ cleanses manohar area with s/u. Pt bed mob with DIRECTOR SPEECH. Pt sits EOB for ~2 min. Pt's LE's pitting from knees to dorsum of feet, blanched and warm. Pt sit to stand from raised bed/ use of walker with CGA. Pt requires increased time for ambulation to recliner chair. Pt sits with control. Pt then educated on use of theraband for UE ex. Completes 10 reps of the following ex: back pulls, biceps, shoulder flexion, and 20 reps of back flies. Pt instructed to complete these in recliner on own during day. Pt states decrease of sleep at night/ increase during day. Pt encouraged to stay active this am and sit up until after lunch, encouraged to take only small nap to encourage full rest at night. Pt agrees. Pt requires assist to open milk due to decreased coordination/ increased shaking. P t's LE's elevated with pillows, blankets on, all needs met, call light in reach. Education OT Patient Education: Correct positioning, Exercise program, Home exercise program, Purpose of tx/functional activities, Safety issues, Transfer techniques Teaching Recipient: Patient Teaching Methods: Demonstration, Discussion Response to Teaching: Verbalize Understanding, Return Demonstration OT Snf Goals Snf Goals Time Frame: Sep 18, 2020 Eating (QC): 6 Oral Hygiene (QC): 6 Toileting Hygiene (QC): 6 Shower/Bathe Self (QC): 6 Upper Body Dressing (QC): 6 Lower Body Dressing (QC): 6 On/Off Footwear (QC): 6 Additional Goals: 1-Demonstrate ADL Tasks, 2-Verbalize Understanding, 3-ImproveStrength/Flex 1=Demonstrate adherence to instructed precautions during ADL tasks. 2=Patient will verbalize/demonstrate understanding of assistive devices/modifications for ADL. 3=Patient will improve strength/tolerance for activity to enable patient to perform ADL's. OT Education/Plan Problem List/Assessment Assessment: Decreased Activ Tolerance, Decreased UE Strength, Dependent Transfers, Edema, Impaired Bed Mobility, Impaired Coordination, Impaired Funct Balance, Impaired I ADL's, Impaired Self-Care Skills Discharge Recommendations Plan/Recommendations: Continue POC Therapy Discharge Recommendati: 24 Hour Supervision, Assisted Living Treatment Plan/Plan of Care Treatment,Training & Education: Yes Patient would benefit from OT for education, treatment and training to promote independence in ADL's, mobility, safety and/or upper extremity function for ADL's. Plan of Care: ADL Retraining, Functional Mobility, UE Funct Exercise/Act Treatment Duration: Sep 18, 2020 Frequency: 5 times per week Estimated Hrs Per Day: .25 hour per day Agreement: Yes Rehab Potential: Guarded Time/GCodes Start Time: 09:25 Stop Time: 09:50 Total Time Billed (hr/min): 25 Billed Treatment Time 1, ADL (10), EX (15)= 25 TREVOR DOMÍNGUEZ OTR Sep 12, 2020 10:00
[2020-09-12] MEDS ORDERED: OXC5T PO (10:18)
[2020-09-12] MEDS ORDERED: CEFD300C3 PO (10:18)
--- NOTE | 2020-09-12 10:19 | Discharge Inst-Skilled Nursing ---
Discharge Inst-Skilled NF Reconcile Patient Problems Problems Reviewed?: Yes Chief Complaint CC: Falls with subdural hematoma HPI: This is a 60yo profound and severe alcoholic who resides at assisted living because of the severity of his disease who has frequent falls intoxicated who presents to the ER with altered mental status after fall found to have an acute on chronic subdural hematoma and a UTI so we will consult PT and OT. Trauma surgery will monitor CT scan and monitor the subdural hematoma for an extension and currently pt is ready to get moving around. He will be on alcohol withdrawal protocol. Patient Instructions Patient Problems: ETOHism Subdural hematoma UTI Goal: [place] Alcohol cessation Consult/Follow Up/Orders Follow Up Appt.: [facility] Skilled NF Admit to: [facility] ([facility]) I certify that [facility] services are required to be given on an inpatient basis because of the above named patient's need for [place] [facility] care on a continuing basis for the conditions(s) for which he/she was receiving inpatient hospital services prior to his/her transfer to the [facility]. Prison Facility Order: Nursing Services, Airplane Electrician-Evaluate & Treat, Physical Therapy-Evaluate & Treat Oxygen Delivery Method: Room Air Discharge Diet: No Restrictions Resuscitation Status: Full Code New & Resume Previous Orders New Medications: Cefdinir (Cefdinir) 300 Mg Capsule 300 MG PO BID, #10 CAP Oxycodone Hcl (Oxyir Tablet) 5 Mg Tab 5 MG PO Q4H PRN for PAIN-SEVERE (8-10), #10 TAB Continued Medications: [Folic Acid ] () 1 TAB 1 MG PO DAILY, TAB Multivitamin (Multivitamin) 1 Each Tablet 1 EACH PO DAILY, TAB Naphazoline HCl/Glycerin (Clear Eyes Max Redness Rlf Drp) 30 Ml Drops 2 DROPS OU PRN PRN for EYE REDNESS, DROPS Propranolol HCl (Propranolol HCl) 10 Mg Tablet 10 MG PO DAILY, TAB Topiramate (Topiramate) 25 Mg Cap.sprink 75 MG PO HS PRN for TREMORS, CAP TAKES 3 (25MG) TABS Topiramate (Topiramate) 50 Mg Tablet 50 MG PO QID PRN for TREMORS, TAB Piper Steinberg Sep 12, 2020 10:18 Pneu Vac Indicated: Yes PIPER STEINBERG DO Sep 12, 2020 10:19
--- NOTE | 2020-09-12 10:20 | Discharge Summary ---
Discharge Summary Hospital Course Was the Problem List Reviewed?: Yes Problems/Dx: (1) Subacute subdural hematoma (2) Alcohol abuse Status: Acute (3) Chronic subdural hematoma Status: Acute (4) Urinary tract infection Status: Acute Qualifiers: Qualified Codes: N30.00 - Acute cystitis without hematuria Hospital Course Date of Admission: Sep 11, 2020 at 03:56 Admission Diagnosis : Family Physician/Provider: No,Local Physician Date of Discharge: 09/12/20 Discharge Diagnosis: Fall, subdural hematoma, etohism Hospital Course: Hospital course: Pt had an uneventful hospital course, he was admitted for subdural hematoma a cute on chronic due to severe alcoholism and ultimately required monitoring and a repeat CT which was stable. He was restarted on all of his home medication and no alcohol withdrawal occurred, he met criteria for fdc placement but overall severe alcoholism serves to be a poor prognosis and he was discharged to [facility] in stable condition. Labs and Pending Lab Test: Laboratory Tests 09/12/20 04:55: White Blood Count 2.3L, Red Blood Count 3.04L, Hemoglobin 10.7L, Hematocrit 33L, Mean Corpuscular Volume 108H, Mean Corpuscular Hemoglobin 35H, Mean Corpuscular Hemoglobin Concent 33, Red Cell Distribution Width 17.0H, Platelet Count 80L, Mean Platelet Volume 10.3, Immature Granulocyte % (Auto) 0, Neutrophils (%) (Auto) 39L, Lymphocytes (%) (Auto) 47H, Monocytes (%) (Auto) 12, Eosinophils (%) (Auto) 1, Basophils (%) (Auto) 1, Neutrophils # (Auto) 0.9L, Lymphocytes # (Auto) 1.1, Monocytes # (Auto) 0.3, Eosinophils # (Auto) 0.0, Basophils # (Auto) 0.0, Immature Granulocyte # (Auto) 0.0, Sodium Level 136, Potassium Level 3.7, Chloride Level 105, Carbon Dioxide Level 22, Anion Gap 9, Blood Urea Nitrogen 14, Creatinine 0.92, Estimat Glomerular Filtration Rate > 60, BUN/Creatinine Ratio 15, Glucose Level 93, Calcium Level 7.7L, Corrected Calcium 8.7, Total Bilirubin 2.4H, Aspartate Amino Transf (AST/SGOT) 118H, Alanine Aminotransferase (ALT/SGPT) 69H, Alkaline Phosphatase 102, Total Protein 5.9L, Albumin 2.7L Microbiology 09/11/20 Blood Culture - Preliminary, Resulted No growth Home Meds Active Cefdinir 300 Mg Capsule 300 Mg PO BID Oxyir Tablet (Oxycodone HCl) 5 Mg Tab 5 Mg PO Q4H PRN Reported [Folic Acid ] 1 Tab 1 Mg PO DAILY Clear Eyes Max Redness Rlf Drp (Naphazoline HCl/Glycerin) 30 Ml Drops 2 Drops OU PRN PRN Multivitamin 1 Each Tablet 1 Each PO DAILY Topiramate 50 Mg Tablet 50 Mg PO QID PRN Topiramate 25 Mg Cap.sprink 75 Mg PO HS PRN TAKES 3 (25MG) TABS Propranolol HCl 10 Mg Tablet 10 Mg PO DAILY Assessment/Pt Instructions [facility] rounds Discharge Planning: <30 minutes discharge planning Discharge Instructions Discharge Diet: No Restrictions Pneumonia Vaccine Order Indica: Yes Discharge Physical Examination Vital Signs Vital Signs Date Time Temp Pulse Resp B/P (MAP) Pulse Ox O2 Delivery O2 Flow Rate FiO2 09/12/20 08:00 96 Room Air 09/12/20 08:00 36.6 101 20 117/78 (91) General Appearance: No Apparent Distress, WD/WN, Chronically ill Allergies: Coded Allergies: No Known Drug Allergies (Unverified , 12/28/19) Discharge Summary Date of Admission Sep 11, 2020 at 03:56 Date of Discharge Discharge Date: Sep 12, 2020 Admission Diagnosis Assessment: Subdural hematoma acute on chronic Severe alcoholism Discharge Diagnosis (1) Subacute subdural hematoma (2) Alcohol abuse Status: Acute (3) Chronic subdural hematoma Status: Acute (4) Urinary tract infection Status: Acute Qualifiers: Qualified Codes: N30.00 - Acute cystitis without hematuria Clinical Quality Measures DVT/VTE Risk/Contraindication: Risk Factor Score Per Nursin RFS Level Per Nursing on Admit: 4+=Very High RAMSEY MONTILLA DO Sep 12, 2020 10:19
--- NOTE | 2020-09-12 11:14 | Physical Therapy Daily Note ---
PT Daily Note-Current Subjective Pt presents in recliner. Pt agrees to PT. Pt reports 7/10 pain in bilateral knees, head, and rear. Appearance At conclusion of PT treatment patient returns to recliner where he has access to tray, call button, and all needs have been met. Mental Status Patient Orientation: Person, Place, Time, Eyes Open, Situation Transfers SCALE: Activities may be completed with or without assistive devices. 0-Frtuexeqvd-turmjzn completes the activity by him/herself with no assistance from a helper. 5-Set-up or Clean-up Assistance-helper sets up or cleans up; patient completes activity. [place] assists only prior to or following the activity. 4-Supervision or Touching Assistance-helper provides verbal cues and/or touching/steadying and/or contact guard assistance as patient completes activity. Assistance may be provided throughout the activity or intermittently. 3-Partial/Moderate Assistance-helper does LESS THAN HALF the effort. [place] lifts, holds or supports trunk or limbs, but provides less than half the effort. 2-Substantial/Maximal Assistance-helper does MORE THAN HALF the effort. [place] lifts or holds trunk or limbs and provides more than half the effort. 5-Natqqyeoq-cedqdo does ALL the effort. Patient does none of the effort to complete the activity. Or, the assistance of 2 or more helpers is required for the patient to complete the activity. If activity was not attempted, code reason: 7-Patient Refused. 9-Not Applicable-not attempted and the patient did not perform the activity before the current illness, exacerbation or injury. 10-Not Attempted due to Environmental Limitations-(lack of equipment, weather restraints, etc.). 88-Not Attempted due to Medical Conditions or Safety Concerns. Sit to Stand (QC): 4 Chair/Imm-ut-Ifosv Xfer(QC): 4 CGA Gait Training Does the Patient Walk?: Yes Distance: 30' Walk 10 feet (QC): 4 Gait Persons Needed: 1 Gait Assistive Device: FWW CGA. Patient takes small steps; while using step-through pattern strides are not long enough to pass opposite toes. Treatments Gait training Assessment Current Status: Fair Progress Pt ambulates without LOB but is very slow. Pt takes small strides and UEs shake while maneuvering walker (pt report this shaking is normal and hereditary). PT Mortuary Technician Goals Mortuary Technician Goals PT Halfway Goals Time Frame: Sep 22, 2020 Roll Left & Right (QC): 5 Sit to Lying (QC): 5 Lying-Sitting on Side/Bed(QC): 5 Sit to Stand (QC): 5 Chair/Uao-cu-Ciwpl Xfer(QC): 5 Toilet Transfer (QC): 5 Does the Patient Walk: Yes Walk 10 feet (QC): 5 Walk 50ft with 2 Turns (QC): 5 Walk 150 ft (QC): 5 PT Plan Problem List Problem List: Activity Tolerance, Functional Strength, Safety, Balance, Gait, Transfer, Bed Mobility, ROM Treatment/Plan Treatment Plan: Continue Plan of Care Treatment Plan: Bed Mobility, Education, Functional Activity Flex, Functional Strength, Gait, Safety, Therapeutic Exercise, Transfers Treatment Duration: Sep 22, 2020 Frequency: 6 times per week Estimated Hrs Per Day: .25 hour per day Safety Risks/Education Patient Education: Gait Training, Correct Positioning, Safety Issues Teaching Recipient: Patient Teaching Methods: Demonstration, Discussion Response to Teaching: Reinforcement Needed Time/GCodes Time In: 1035 Time Out: 1055 Total Billed Treatment Time: 20 Total Billed Treatment 1 visit GT 20' TARAH ROSS PT Sep 12, 2020 11:14
--- NOTE | 2020-09-12 11:42 | Progress Note ---
TOREY DESOUZA MED STUDENT 09/12/20 1142: Progress Note Tavo Pichardo is a 60 year old male who presented to the ED at [facility] after sustaining a fall at [facility] living. He was found to be incontinent with fecal matter on his legs. Mr. Pichardo has been admitted multiple times over the past few months under similar circumstances in which alcohol is a major factor. In the ED he was found to have a UTI and was given 1 gram of Rocephin. His alcohol level was elevated at 337 as well. He had a head CT done which showed a subacute subdural hematoma. He was admitted to trauma surgery here aft er consulting neurosurgery. Repeat CT of head was performed this morning showing stable appearance of the subacute subdural hematoma with minimal left to right midline shift and no evidence of herniation. He has not had any complications during his stay and has been watched closely for alcohol withdrawl and placed on the [facility] lorazepam protocol. Vitals have remained stable. Plan to discharge him today to [facility]. PIPER MONTILLA DO 09/13/20 0541: Supervisory-Addendum Brief Verification & Attestation Participated in pt care: history, MDM, physical Personally performed: exam, history, MDM, supervision of care Care discussed with: Medical Student Procedures: n/a Results interpretation: Verified all documentation Verification and Attestation of Medical Student E/M Service A medical student performed and documented this service in my presence. I reviewed and verified all information documented by the medical student and made modifications to such information, when appropriate. I personally performed the physical exam and medical decision making. Piper Montilla, Sep 13, 2020,05:41 TOREY DESOUZA MED STUDENT Sep 12, 2020 11:42 PIPER MONTILLA DO Sep 13, 2020 05:41
[2020-09-12 12:00] VITALS: BP 131/88
--- NOTE | 2020-09-12 13:10 | NUR ---
MOHAN/SS finalized discharge plan. CM/SS is assisting AMARI Karis MarieViki Plan: Patient is discharging to [facility] today 09/12. The patient's will be transportation at 1:30 p.m. [facility]: MOHAN/SS spoke with Andie. She states patient has been accepted. This sw faxed updated clinical, finalized discharge, and scripts. Andie reports they do not have transportation available. The patient's was agreeable. CM/SS visited with the patient. He reports he is feeling okay but is very tired. Patient was agreeable with plan and did not have any further questions. MOHAN/SS informed the patient's nurse of pickle maker time and discharge plans. No further needs.
[2020-09-12 14:20] VITALS: BP 131/88
== END 2020-09-12 13:30 | DRG 86 ==
LOC: EDUNIT# 01:14 → ER 01:16 → 4TH 03:56
PROVIDERS: ADMIT Surgery; ATTEND Surgery
DX: S06.5X0A Traumatic subdural hemorrhage without loss of consciousness, initial encounter (principal); N39.0 Urinary tract infection, site not specified; R17 Unspecified jaundice; Z68.41 Body mass index [BMI] 40.0-44.9, adult; F10.229 Alcohol dependence with intoxication, unspecified; R74.8 Abnormal levels of other serum enzymes; R41.0 Disorientation, unspecified; R15.9 Full incontinence of feces; G25.0 Essential tremor; E66.9 Obesity, unspecified; F41.9 Anxiety disorder, unspecified; F32.9 Major depressive disorder, single episode, unspecified; W19.XXXA Unspecified fall, initial encounter; Y92.129 Unspecified place in nursing home as the place of occurrence of the external cause
CPT/HCPCS: 36415; 70450; 71045; 80053; 80320; 81000; 83605; 83880; 84145; 84443; 84484; 85025; 85610; 85730; 86141; 87040; 87077; 87088; 87186; 93005

== ENCOUNTER 2020-09-30 11:30 | Emergency (ER) | payer MEDICARE, OTHER ==
[~2020-09-30] VITALS: Ht 177.8 cm; Wt 102.0 kg
[~2020-09-30 11:30] MED LIST changes: +CEFD300C3 PO; +FOLIC ACID PO; +OXC5T PO
--- NOTE | 2020-09-30 12:24 | ED General ---
General Chief Complaint: General Problems/Pain Stated Complaint: BILAT LEG SWELLING/LOSS CONTROL OF BOWELS Nursing Triage Note: Pt to ED in wheelchair. Pt reports increased leg swelling and pain that began a couple days ago. Pt reports loss of bowel. Pt reports chronic knee pain. Pt also reports being a "really bad alcoholic." Pt reports drinking a quart of vodka per day for 12-13 years. Pt is unsure at this time when last ETOH was consumed. Pt is concerned of withdrawl. Nursing Sepsis Screen: No Definite Risk Source of Information: Patient Exam Limitations: No Limitations History of Present Illness Date Seen by Provider: Sep 30, 2020 Time Seen by Provider: 12:23 Initial Comments This is a 60 yo male who presents to the ER with complaints of bilateral lower extremity swelling that started 2-3 days ago, and loss of bowels. He verbalizes that he is concerned he is withdrawing from alcohol. States he drinks a quart of vodka daily and is unsure of when his last drink was. He denies any verbal or auditory hallucinations. Does admit to having diarrhea today. Denies headaches, cough, shortness of breath, chest pain, fevers, chills, nausea, vomiting, abdominal pain. Allergies and Home Medications Allergies Coded Allergies: No Known Drug Allergies (Unverified , 12/28/19) Home Medications Cefdinir 300 Mg Capsule, 300 MG PO BID Prescribed by: RAMSEY MONTILLA on 09/12/20 1018 Multivitamin 1 Each Tablet, 1 EACH PO DAILY, (Reported) Naphazoline HCl/Glycerin 30 Ml Drops, 2 DROPS OU PRN PRN for EYE REDNESS, (Reported) Oxycodone Hcl 5 Mg Tab, 5 MG PO Q4H PRN for PAIN-SEVERE (8-10) Prescribed by: RAMSEY MONTILLA on 09/12/20 1018 Propranolol HCl 10 Mg Tablet, 10 MG PO DAILY, (Reported) Topiramate 25 Mg Cap.sprink, 75 MG PO HS PRN for TREMORS, (Reported) TAKES 3 (25MG) TABS Topiramate 50 Mg Tablet, 50 MG PO QID PRN for TREMORS, (Reported) [Folic Acid ] 1 TAB, 1 MG PO DAILY, (Reported) Patient Home Medication List Home Medication List Reviewed: Yes Review of Systems Review of Systems Constitutional: see HPI EENTM: see HPI Respiratory: see HPI Cardiovascular: see HPI Gastrointestinal: see HPI Genitourinary: see HPI Musculoskeletal: see HPI Skin: see HPI Psychiatric/Neurological: See HPI Hematologic/Lymphatic: See HPI Immunological/Allergic: see HPI Past Yovzeql-Ujfdin-Hndsyp Hx Patient Social History Alcohol Use: Regular Use Number of Drinks Today: FF Alcohol Beverage of Choice: Vodka Recreational Drug Use: Yes (ETOH) 2nd Hand Smoke Exposure: No Recent Foreign Travel: No Contact w/Someone Who Travel: No Recent Infectious Disease Expo: No Recent Hopitalizations: No Immunizations Up To Date Tetanus Booster (TDap): Unknown PED Vaccines UTD: Yes Date of Influenza Vaccine: Aug 11, 2020 Seasonal Allergies Seasonal Allergies: No Past Medical History Surgeries: Yes (HEMRRHOIDECTOMY) Respiratory: No Currently Using CPAP: No Currently Using BIPAP: No Cardiac: No 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, alcoholism) Traumatic Brain Injury Genitourinary: No Gastrointestinal: Yes Liver Disease/Jaundice Musculoskeletal: No Endocrine: No HEENT: No Loss of Vision: Denies Hearing Impairment: Denies Cancer: No Psychosocial: Yes (ETOH ABUSE HX) Anxiety, Depression Integumentary: No Blood Disorders: No Adverse Reaction/Blood Tranf: No Family Medical History FH: breast cancer 19 MOTHER Hypertension 19 MOTHER Cancer, Hypertension Physical Exam Vital Signs Vital Signs - First Documented 09/30/20 11:55 Temp 36.5 Pulse 108 Resp 29 B/P (MAP) 158/100 (119) Pulse Ox 98 O2 Delivery Room Air Capillary Refill : Less Than 3 Seconds Height, Weight, BMI Height: '" Weight: lbs. oz. kg; 32.00 BMI Method: General Appearance: No Apparent Distress, WD/WN HEENT: PERRL/EOMI, Normal ENT Inspection, Pharynx Normal Neck: Full Range of Motion, Normal Inspection, Non Tender Respiratory: Chest Non Tender, Lungs Clear, Normal Breath Sounds, No Accessory Muscle Use, No Respiratory Distress Cardiovascular: Regular Rate, Rhythm, No Murmur, Normal Peripheral Pulses, Other (Edema 2(+) ) Gastrointestinal: Normal Bowel Sounds, Non Tender, Soft Extremity: Non Tender, No Calf Tenderness, Pedal Edema (2(+) edema ) Neurologic/Psychiatric: Alert, Oriented x3 (Difficulty with recent memory recall), No Motor/Sensory Deficits, Normal Mood/Affect Skin: Normal Color, Warm/Dry Progress/Results/Core Measures Suspected Sepsis Recent Fever Within 48 Hours: No Infection Criteria Present: None New/Unexplained Altered Menta: No Sepsis Screen: No Definite Risk SIRS Temperature: Pulse: 108 Respiratory Rate: 29 Laboratory Tests 09/30/20 12:25: White Blood Count 3.5L Blood Pressure 158 /100 Mean: 119 Laboratory Tests 09/30/20 12:25: Creatinine 1.05, Platelet Count 124L, Total Bilirubin 0.5 Results/Orders Lab Results Laboratory Tests Test 09/30/20 12:25 09/30/20 12:35 Range/Units White Blood Count 3.5 L 4.3-11.0 10^3/uL Red Blood Count 3.31 L 4.30-5.52 10^6/uL Hemoglobin 11.7 L 13.3-17.7 g/dL Hematocrit 37 L 40-54 % Mean Corpuscular Volume 112 H 80-99 fL Mean Corpuscular Hemoglobin 35 H 25-34 pg Mean Corpuscular Hemoglobin Concent 32 32-36 g/dL Red Cell Distribution Width 14.8 H 10.0-14.5 % Platelet Count 124 L 130-400 10^3/uL Mean Platelet Volume 9.7 9.0-12.2 fL Immature Granulocyte % (Auto) 0 % Neutrophils (%) (Auto) 45 42-75 % Lymphocytes (%) (Auto) 42 12-44 % Monocytes (%) (Auto) 9 0-12 % Eosinophils (%) (Auto) 3 0-10 % Basophils (%) (Auto) 1 0-10 % Neutrophils # (Auto) 1.6 L 1.8-7.8 10^3/uL Lymphocytes # (Auto) 1.5 1.0-4.0 10^3/uL Monocytes # (Auto) 0.3 0.0-1.0 10^3/uL Eosinophils # (Auto) 0.1 0.0-0.3 10^3/uL Basophils # (Auto) 0.0 0.0-0.1 10^3/uL Immature Granulocyte # (Auto) 0.0 0.0-0.1 10^3/uL Sodium Level 148 H 135-145 MMOL/L Potassium Level 3.7 3.6-5.0 MMOL/L Chloride Level 116 H 98-107 MMOL/L Carbon Dioxide Level 20 L 21-32 MMOL/L Anion Gap 12 5-14 MMOL/L Blood Urea Nitrogen 17 7-18 MG/DL Creatinine 1.05 0.60-1.30 MG/DL Estimat Glomerular Filtration Rate > 60 BUN/Creatinine Ratio 16 Glucose Level 101 70-105 MG/DL Calcium Level 8.5 8.5-10.1 MG/DL Corrected Calcium 9.2 8.5-10.1 MG/DL Total Bilirubin 0.5 0.1-1.0 MG/DL Aspartate Amino Transf (AST/SGOT) 59 H 5-34 U/L Alanine Aminotransferase (ALT/SGPT) 31 0-55 U/L Alkaline Phosphatase 76 40-136 U/L B-Type Natriuretic Peptide 30.9 <100.0 PG/ML Total Protein 6.7 6.4-8.2 GM/DL Albumin 3.1 L 3.2-4.5 GM/DL Salicylates Level < 5.0 L 5.0-20.0 MG/DL Acetaminophen Level < 10 L 10-30 UG/ML Serum Alcohol 241 H <10 MG/DL Urine Color YELLOW Urine Clarity CLEAR Urine pH 6.5 5-9 Urine Specific [place] 1.020 1.016-1.022 Urine Protein NEGATIVE NEGATIVE Urine Glucose (UA) NEGATIVE NEGATIVE Urine Ketones NEGATIVE NEGATIVE Urine Nitrite NEGATIVE NEGATIVE Urine Bilirubin NEGATIVE NEGATIVE Urine Urobilinogen 0.2 < = 1.0 MG/DL Urine Leukocyte Esterase NEGATIVE NEGATIVE Urine RBC (Auto) TRACE-I NEGATIVE Urine RBC RARE /HPF Urine WBC RARE /HPF Urine Squamous Epithelial Cells NONE /HPF Urine Crystals NONE /LPF Urine Bacteria NEGATIVE /HPF Urine Casts NONE /LPF Urine Mucus NEGATIVE /LPF Urine Culture Indicated NO Urine Opiates Screen NEGATIVE NEGATIVE Urine Oxycodone Screen NEGATIVE NEGATIVE Urine Methadone Screen NEGATIVE NEGATIVE Urine Propoxyphene Screen NEGATIVE NEGATIVE Urine Barbiturates Screen NEGATIVE NEGATIVE Ur Tricyclic Antidepressants Screen NEGATIVE NEGATIVE Urine Phencyclidine Screen NEGATIVE NEGATIVE Urine Amphetamines Screen NEGATIVE NEGATIVE Urine Methamphetamines Screen NEGATIVE NEGATIVE Urine Benzodiazepines Screen NEGATIVE NEGATIVE Urine Cocaine Screen NEGATIVE NEGATIVE Urine Cannabinoids Screen NEGATIVE NEGATIVE My Orders Orders - TOY SALMERON AUTOMATIC TIRE TESTER Ua Culture If Indicated (09/30/20 12:24) Cbc With Automated Diff (09/30/20 12:24) Comprehensive Metabolic Panel (09/30/20 12:24) Alcohol (09/30/20 12:24) Drug Screen Stat (Urine) (09/30/20 12:24) Acetaminophen (09/30/20 12:24) Salicylate (09/30/20 12:24) Ekg Tracing (09/30/20 12:24) Ed Iv/Invasive Line Start (09/30/20 12:24) BNP (09/30/20 12:24) Leobardo Bandage (09/30/20 14:16) Vital Signs/I&O 09/30/20 09/30/20 11:55 14:50 Temp 36.5 36.5 Pulse 108 125 Resp 29 24 B/P (MAP) 158/100 (119) 145/97 (119) Pulse Ox 98 98 O2 Delivery Room Air Room Air Capillary Refill : Less Than 3 Seconds Blood Pressure Mean: 119 Progress Note : Progress Note 13:00 After examining the patient and interviewing him, he is likely having withdrawal symptoms, his CIWA score is 19 at this time. Basic labs, BNP, Ativan 1 mg ordered. He is resting comfortably in bed requesting food. 13:19 labs reviewed, [id number]-241. Patient is acutely intoxicated, discontinued order for Ativan. Opted to not give fluids as he is noncompliant with taking his Lasix and has bilateral lower shimmery edema. 1400: Discussed case with his spouse. States his last drink of Vodka was last night. She does not know if he has drank any alcohol today. States he lives at [facility] in the [facility] and she checks on him daily, and occasionally stays the night. However, he has been having increasing aggressive behavior which has limited her willingness to stay with him. States she has been working with [facility] to have him moved into the main building to hopefully curtail his ability to obtain alcohol. States he is to take Lasix daily. However, he is not compliant and she has noticed his legs gradually swelling over the past week. Requested he be admitted observation until he can be assessed by [facility] in the morning. Called Dr. Montilla and discussed case. Dr. Montilla verbalized she has attempted to help this patient on multiple occasions, with the last being a few weeks ago when he was discharged from [facility] to [facility] to improve his physical status and to help reduce his ability to obtain alcohol. However, he was moved from the nursing facility [facility] into an assisted living and has returned to drinking alcohol. Recommended providing family with a list of sitters and encouraging patient to reduce alcohol consumption. Discussed discharge plan of care with patient spouse and patient and they're agreeable with plan. States that she is willing to have patient discharged in her care. ECG Initial ECG Impression Date: Sep 30, 2020 Initial ECG Impression Time: 12:38 Initial ECG Rate: 109 Initial ECG Rhythm: S.Tach Departure Impression Primary Impression: Alcohol abuse with intoxication, uncomplicated Additional Impression: Bilateral lower extremity edema Disposition: 01 HOME, SELF-CARE Condition: Stable/Unchanged Departure-Patient Inst. Decision time for Depature: 14:19 Referrals: NO,LOCAL PHYSICIAN (PCP/Family) Primary Care Physician Patient Instructions: Alcohol Abuse and Alcoholism (DC), Dependent Edema (DC) Add. Discharge Instructions: Plan: 1. Discharged to assisted living facility in care of spouse Didi. 2. Avoid drinking alcohol and follow-up with Dr. Crabtree for safe alcohol detox. 3. Take-home medications, including Lasix as directed as this is likely contributing to your leg swelling. 4. Wrap both of your legs and Leobardo wrap's as shown in directed and ER to help reduce swelling. 5. A list of caregivers was provided, you may contact for any additional resources. 6. Return to ER for any new or worsening symptoms. All discharge instructions reviewed with patient and/or family. Voiced understanding. TOY SALMERON AUTOMATIC TIRE TESTER Sep 30, 2020 12:24
[2020-09-30 12:50] LABS: BASOPHILS % (AUTO) 1 % (0-10); EOSINOPHILS # (AUTO) 0.1 10^3/uL (0.0-0.3); EOSINOPHILS % (AUTO) 3 % (0-10); HEMATOCRIT 37 % (40-54); HEMOGLOBIN 11.7 g/dL (13.3-17.7); LYMPHOCYTES # (AUTO) 1.5 10^3/uL (1.0-4.0); LYMPHOCYTES % (AUTO) 42 % (12-44); MEAN CORPUSCULAR HEMOGLOBIN 35 pg (25-34); MEAN CORPUSCULAR HGB CONC 32 g/dL (32-36); MEAN CORPUSCULAR VOLUME 112 fL (80-99); MEAN PLATELET VOLUME 9.7 fL (9.0-12.2); MONOCYTES # (AUTO) 0.3 10^3/uL (0.0-1.0); MONOCYTES % (AUTO) 9 % (0-12); NEUTROPHILS # (AUTO) 1.6 10^3/uL (1.8-7.8); NEUTROPHILS % (AUTO) 45 % (42-75); PLATELET COUNT 124 10^3/uL (130-400); WHITE BLOOD COUNT 3.5 10^3/uL (4.3-11.0)
[2020-09-30 12:50] LABS: BILIRUBIN,URINE NEGATIVE (NEGATIVE); CLARITY,URINE CLEAR; COLOR,URINE YELLOW; GLUCOSE, URINE (UA) NEGATIVE (NEGATIVE); KETONES,URINE NEGATIVE (NEGATIVE); LEUKOCYTE ESTERASE ,URINE NEGATIVE (NEGATIVE); NITRITE,URINE NEGATIVE (NEGATIVE); PH,URINE 6.5 (5-9); PROTEIN,URINE NEGATIVE (NEGATIVE)
[2020-09-30 12:56] LABS: BACTERIA,URINE NEGATIVE /HPF; RBC,URINE RARE /HPF; WBC,URINE RARE /HPF
[2020-09-30 13:00] LABS: ALBUMIN 3.1 GM/DL (3.2-4.5); CHLORIDE 116 MMOL/L (98-107); POTASSIUM 3.7 MMOL/L (3.6-5.0); SODIUM 148 MMOL/L (135-145)
[2020-09-30] MEDS ORDERED: LORazepam INJ 2 MG/ML (ATIVAN) VIAL IVP ONE (13:00)
[2020-09-30 13:01] LABS: AMPHETAMINE SCREEN, URINE NEGATIVE (NEGATIVE); BARBITURATE SCREEN URINE NEGATIVE (NEGATIVE); BENZODIAZEPINES SCREEN URINE NEGATIVE (NEGATIVE); CANNABINOID SCREEN, URINE NEGATIVE (NEGATIVE); COCAINE SCREEN URINE NEGATIVE (NEGATIVE); METHADONE STAT NEGATIVE (NEGATIVE); METHAMPHETAMINE SCREEN URINE S NEGATIVE (NEGATIVE); OPIATE SCREEN URINE NEGATIVE (NEGATIVE); OXYCODONE STAT NEGATIVE (NEGATIVE); PROPOXYPHENE STAT NEGATIVE (NEGATIVE); TRICYCLIC ANTIDEPRESSANTS SCRE NEGATIVE (NEGATIVE)
[2020-09-30 13:01] LABS: CALCIUM 8.5 MG/DL (8.5-10.1)
[2020-09-30 13:03] LABS: GLUCOSE 101 MG/DL (70-105); TOTAL PROTEIN 6.7 GM/DL (6.4-8.2)
[2020-09-30 13:04] LABS: BILIRUBIN,TOTAL 0.5 MG/DL (0.1-1.0); CARBON DIOXIDE 20 MMOL/L (21-32)
[2020-09-30 13:06] LABS: ALKALINE PHOSPHATASE 76 U/L (40-136); CREATININE SERUM 1.05 MG/DL (0.60-1.30); GFR ESTIMATED > 60
[2020-09-30 13:08] LABS: BUN/CREATININE RATIO 16
[2020-09-30 13:09] LABS: ACETAMINOPHEN < 10 UG/ML (10-30); SALICYLATE < 5.0 MG/DL (5.0-20.0)
[2020-09-30 13:10] LABS: ALANINE AMINOTRANSFERASE 31 U/L (0-55)
[2020-09-30 14:50] VITALS: BP 145/97
== END 2020-09-30 14:50 | disposition home or self-care (01) ==
LOC: EDUNIT# 11:30 → ER 11:31
DX: F10.129 Alcohol abuse with intoxication, unspecified (principal); R60.0 Localized edema; Z80.3 Family history of malignant neoplasm of breast; Z82.49 Family history of ischemic heart disease and other diseases of the circulatory system; Z87.820 Personal history of traumatic brain injury
CPT/HCPCS: 80053; 80306; 81000; 83880; 85025; 93005; 99284; G0480 ×3; 36415; 80320; 80329

== ENCOUNTER 2020-10-25 16:05 | Emergency (ER) | payer MEDICARE, OTHER ==
[~2020-10-25] VITALS: Ht 182 cm; Wt 90.0 kg
[2020-10-25] MEDS ORDERED: D5 1/2 NS 1000 ML IV SOLUTION 1,000 ML IV ONE (16:15)
[2020-10-25 16:26] LABS: BASOPHILS % (AUTO) 0 % (0-10); EOSINOPHILS # (AUTO) 0.1 10^3/uL (0.0-0.3); EOSINOPHILS % (AUTO) 2 % (0-10); HEMATOCRIT 40 % (40-54); HEMOGLOBIN 13.4 g/dL (13.3-17.7); LYMPHOCYTES # (AUTO) 1.8 10^3/uL (1.0-4.0); LYMPHOCYTES % (AUTO) 30 % (12-44); MEAN CORPUSCULAR HEMOGLOBIN 35 pg (25-34); MEAN CORPUSCULAR HGB CONC 33 g/dL (32-36); MEAN CORPUSCULAR VOLUME 106 fL (80-99); MEAN PLATELET VOLUME 11.3 fL (9.0-12.2); MONOCYTES # (AUTO) 0.6 10^3/uL (0.0-1.0); MONOCYTES % (AUTO) 10 % (0-12); NEUTROPHILS # (AUTO) 3.5 10^3/uL (1.8-7.8); NEUTROPHILS % (AUTO) 58 % (42-75); PLATELET COUNT 55 10^3/uL (130-400); WHITE BLOOD COUNT 6.1 10^3/uL (4.3-11.0)
[2020-10-25 16:41] LABS: ALBUMIN 3.4 GM/DL (3.2-4.5); POTASSIUM 4.3 MMOL/L (3.6-5.0)
[2020-10-25 16:42] LABS: CALCIUM 8.1 MG/DL (8.5-10.1)
[2020-10-25 16:44] LABS: INR 1.1 (0.8-1.4); PROTHROMBIN TIME PATIENT 14.9 SEC (12.2-14.7); TOTAL PROTEIN 7.4 GM/DL (6.4-8.2)
[2020-10-25 16:45] LABS: BILIRUBIN,TOTAL 4.4 MG/DL (0.1-1.0)
[2020-10-25] MEDS ORDERED: ONDANSETRON 4 MG/2 ML (SDV) Z0FRAN IVP ONE (16:45)
[2020-10-25 16:47] LABS: CREATININE SERUM 1.58 MG/DL (0.60-1.30)
[2020-10-25 16:50] LABS: MAGNESIUM 2.5 MG/DL (1.6-2.4)
--- NOTE | 2020-10-25 17:07 | ED General ---
General Chief Complaint: Abdominal/GI Problems Stated Complaint: GI BLEED Nursing Triage Note: states patient has been on a drinking binge for last 5-6 days, states approx 2 days ago she diluted his vodka, states last three days has had black stools, bruises easily and she has noticed "red" spots on his legs and chest. EMS states patient FSBS 58 upon arrival, no treatment due to patient mentation normal per EMS Nursing Sepsis Screen: No Definite Risk History of Present Illness Date Seen by Provider: Oct 25, 2020 Time Seen by Provider: 16:15 Initial Comments 60-year-old male presents for chronic alcoholism. His lives in assisted living but checks on him at the home. She called to report that she has been diluting his alcohol and she is his POA. She states that he had some bloody stools earlier this week and none in the last 24 hours. Patient reports he has not drink alcohol in 3 to 4 days. He has noted to have purulent discharge in his right eye. She had noted rash, but no rash was identified on exam. He has no seizure activity or tremor, no odor of alcohol present on breath. Drinking water. Timing/Duration: Changing Over Time Associated Systoms: Denies Symptoms Allergies and Home Medications Allergies Coded Allergies: No Known Drug Allergies (Unverified , 12/28/19) Home Medications Cefdinir 300 Mg Capsule, 300 MG PO BID Prescribed by: RAMSEY MONTILLA on 09/12/20 1018 Multivitamin 1 Each Tablet, 1 EACH PO DAILY, (Reported) Naphazoline HCl/Glycerin 30 Ml Drops, 2 DROPS OU PRN PRN for EYE REDNESS, (Reported) Oxycodone Hcl 5 Mg Tab, 5 MG PO Q4H PRN for PAIN-SEVERE (8-10) Prescribed by: RAMSEY MONTILLA on 09/12/20 1018 Propranolol HCl 10 Mg Tablet, 10 MG PO DAILY, (Reported) Tobramycin/Dexamethasone 5 Ml Drops.susp, 2 DROPS OD TID Prescribed by: REGAN FLORES on 10/25/20 173 Topiramate 25 Mg Cap.sprink, 75 MG PO HS PRN for TREMORS, (Reported) TAKES 3 (25MG) TABS Topiramate 50 Mg Tablet, 50 MG PO QID PRN for TREMORS, (Reported) [Folic Acid ] 1 TAB, 1 MG PO DAILY, (Reported) Patient Home Medication List Home Medication List Reviewed: Yes Review of Systems Review of Systems Constitutional: no symptoms reported, see HPI EENTM: see HPI, no symptoms reported Respiratory: no symptoms reported, see HPI Cardiovascular: no symptoms reported Gastrointestinal: see HPI; No constipation, No diarrhea; melena; No vomiting Musculoskeletal: no symptoms reported, see HPI Psychiatric/Neurological: See HPI, Emotional Problems All Other Systems Reviewed Negative Unless Noted: Yes Past Itbsjdw-Lpvppz-Vhxjah Hx Past Med/Social Hx: Reviewed Nursing Past Med/Soc Hx Patient Social History Alcohol Use: Regular Use Number of Drinks Today: FF Alcohol Beverage of Choice: Vodka Recreational Drug Use: Yes (ETOH) 2nd Hand Smoke Exposure: No Recent Foreign Travel: No Contact w/Someone Who Travel: No Recent Infectious Disease Expo: No Recent Hopitalizations: No Immunizations Up To Date Tetanus Booster (TDap): Unknown PED Vaccines UTD: Yes Date of Influenza Vaccine: Aug 11, 2020 Seasonal Allergies Seasonal Allergies: No Past Medical History Surgeries: Yes (HEMRRHOIDECTOMY) Respiratory: No Currently Using CPAP: No Currently Using BIPAP: No Cardiac: No 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, alcoholism) Traumatic Brain Injury Genitourinary: No Gastrointestinal: Yes Liver Disease/Jaundice Musculoskeletal: No Endocrine: No HEENT: No Loss of Vision: Denies Hearing Impairment: Denies Cancer: No Psychosocial: Yes (ETOH ABUSE HX) Anxiety, Depression Integumentary: No Blood Disorders: No Adverse Reaction/Blood Tranf: No Family Medical History FH: breast cancer 19 MOTHER Hypertension 19 MOTHER Cancer, Hypertension Physical Exam Vital Signs Vital Signs - First Documented 10/25/20 16:15 Temp 36.4 Pulse 106 Resp 16 B/P (MAP) 142/86 (104) Pulse Ox 92 O2 Delivery Room Air Capillary Refill : Less Than 3 Seconds Height, Weight, BMI Height: '" Weight: lbs. oz. kg; 27.00 BMI Method: General Appearance: WD/WN, Mild Distress Eyes: Right Eye Lid Inflammation, Right Eye Other (Purulent discharge); Tin ateral Eye PERRL, Bilateral Eye EOMI HEENT: PERRL/EOMI, TMs Normal, Normal ENT Inspection, Pharynx Normal Neck: Full Range of Motion, Normal Inspection, Non Tender, Supple Respiratory: Chest Non Tender, Lungs Clear, Normal Breath Sounds Cardiovascular: Regular Rate, Rhythm, No Murmur, Normal Peripheral Pulses Gastrointestinal: Normal Bowel Sounds, Non Tender, Distended (Mild ascites) Extremity: Normal Capillary Refill, Normal Range of Motion, Non Tender, No Calf Tenderness, Pedal Edema (2+) Neurologic/Psychiatric: Alert, No Motor/Sensory Deficits, Normal Mood/Affect, Other (Oriented to person and place) Skin: Normal Color, Warm/Dry; No Petechia, No Rash Progress/Results/Core Measures Suspected Sepsis Recent Fever Within 48 Hours: No Infection Criteria Present: None New/Unexplained Altered Menta: No Sepsis Screen: No Definite Risk SIRS Temperature: Pulse: 106 Respiratory Rate: 16 Laboratory Tests 10/25/20 16:15: White Blood Count 6.1 Blood Pressure 142 /86 Mean: 104 Laboratory Tests 10/25/20 16:15: Creatinine 1.58H, INR Comment 1.1, Platelet Count 55L, Total Bilirubin 4.4H Results/Orders Lab Results Laboratory Tests Test 10/25/20 16:15 10/25/20 16:17 Range/Units White Blood Count 6.1 4.3-11.0 10^3/uL Red Blood Count 3.80 L 4.30-5.52 10^6/uL Hemoglobin 13.4 13.3-17.7 g/dL Hematocrit 40 40-54 % Mean Corpuscular Volume 106 H 80-99 fL Mean Corpuscular Hemoglobin 35 H 25-34 pg Mean Corpuscular Hemoglobin Concent 33 32-36 g/dL Red Cell Distribution Width 13.3 10.0-14.5 % Platelet Count 55 L 130-400 10^3/uL Mean Platelet Volume 11.3 9.0-12.2 fL Immature Granulocyte % (Auto) 1 % Neutrophils (%) (Auto) 58 42-75 % Lymphocytes (%) (Auto) 30 12-44 % Monocytes (%) (Auto) 10 0-12 % Eosinophils (%) (Auto) 2 0-10 % Basophils (%) (Auto) 0 0-10 % Neutrophils # (Auto) 3.5 1.8-7.8 10^3/uL Lymphocytes # (Auto) 1.8 1.0-4.0 10^3/uL Monocytes # (Auto) 0.6 0.0-1.0 10^3/uL Eosinophils # (Auto) 0.1 0.0-0.3 10^3/uL Basophils # (Auto) 0.0 0.0-0.1 10^3/uL Immature Granulocyte # (Auto) 0.0 0.0-0.1 10^3/uL Prothrombin Time 14.9 H 12.2-14.7 SEC INR Comment 1.1 0.8-1.4 Activated Partial Thromboplast Time 23 L 24-35 SEC Sodium Level 140 135-145 MMOL/L Potassium Level 4.3 3.6-5.0 MMOL/L Chloride Level 99 98-107 MMOL/L Carbon Dioxide Level 15 L 21-32 MMOL/L Anion Gap 26 H 5-14 MMOL/L Blood Urea Nitrogen 35 H 7-18 MG/DL Creatinine 1.58 H 0.60-1.30 MG/DL Estimat Glomerular Filtration Rate 45 BUN/Creatinine Ratio 22 Glucose Level 64 L 70-105 MG/DL Calcium Level 8.1 L 8.5-10.1 MG/DL Corrected Calcium 8.6 8.5-10.1 MG/DL Magnesium Level 2.5 H 1.6-2.4 MG/DL Total Bilirubin 4.4 H 0.1-1.0 MG/DL Aspartate Amino Transf (AST/SGOT) 199 H 5-34 U/L Alanine Aminotransferase (ALT/SGPT) 69 H 0-55 U/L Alkaline Phosphatase 135 40-136 U/L Ammonia 68 H 11-32 UMOL/L Myoglobin 253.8 H 10.0-92.0 NG/ML C-Reactive Protein High Sensitivity 5.46 H 0.00-0.50 MG/DL Total Protein 7.4 6.4-8.2 GM/DL Albumin 3.4 3.2-4.5 GM/DL Amylase Level 67 25-125 U/L TSH [place] Testing 0.81 0.35-4.94 UIU/ML Serum Alcohol 369 *H <10 MG/DL Glucometer 63 L 70-110 MG/DL My Orders Orders - REGAN FLORES Ed Iv/Invasive Line Start (10/25/20 16:11) D5 1/2 Ns 1000 Ml Iv Solution (Dextrose (10/25/20 16:15) Alcohol (10/25/20 16:12) Ammonia (10/25/20 16:12) Amylase (10/25/20 16:12) Cbc With Automated Diff (10/25/20 16:12) Comprehensive Metabolic Panel (10/25/20 16:12) Hs C Reactive Protein (10/25/20 16:12) Magnesium (10/25/20 16:12) Protime With Inr (10/25/20 16:12) Partial Thromboplastin Time (10/25/20 16:12) Thyroid Analyzer (10/25/20 16:12) Myoglobin Serum (10/25/20 16:12) Ondansetron Injection (Zofran Injectio (10/25/20 16:45) Medications Given in ED Current Medications Medications Dose Ordered Sig/Una Route Start Time Stop Time Status Last Admin Dose Admin Dextrose/Sodium Chloride 1,000 ml @ 0 mls/hr ONCE ONCE IV 10/25/20 16:15 10/25/20 16:16 DC 10/25/20 16:20 0 MLS/HR Ondansetron HCl 8 mg ONCE ONCE IVP 10/25/20 16:45 10/25/20 16:46 DC 10/25/20 17:00 8 MG Vital Signs/I&O 10/25/20 10/25/20 16:15 17:58 Temp 36.4 36.4 Pulse 106 99 Resp 16 16 B/P (MAP) 142/86 (104) 136/98 (104) Pulse Ox 92 94 O2 Delivery Room Air Room Air Capillary Refill : Less Than 3 Seconds Blood Pressure Mean: 104 Progress Note : Time: 16:15 Progress Note Patient seen and evaluated, will obtain labs, D5 half-normal saline per IV for blood glucose of 60. Zofran 8 mg IV for nausea. 1700 patient resting in bed, denies any further nausea. Have spoken to and updated on status. No complaints at this time 1715 serum alcohol 369. Spoke to Dr. Elyssa Victoria per phone and reviewed labs, recommended d/c to home, she will follow up with the patient. Discussed with to not stop all alcohol due to risk of withdrawals and seizures. Discharge instructions and return precautions reviewed with the patient and per phone. Departure Impression Primary Impression: Alcohol dependence with acute alcoholic intoxication Qualified Codes: F10.220 - Alcohol dependence with intoxication, uncomplicated Additional Impressions: Cirrhosis Qualified Codes: K70.31 - Alcoholic cirrhosis of liver with ascites Conjunctivitis Qualified Codes: H10.31 - Unspecified acute conjunctivitis, right eye Disposition: HOME, SELF-CARE Condition: Stable Departure-Patient Inst. Decision time for Depature: 17:15 Referrals: NO,LOCAL PHYSICIAN (PCP) Primary Care Physician ELYSSA VICTORIA MD Patient Instructions: Alcohol Abuse and Alcoholism (DC) Add. Discharge Instructions: Follow up with Dr. Victoria, call for appt to see her next week. Increase water in diet. Slowly decrease alcohol, with instructions from Dr. Victoria. Do not stop abruptly. Use eye drops, as prescribed Return to Emergency Department for new, urgent healthcare needs. All discharge instructions reviewed with patient and/or family. Voiced understanding. Scripts Tobramycin/Dexamethasone (Tobradex Eye Drops) 5 Ml Drops.susp 2 DROPS OD TID for 5 Days, #1 EA 0 Refills Prov: REGAN FLORES 10/25/20 Copy Copies To 1: ELYSSA VICTORIA MD, AMY ARNP Oct 25, 2020 17:07
[2020-10-25 17:13] LABS: TSH (THYROID ANALYZER) 0.81 UIU/ML (0.35-4.94)
[2020-10-25] MEDS ORDERED: TOBR5DRO2 OD (17:33)
[2020-10-25 17:58] VITALS: BP 136/98
== END 2020-10-25 17:50 | disposition home or self-care (01) ==
LOC: EDUNIT# 16:05 → ER 16:06
DX: F10.229 Alcohol dependence with intoxication, unspecified (principal); K70.31 Alcoholic cirrhosis of liver with ascites; H10.9 Unspecified conjunctivitis; Z80.3 Family history of malignant neoplasm of breast; Z82.49 Family history of ischemic heart disease and other diseases of the circulatory system; Z87.820 Personal history of traumatic brain injury
CPT/HCPCS: 80053; 82140; 82150; 82962; 83735; 83874; 84443; 85025; 85610; 85730; 86141; 99284; G0480; 36415; 80320

== ENCOUNTER → 2021-07-03 | Outpatient (CLI) | payer MEDICARE, OTHER ==
[~2021-07-03] MED LIST changes: +SERT-414 PO; -SERT100T8 PO; +TOBR5DRO2 OD
[2021-07-03 15:08] LABS: CLARITY,URINE CLOUDY; COLOR,URINE YELLOW
[2021-07-03 15:10] LABS: GLUCOSE, URINE (UA) NEGATIVE (NEGATIVE); KETONES,URINE NEGATIVE (NEGATIVE); PROTEIN,URINE 1+ (NEGATIVE)
[2021-07-03 15:11] LABS: BILIRUBIN,URINE NEGATIVE (NEGATIVE); LEUKOCYTE ESTERASE ,URINE 2+ (NEGATIVE); NITRITE,URINE NEGATIVE (NEGATIVE)
[2021-07-03 15:14] LABS: BACTERIA,URINE NEGATIVE /HPF; WBC,URINE >100 /HPF
== END ==
LOC: LABNPT 13:36
PROVIDERS: ATTEND Pediatrics
DX: R30.0 Dysuria (principal)
CPT/HCPCS: 81000; 87088

== ENCOUNTER → 2021-09-13 | Outpatient (CLI) | payer MEDICARE, OTHER ==
[2021-09-13 14:53] LABS: BILIRUBIN,URINE NEGATIVE (NEGATIVE); CLARITY,URINE CLOUDY; COLOR,URINE YELLOW; GLUCOSE, URINE (UA) NEGATIVE (NEGATIVE); KETONES,URINE NEGATIVE (NEGATIVE); LEUKOCYTE ESTERASE ,URINE 1+ (NEGATIVE); NITRITE,URINE NEGATIVE (NEGATIVE); PROTEIN,URINE TRACE (NEGATIVE)
[2021-09-13 15:03] LABS: BACTERIA,URINE NEGATIVE /HPF; SQUAMOUS EPITHELIAL CELL,UR RARE /HPF; WBC,URINE 25-50 /HPF
== END ==
LOC: LABNPT 14:49
PROVIDERS: ATTEND Pediatrics
DX: R30.0 Dysuria (principal); R33.9 Retention of urine, unspecified
CPT/HCPCS: 81000; 87088

== ENCOUNTER 2022-03-22 19:31 | Emergency (ER) | payer MEDICARE, OTHER ==
[~2022-03-22] VITALS: Ht 208.3 cm; Wt 100.0 kg
[~2022-03-22 19:31] MED LIST changes: -POTA10TA36 PO; +POTA10TA37 PO; -TOPI25CA4 PO; +TOPI25CA7 PO
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
[2022-03-22 20:02] LABS: BASOPHILS # (AUTO) 0.1 10^3/uL (0.0-0.1); BASOPHILS % (AUTO) 1 % (0-10); EOSINOPHILS # (AUTO) 0.2 10^3/uL (0.0-0.3); EOSINOPHILS % (AUTO) 3 % (0-10); HEMATOCRIT 31 % (40-54); HEMOGLOBIN 10.5 g/dL (13.3-17.7); LYMPHOCYTES # (AUTO) 2.8 10^3/uL (1.0-4.0); LYMPHOCYTES % (AUTO) 47 % (12-44); MEAN CORPUSCULAR HEMOGLOBIN 35 pg (25-34); MEAN CORPUSCULAR HGB CONC 34 g/dL (32-36); MEAN CORPUSCULAR VOLUME 102 fL (80-99); MEAN PLATELET VOLUME 9.3 fL (9.0-12.2); MONOCYTES # (AUTO) 0.8 10^3/uL (0.0-1.0); MONOCYTES % (AUTO) 14 % (0-12); NEUTROPHILS # (AUTO) 2.2 10^3/uL (1.8-7.8); NEUTROPHILS % (AUTO) 36 % (42-75); PLATELET COUNT 135 10^3/uL (130-400)
[2022-03-22 20:28] LABS: ALBUMIN 3.2 GM/DL (3.2-4.5); BILIRUBIN,TOTAL 0.4 MG/DL (0.1-1.0); CALCIUM 8.4 MG/DL (8.5-10.1); CREATININE SERUM 1.71 MG/DL (0.60-1.30); MAGNESIUM 2.1 MG/DL (1.6-2.4); POTASSIUM 3.9 MMOL/L (3.6-5.0); TOTAL PROTEIN 6.5 GM/DL (6.4-8.2)
[2022-03-22] MEDS ORDERED: NS IV 1000 ML 1,000 ML IV STA (20:49)
--- NOTE | 2022-03-22 21:44 | Diagnostic Imaging Report ---
PROCEDURE: CT lumbar spine without contrast. TECHNIQUE: Multiple contiguous axial images were obtained through the lumbar spine without the use of intravenous contrast. Sagittal and coronal reformations were then performed. Auto Exposure Controls were utilized during the CT exam to meet ALARA standards for radiation dose reduction. INDICATION: Back pain post fall. CORRELATION: None. FINDINGS: Lumbar spinal alignment overall is relatively anatomic. There is slight anterior wedging at the T12 and T11 levels appearing to be nonacute and chronic. Lumbar vertebral body heights are maintained. There is no acute appearing compression deformity of the lumbar spine. Mild asymmetric areas of hypertrophic facet arthropathy of the lumbar spine. There is near effusion or prominent ossification along the spinous process to the lower thoracic and lumbar spine. Transverse processes appear to be intact. SI joints demonstrate asymmetric fusion on the right. There are various degrees of mild to moderate spinal canal stenosis owing to ligamentum and degenerative hypertrophic changes. Bilateral renal stones are present. On the right, there appear to be two adjacent stones in the right proximal to mid ureter, largest measuring up to 7 mm. There is rather significant dilatation with hydronephrosis and caliectasis of the right renal collecting system. Diffuse thinning and atrophic changes of partially visualized right kidney. IMPRESSION: 1. Negative for acute fracture or traumatic subluxation in the lumbar spine. Advanced multilevel degenerative changes are present. 2. Bilateral renal stones. There are two adjacent larger stones in the right ureter which result in rather significant obstructive uropathy. There is marked thinning and compression of the right renal parenchyma. It may be somewhat chronic, however, appears changed from prior study of August 2020. Telephone call has been made to the [facility]. Dictated by: Dictated on workstation # [id number]
--- NOTE | 2022-03-22 21:53 | Diagnostic Imaging Report ---
PROCEDURE: CT head and CT cervical spine without contrast. TECHNIQUE: Multiple contiguous axial images were obtained through the brain and cervical spine without the use of intravenous contrast. Sagittal and coronal reformations through the cervical spine were then performed. Auto Exposure Controls were utilized during the CT exam to meet ALARA standards for radiation dose reduction. INDICATION: 62-year-old male, status post fall with laceration to back of head, pain. CORRELATION STUDY: CT head 09/12/2020, CT head and cervical spine 07/12/2020. FINDINGS: CT head: There is generalized atrophic changes with prominence of ventricles and sulci. There is a very small nodular foci of increased density in the dependent left lateral ventricle, changed from prior, suggesting a very small amount of intraventricular hemorrhage. No additional areas of intracranial hemorrhage suggested. There is no appreciable midline shift or mass effect. Basilar cisterns are maintained. The bony calvarium is intact. Mild mucosal thickening of the maxillary sinuses. Probable multiple dental caries. CT cervical spine: There is no acute fracture or traumatic subluxation. Rather advanced multilevel cervical spondylosis is present. Various degrees of disc space narrowing is noted. Asymmetric hypertrophic facet arthropathy also present. Odontoid intact. More prominent endplate osteophyte formation at C5-C6 level does result in osseous encroachment and narrowing of the neural foramina. A few scattered shoddy cervical lymph nodes are present. IMPRESSION: CT head: 1. Findings positive for what appears to be a small amount of intraventricular hemorrhage, dependently in the left lateral ventricle. CT cervical spine: 1. Negative for acute fracture or traumatic subluxation. Rather advanced multilevel cervical spondylosis is present. Critical findings. Telephone call made to the emergency department, 9:34 PM. Dictated by: Dictated on workstation # [id number]
[2022-03-22 21:59] LABS: PROTHROMBIN TIME PATIENT 13.2 SEC (12.2-14.7)
[2022-03-22] MEDS ORDERED: LIDOCAINE 1% INJ 20 ML VIAL INJ ONE (22:30)
[2022-03-22] MEDS ORDERED: fentaNYL INJ 100 MCG/2 ML AMP IVP STA (22:31)
[2022-03-22 23:32] VITALS: BP 109/70
== END 2022-03-22 23:32 | disposition short-term general hospital (02) ==
LOC: EDUNIT# 19:31 → ER 19:33 → 4TH 22:40 → UNDOADMIN 22:40 → ER 23:32
DX: S06.300A Unspecified focal traumatic brain injury without loss of consciousness, initial encounter (principal); S37.009A Unspecified injury of unspecified kidney, initial encounter; F10.229 Alcohol dependence with intoxication, unspecified; R60.0 Localized edema; R40.2360 Coma scale, best motor response, obeys commands, unspecified time; R40.2250 Coma scale, best verbal response, oriented, unspecified time; R40.2140 Coma scale, eyes open, spontaneous, unspecified time; Y90.8 Blood alcohol level of 240 mg/100 ml or more; Y04.8XXA Assault by other bodily force, initial encounter
CPT/HCPCS: 12002; 70450; 72125; 72131; 80053; 83690; 83735; 85025; 85610; 85730; 99285; G0480; 36415; 80320

== ENCOUNTER 2022-03-28 11:15 | Inpatient (IN) | payer MEDICARE, OTHER ==
[~2022-03-28] VITALS: Ht 178 cm; Wt 108.1 kg
[2022-03-28] MEDS ORDERED: FURO40TA4 PO (14:12)
[2022-03-28] MEDS ORDERED: LORA-405 PO (14:12)
[2022-03-28] MEDS ORDERED: SPIR100T4 PO (14:12)
[2022-03-28] MEDS ORDERED: TOPI50TA13 PO (14:12)
[2022-03-28] MEDS ORDERED: DIPH25TA65 PO (14:12)
[2022-03-28] MEDS ORDERED: OXYC5TAB PO (14:12)
[2022-03-28] MEDS ORDERED: GABA-486 PO (14:12)
[2022-03-28] MEDS ORDERED: CEFD300C3 PO (14:12)
[2022-03-28] MEDS ORDERED: TR1C15 TOP (14:12)
[2022-03-28] MEDS ORDERED: MULT-166 PO (14:12)
[2022-03-28] MEDS ORDERED: HYDR-3584 PO (14:12)
[2022-03-28] MEDS ORDERED: BISACODYL 10 MG SUPP (DULCOLAX) PR PRN (14:30)
[2022-03-28] MEDS ORDERED: ONDANSETRON 4 MG (ZOFRAN) ORAL DISSOLVE TAB PO PRN (14:30)
[2022-03-28] MEDS ORDERED: LACTULOSE SYRUP 10GM/15ML (ENULOSE) 30ML UDC PO PRN (14:30)
[2022-03-28] MEDS ORDERED: guaiFENesin/CODEINE (ROBITUSSIN AC) 10ML UDC PO PRN (14:30)
[2022-03-28] MEDS ORDERED: MELATONIN 3 MG TABLET PO PRN (14:30)
[2022-03-28] MEDS ORDERED: DOCUSATE SODIUM 100 MG (COLACE) CAP PO PRN (14:30)
[2022-03-28] MEDS ORDERED: CALCIUM CARBONATE 500 MG (TUMS) TAB.CHEW PO PRN (14:30)
[2022-03-28] MEDS ORDERED: LOPERAMIDE 2 MG (IMODIUM) TABLET PO PRN (14:30)
[2022-03-28] MEDS ORDERED: FLEET ENEMA ADULT 1 EA BTL PR PRN (14:30)
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
[2022-03-28 15:30] VITALS: BP 151/77
--- NOTE | 2022-03-28 15:39 | IRF PAI BIMS ---
BIMS BIMS IRF LÓPEZ BIMS: IRF LÓPEZ BIMS Response (Comments) Value Expression of Ideas and Wants (Verbal/Non Verbal) Without Difficulty 3 Understanding Verbal Content Understands 3 Repitition of Three Words Three (3) 3 What year is it right now? Correct (3) 0 What month is it right now? Accurate within 5 days (2) 0 What week is it now? Incorrect or N/A 0 Recalls Socks Yes, No Cue Required (2) 2 Recalls Blue Yes, No Cue Required (2) 2 Recalls Bed Yes, After Cueing (1) 1 Total 14 Brief Interview/Mental Status: No Notes: BIMS summary score 13/15 ANDIE HELTON OT March 28, 2022 15:39
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
--- NOTE | 2022-03-28 15:46 | Physical Therapy Evaluation ---
PT Evaluation-General Medical Diagnosis Admission Date 03/28/2022 Medical Diagnosis: Head Injury Onset Date: March 27, 2022 Therapy Diagnosis Therapy Diagnosis: Gait deficit, strength deficit Precautions Precautions/Isolations: Fall Prevention, Standard Precautions Weight Bear Status Right Lower Extremity: Right Full Weight Bearing Left Lower Extremity: Left Full Weight Bearing TLSO donned at all times when up and donned prior to transferring out of bed. Referral Physician: Dr. Steinberg Reason for Referral: Evaluation/Treatment Medical History Pertinent Medical History: Alcoholism, Dementia Social History Home: Single Level Current Living Status: Spouse Entry Into Home: Stairs With Railing PT Steps Into Home: 3 Prior Prior Level of Function SCALE: Activities may be completed with or without assistive devices. 3-Zvkfaeqasn-zxbhqcb completes the activity by him/herself with no assistance from a helper. 5-Set-up or Clean-up Assistance-helper sets up or cleans up; patient completes activity. [place] assists only prior to or following the activity. 4-Supervision or Touching Assistance-helper provides verbal cues and/or touching/steadying and/or contact guard assistance as patient completes activity. Assistance may be provided throughout the activity or intermittently. 3-Partial/Moderate Assistance-helper does LESS THAN HALF the effort. [place] lifts, holds or supports trunk or limbs, but provides less than half the effort. 2-Substantial/Maximal Assistance-helper does MORE THAN HALF the effort. [place] lifts or holds trunk or limbs and provides more than half the effort. 2-Wwoamaano-icepyv does ALL the effort. Patient does none of the effort to complete the activity. Or, the assistance of 2 or more helpers is required for the patient to complete the activity. If activity was not attempted, code reason: 7-Patient Refused. 9-Not Applicable-not attempted and the patient did not perform the activity before the current illness, exacerbation or injury. 10-Not Attempted due to Environmental Limitations-(lack of equipment, weather restraints, etc.). 88-Not Attempted due to Medical Conditions or Safety Concerns. Bed Mobility: 6 Transfers (B,C,W/C): 6 Gait: 6 Stairs: 6 Indoor Mobility (Ambulation): Independent Stairs: Independent Prior Devices Use: None PT Evaluation-Current Subjective Patient rates pain at 6/10 in his back. Patient sitting in car with standing beside him upon PT arrival. Patient agreeable to treatment. Objective Patient Orientation: Person, Time, Situation Attachments: Rock Catheter ROM/Strength ROM Lower Extremities WFLs bilaterally all planes Strength Lower Extremities 4/5 bilaterally all planes Sensory Vision: Functional Hearing: Functional Sensation Right Lower Extremit: Intact Sensation Left Lower Extremity: Intact Transfers Roll Left & Right (QC): 3 Sit to Lying (QC): 3 Lying to Sitting/Side of Bed(Q: 3 Sit to Stand (QC): 3 Chair/Ruf-qr-Ywkzv Xfer(QC): 4 Toilet Transfer (QC): 4 Car Transfer (QC): 4 Gait Does the Patient Walk?: Yes Mode of Locomotion: Walk Anticipated Mode of Locomotion: Walk Walk 10 feet (QC): 4 Walk 50 ft with 2 Turns(QC): 4 Walk 150 ft (QC): 4 Walking 10ft/uneven surface-QC: 4 Distance: 300 feet Gait Assistive Device: FWW Wheelchair Training Does the Pt Use a Wheelchair?: No Wheel 50 ft with 2 turns (QC): 9 Wheel 150 ft (QC): 9 Stairs #of Steps: 12 1 Step (curb) (QC): 3 4 Steps (QC): 3 12 Steps (QC): 3 Balance Sitting Static: Normal Sitting Dynamic: Good Standing Static: Fair Standing Dynamic: Fair Picking up an Object (QC): 88 Assessment/Needs Patient tolerated treatment fair. He demonstrates min/SBA for all bed mobility and transfers. Patient ambulates 300 feet with FWW, with CGA and verbal cues for safety, progression, balance and posture. Patient presents to this hospital without the TLSO donned. He ambulated to the ARU floor and then the TLSO was donned. He reports no increase in pain or discomfort sans TLSO. Patient participated PT evaluation and then was transferred to BUSINESS CONTINUITY PLANNING DIRECTOR for treatment. Patient sitting in chair with OT, BUSINESS CONTINUITY PLANNING DIRECTOR and [facility] in the therapy gym. Rehab Potential: Good Equipment Needs FWW PT Retirement Goals Retirement Goals PT Pain Management Specialist Goals Time Frame: May 02, 2022 Roll Left & Right (QC): 6 Sit to Lying (QC): 6 Lying-Sitting on Side/Bed(QC): 6 Sit to Stand (QC): 6 Chair/Tfj-vt-Ygzyf Xfer(QC): 6 Toilet Transfer (QC): 6 Car Transfer (QC): 6 Does the Patient Walk: Yes Walk 10 feet (QC): 6 Walk 50ft with 2 Turns (QC): 6 Walk 150 ft (QC): 6 Walking 10ft on Uneven Surface: 6 1 Step (curb) (QC): 6 4 Steps (QC): 6 12 Steps (QC): 6 Picking up an Object (QC): 4 Does the Pt use WC or Scooter?: No Wheel 50 feet with 2 turns (QC: 9 Wheel 150 feet: 9 PT Plan Problem List Problem List: Activity Tolerance, Functional Strength, Safety, Balance, Gait, Transfer, Bed Mobility, ROM Treatment/Plan Treatment Plan: Continue Plan of Care Treatment Plan: Bed Mobility, Education, Functional Activity Flex, Functional Strength, Group Therapy, Gait, Safety, Therapeutic Exercise, Transfers Treatment Duration: May 08, 2022 Frequency: At least 5 of 7 days/Wk (IRF) Estimated Hrs Per Day: 1.5 hours per day Patient and/or Family Agrees t: Yes Safety Risks/Education Patient Education: Gait Training, Transfer Techniques, Steps Teaching Recipient: Patient Teaching Methods: Demonstration, Discussion Response to Teaching: Verbalize Understanding, Return Demonstration Time/GCodes Time In: 151 Time Out: 152 Total Billed Treatment Time: 10 Total Billed Treatment Visit, AMARIS Webster PT March 28, 2022 15:46
--- OUTSIDE RECORDS SUMMARY | 2022-03-28 15:48 | XMS REPORT | Clinical Summary ---
Author Author [facility] Organization [facility] Address Unknown Phone Unavailable Care Team Providers Care Stock Selector Name Role Phone Jordin Crabtree MD PCP Source Comments Some departments are not documenting in the electronic medical record. If you d o not see the information that you expected, contact Release of Information in [facility] [employer] Information Management department at [phone] for further assistan ce in locating additional records.[facility] Allergies No known active allergies Medications End Date Status Medication Sig Dispensed Refills Start Date Active propranoloL (INDERAL) 10 Take 10 mg by 0 mg tablet mouth daily. Active topiramate (TOPAMAX) 50 Take 50 mg by 0 mg tablet mouth four times daily. Active sertraline (ZOLOFT) 100 Take 100 mg 0 mg tablet by mouth at bedtime daily. Active traZODone (DESYREL) 50 mg Take 50 mg by 0 tablet mouth at bedtime as needed for Sleep. Active acetaminophen (TYLENOL) Take one 0 500 mg tablet tablet by 0 mouth every 6 hours as needed for Pain. Max of 2,000 mg of acetaminophen in 24 hours Active folic acid (FOLVITE) 1 mg Take one 90 tablet 1 tablet tablet by 0 mouth daily. Active thiamine (VITAMIN B-1) Take one 90 tablet 1 100 mg tablet tablet by 0 mouth daily. Active Problems Problem Noted Date Thrombocytopenia 09/03/2020 DA (acute kidney injury) 09/03/2020 Pancytopenia 09/03/2020 Hypoalbuminemia 09/03/2020 C. difficile diarrhea 09/02/2020 Alcoholic cirrhosis of liver without ascites 020 Hypokalemia 09/02/2020 History of alcohol use disorder 09/02/2020 Alcoholic hepatitis without ascites 08/30/2020 Social History Date Tobacco Use Types Packs/Day Years Used Never Smoker Comments Alcohol Use Standard Drinks/Week Yes 0 (1 standard drink = 0.6 o z pure alcohol) Sex Assigned at Date Recorded Not on file Obstetrics History Last Filed Vital Signs Reading Time Taken Comments Vital Sign 100/62 09/02/2020 9:40 AM CDT Blood Pressure 75 09/02/2020 9:40 AM CDT Pulse 36.7 C (98 F) 09/02/2020 9:40 AM CDT Temperature - - Respiratory Rate 98% 09/02/2020 9:40 AM CDT Oxygen Saturation - - Inhaled Oxygen Concentration 117.9 kg (260 lb) 08/31/2020 12:33 PM CDT Weight 177.8 cm (5' 10") 08/31/2020 12:33 PM CDT Height 37.31 08/31/2020 12:33 PM CDT Body Mass Index Plan of Treatment Health Maintenance Due Date Last Done Comments COVID-19 VACCINE (1) 02[birth year]06/1964 HIV SCREENING 1974 DTAP/TDAP VACCINES (1 - 1977 Tdap) PHYSICAL (COMPREHENSIVE) 1977 EXAM COLORECTAL CANCER 2009 SCREENING SHINGLES RECOMBINANT 2009 VACCINE (1 of 2) INFLUENZA VACCINE 09/09/2022 12/29/2019 HEPATITIS C SCREENING Completed 08/31/2020 Goals Goal Patient Associated Recent Progress Patient-Stat Aut hor Goal Type Problems ed? GOAL General No Tamie Valera, RN Note: Stay sober Results Not on filefrom Last 3 Months Insurance Type Payer Benefit Subscriber ID Effective Phone Address Plan / Dates Group PPO BCBS RONI BCBS PC [id number] 2019-P [phone] [id number] [place] [id number] Advance Directives Patient Seamless T[employer] Operator Explanation Type Date Recorded Advance 09/01/2020 2:50 PM Directive/DPOA Date Inactivated Comments Code Status Date Activated 09/02/2020 4:19 PM Full Code 08/30/2020 5:34 PM Provider has discussed Code Status No, discussion no t w/Patient or Family? necessary based on Dx Care Teams Start Date End Date Stock Selector Relationship Specialty 08/30/20 Jordin Crabtree MD PCP - General Family [address] [place] [id number]
--- NOTE | 2022-03-28 16:17 | Physical Therapy Daily Note ---
PT Daily Note-Current Subjective Pt. agrees to Rx. Pleasant and shares and is social, Pt. c/o back pain at 05/18. Pt. agrees to PT OT co Rx . PT and OT coordinating for functional mobility and ADLs . Pain Numeric Pain Scale: 7 Location: Medial Location Body Site: Back Pain Description: Ache Mental Status Patient Orientation: Person Attachments: Other-See Comments (Denisse LSO) Transfers SCALE: Activities may be completed with or without assistive devices. 6-Ovsbgnrwzb-tjsrrrb completes the activity by him/herself with no assistance from a helper. 5-Set-up or Clean-up Assistance-helper sets up or cleans up; patient completes activity. [place] assists only prior to or following the activity. 4-Supervision or Touching Assistance-helper provides verbal cues and/or touc jennifer/steadying and/or contact guard assistance as patient completes activity. Assistance may be provided throughout the activity or intermittently. 3-Partial/Moderate Assistance-helper does LESS THAN HALF the effort. [place] lifts, holds or supports trunk or limbs, but provides less than half the effort. 2-Substantial/Maximal Assistance-helper does MORE THAN HALF the effort. [place] lifts or holds trunk or limbs and provides more than half the effort. 5-Ubzsfxefe-urdhko does ALL the effort. Patient does none of the effort to complete the activity. Or, the assistance of 2 or more helpers is required for the patient to complete the activity. If activity was not attempted, code reason: 7-Patient Refused. 9-Not Applicable-not attempted and the patient did not perform the activity before the current illness, exacerbation or injury. 10-Not Attempted due to Environmental Limitations-(lack of equipment, weather restraints, etc.). 88-Not Attempted due to Medical Conditions or Safety Concerns. Roll Left & Right (QC): 4 Sit to Lying (QC): 4 Lying to Sitting/Side of Bed(Q: 4 Sit to Stand (QC): 4 Chair/Tvv-si-Rkydj Xfer(QC): 4 Toilet Transfer (QC): 4 Weight Bearing Right Lower Extremity: Right Full Weight Bearing Left Lower Extremity: Left Full Weight Bearing TLSO donned at all times when up and donned prior to transferring out of bed. Gait Training Does the Patient Walk?: Yes Walk 150 ft (QC): 4 Gait Assistive Device: FWW no LOB 150 ft x 1 , even step length Treatments PT OT co Rx for above functional mobility and orientation to ARU to include gait, TRFs, bathing, dressing, toilet trial as well as log roll technique and LSO application multiple trials. Assessment Current Status: Good Progress gives full effort, pleasant and cooperative PT Mutuel Teller Goals Usp Goals PT Mutuel Teller Goals Time Frame: May 02, 2022 Roll Left & Right (QC): 6 Sit to Lying (QC): 6 Lying-Sitting on Side/Bed(QC): 6 Sit to Stand (QC): 6 Chair/Bma-xx-Pfxgn Xfer(QC): 6 Toilet Transfer (QC): 6 Car Transfer (QC): 6 Does the Patient Walk: Yes Walk 10 feet (QC): 6 Walk 50ft with 2 Turns (QC): 6 Walk 150 ft (QC): 6 Walking 10ft on Uneven Surface: 6 1 Step (curb) (QC): 6 4 Steps (QC): 6 12 Steps (QC): 6 Picking up an Object (QC): 4 Does the Pt use WC or Scooter?: No Wheel 50 feet with 2 turns (QC: 9 Wheel 150 feet: 9 PT Plan Treatment/Plan Treatment Plan: Continue Plan of Care Treatment Plan: Bed Mobility, Education, Functional Activity Flex, Functional Strength, Group Therapy, Gait, Safety, Therapeutic Exercise, Transfers Treatment Duration: May 08, 2022 Frequency: At least 5 of 7 days/Wk (IRF) Estimated Hrs Per Day: 1.5 hours per day Patient and/or Family Agrees t: Yes Safety Risks/Education Patient Education: Gait Training, Transfer Techniques, Reviewed Precautions, Correct Positioning, Reviewed Don/Doff Brace, Disease Process, Safety Issues Teaching Recipient: Patient Teaching Methods: Demonstration, Discussion Response to Teaching: Verbalize Understanding, Return Demonstration, Reinforcement Needed Time/GCodes Time In: 1532 Time Out: 1452 Total Billed Treatment Time: 80 Total Billed Treatment 1,[id number] MECHELLE MOON DOLL REPAIRER March 28, 2022 16:17
--- NOTE | 2022-03-28 16:58 | Occupational Ther Daily Note ---
OT Current Status-Daily Note Subjective Took over pt from OTR/L. Pt alert and c/o pain though states he is okay. OT/PT co-treat ([id number]), skills of 2 clinicians required to decrease fall risk, increase mobility, monitor pain levels and adhere to back precautions during dynamic functional tasks. PT focusing on ambulation, transfers and all mobility while OT focusing on ADLs and functional mobility. Mental Status/Objective Patient Orientation: Person, Place, Time, Situation Attachments: Other-See Comments (TLSO) ADL-Treatment Pt agrees to sponge bath. After set up, pt able to complete sponge bath sitting at sink-upper body by self, lower body assist only lower legs/feet and CGA while pt cleanses manohar area/buttocks. Pt able to complete clothing manipulation and cleansing for toileting with CGA. Pt requires mod A to don/doff TLSO though is progressing with completing by self. Pt able to don/doff shirt by self after set up. CGA in standing to hike pants over hips, assist to thread R foot due to saucedo catheter then pt is able to thread L foot then pull up pants without breaking back precautions. Pt is able to slip on shoes after set up by self. Pt will need AE to don socks and will be educated for doffing/donning pants with AE if needed. Sitting at sink, pt is able to complete oral care independently. See PT notes for bed mobility, ambulation and transfer progress. After session, pt sitting in recliner with call light/phone in reach. All needs met in room. Therapy Code Descriptions/Definitions Functional [place] Measure: 0=Not Assessed/NA 4=Minimal Assistance 1=Total Assistance 5=Supervision or Setup 2=Maximal Assistance 6=Modified [place] 3=Moderate Assistance 7=Complete IndependenceSCALE: Activities may be completed with or without assistive devices. 0-Tnpmtgbiga-utqrwtn completes the activity by him/herself with no assistance from a helper. 5-Set-up or Clean-up Assistance-helper sets up or cleans up; patient completes activity. [place] assists only prior to or following the activity. 4-Supervision or Touching Assistance-helper provides verbal cues and/or touching/steadying and/or contact guard assistance as patient completes activity. Assistance may be provided throughout the activity or intermittently. 3-Partial/Moderate Assistance-helper does LESS THAN HALF the effort. [place] lifts, holds or supports trunk or limbs, but provides less than half the effort. 2-Substantial/Maximal Assistance-helper does MORE THAN HALF the effort. [place] lifts or holds trunk or limbs and provides more than half the effort. 4-Kjynlehij-dmodte does ALL the effort. Patient does none of the effort to complete the activity. Or, the assistance of 2 or more helpers is required for the patient to complete the activity. If activity was not attempted, code reason: 7-Patient Refused. 9-Not Applicable-not attempted and the patient did not perform the activity before the current illness, exacerbation or injury. 10-Not Attempted due to Environmental Limitations-(lack of equipment, weather restraints, etc.). 88-Not Attempted due to Medical Conditions or Safety Concerns. Oral Hygiene (QC): 6 Shower/Bathe Self (QC): 3 (min A) Upper Body Dressing (QC): 3 (Mod A) Lower Body Dressing (QC): 2 On/Off Footwear: 2 Toileting Hygiene (QC): 4 Toilet Transfer (QC): 4 OT Short Term Goals Short Term Goals Time Frame: Apr 09, 2022 Shower/bathe self: 3 Upper body dressin Lower body dressin Putting on/taking off footwear: 3 OT Fdc Goals Professional Application Designer Goals Time Frame: Apr 18, 2022 Eating (QC): 6 Oral Hygiene (QC): 6 Toileting Hygiene (QC): 6 Shower/Bathe Self (QC): 6 Upper Body Dressing (QC): 6 Lower Body Dressing (QC): 6 On/Off Footwear (QC): 6 1=Demonstrate adherence to instructed precautions during ADL tasks. 2=Patient will verbalize/demonstrate understanding of assistive devices/modifications for ADL. 3=Patient will improve strength/tolerance for activity to enable patient to perform ADL's. OT Education/Plan Problem List/Assessment Assessment: Decreased Activ Tolerance, Decreased UE Strength, Impaired Self- Care Skills Discharge Recommendations Plan/Recommendations: Continue POC Treatment Plan/Plan of Care Patient would benefit from OT for education, treatment and training to promote independence in ADL's, mobility, safety and/or upper extremity function for ADL's. Plan of Care: ADL Retraining, Functional Mobility, Group Exercise/Act as Ind, U E Funct Exercise/Act Treatment Duration: Apr 18, 2022 Frequency: At least 5 of 7 days/Wk (IRF) Estimated Hrs Per Day: 1.5 hours per day Agreement: Yes Rehab Potential: Good Time/GCodes Start Time: 15:32 Stop Time: 16:42 Total Time Billed (hr/min): 80 Billed Treatment Time 1 visit-ADL 3 (45 min) FA 2 (35 min) co-treat with PT 80 min WALE SEGOVIA March 28, 2022 16:58
[2022-03-28] MEDS ORDERED: diphenhydrAMINE 25 MG TAB (BENADRYL) PO PRN (17:30)
[2022-03-28] MEDS: ACETAMINOPHEN 325 MG TABLET PO PRN (17:33)
[2022-03-28 19:35] VITALS: BP 129/78
[2022-03-28] MEDS: DOCUSATE SODIUM 100 MG (COLACE) CAP PO SCH ×3 (19:45→20:27)
[2022-03-28] MEDS: SENNA W/DOCUSATE (SENOKOT S) TABLET PO SCH ×3 (19:45→20:27)
[2022-03-28] MEDS: GABAPENTIN 100 MG (NEURONTIN) CAP PO SCH (19:45)
[2022-03-28] MEDS: hydrOXYzine (ATARAX) 10 MG TAB PO SCH (19:45)
[2022-03-28] MEDS: CEFDINIR 300 MG (OMNICEF) CAP PO SCH (19:45)
[2022-03-28] MEDS: toPIRamate 100 MG (TOPAMAX) TAB PO SCH (19:45)
[2022-03-28] MEDS: toPIRamate 25 MG (TOPAMAX) TAB PO SCH (19:45)
[2022-03-28] MEDS: polyethylene glycoL POWDER 17 GM (MIRALAX) PACK PO SCH (19:52)
[2022-03-28] MEDS: TRIAMCINOLONE 0.1% CR (KENALOG) 15 GM TUBE TOP SCH ×2 (20:21→20:27)
[2022-03-28] MEDS: oxyCODONE ER 15 MG (oxyCONTIN CR) TAB PO SCH (22:06)
[2022-03-29 05:50] LABS: BASOPHILS % (AUTO) 1 % (0-10)
[2022-03-29 05:52] LABS: EOSINOPHILS # (AUTO) 0.2 10^3/uL (0.0-0.3); EOSINOPHILS % (AUTO) 4 % (0-10); HEMATOCRIT 35 % (40-54); HEMOGLOBIN 11.8 g/dL (13.3-17.7); LYMPHOCYTES # (AUTO) 1.4 10^3/uL (1.0-4.0); LYMPHOCYTES % (AUTO) 35 % (12-44); MEAN CORPUSCULAR HEMOGLOBIN 35 pg (25-34); MEAN CORPUSCULAR HGB CONC 34 g/dL (32-36); MEAN CORPUSCULAR VOLUME 104 fL (80-99); MEAN PLATELET VOLUME 9.8 fL (9.0-12.2); MONOCYTES # (AUTO) 0.5 10^3/uL (0.0-1.0); MONOCYTES % (AUTO) 12 % (0-12); NEUTROPHILS # (AUTO) 1.9 10^3/uL (1.8-7.8); NEUTROPHILS % (AUTO) 48 % (42-75); PLATELET COUNT 98 10^3/uL (130-400)
[2022-03-29 06:08] LABS: ALBUMIN 2.9 GM/DL (3.2-4.5); POTASSIUM 3.4 MMOL/L (3.6-5.0)
[2022-03-29 06:09] LABS: CALCIUM 8.8 MG/DL (8.5-10.1)
[2022-03-29] MEDS: MULTIVIT W/MINERALS TAB (THERAGRAN M) PO SCH (06:10)
[2022-03-29 06:11] LABS: TOTAL PROTEIN 6.3 GM/DL (6.4-8.2)
[2022-03-29 06:12] LABS: BILIRUBIN,TOTAL 0.6 MG/DL (0.1-1.0)
[2022-03-29 06:14] LABS: CREATININE SERUM 1.45 MG/DL (0.60-1.30)
[2022-03-29 07:25] VITALS: BP 130/82
[2022-03-29] MEDS: hydrOXYzine (ATARAX) 10 MG TAB PO SCH ×3 (08:09→20:57)
[2022-03-29] MEDS: FUROSEMIDE 40 MG (LASIX) TAB PO SCH (08:09)
[2022-03-29] MEDS: toPIRamate 25 MG (TOPAMAX) TAB PO SCH ×2 (08:09→20:57)
[2022-03-29] MEDS: CEFDINIR 300 MG (OMNICEF) CAP PO SCH ×2 (08:09→20:57)
[2022-03-29] MEDS: SPIRONOLACTONE 100 MG (ALDACTONE) TABLET PO SCH (08:09)
[2022-03-29] MEDS: oxyCODONE ER 15 MG (oxyCONTIN CR) TAB PO SCH ×2 (08:10→20:57)
[2022-03-29] MEDS: TRIAMCINOLONE 0.1% CR (KENALOG) 15 GM TUBE TOP SCH ×2 (08:10→20:58)
[2022-03-29] MEDS: SENNA W/DOCUSATE (SENOKOT S) TABLET PO SCH ×2 (08:11→20:59)
[2022-03-29] MEDS: polyethylene glycoL POWDER 17 GM (MIRALAX) PACK PO SCH ×2 (08:11→20:59)
[2022-03-29] MEDS: DOCUSATE SODIUM 100 MG (COLACE) CAP PO SCH ×2 (08:11→20:59)
--- NOTE | 2022-03-29 09:31 | PM&R Progress Note ---
Subjective HPI/CC On Admission Date Seen by Provider: March 29, 2022 Time Seen by Provider: 09:45 Subjective/Events-last exam 03/29/2022: Patient doing better since giving pain meds I told him we need to wean down soon since dependency potential is noted with h/o alcoholism BM+ Resting pretty well right now Checked meds and labs Review of Systems General: Fatigue, Malaise Neurological: Weakness Objective Exam Vital Signs Vital Signs Date Time Temp Pulse Resp B/P (MAP) Pulse Ox O2 Delivery O2 Flow Rate FiO2 03/29/22 09:15 Room Air 03/29/22 07:25 37.4 85 20 130/82 (98) 95 Capillary Refill : General Appearance: No Apparent Distress, WD/WN, Anxious, Chronically ill HEENT: PERRL/EOMI, Normal ENT Inspection, Pharynx Normal Neck: Full Range of Motion, Normal Inspection, Non Tender, Supple, Carotid Bruit Respiratory: Chest Non Tender, Lungs Clear, Normal Breath Sounds, No Accessory Muscle Use, No Respiratory Distress Cardiovascular: Regular Rate, Rhythm, No Edema, No Gallop, No JVD, No Murmur, Normal Peripheral Pulses Gastrointestinal: Normal Bowel Sounds, No Organomegaly, No Pulsatile Mass, Non Tender, Soft Back: Decreased Range of Motion, Other (in brace) Extremity: Normal Capillary Refill, Normal Inspection, Normal Range of Motion, Non Tender, No Calf Tenderness, No Pedal Edema Neurologic/Psychiatric: Alert, Oriented x3, Normal Mood/Affect, roll coverer II-XII Norm as Tested, Abnormal Gait, Motor Weakness (generalized) Skin: Normal Color, Warm/Dry Lymphatic: No Adenopathy Results/Procedures Lab Laboratory Tests 03/29/22 05:15 Patient resulted labs reviewed. FIM Transfers Therapy Code Descriptions/Definitions Functional [place] Measure: 0=Not Assessed/NA 4=Minimal Assistance 1=Total Assistance 5=Supervision or Setup 2=Maximal Assistance 6=Modified [place] 3=Moderate Assistance 7=Complete IndependenceSCALE: Activities may be completed with or without assistive devices. 9-Sbdjmroywg-nxaotcq completes the activity by him/herself with no assistance from a helper. 5-Set-up or Clean-up Assistance-helper sets up or cleans up; patient completes activity. [place] assists only prior to or following the activity. 4-Supervision or Touching Assistance-helper provides verbal cues and/or touching/steadying and/or contact guard assistance as patient completes activity. Assistance may be provided throughout the activity or intermittently. 3-Partial/Moderate Assistance-helper does LESS THAN HALF the effort. [place] lifts, holds or supports trunk or limbs, but provides less than half the effort. 2-Substantial/Maximal Assistance-helper does MORE THAN HALF the effort. [place] lifts or holds trunk or limbs and provides more than half the effort. 5-Eltmmcvff-ieknfm does ALL the effort. Patient does none of the effort to complete the activity. Or, the assistance of 2 or more helpers is required for the patient to complete the activity. If activity was not attempted, code reason: 7-Patient Refused. 9-Not Applicable-not attempted and the patient did not perform the activity before the current illness, exacerbation or injury. 10-Not Attempted due to Environmental Limitations-(lack of equipment, weather restraints, etc.). 88-Not Attempted due to Medical Conditions or Safety Concerns. Roll Left to Right (QC): 4 Sit to Lying (QC): 4 Sit to Stand (QC): 4 Chair/Wcl-ls-Ccosy Xfer(QC): 4 Car Transfer (QC): 4 Gait Training Does the Patient Walk?: Yes Walk 10 feet (QC): 4 Walk 50 ft with 2 Turns(QC): 4 Walk 150 ft (QC): 4 Walking 10ft/uneven surface-QC: 4 Gait Assistive Device: FWW Wheelchair Training Does the Pt Use a Wheelchair?: No Wheel 50 ft with 2 turns (QC): 9 Wheel 150 ft (QC): 9 Stair Training #of Steps: 12 1 Step (curb) (QC): 3 4 Steps (QC): 3 12 Steps (QC): 3 Balance Picking up an Object (QC): 88 ADL-Treatment Eating (QC): 6 (Pt reports IND with lunch.) Oral Hygiene (QC): 6 Shower/Bathe Self (QC): 3 (min A) Upper Body Dressing (QC): 3 (Mod A) Lower Body Dressing (QC): 2 On/Off Footwear (QC): 2 Toileting Hygiene (QC): 4 Toilet Transfer (QC): 4 Assessment/Plan Assessment and Plan Assess & Plan/Chief Complaint Assessment: IVH Alcoholism Cirrhosis Anxiety T10-T11 torn disc Macrocytic anemia Thrombocytopenia HTN Right ureter obstructive uropathy DA s/p post ureteral access cath Plan: Monitor pain Monitor kidneys Cirrhosis management Rehab protocol 03/29/2022: Pain control PT OT (1) Intracranial hemorrhage Status: Acute (2) Alcohol dependence with acute alcoholic intoxication Status: Acute (3) ETOH abuse Status: Acute (4) Kidney injury Status: Acute (5) Cirrhosis Status: Acute RAMSEY MONTILLA DO March 29, 2022 09:31
--- NOTE | 2022-03-29 09:31 | Individualized Plan of Care ---
Individualized Plan of Care Rehab Nursing IPOC Order Admission Date March 28, 2022 at 15:12 Current Orders Orders Admission Order(Inpt,Obs,Sdc) (03/28/22 14:30) Vital Signs: Per Unit Policy ( 08,16,00 (03/28/22 14:30) Byron Franklin ,21 (03/28/22 14:30) Sequential Compression Device (03/28/22 14:30) Protein Specialist-Inpt Rehab Con (03/28/22 14:30) Rehab Nursing Orders-Ipoc (03/28/22 14:30) Physical Therapy Rehab Orders (03/28/22 14:30) Occupational Therapy Rehab Ord (03/28/22 14:30) Speech Therapy Rehab Orders (03/28/22 14:30) Cbc With Automated Diff (03/29/22 06:00) Comprehensive Metabolic Panel (03/29/22 06:00) Precautions (Aru) (03/28/22 14:30) Weekly Weight WEEK (03/28/22 14:30) Rehab-Intensity Of Therapy (03/28/22 14:30) Initiate Admission Nursing Pro .admission (03/28/22 14:30) Alprazolam Tablet (Xanax Tablet) (03/28/22 14:30) Calcium Carbonate Chew Tablet (Antacid C (03/28/22 14:30) Diphenhydramine Tablet (Benadryl Tablet) (03/28/22 14:30) Docusate Sodium Capsule (Colace Capsule) (03/28/22 21:00) Docusate Sodium Capsule (Colace Capsule) (03/28/22 14:30) Bisacodyl Suppository (Dulcolax Supposit (03/28/22 14:30) Lactulose Oral Solution (Enulose Oral So (03/28/22 14:30) Na Phos/Na Biphos Enema (Fleet Enema Kishan (03/28/22 14:30) Guaifenesin/Codeine Syrup (Robitussin Ac (03/28/22 14:30) Loperamide Tablet (Imodium Tablet) (03/28/22 14:30) Melatonin Tablet (Melatonin Tablet) (03/28/22 14:30) Polyethylene Glycol Powder Pkt (Miralax (03/28/22 21:00) Ondansetron Oral Dissolve Tab (Zofran (03/28/22 14:30) Senna S Tablet (Senokot S Tablet) (03/28/22 21:00) Acetaminophen Tablet/Caplet (Tylenol T (03/28/22 14:30) Code/Resuscitation (03/28/22 14:30) Initiate Admission Nursing Pro .admission (03/28/22 14:30) Admission Arrival Bed Request (03/28/22 15:18) General/Regular (03/28/22 Dinner) Cefdinir Capsule (Omnicef Capsule) (03/28/22 21:00) Diphenhydramine Tablet (Benadryl Tablet) (03/28/22 17:30) Furosemide Tablet (Lasix Tablet) (03/29/22 09:00) Gabapentin Capsule/Tablet (Neurontin Cap (03/28/22 21:00) Hydroxyzine Oral (Atarax Tablet) (03/28/22 21:00) Lorazepam Tablet (Ativan Tablet) (03/28/22 17:30) Therapeutic Multivitamin Tab (Vitamins, (03/29/22 07:00) Oxycodone Immediate Rel Tablet (Oxyir Ta (03/28/22 17:30) Spironolactone Tablet (Aldactone Tablet) (03/29/22 09:00) Triamcinolone 0.1% Cream 15 Gm (Kenalog (03/28/22 21:00) Propranolol Tablet (Inderal Tablet) (03/28/22 17:45) Topiramate Tablet (Topamax Tablet) (03/28/22 21:00) Topiramate Tablet (Topamax Tablet) (03/28/22 21:00) Nursing Communication (Order) (03/28/22 18:15) Oxycodone Immediate Rel Tablet (Oxyir Ta (03/28/22 21:00) Oxycodone Extended Release Tab (Oxyconti (03/28/22 21:00) Patient Visit (03/29/22 ) Pt Eval Moderate Complexity (03/29/22 ) Patient Visit (03/29/22 ) Gait Training, Ea 15 Min (03/29/22 ) Functional Activities, Ea 15 (03/29/22 ) Potassium Chloride (Tablet) (Klor Con Ta (03/30/22 07:00) Potassium Chloride (Tablet) (Klor Con Ta (03/29/22 09:45) Rehab Nursing Orders: Ongoing Assess. of Cognitive Status, Ongoing Assess. of Function Status, Bladder Management, Bladder Scan, Bladder Training, Bowel Management, Bowel Training, Disease Management & Educaiton, DVT Prophylaxis, Fall Prevention, Fluid/Electrolyte/Nutrition Mgmt, Infection Prevention, Medication Management & Education, Management of Risks & Complications, Nutrition Management, Pain Management, Patient/Family Support, Safety Management, Swallow Precautions Intensity of Therapy to be met Patient to be seen: Min.3h per day/5 of 7d PT IPOC Problem List: Activity Tolerance, Functional Strength, Safety, Balance, Gait, Transfer, Bed Mobility, ROM Treatment Plan: Continue Plan of Care Bed Mobility, Education, Functional Activity Flex, Functional Strength, Group Therapy, Gait, Safety, Therapeutic Exercise, Transfers Treatment Duration: May 08, 2022 Frequency: At least 5 of 7 days/Wk (IRF) Estimated Hrs Per Day: 1.5 hours per day OT IPOC Problems: Decreased Activ Tolerance, Decreased UE Strength, Impaired Self-Care Skills OT Treatment, Training and Edu: Yes Plan of Care: ADL Retraining, Functional Mobility, Group Exercise/Act as Ind, UE Funct Exercise/Act Treatment Duration: Apr 18, 2022 Frequency: At least 5 of 7 days/Wk (IRF) Estimated Hrs Per Day: 1.[address] IPOC Speech Therapy Treatment Plan: Discontinue ST Treatment Duration: March 28, 2022 Frequency: Modified Program (IRF) Estimated Hrs Per Day: Other Protein Specialist/Case Mgmt Protein Specialist/Case Managemen: Discharge Planning Dietitian/Hydropress Operator Dietitian/Hydropress Operator to monitor nutritional status and make changes and/or recommendations as needed and work with speech pathology on dietary upgrades as the occur. Physician IPOC Medical Issues being managed closely and that require the 24 hour availability of a physician: Recent IVH and fall with spine injury with back brace maintained will require close monitoring due to cirrhosis and alcoholism. Medical Issues: Bowel/Bladder Function, DVT Prophylaxis, Falls Precautions, Fluid/Electrolyte/Nutrition Balance, Infection Protection, Pain Management, Wound Care Brief Synthesis of Preadmission Screen, Post-Admission Evaluation, and Therapy Evaluations: PT OT will initiate aggressive therapy in order to gain independence and return home to independent living Medical Prognosis: Fair Anticipated Length of Stay: 7 days RAMSEY MONTILLA DO March 29, 2022 09:31
[2022-03-29] MEDS ORDERED: KCL 10 MEQ TAB (MICRO K) PO ONE (09:45)
--- NOTE | 2022-03-29 11:33 | Physical Therapy Daily Note ---
PT Daily Note-Current Subjective Pt. fast asleep in bed 1st attempt, 2nd attempt pt. is awake and agrees to Rx. Pt. rates back pain at 6/10. Pt. states he is very fatigued from yesterdays Rx and travel Pain Numeric Pain Scale: 6 Location: Medial Location Body Site: Back Pain Description: Ache Mental Status Patient Orientation: Normal For Age Attachments: Rock Catheter, Other-See Comments (LSO brace) Transfers SCALE: Activities may be completed with or without assistive devices. 5-Nenvasbkgb-trmakrr completes the activity by him/herself with no assistance from a helper. 5-Set-up or Clean-up Assistance-helper sets up or cleans up; patient completes activity. [place] assists only prior to or following the activity. 4-Supervision or Touching Assistance-helper provides verbal cues and/or touching/steadying and/or contact guard assistance as patient completes activity. Assistance may be provided throughout the activity or intermittently. 3-Partial/Moderate Assistance-helper does LESS THAN HALF the effort. [place] lifts, holds or supports trunk or limbs, but provides less than half the effort. 2-Substantial/Maximal Assistance-helper does MORE THAN HALF the effort. [place] lifts or holds trunk or limbs and provides more than half the effort. 4-Ucgnirlfl-zpymji does ALL the effort. Patient does none of the effort to complete the activity. Or, the assistance of 2 or more helpers is required for the patient to complete the activity. If activity was not attempted, code reason: 7-Patient Refused. 9-Not Applicable-not attempted and the patient did not perform the activity before the current illness, exacerbation or injury. 10-Not Attempted due to Environmental Limitations-(lack of equipment, weather restraints, etc.). 88-Not Attempted due to Medical Conditions or Safety Concerns. Roll Left & Right (QC): 4 Lying to Sitting/Side of Bed(Q: 4 Sit to Stand (QC): 4 Weight Bearing Right Lower Extremity: Right Full Weight Bearing Left Lower Extremity: Left Full Weight Bearing TLSO donned at all times when up and donned prior to transferring out of bed. Gait Training Does the Patient Walk?: Yes Walk 150 ft (QC): 4 Gait Assistive Device: FWW slow, no LOB, FWW Exercises Seated Therapy Exercises: Ankle pumps, Sit to stand, Long arc quads, Hip flexion Seated Reps: 12 Treatments log roll, TRFs, donning brace, gait , up in recliner after Rx Assessment Current Status: Good Progress PT System Development Engineer Goals System Development Engineer Goals PT System Development Engineer Goals Time Frame: May 02, 2022 Roll Left & Right (QC): 6 Sit to Lying (QC): 6 Lying-Sitting on Side/Bed(QC): 6 Sit to Stand (QC): 6 Chair/Ebc-oa-Xybju Xfer(QC): 6 Toilet Transfer (QC): 6 Car Transfer (QC): 6 Does the Patient Walk: Yes Walk 10 feet (QC): 6 Walk 50ft with 2 Turns (QC): 6 Walk 150 ft (QC): 6 Walking 10ft on Uneven Surface: 6 1 Step (curb) (QC): 6 4 Steps (QC): 6 12 Steps (QC): 6 Picking up an Object (QC): 4 Does the Pt use WC or Scooter?: No Wheel 50 feet with 2 turns (QC: 9 Wheel 150 feet: 9 PT Plan Treatment/Plan Treatment Plan: Continue Plan of Care Treatment Plan: Bed Mobility, Education, Functional Activity Flex, Functional Strength, Group Therapy, Gait, Safety, Therapeutic Exercise, Transfers Treatment Duration: May 08, 2022 Frequency: At least 5 of 7 days/Wk (IRF) Estimated Hrs Per Day: 1.5 hours per day Patient and/or Family Agrees t: Yes Safety Risks/Education Patient Education: Gait Training, Transfer Techniques, Reviewed Precautions, Correct Positioning, Reviewed Don/Doff Brace, Disease Process, Safety Issues Teaching Recipient: Patient Teaching Methods: Demonstration, Discussion Response to Teaching: Verbalize Understanding, Return Demonstration, Reinforcement Needed Time/GCodes Time In: 1055 Time Out: 1120 Total Billed Treatment Time: 25 Total Billed Treatment 1,GT15m,EX10m MECHELLE MOON HEARING INSTRUMENT SPECIALIST March 29, 2022 11:33
[2022-03-29] MEDS: ARTIFICAL TEARS 0.4 ML UNIT DOSE (REFRESH PLUS) OD PRN (13:15)
[2022-03-29] MEDS: diphenhydrAMINE 25 MG TAB (BENADRYL) PO PRN (13:53)
[2022-03-29] MEDS: LORazepam 1 MG (ATIVAN) TAB PO PRN (19:05)
[2022-03-29 19:47] VITALS: BP 119/60
[2022-03-29] MEDS: toPIRamate 100 MG (TOPAMAX) TAB PO SCH (20:57)
[2022-03-29] MEDS: GABAPENTIN 100 MG (NEURONTIN) CAP PO SCH (20:58)
[2022-03-30] MEDS: LORazepam 1 MG (ATIVAN) TAB PO PRN ×2 (03:00→16:34)
[2022-03-30] MEDS: MULTIVIT W/MINERALS TAB (THERAGRAN M) PO SCH (06:20)
[2022-03-30] MEDS: KCL 10 MEQ TAB (MICRO K) PO SCH (06:20)
[2022-03-30 07:13] VITALS: BP 107/69
--- NOTE | 2022-03-30 08:27 | PM&R Progress Note ---
Subjective HPI/CC On Admission Date Seen by Provider: March 30, 2022 Time Seen by Provider: 16:00 Subjective/Events-last exam 03/30/2022: Patient doing well Was found up by himself using the bedside table as a walker to get around Counseling regarding fall risk initiated by ROBERT Rios No falls Pain meds taken on a regular basis 03/29/2022: Patient doing better since giving pain meds I told him we need to wean down soon since dependency potential is noted with h/o alcoholism BM+ Resting pretty well right now Checked meds and labs Review of Systems General: Fatigue, Malaise Musculoskeletal: back pain Objective Exam Vital Signs Vital Signs Date Time Temp Pulse Resp B/P (MAP) Pulse Ox O2 Delivery O2 Flow Rate FiO2 03/30/22 20:20 Room Air 03/30/22 19:21 37.5 93 20 101/55 (70) 96 Capillary Refill : General Appearance: No Apparent Distress, WD/WN, Anxious, Chronically ill HEENT: PERRL/EOMI, Normal ENT Inspection, Pharynx Normal Neck: Full Range of Motion, Normal Inspection, Non Tender, Supple, Carotid Bruit Respiratory: Chest Non Tender, Lungs Clear, Normal Breath Sounds, No Accessory Muscle Use, No Respiratory Distress Cardiovascular: Regular Rate, Rhythm, No Edema, No Gallop, No JVD, No Murmur, Normal Peripheral Pulses Gastrointestinal: Normal Bowel Sounds, No Organomegaly, No Pulsatile Mass, Non Tender, Soft Back: Decreased Range of Motion, Other Extremity: Normal Capillary Refill, Normal Inspection, Normal Range of Motion, Non Tender, No Calf Tenderness, No Pedal Edema Neurologic/Psychiatric: Alert, Oriented x3, Normal Mood/Affect, lang interpreter II-XII Norm as Tested, Abnormal Gait, Motor Weakness Skin: Normal Color, Warm/Dry Lymphatic: No Adenopathy Results/Procedures Lab Patient resulted labs reviewed. FIM Transfers Therapy Code Descriptions/Definitions Functional [place] Measure: 0=Not Assessed/NA 4=Minimal Assistance 1=Total Assistance 5=Supervision or Setup 2=Maximal Assistance 6=Modified [place] 3=Moderate Assistance 7=Complete IndependenceSCALE: Activities may be completed with or without assistive devices. 6-Ktnkapmohe-rmxpgli completes the activity by him/herself with no assistance from a helper. 5-Set-up or Clean-up Assistance-helper sets up or cleans up; patient completes activity. [place] assists only prior to or following the activity. 4-Supervision or Touching Assistance-helper provides verbal cues and/or touching/steadying and/or contact guard assistance as patient completes activity. Assistance may be provided throughout the activity or intermittently. 3-Partial/Moderate Assistance-helper does LESS THAN HALF the effort. [place] lifts, holds or supports trunk or limbs, but provides less than half the effort. 2-Substantial/Maximal Assistance-helper does MORE THAN HALF the effort. [place] lifts or holds trunk or limbs and provides more than half the effort. 3-Qifcbpbil-iyaaas does ALL the effort. Patient does none of the effort to complete the activity. Or, the assistance of 2 or more helpers is required for the patient to complete the activity. If activity was not attempted, code reason: 7-Patient Refused. 9-Not Applicable-not attempted and the patient did not perform the activity before the current illness, exacerbation or injury. 10-Not Attempted due to Environmental Limitations-(lack of equipment, weather restraints, etc.). 88-Not Attempted due to Medical Conditions or Safety Concerns. Roll Left to Right (QC): 4 Sit to Lying (QC): 4 Sit to Stand (QC): 4 Chair/Xxn-yj-Gukce Xfer(QC): 4 Car Transfer (QC): 4 Gait Training Does the Patient Walk?: Yes Walk 10 feet (QC): 4 Walk 50 ft with 2 Turns(QC): 4 Walk 150 ft (QC): 4 Walking 10ft/uneven surface-QC: 4 Gait Assistive Device: FWW Wheelchair Training Does the Pt Use a Wheelchair?: No Wheel 50 ft with 2 turns (QC): 9 Wheel 150 ft (QC): 9 Stair Training #of Steps: 12 1 Step (curb) (QC): 3 4 Steps (QC): 3 12 Steps (QC): 3 Balance Picking up an Object (QC): 88 ADL-Treatment Eating (QC): 6 (Pt reports IND with lunch.) Oral Hygiene (QC): 6 Shower/Bathe Self (QC): 3 (min A) Upper Body Dressing (QC): 3 (Mod A) Lower Body Dressing (QC): 2 On/Off Footwear (QC): 2 Toileting Hygiene (QC): 4 Toilet Transfer (QC): 4 Assessment/Plan Assessment and Plan Assess & Plan/Chief Complaint Assessment: IVH Alcoholism Cirrhosis Anxiety T10-T11 torn disc Macrocytic anemia Thrombocytopenia HTN Right ureter obstructive uropathy DA s/p post ureteral access cath Plan: Monitor pain Monitor kidneys Cirrhosis management Rehab protocol 03/29/2022: Pain control PT OT 03/30/2022: Consult Dr Harrison in morning (1) Intracranial hemorrhage Status: Acute (2) Alcohol dependence with acute alcoholic intoxication Status: Acute (3) ETOH abuse Status: Acute (4) Kidney injury Status: Acute (5) Cirrhosis Status: Acute RAMSEY MONTILLA DO March 30, 2022 08:27
[2022-03-30] MEDS: SENNA W/DOCUSATE (SENOKOT S) TABLET PO SCH ×2 (09:28→21:03)
[2022-03-30] MEDS: DOCUSATE SODIUM 100 MG (COLACE) CAP PO SCH ×2 (09:28→21:03)
[2022-03-30] MEDS: CEFDINIR 300 MG (OMNICEF) CAP PO SCH ×2 (09:29→20:56)
[2022-03-30] MEDS: SPIRONOLACTONE 100 MG (ALDACTONE) TABLET PO SCH (09:29)
[2022-03-30] MEDS: FUROSEMIDE 40 MG (LASIX) TAB PO SCH (09:29)
[2022-03-30] MEDS: hydrOXYzine (ATARAX) 10 MG TAB PO SCH ×3 (09:29→20:56)
[2022-03-30] MEDS: TRIAMCINOLONE 0.1% CR (KENALOG) 15 GM TUBE TOP SCH ×2 (09:29→20:56)
[2022-03-30] MEDS: toPIRamate 25 MG (TOPAMAX) TAB PO SCH ×2 (09:29→20:56)
[2022-03-30] MEDS: oxyCODONE ER 15 MG (oxyCONTIN CR) TAB PO SCH ×2 (09:29→20:56)
[2022-03-30] MEDS: polyethylene glycoL POWDER 17 GM (MIRALAX) PACK PO SCH ×2 (09:32→19:28)
[2022-03-30] MEDS: ACETAMINOPHEN 325 MG TABLET PO PRN (15:42)
[2022-03-30 19:21] VITALS: BP 101/55
[2022-03-30] MEDS: toPIRamate 100 MG (TOPAMAX) TAB PO SCH (20:56)
[2022-03-30] MEDS: GABAPENTIN 100 MG (NEURONTIN) CAP PO SCH (20:56)
--- NOTE | 2022-03-31 05:49 | PM&R Progress Note ---
Subjective HPI/CC On Admission Date Seen by Provider: March 31, 2022 Time Seen by Provider: 09:00 Subjective/Events-last exam 03/31/22: Patient doing well Improved overall Decreasing Oxycodone to 5mg PO Q4 hours down from 10mg due to dependency potential BM+ 03/30/2022: Patient doing well Was found up by himself using the bedside table as a walker to get around Counseling regarding fall risk initiated by ROBERT Rios No falls Pain meds taken on a regular basis 03/29/2022: Patient doing better since giving pain meds I told him we need to wean down soon since dependency potential is noted with h/o alcoholism BM+ Resting pretty well right now Checked meds and labs Review of Systems General: Fatigue, Malaise Objective Exam Vital Signs Vital Signs Date Time Temp Pulse Resp B/P (MAP) Pulse Ox O2 Delivery O2 Flow Rate FiO2 03/31/22 07:10 37.2 87 16 115/63 (80) 96 Room Air Capillary Refill : General Appearance: No Apparent Distress, WD/WN, Anxious, Chronically ill HEENT: PERRL/EOMI, Normal ENT Inspection, Pharynx Normal Neck: Full Range of Motion, Normal Inspection, Non Tender, Supple, Carotid Bruit Respiratory: Chest Non Tender, Lungs Clear, Normal Breath Sounds, No Accessory Muscle Use, No Respiratory Distress Cardiovascular: Regular Rate, Rhythm, No Edema, No Gallop, No JVD, No Murmur, Normal Peripheral Pulses Gastrointestinal: Normal Bowel Sounds, No Organomegaly, No Pulsatile Mass, Non Tender, Soft Back: Decreased Range of Motion, Other Extremity: Normal Capillary Refill, Normal Inspection, Normal Range of Motion, Non Tender, No Calf Tenderness, No Pedal Edema Neurologic/Psychiatric: Alert, Oriented x3, Normal Mood/Affect, java tech lead II-XII Norm as Tested, Abnormal Gait, Motor Weakness Skin: Normal Color, Warm/Dry Lymphatic: No Adenopathy Results/Procedures Lab Patient resulted labs reviewed. FIM Transfers Therapy Code Descriptions/Definitions Functional [place] Measure: 0=Not Assessed/NA 4=Minimal Assistance 1=Total Assistance 5=Supervision or Setup 2=Maximal Assistance 6=Modified [place] 3=Moderate Assistance 7=Complete IndependenceSCALE: Activities may be completed with or without assistive devices. 0-Raxoupuily-cwztlxw completes the activity by him/herself with no assistance from a helper. 5-Set-up or Clean-up Assistance-helper sets up or cleans up; patient completes activity. [place] assists only prior to or following the activity. 4-Supervision or Touching Assistance-helper provides verbal cues and/or touching/steadying and/or contact guard assistance as patient completes activity. Assistance may be provided throughout the activity or intermittently. 3-Partial/Moderate Assistance-helper does LESS THAN HALF the effort. [place] lifts, holds or supports trunk or limbs, but provides less than half the effort. 2-Substantial/Maximal Assistance-helper does MORE THAN HALF the effort. [place] lifts or holds trunk or limbs and provides more than half the effort. 9-Lmngimyha-hmpxyb does ALL the effort. Patient does none of the effort to complete the activity. Or, the assistance of 2 or more helpers is required for the patient to complete the activity. If activity was not attempted, code reason: 7-Patient Refused. 9-Not Applicable-not attempted and the patient did not perform the activity before the current illness, exacerbation or injury. 10-Not Attempted due to Environmental Limitations-(lack of equipment, weather restraints, etc.). 88-Not Attempted due to Medical Conditions or Safety Concerns. Roll Left to Right (QC): 4 Sit to Lying (QC): 4 Sit to Stand (QC): 4 Chair/Wgu-lo-Aozfd Xfer(QC): 4 Car Transfer (QC): 4 Gait Training Does the Patient Walk?: Yes Walk 10 feet (QC): 4 Walk 50 ft with 2 Turns(QC): 4 Walk 150 ft (QC): 4 Walking 10ft/uneven surface-QC: 4 Gait Assistive Device: FWW Wheelchair Training Does the Pt Use a Wheelchair?: No Wheel 50 ft with 2 turns (QC): 9 Wheel 150 ft (QC): 9 Stair Training #of Steps: 12 1 Step (curb) (QC): 3 4 Steps (QC): 3 12 Steps (QC): 3 Balance Picking up an Object (QC): 88 ADL-Treatment Eating (QC): 6 (Pt reports IND with lunch.) Oral Hygiene (QC): 6 Shower/Bathe Self (QC): 3 (min A) Upper Body Dressing (QC): 3 (Mod A) Lower Body Dressing (QC): 2 On/Off Footwear (QC): 2 Toileting Hygiene (QC): 4 Toilet Transfer (QC): 4 Assessment/Plan Assessment and Plan Assess & Plan/Chief Complaint Assessment: IVH Alcoholism Cirrhosis Anxiety T10-T11 torn disc Macrocytic anemia Thrombocytopenia HTN Right ureter obstructive uropathy DA s/p post ureteral access cath Plan: Monitor pain Monitor kidneys Cirrhosis management Rehab protocol 03/29/2022: Pain control PT OT 03/30/2022: Consult Dr Harrison in morning 03/31/22: Dr Harrison consult 04/01/22: Urology consult Decrease pain meds (1) Intracranial hemorrhage Status: Acute (2) Alcohol dependence with acute alcoholic intoxication Status: Acute (3) ETOH abuse Status: Acute (4) Kidney injury Status: Acute (5) Cirrhosis Status: Acute RAMSEY MONTILLA DO March 31, 2022 05:49
[2022-03-31] MEDS: KCL 10 MEQ TAB (MICRO K) PO SCH (06:27)
[2022-03-31] MEDS: MULTIVIT W/MINERALS TAB (THERAGRAN M) PO SCH (06:27)
[2022-03-31 07:10] VITALS: BP 115/63
[2022-03-31] MEDS: toPIRamate 25 MG (TOPAMAX) TAB PO SCH ×2 (08:09→21:08)
[2022-03-31] MEDS: FUROSEMIDE 40 MG (LASIX) TAB PO SCH (08:09)
[2022-03-31] MEDS: DOCUSATE SODIUM 100 MG (COLACE) CAP PO SCH ×3 (08:09→21:08)
[2022-03-31] MEDS: SPIRONOLACTONE 100 MG (ALDACTONE) TABLET PO SCH (08:09)
[2022-03-31] MEDS: oxyCODONE ER 15 MG (oxyCONTIN CR) TAB PO SCH ×2 (08:09→21:07)
[2022-03-31] MEDS: SENNA W/DOCUSATE (SENOKOT S) TABLET PO SCH ×2 (08:13→21:08)
[2022-03-31] MEDS: polyethylene glycoL POWDER 17 GM (MIRALAX) PACK PO SCH ×2 (08:13→21:11)
[2022-03-31] MEDS: TRIAMCINOLONE 0.1% CR (KENALOG) 15 GM TUBE TOP SCH ×2 (08:14→21:12)
[2022-03-31] MEDS: hydrOXYzine (ATARAX) 10 MG TAB PO SCH ×3 (08:29→21:07)
[2022-03-31] MEDS: CEFDINIR 300 MG (OMNICEF) CAP PO SCH ×2 (08:30→21:08)
--- NOTE | 2022-03-31 09:01 | Physical Therapy Daily Note ---
PT Daily Note-Current Subjective Patient in bed pre tx, agrees to PT, has 8/10 pain in right leg, nurse was in room and is aware of pain. Appearance Patient in recliner post tx with nurse call, phone, tray, all needs met. Mental Status Patient Orientation: Person, Place, Situation TLSO Transfers SCALE: Activities may be completed with or without assistive devices. 7-Fglsyimlak-tnmclvk completes the activity by him/herself with no assistance from a helper. 5-Set-up or Clean-up Assistance-helper sets up or cleans up; patient completes activity. [place] assists only prior to or following the activity. 4-Supervision or Touching Assistance-helper provides verbal cues and/or touching/steadying and/or contact guard assistance as patient completes activity. Assistance may be provided throughout the activity or intermittently. 3-Partial/Moderate Assistance-helper does LESS THAN HALF the effort. [place] lifts, holds or supports trunk or limbs, but provides less than half the effort. 2-Substantial/Maximal Assistance-helper does MORE THAN HALF the effort. [place] lifts or holds trunk or limbs and provides more than half the effort. 6-Yvuvmclbz-jjvdxu does ALL the effort. Patient does none of the effort to complete the activity. Or, the assistance of 2 or more helpers is required for the patient to complete the activity. If activity was not attempted, code reason: 7-Patient Refused. 9-Not Applicable-not attempted and the patient did not perform the activity before the current illness, exacerbation or injury. 10-Not Attempted due to Environmental Limitations-(lack of equipment, weather restraints, etc.). 88-Not Attempted due to Medical Conditions or Safety Concerns. Roll Left & Right (QC): 6 Lying to Sitting/Side of Bed(Q: 6 Sit to Stand (QC): 4 Chair/Xbz-pg-Yqqex Xfer(QC): 4 Patient needs some assist with donning TLSO but he can help with adjusting straps. SBA sit <-> stand and transfers Weight Bearing Right Lower Extremity: Right Full Weight Bearing Left Lower Extremity: Left Full Weight Bearing TLSO donned at all times when up and donned prior to transferring out of bed. Gait Training Distance: 120'x2 Walk 10 feet (QC): 4 Walk 50 ft with 2 Turns(QC): 4 Gait Persons Needed: 1 Gait Assistive Device: FWW very slow ambulation, short steps, no unsteadiness though Exercises Standing: Heel/toe raises, Mini squats Standing Reps: 15 NuStep Minutes: 15 NuStep Workload: 1 (no resistance in order to comply with lifting restrictions) Treatments bed mobility and transfers, ambulation, functional strengthening, donning brace Assessment Current Status: Fair Progress patient voiced no complaints of pain during tx. PT Custodial Goals Auto Hauler Goals PT Auto Hauler Goals Time Frame: May 02, 2022 Roll Left & Right (QC): 6 Sit to Lying (QC): 6 Lying-Sitting on Side/Bed(QC): 6 Sit to Stand (QC): 6 Chair/Awt-yj-Cjxed Xfer(QC): 6 Toilet Transfer (QC): 6 Car Transfer (QC): 6 Does the Patient Walk: Yes Walk 10 feet (QC): 6 Walk 50ft with 2 Turns (QC): 6 Walk 150 ft (QC): 6 Walking 10ft on Uneven Surface: 6 1 Step (curb) (QC): 6 4 Steps (QC): 6 12 Steps (QC): 6 Picking up an Object (QC): 4 Does the Pt use WC or Scooter?: No Wheel 50 feet with 2 turns (QC: 9 Wheel 150 feet: 9 PT Plan Problem List Problem List: Activity Tolerance, Functional Strength, Safety, Balance, Gait, Transfer, Bed Mobility, ROM Treatment/Plan Treatment Plan: Continue Plan of Care Treatment Plan: Bed Mobility, Education, Functional Activity Flex, Functional Strength, Group Therapy, Gait, Safety, Therapeutic Exercise, Transfers Treatment Duration: May 08, 2022 Frequency: At least 5 of 7 days/Wk (IRF) Estimated Hrs Per Day: 1.5 hours per day Patient and/or Family Agrees t: Yes Safety Risks/Education Patient Education: Gait Training, Transfer Techniques, Reviewed Precautions, Correct Positioning, Reviewed Don/Doff Brace Teaching Recipient: Patient Teaching Methods: Demonstration, Discussion Response to Teaching: Reinforcement Needed Time/GCodes Time In: 0800 Time Out: 0900 Total Billed Treatment Time: 60 Total Billed Treatment 1 visit EX 20' FA 40' TARAH ROSS PT March 31, 2022 09:01
--- NOTE | 2022-03-31 09:31 | Occupational Ther Daily Note ---
OT Current Status-Daily Note Subjective Pt up in recliner, agreeable to OT Tx. Pt c/o times of where he has cravings of alcohol. OT talked with pt about his feeling and notified pt's nurse. OT communicated with pt's nurse about obtaining clarification on pt's back brace orders. Pt's nurse left message with Dr's office to see if brace can be removed for showering. Pt's current orders state brace to be worn when OOB, standing, sitting and walking. Mental Status/Objective Patient Orientation: Normal For Age Attachments: Rock Catheter ADL-Treatment Therapy Code Descriptions/Definitions Functional [place] Measure: 0=Not Assessed/NA 4=Minimal Assistance 1=Total Assistance 5=Supervision or Setup 2=Maximal Assistance 6=Modified [place] 3=Moderate Assistance 7=Complete IndependenceSCALE: Activities may be completed with or without assistive devices. 6-Fodspivijh-pkamibs completes the activity by him/herself with no assistance from a helper. 5-Set-up or Clean-up Assistance-helper sets up or cleans up; patient completes activity. [place] assists only prior to or following the activity. 4-Supervision or Touching Assistance-helper provides verbal cues and/or touching/steadying and/or contact guard assistance as patient completes activity. Assistance may be provided throughout the activity or intermittently. 3-Partial/Moderate Assistance-helper does LESS THAN HALF the effort. [place] lifts, holds or supports trunk or limbs, but provides less than half the effort. 2-Substantial/Maximal Assistance-helper does MORE THAN HALF the effort. [place] lifts or holds trunk or limbs and provides more than half the effort. 1-Ysbuutiaz-drandc does ALL the effort. Patient does none of the effort to complete the activity. Or, the assistance of 2 or more helpers is required for the patient to complete the activity. If activity was not attempted, code reason: 7-Patient Refused. 9-Not Applicable-not attempted and the patient did not perform the activity before the current illness, exacerbation or injury. 10-Not Attempted due to Environmental Limitations-(lack of equipment, weather restraints, etc.). 88-Not Attempted due to Medical Conditions or Safety Concerns. Other Treatment Pt up in recliner, agreeable to OT tx. Pt used FWW to perform functional mobility to therapy gym, SBA. OT tx focused on increasing BUE strength and activity tolerance. Pt completed pipe tree task, 2lb wrist weights BUEs, completing x8 configurations. Pt completed nut/bolt task, removing nut, bolt and washer, then replacing onto block, 2 lb weights BUEs. Pt used FWW to return to his room, SBA, transferring to recliner. Post tx, pt in recliner, call light in reach and all needs met, chair alarm activated. Education OT Patient Education: Correct positioning, Energy conservation, Modified ADL techniques, Progress toward Goal/Update tx plan, Purpose of tx/functional activities, Rehab process Teaching Recipient: Patient Teaching Methods: Discussion Response to Teaching: Verbalize Understanding OT Short Term Goals Short Term Goals Time Frame: Apr 09, 2022 Shower/bathe self: 3 Upper body dressin Lower body dressin Putting on/taking off footwear: 3 OT Firebrick Layer Helper Goals Firebrick Layer Helper Goals Time Frame: Apr 18, 2022 Eating (QC): 6 Oral Hygiene (QC): 6 Toileting Hygiene (QC): 6 Shower/Bathe Self (QC): 6 Upper Body Dressing (QC): 6 Lower Body Dressing (QC): 6 On/Off Footwear (QC): 6 1=Demonstrate adherence to instructed precautions during ADL tasks. 2=Patient will verbalize/demonstrate understanding of assistive devices/modifications for ADL. 3=Patient will improve strength/tolerance for activity to enable patient to perform ADL's. OT Education/Plan Problem List/Assessment Assessment: Decreased Activ Tolerance, Decreased UE Strength, Impaired Funct Balance, Impaired I ADL's, Impaired Self-Care Skills Discharge Recommendations Plan/Recommendations: Continue POC Treatment Plan/Plan of Care Patient would benefit from OT for education, treatment and training to promote independence in ADL's, mobility, safety and/or upper extremity function for ADL's. Plan of Care: ADL Retraining, Functional Mobility, Group Exercise/Act as Ind, UE Funct Exercise/Act Treatment Duration: Apr 18, 2022 Frequency: At least 5 of 7 days/Wk (IRF) Estimated Hrs Per Day: 1.5 hours per day Agreement: Yes Rehab Potential: Good Time/GCodes Start Time: 09:00 Stop Time: 10:30 Total Time Billed (hr/min): 90 Billed Treatment Time 1, FA 6 ANDIE HELTON OT March 31, 2022 09:31
--- NOTE | 2022-03-31 10:21 | Progress Note ---
LAZARA CAMEJO 03/31/22 1021: Progress Note Subjective: HPI: The patient was sitting in a chair this morning wearing his back brace, while participating in occupational therapy. He was doing well and denied any changes over night. He is content with his rehabilitation process thus far. He reports it has been a couple of days since his last bowel movement. He reports having dizziness when standing up from a seated position. He reports a Hx of short term memory loss. 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 ROS: Constitutional: no fevers, no chills EENTM: no vision changes Respiratory: no cough, no dyspnea Cardiovascular: no chest pain, no palpitations Gastrointestinal: no vomiting, no diarrhea Genitourinary: no hematuria Musculoskeletal: no symptoms reported Skin: no concerning lesions, marcia in place on his head Psychiatric/Neurological: positive for anxiety Objective: Vitals: T: 37.2 , HR: 87, RR: 16 , BP: 115/63, 96% room air PE: General Appearance: No Apparent Distress, WD/WN, Chronically ill Eyes: Bilateral Eye Normal Inspection, Bilateral Eye PERRL HEENT: PERRL/EOMI, mocuous membranes moist Neck: Normal Inspection, normal ROM, no lymphadenopathy Respiratory: Chest Non Tender, Lungs Clear, Normal Breath Sounds, No Accessory Muscle Use, No Respiratory Distress Cardiovascular: Regular Rate, Rhythm, Peripheral Edema of bilateral lower extremities, No Gallop, No JVD, No Murmur, Normal Peripheral Pulses Gastrointestinal: Normal Bowel Sounds, No Organomegaly, No Pulsatile Mass, Non Tender, Soft Extremity: Normal Range of Motion, Non Tender, No Calf Tenderness, Pedal Edema of bilateral lower extremities Back: Decreased ROM, PT in back brace Neurologic/Psychiatric: Alert, Oriented x3, Generalized motor weakness, 5/5 strength bilateral upper and lower extremity, Bilateral tremor of the hands, CN II-XII normal as tested. Skin: Normal Color, Warm/Dry Assessment: Intraventricular hemorrhage T10-11 torn disc Thrombocytopenia HTN R ureter obstructive uropathy S/P ureteral access cath DA Alcohol use disorder Cirrhosis Peripheral edema Anxiety Pain Hypokalemia Macrocytic anemia Plan: Intraventricular hemorrhage T10-11 torn disc The patient will continue with inpatient rehabilitation. He will continue to work on regaining strength, improving balance, and improving his ADLs. He will continue with his back brace for his T10-T11 torn disc. We will continue to monitor his neurological and strength status. Continue with bowel regiment. Monitor BMs. Thrombocytopenia Last platelet count was 98 on 03/29/21, continue to monitor. HTN Continue home medications. Continue to monitor blood pressure. R ureter obstructive uropathy S/P ureteral access cath Continue to monitor urinary characteristics. Urology following. We appreciate their recommendations. DA Last creatinine was 1.45 and GFR was 54 on 03/29/22, continue to monitor renal function. Alcohol use disorder Alcohol abstinence. Monitor for ETOH cravings. Cirrhosis No acute management at this time. Continue to monitor liver function. AST was 41, and ALT was 32 on 03/29/22. Peripheral edema Continue with diuretic therapy of Spironolactone 100mg daily, and Lasix 40mg daily. Closely monitor renal function. Anxiety Monitor mood and emotional status. Benzodiazepine therapy PRN. Pain Continue with pain management of Oxycodone 15mg. Hypokalemia Continue to monitor K+. His last K+ was 3.4 on 03/29/22. Continue with oral potassium replacement. Macrocytic anemia Continue to monitor hemoglobin and MCV. Hemoglobin was 11.8 and MCV was 104 on 03/29/22. Continue with multivitamin replacement therapy. PIPER MONTILLA DO 03/31/222050: Supervisory-Addendum Brief Verification & Attestation Participated in pt care: history, MDM, physical Personally performed: exam, history, MDM, supervision of care Care discussed with: Medical Student Procedures: n/a Results interpretation: Verified all documentation Verification and Attestation of Medical Student E/M Service A medical student performed and documented this service in my presence. I reviewed and verified all information documented by the medical student and made modifications to such information, when appropriate. I personally performed the physical exam and medical decision making. Piper Montilla March 31, 2022,20:51 LAZARA CAMEJO March 31, 2022 10:21 PIPER MONTILLA DO March 31, 2022 20:51
--- NOTE | 2022-03-31 11:27 | Physical Therapy Daily Note ---
PT Daily Note-Current Subjective Patient in recliner pre tx, agrees to PT, voices no complaints of pain. Appearance Patient in recliner post tx with nurse call, phone, tray, all needs met, chair alarm on. Mental Status Patient Orientation: Person, Place, Situation TLSO Transfers SCALE: Activities may be completed with or without assistive devices. 3-Goyrqouzdy-shdellq completes the activity by him/herself with no assistance from a helper. 5-Set-up or Clean-up Assistance-helper sets up or cleans up; patient completes activity. [place] assists only prior to or following the activity. 4-Supervision or Touching Assistance-helper provides verbal cues and/or touching/steadying and/or contact guard assistance as patient completes activity. Assistance may be provided throughout the activity or intermittently. 3-Partial/Moderate Assistance-helper does LESS THAN HALF the effort. [place] lifts, holds or supports trunk or limbs, but provides less than half the effort. 2-Substantial/Maximal Assistance-helper does MORE THAN HALF the effort. [place] lifts or holds trunk or limbs and provides more than half the effort. 3-Yrnugezll-uoetoz does ALL the effort. Patient does none of the effort to complete the activity. Or, the assistance of 2 or more helpers is required for the patient to complete the activity. If activity was not attempted, code reason: 7-Patient Refused. 9-Not Applicable-not attempted and the patient did not perform the activity before the current illness, exacerbation or injury. 10-Not Attempted due to Environmental Limitations-(lack of equipment, weather restraints, etc.). 88-Not Attempted due to Medical Conditions or Safety Concerns. Sit to Stand (QC): 4 Chair/Mlm-wn-Muvim Xfer(QC): 4 SBA Weight Bearing Right Lower Extremity: Right Full Weight Bearing Left Lower Extremity: Left Full Weight Bearing TLSO donned at all times when up and donned prior to transferring out of bed. Gait Training Distance: 300', 120' Walk 10 feet (QC): 4 Walk 50 ft with 2 Turns(QC): 4 Walk 150 ft (QC): 4 Gait Persons Needed: 1 Gait Assistive Device: FWW slow but steady ambulation, decreased foot clearance and heel strike, patient tends to slide feet across the floor a bit Exercises Standing: Marching (x15), Step-ups (x10) Treatments transfers, ambulation, LE strengthening Assessment Current Status: Fair Progress Patient progressing well with endurance PT Adjuster Electrical Contacts Goals Snf Goals PT Snf Goals Time Frame: May 02, 2022 Roll Left & Right (QC): 6 Sit to Lying (QC): 6 Lying-Sitting on Side/Bed(QC): 6 Sit to Stand (QC): 6 Chair/Dwe-xf-Gwytx Xfer(QC): 6 Toilet Transfer (QC): 6 Car Transfer (QC): 6 Does the Patient Walk: Yes Walk 10 feet (QC): 6 Walk 50ft with 2 Turns (QC): 6 Walk 150 ft (QC): 6 Walking 10ft on Uneven Surface: 6 1 Step (curb) (QC): 6 4 Steps (QC): 6 12 Steps (QC): 6 Picking up an Object (QC): 4 Does the Pt use WC or Scooter?: No Wheel 50 feet with 2 turns (QC: 9 Wheel 150 feet: 9 PT Plan Problem List Problem List: Activity Tolerance, Functional Strength, Safety, Balance, Gait, Transfer, Bed Mobility, ROM Treatment/Plan Treatment Plan: Continue Plan of Care Treatment Plan: Bed Mobility, Education, Functional Activity Flex, Functional Strength, Group Therapy, Gait, Safety, Therapeutic Exercise, Transfers Treatment Duration: May 08, 2022 Frequency: At least 5 of 7 days/Wk (IRF) Estimated Hrs Per Day: 1.5 hours per day Patient and/or Family Agrees t: Yes Safety Risks/Education Patient Education: Gait Training, Transfer Techniques, Correct Positioning, Safety Issues Teaching Recipient: Patient Teaching Methods: Demonstration, Discussion Response to Teaching: Reinforcement Needed Time/GCodes Time In: 1100 Time Out: 1130 Total Billed Treatment Time: 30 Total Billed Treatment 1 visit EX 10' FA 20' TARAH ROSS PT March 31, 2022 11:27
--- NOTE | 2022-03-31 12:16 | Diagnostic Imaging Report ---
CLINICAL INDICATION: Patient with kidney stones. Follow-up. EXAM: KUB x-ray. COMPARISON: CT scan of the lumbar spine without contrast dated 03/22/2022. FINDINGS: Stent is seen overlying the right ureter and bladder region. Bowel gas limits evaluation of stones. There are no definite stones overlying the right kidney or ureter region as visualized. There is a 4 mm density overlying the left kidney shadow, which may represent a renal stone. Suspected phleboliths are seen in left pelvis. Catheter is seen overlying the region of the bladder. Previously seen stone in the mid right ureter is not seen on this exam. There is a thvba-cm-khjjppif amount of stool throughout the colon. There are hypertrophic spurs throughout the thoracolumbar spine. Nonobstructed bowel gas pattern. IMPRESSION: 1: There is a 4 mm density overlying the left abdominal region, which may overlie the left kidney and left ureter. If necessary, CT scan would better evaluate. 2: There is a stent overlying the expected region of right ureter and bladder. Catheter is seen overlying the bladder. 3: Previously seen stone overlying the mid right ureter is not seen on this exam. Dictated by: Dictated on workstation # [id number]
[2022-03-31 12:27] VITALS: BP 117/58
[2022-03-31] MEDS: PROPRANOLOL 20 MG (INDERAL) TABLET PO PRN (12:27)
[2022-03-31] MEDS: LORazepam 1 MG (ATIVAN) TAB PO PRN ×2 (14:49→23:01)
[2022-03-31] MEDS: ALPRAZolam 0.25 MG (XANAX) TAB PO PRN (18:57)
[2022-03-31 20:52] VITALS: BP 99/54
[2022-03-31] MEDS: toPIRamate 100 MG (TOPAMAX) TAB PO SCH (21:06)
[2022-03-31] MEDS: GABAPENTIN 100 MG (NEURONTIN) CAP PO SCH (21:08)
[2022-04-01] MEDS: MULTIVIT W/MINERALS TAB (THERAGRAN M) PO SCH (07:15)
[2022-04-01 07:39] VITALS: BP 94/53
[2022-04-01] MEDS: FUROSEMIDE 40 MG (LASIX) TAB PO SCH (07:41)
[2022-04-01] MEDS: hydrOXYzine (ATARAX) 10 MG TAB PO SCH ×3 (07:41→21:19)
[2022-04-01] MEDS: DOCUSATE SODIUM 100 MG (COLACE) CAP PO SCH ×2 (07:41→21:19)
[2022-04-01] MEDS: toPIRamate 25 MG (TOPAMAX) TAB PO SCH ×2 (07:41→21:19)
[2022-04-01] MEDS: CEFDINIR 300 MG (OMNICEF) CAP PO SCH ×2 (07:41→21:19)
[2022-04-01] MEDS: SENNA W/DOCUSATE (SENOKOT S) TABLET PO SCH ×2 (07:41→21:23)
[2022-04-01] MEDS: oxyCODONE ER 15 MG (oxyCONTIN CR) TAB PO SCH ×2 (07:42→21:20)
[2022-04-01] MEDS: SPIRONOLACTONE 100 MG (ALDACTONE) TABLET PO SCH (07:42)
[2022-04-01] MEDS: TRIAMCINOLONE 0.1% CR (KENALOG) 15 GM TUBE TOP SCH ×2 (07:42→21:20)
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
[2022-04-01] MEDS: polyethylene glycoL POWDER 17 GM (MIRALAX) PACK PO SCH ×2 (08:24→21:23)
[2022-04-01 08:30] VITALS: BP 108/68
--- NOTE | 2022-04-01 09:03 | Occupational Ther Daily Note ---
OT Current Status-Daily Note Subjective Pt in bed, agreeable to OT tx. Per nursing report (after talk with dr's office), pt is to have back brace on any time OOB, including showering, thus sponge baths only performed unless informed otherwise due to precautions. Mental Status/Objective Patient Orientation: Person, Confused, Place, Situation ADL-Treatment Therapy Code Descriptions/Definitions Functional [place] Measure: 0=Not Assessed/NA 4=Minimal Assistance 1=Total Assistance 5=Supervision or Setup 2=Maximal Assistance 6=Modified [place] 3=Moderate Assistance 7=Complete IndependenceSCALE: Activities may be completed with or without assistive devices. 7-Rcydernajw-unqpbgu completes the activity by him/herself with no assistance from a helper. 5-Set-up or Clean-up Assistance-helper sets up or cleans up; patient completes activity. [place] assists only prior to or following the activity. 4-Supervision or Touching Assistance-helper provides verbal cues and/or touching/steadying and/or contact guard assistance as patient completes activity. Assistance may be provided throughout the activity or intermittently. 3-Partial/Moderate Assistance-helper does LESS THAN HALF the effort. [place] lifts, holds or supports trunk or limbs, but provides less than half the effort. 2-Substantial/Maximal Assistance-helper does MORE THAN HALF the effort. [place] lifts or holds trunk or limbs and provides more than half the effort. 4-Ioqsyqamq-naqblb does ALL the effort. Patient does none of the effort to complete the activity. Or, the assistance of 2 or more helpers is required for the patient to complete the activity. If activity was not attempted, code reason: 7-Patient Refused. 9-Not Applicable-not attempted and the patient did not perform the activity before the current illness, exacerbation or injury. 10-Not Attempted due to Environmental Limitations-(lack of equipment, weather restraints, etc.). 88-Not Attempted due to Medical Conditions or Safety Concerns. Eating (QC): 6 Oral Hygiene (QC): 6 (Pt independent seated at sink.) Shower/Bathe Self (QC): 4 (CGA) Upper Body Dressing (QC): 3 (Mod A overall. set up overhead shirt, max A with back brace.) Lower Body Dressing (QC): 3 (min A with threading LEs) On/Off Footwear: 3 (mod A. Pt able to doff usin AE, assist to don.) Toileting Hygiene (QC): 4 (CGA, pt able to wash buttocks and perform clothing management with increased time.) Pt required moderate cues throughout ADL session to adhere to back precautions Other Treatment Pt in bed, eating breakfast. Transferred supine to sit EOB, back brace donned. Pt used FWW to transfer into bathroom and sat at sink for sponge bath, dressing, and grooming tasks. Pt required increased time with tasks and cues to maintain back precautions by utilizing AE. Pt given LH sponge to wash BLE lower legs/feet. Pt then used FWW to return to recliner, CGA. Post tx, pt in recliner, call light in reach and all needs met, chair alarm activated. Education OT Patient Education: Correct positioning, Energy conservation, Modified ADL techniques, Progress toward Goal/Update tx plan, Purpose of tx/functional activities, Rehab process Teaching Recipient: Patient Teaching Methods: Discussion Response to Teaching: Verbalize Understanding OT Short Term Goals Short Term Goals Time Frame: Apr 09, 2022 Shower/bathe self: 3 Upper body dressin Lower body dressin Putting on/taking off footwear: 3 OT Halfway Goals Manager Community Goals Time Frame: Apr 18, 2022 Eating (QC): 6 Oral Hygiene (QC): 6 Toileting Hygiene (QC): 6 Shower/Bathe Self (QC): 6 Upper Body Dressing (QC): 6 Lower Body Dressing (QC): 6 On/Off Footwear (QC): 6 1=Demonstrate adherence to instructed precautions during ADL tasks. 2=Patient will verbalize/demonstrate understanding of assistive devices/modifications for ADL. 3=Patient will improve strength/tolerance for activity to enable patient to perform ADL's. OT Education/Plan Problem List/Assessment Assessment: Decreased Activ Tolerance, Decreased Safety Aware, Decreased UE Strength, Impaired Funct Balance, Impaired I ADL's, Impaired Self-Care Skills Discharge Recommendations Plan/Recommendations: Continue POC Treatment Plan/Plan of Care Patient would benefit from OT for education, treatment and training to promote independence in ADL's, mobility, safety and/or upper extremity function for ADL's. Plan of Care: ADL Retraining, Functional Mobility, Group Exercise/Act as Ind, UE Funct Exercise/Act Treatment Duration: Apr 18, 2022 Frequency: At least 5 of 7 days/Wk (IRF) Estimated Hrs Per Day: 1.5 hours per day Agreement: Yes Rehab Potential: Good Time/GCodes Start Time: 07:45 Stop Time: 09:00 Total Time Billed (hr/min): 75 Billed Treatment Time 1, ADL 5 ANDIE HELTON OT April 01, 2022 09:03
--- NOTE | 2022-04-01 09:04 | PM&R Progress Note ---
Subjective HPI/CC On Admission Date Seen by Provider: April 01, 2022 Time Seen by Provider: 09:00 Subjective/Events-last exam 04/01/22: Patient doing well Decreasing pain meds tomorrow again BM+ Monitoring BP 03/31/22: Patient doing well Improved overall Decreasing Oxycodone to 5mg PO Q4 hours down from 10mg due to dependency potential BM+ 03/30/2022: Patient doing well Was found up by himself using the bedside table as a walker to get around Counseling regarding fall risk initiated by ROBERT Rios No falls Pain meds taken on a regular basis 03/29/2022: Patient doing better since giving pain meds I told him we need to wean down soon since dependency potential is noted with h/o alcoholism BM+ Resting pretty well right now Checked meds and labs Review of Systems General: Fatigue, Malaise Objective Exam Vital Signs Vital Signs Date Time Temp Pulse Resp B/P (MAP) Pulse Ox O2 Delivery O2 Flow Rate FiO2 04/01/22 19:41 37.2 86 22 116/62 (80) 100 Room Air Capillary Refill : General Appearance: No Apparent Distress, WD/WN, Anxious, Chronically ill HEENT: PERRL/EOMI, Normal ENT Inspection, Pharynx Normal Neck: Full Range of Motion, Normal Inspection, Non Tender, Supple, Carotid Bruit Respiratory: Chest Non Tender, Lungs Clear, Normal Breath Sounds, No Accessory Muscle Use, No Respiratory Distress Cardiovascular: Regular Rate, Rhythm, No Edema, No Gallop, No JVD, No Murmur, Normal Peripheral Pulses Gastrointestinal: Normal Bowel Sounds, No Organomegaly, No Pulsatile Mass, Non Tender, Soft Back: Decreased Range of Motion, Other Extremity: Normal Capillary Refill, Normal Inspection, Normal Range of Motion, Non Tender, No Calf Tenderness, No Pedal Edema Neurologic/Psychiatric: Alert, Oriented x3, Normal Mood/Affect, gun profiler II-XII Norm as Tested, Abnormal Gait, Motor Weakness Skin: Normal Color, Warm/Dry Lymphatic: No Adenopathy Results/Procedures Lab Patient resulted labs reviewed. FIM Transfers Therapy Code Descriptions/Definitions Functional [place] Measure: 0=Not Assessed/NA 4=Minimal Assistance 1=Total Assistance 5=Supervision or Setup 2=Maximal Assistance 6=Modified [place] 3=Moderate Assistance 7=Complete IndependenceSCALE: Activities may be completed with or without assistive devices. 6-Yarsxntsib-yzferjj completes the activity by him/herself with no assistance from a helper. 5-Set-up or Clean-up Assistance-helper sets up or cleans up; patient completes activity. [place] assists only prior to or following the activity. 4-Supervision or Touching Assistance-helper provides verbal cues and/or touching/steadying and/or contact guard assistance as patient completes activity. Assistance may be provided throughout the activity or intermittently. 3-Partial/Moderate Assistance-helper does LESS THAN HALF the effort. [place] lifts, holds or supports trunk or limbs, but provides less than half the effort. 2-Substantial/Maximal Assistance-helper does MORE THAN HALF the effort. [place] lifts or holds trunk or limbs and provides more than half the effort. 8-Jlokpxzdb-oxmrme does ALL the effort. Patient does none of the effort to complete the activity. Or, the assistance of 2 or more helpers is required for the patient to complete the activity. If activity was not attempted, code reason: 7-Patient Refused. 9-Not Applicable-not attempted and the patient did not perform the activity before the current illness, exacerbation or injury. 10-Not Attempted due to Environmental Limitations-(lack of equipment, weather restraints, etc.). 88-Not Attempted due to Medical Conditions or Safety Concerns. Roll Left to Right (QC): 6 Sit to Lying (QC): 4 Sit to Stand (QC): 4 Chair/Dqd-nj-Lojrl Xfer(QC): 4 Car Transfer (QC): 4 Gait Training Does the Patient Walk?: Yes Distance: 300', 120' Walk 10 feet (QC): 4 Walk 50 ft with 2 Turns(QC): 4 Walk 150 ft (QC): 4 Walking 10ft/uneven surface-QC: 4 Gait Persons Needed: 1 Gait Assistive Device: FWW Wheelchair Training Does the Pt Use a Wheelchair?: No Wheel 50 ft with 2 turns (QC): 9 Wheel 150 ft (QC): 9 Stair Training #of Steps: 12 1 Step (curb) (QC): 3 4 Steps (QC): 3 12 Steps (QC): 3 Balance Picking up an Object (QC): 88 ADL-Treatment Eating (QC): 6 (Pt reports IND with lunch.) Oral Hygiene (QC): 6 Shower/Bathe Self (QC): 3 (min A) Upper Body Dressing (QC): 3 (Mod A) Lower Body Dressing (QC): 2 On/Off Footwear (QC): 2 Toileting Hygiene (QC): 4 Toilet Transfer (QC): 4 Assessment/Plan Assessment and Plan Assess & Plan/Chief Complaint Assessment: IVH Alcoholism Cirrhosis Anxiety T10-T11 torn disc Macrocytic anemia Thrombocytopenia HTN Right ureter obstructive uropathy DA s/p post ureteral access cath Plan: Monitor pain Monitor kidneys Cirrhosis management Rehab protocol 03/29/2022: Pain control PT OT 03/30/2022: Consult Dr Harrison in morning 03/31/22: Dr Harrison consult 04/01/22: Urology consult Decrease pain meds 04/01/22: Decrease pain meds tomorrow (1) Intracranial hemorrhage Status: Acute (2) Alcohol dependence with acute alcoholic intoxication Status: Acute (3) ETOH abuse Status: Acute (4) Kidney injury Status: Acute (5) Cirrhosis Status: Acute RAMSEY MONTILLA DO April 01, 2022 09:04
--- NOTE | 2022-04-01 10:29 | ST Cognitive Linguistic Eval ---
Speech Evaluation-General Medical Diagnosis Head Injury Onset Date: March 27, 2022 Therapy Diagnosis Therapy Diagnosis: Mild Neurocognitive Impairment Referral Referring Physician: Piper Ramsey Reason for Referral: Evaluation/Treatment Medical History Pertinent Medical History: Alcoholism, Dementia Alcoholism, Dementia Current History Head Injury Reviewed History: Yes Social History Current Living Status: Spouse Speech PLF-Current Status Subjective Pt sitting upright in recliner in room. Pt awake and alert. Pt cooperative and willing to participate in cognitive linguistic evaluation Language Eval: Auditory Comprehends Simple Yes/No Ques: Functional Indent/Objects Multiple [place]: Functional Ident/Pics in Multiple [place]: Functional Follows 1-Step Commands: Functional Follows Complex Directions: Functional Follows General Conversations: Functional Language Eval: Verbal Language Completes Spontaneous Greeting: Functional Produces Auto, Serial Info: Functional Imitates Simple Words/Phrases: Functional Word Finding: Functional Requests Basic Needs: Functional States Basic Personal Info: Functional Expresses Complex Ideas: Functional Cognitive Patient Orientation The patient was independently oriented to self, location, month, day of week, date, and year. Objective Cognitive Domain Attention: Mild Memory: Mild Problem Solving: Mild Executive Functions: Mild Visuospatial Skills: WNL Composite Severity Rating: WNL Clock Drawing Severity Rating: WNL Objective Formal/Standardized Tests [facility] Status ([facility]) Examination Results The patient demonstrated a result of +24/30 correlating to a mild neurocognitive disorder. Oral Motor/Speech Production The patient was 100% intelligible in known and unknown contexts. Impression The patient demonstrated mild cognitive linguistic deficits in the areas of problem solving and memory; skilled speech pathology to focus on the identified areas of difficulties would be beneficial for improved safety with increased independence upon discharge from the acute rehabilitation unit. Speech Patient Assess Expression of Ideas/Wants: Expression (4) Understanding Verbal Content: Understands (4) Brief Interview-Mental Status: Yes Repetition of Three Words: Three (3) Temporal Orientation: Year: Correct (3) Temporal Orientation: Month: Accurate within 5 days(2) Temporal Orientation: Day: Correct (1) Recall : Wear to say "Sock": Yes, no cue required (2) Recall : Color: Yes, no cue required (2) Recall : Bed: Yes, no cue required (2) Memory/Recall Ability: That he or she is in a hsp/hsp unit Speech Short Term Goals Short Term Goals Short Term Goals The patient will demonstrate 90% accuracy with memory and functional problem solving with mild clinician verbal and visual cueing. Speech Longterm Goals Cooling Pan Tender Goals The patient will demonstrate improve cognitive linguistic skills for safe discharge to the least restricted environment. Speech-Plan Patient/Family Goals Patient/Family Goals: Pt expressed concerns with short term and delayed recall. Pt requested speech therapy to improve memory and problem solving. Pt plans to return home. Treatment Plan Speech Therapy Treatment Plan: Continue Plan of Care Pt presented with a mild neurocognitive impairment with difficulty in delayed recall and problem solving tasks. ST recommended at this time to target cognition for improved independence with ADLs. Treatment Duration: March 13, 2023 Frequency: Modified Program (IRF) Estimated Hrs Per Day: Other Rehab Potential: Good Barriers to Learning: Cognition Pt/Family Agrees to Plan: Yes Safety Risks/Education Teaching Recipient: Patient Teaching Methods: Discussion Response to Teaching: Verbalize Understanding Education Topics Provided: ST Suraj goals Time Speech Therapy Time In: 09:00 Speech Therapy Time Out: 09:30 Total Billed Time: 30 Billed Treatment Time 1, SPSNDCOMP CALISTA Shook April 01, 2022 10:29
--- NOTE | 2022-04-01 10:30 | CONSULTATION REPORT ---
DATE OF SERVICE: 04/01/2022 ATTENDING PHYSICIAN: Dr. Steinberg. SUMMARY: After reviewing the patient's record in the hospital, the one from [place] and the office record, this is a 62-year-old white man known to me, but lost for followup since 2019 secondary to his multiple medical problems. He apparently was in [place] and developed a stone in the distal left ureter, which was treated by the urologist over there and that seems like the one coming from , who performed a flexible laser ureteral lithotripsy and stenting. He was subsequently admitted to the rehabilitation unit here. He was not very clear about the decision of the urologist regarding the fate of the stent when to come out. I did a KUB on him yesterday and it reveals no calcification along the ureteral stent, which confirmed successful ureteral lithotripsy. He has a 4.27 mm stone in the lower pole of the kidney, asymptomatic with no problem. IMPRESSION: 1. History of right distal ureteral stone post-lithotripsy and stent. 2. Left renal stone. PLAN: 1. We will get more accurate information from the to decide on removing the stent. 2. I had a lengthy discussion with the patient to see where he wanted to have the stent removed and his care after that he wanted to remain in [place] here with me. So, once we know that it is okay to remove the stent, we will do that with a flexible cystoscope either at bedside here in the hospital or in the office again under local. The plan was fully explained to the patient and all of his questions were answered. CC: Dr. Steinberg - requested, unable to deliver. Job ID: [id number] DocumentID: [id number] Dictated Date: 04/01/2022 09:52:58 Stroboscope Operator Date: 04/01/2022 10:29:51 Dictated By: AMEENA MOONEY MD
--- NOTE | 2022-04-01 13:03 | Physical Therapy Daily Note ---
PT Daily Note-Current Subjective Pt sitting up in recliner upon arrival. Pt agrees to PT but continues to ask about removing back brace. MANAGER OF OPERATIONS reminds pt as long as pt is upright and out of bed, back brace must be worn. Pain Location Body Site: Back Pain Description: Ache Comment: Reports Thoracic region pain but doesn't rate Mental Status Patient Orientation: Person, Place Attachments: Other-See Comments (TLSO Brace) Transfers SCALE: Activities may be completed with or without assistive devices. 8-Zbcngwpwdv-lbhfulm completes the activity by him/herself with no assistance from a helper. 5-Set-up or Clean-up Assistance-helper sets up or cleans up; patient completes a ctivity. [place] assists only prior to or following the activity. 4-Supervision or Touching Assistance-helper provides verbal cues and/or touching/steadying and/or contact guard assistance as patient completes activity. Assistance may be provided throughout the activity or intermittently. 3-Partial/Moderate Assistance-helper does LESS THAN HALF the effort. [place] lifts, holds or supports trunk or limbs, but provides less than half the effort. 2-Substantial/Maximal Assistance-helper does MORE THAN HALF the effort. [place] lifts or holds trunk or limbs and provides more than half the effort. 4-Umdeihbef-mackkn does ALL the effort. Patient does none of the effort to complete the activity. Or, the assistance of 2 or more helpers is required for the patient to complete the activity. If activity was not attempted, code reason: 7-Patient Refused. 9-Not Applicable-not attempted and the patient did not perform the activity before the current illness, exacerbation or injury. 10-Not Attempted due to Environmental Limitations-(lack of equipment, weather restraints, etc.). 88-Not Attempted due to Medical Conditions or Safety Concerns. Sit to Stand (QC): 4 Toilet Transfer (QC): 4 Weight Bearing Right Lower Extremity: Right Full Weight Bearing Left Lower Extremity: Left Full Weight Bearing TLSO donned at all times when up and donned prior to transferring out of bed. Gait Training Does the Patient Walk?: Yes Distance: 175' x2 Walk 10 feet (QC): 4 Walk 50 ft with 2 Turns(QC): 4 Walk 150 ft (QC): 4 Gait Assistive Device: FWW Very slow kike, redirection to stay focused Exercises Seated Therapy Exercises: Ankle pumps, Long arc quads, Hip flexion, Glut set Seated Reps: 15 Treatments After cleaning up spilled breakfast, pt TF to standing and amb to BR. Pt amb. in hallway with a couple RB. Pt completes Seated EX. Pt returns to room to rest at recliner with all needs met, call light in hand and lunch arriving shortly. Assessment Current Status: Fair Progress Pt needs redirection to stay on task. PT Inspector Repairer [place] Goals [facility] Goals PT Inspector Repairer [place] Goals Time Frame: May 02, 2022 Roll Left & Right (QC): 6 Sit to Lying (QC): 6 Lying-Sitting on Side/Bed(QC): 6 Sit to Stand (QC): 6 Chair/Mcl-bb-Jujtc Xfer(QC): 6 Toilet Transfer (QC): 6 Car Transfer (QC): 6 Does the Patient Walk: Yes Walk 10 feet (QC): 6 Walk 50ft with 2 Turns (QC): 6 Walk 150 ft (QC): 6 Walking 10ft on Uneven Surface: 6 1 Step (curb) (QC): 6 4 Steps (QC): 6 12 Steps (QC): 6 Picking up an Object (QC): 4 Does the Pt use WC or Scooter?: No Wheel 50 feet with 2 turns (QC: 9 Wheel 150 feet: 9 PT Plan Problem List Problem List: Activity Tolerance, Safety Treatment/Plan Treatment Plan: Continue Plan of Care Treatment Plan: Bed Mobility, Education, Functional Activity Flex, Functional Strength, Group Therapy, Gait, Safety, Therapeutic Exercise, Transfers Treatment Duration: May 08, 2022 Frequency: At least 5 of 7 days/Wk (IRF) Estimated Hrs Per Day: 1.5 hours per day Patient and/or Family Agrees t: Yes Safety Risks/Education Patient Education: Gait Training, Transfer Techniques, Correct Positioning, Safety Issues Teaching Recipient: Patient Teaching Methods: Discussion Response to Teaching: Reinforcement Needed Time/GCodes Time In: 1045 Time Out: 1200 Total Billed Treatment Time: 75 Total Billed Treatment 1, FA x2 (25m), GT x2 (35m) & EX (15m) RAGHU ALMONTE MANAGER OF OPERATIONS April 01, 2022 13:03
[2022-04-01 19:41] VITALS: BP 116/62
[2022-04-01] MEDS: toPIRamate 100 MG (TOPAMAX) TAB PO SCH (21:19)
[2022-04-01] MEDS: GABAPENTIN 100 MG (NEURONTIN) CAP PO SCH (21:19)
--- NOTE | 2022-04-02 05:43 | PM&R Progress Note ---
Subjective HPI/CC On Admission Date Seen by Provider: April 02, 2022 Time Seen by Provider: 10:00 Subjective/Events-last exam 04/02/2022: Pt is doing really well Wrapping legs with GIORGIO wrap Bowels moved yesterday Using a back brace Overall having a lot of social issues due to chronic alcoholism 04/01/22: Patient doing well Decreasing pain meds tomorrow again BM+ Monitoring BP 03/31/22: Patient doing well Improved overall Decreasing Oxycodone to 5mg PO Q4 hours down from 10mg due to dependency potential BM+ 03/30/2022: Patient doing well Was found up by himself using the bedside table as a walker to get around Counseling regarding fall risk initiated by ROBERT Rios No falls Pain meds taken on a regular basis 03/29/2022: Patient doing better since giving pain meds I told him we need to wean down soon since dependency potential is noted with h/o alcoholism BM+ Resting pretty well right now Checked meds and labs Review of Systems General: Fatigue, Malaise Objective Exam Vital Signs Vital Signs Date Time Temp Pulse Resp B/P (MAP) Pulse Ox O2 Delivery O2 Flow Rate FiO2 04/02/22 20:54 37.3 74 20 97/62 (74) 96 Room Air Capillary Refill : General Appearance: No Apparent Distress, WD/WN, Anxious, Chronically ill HEENT: PERRL/EOMI, Normal ENT Inspection, Pharynx Normal Neck: Full Range of Motion, Normal Inspection, Non Tender, Supple, Carotid Bruit Respiratory: Chest Non Tender, Lungs Clear, Normal Breath Sounds, No Accessory Muscle Use, No Respiratory Distress Cardiovascular: Regular Rate, Rhythm, No Edema, No Gallop, No JVD, No Murmur, Normal Peripheral Pulses Gastrointestinal: Normal Bowel Sounds, No Organomegaly, No Pulsatile Mass, Non Tender, Soft Back: Decreased Range of Motion, Other Extremity: Normal Capillary Refill, Normal Inspection, Normal Range of Motion, Non Tender, No Calf Tenderness, No Pedal Edema Neurologic/Psychiatric: Alert, Oriented x3, Normal Mood/Affect, biofuels engineering manager II-XII Norm as Tested, Abnormal Gait, Motor Weakness Skin: Normal Color, Warm/Dry Lymphatic: No Adenopathy Results/Procedures Lab Patient resulted labs reviewed. FIM Transfers Therapy Code Descriptions/Definitions Functional [place] Measure: 0=Not Assessed/NA 4=Minimal Assistance 1=Total Assistance 5=Supervision or Setup 2=Maximal Assistance 6=Modified [place] 3=Moderate Assistance 7=Complete IndependenceSCALE: Activities may be completed with or without assistive devices. 3-Aztxzxggpd-lykipuj completes the activity by him/herself with no assistance from a helper. 5-Set-up or Clean-up Assistance-helper sets up or cleans up; patient completes activity. [place] assists only prior to or following the activity. 4-Supervision or Touching Assistance-helper provides verbal cues and/or touching/steadying and/or contact guard assistance as patient completes activity. Assistance may be provided throughout the activity or intermittently. 3-Partial/Moderate Assistance-helper does LESS THAN HALF the effort. [place] lifts, holds or supports trunk or limbs, but provides less than half the effort. 2-Substantial/Maximal Assistance-helper does MORE THAN HALF the effort. [place] lifts or holds trunk or limbs and provides more than half the effort. 3-Cnafddrxi-peswsb does ALL the effort. Patient does none of the effort to co mplete the activity. Or, the assistance of 2 or more helpers is required for the patient to complete the activity. If activity was not attempted, code reason: 7-Patient Refused. 9-Not Applicable-not attempted and the patient did not perform the activity before the current illness, exacerbation or injury. 10-Not Attempted due to Environmental Limitations-(lack of equipment, weather restraints, etc.). 88-Not Attempted due to Medical Conditions or Safety Concerns. Roll Left to Right (QC): 6 Sit to Lying (QC): 4 Sit to Stand (QC): 4 Chair/Fop-ee-Vqnkj Xfer(QC): 4 Car Transfer (QC): 4 Gait Training Does the Patient Walk?: Yes Distance: 175' x2 Walk 10 feet (QC): 4 Walk 50 ft with 2 Turns(QC): 4 Walk 150 ft (QC): 4 Walking 10ft/uneven surface-QC: 4 Gait Persons Needed: 1 Gait Assistive Device: FWW Wheelchair Training Does the Pt Use a Wheelchair?: No Wheel 50 ft with 2 turns (QC): 9 Wheel 150 ft (QC): 9 Stair Training #of Steps: 12 1 Step (curb) (QC): 3 4 Steps (QC): 3 12 Steps (QC): 3 Balance Picking up an Object (QC): 88 ADL-Treatment Eating (QC): 6 Oral Hygiene (QC): 6 (Pt independent seated at sink.) Shower/Bathe Self (QC): 4 (CGA) Upper Body Dressing (QC): 3 (Mod A overall. set up overhead shirt, max A with back brace.) Lower Body Dressing (QC): 3 (min A with threading LEs) On/Off Footwear (QC): 3 (mod A. Pt able to doff usin AE, assist to don.) Toileting Hygiene (QC): 4 (CGA, pt able to wash buttocks and perform clothing management with increased time.) Toilet Transfer (QC): 4 Assessment/Plan Assessment and Plan Assess & Plan/Chief Complaint Assessment: IVH Alcoholism Cirrhosis Anxiety T10-T11 torn disc Macrocytic anemia Thrombocytopenia HTN Right ureter obstructive uropathy DA s/p post ureteral access cath Plan: Monitor pain Monitor kidneys Cirrhosis management Rehab protocol 03/29/2022: Pain control PT OT 03/30/2022: Consult Dr Harrison in morning 03/31/22: Dr Harrison consult 04/01/22: Urology consult Decrease pain meds 04/01/22: Decrease pain meds tomorrow 04/02/2022: Supportive care (1) Intracranial hemorrhage Status: Acute (2) Alcohol dependence with acute alcoholic intoxication Status: Acute (3) ETOH abuse Status: Acute (4) Kidney injury Status: Acute (5) Cirrhosis Status: Acute RAMSEY MONTILLA DO April 02, 2022 05:43
[2022-04-02] MEDS: MULTIVIT W/MINERALS TAB (THERAGRAN M) PO SCH (06:04)
[2022-04-02] MEDS: KCL 10 MEQ TAB (MICRO K) PO SCH ×3 (06:05→06:07)
[2022-04-02 07:44] VITALS: BP 117/63
[2022-04-02] MEDS: DOCUSATE SODIUM 100 MG (COLACE) CAP PO SCH ×2 (08:10→19:28)
[2022-04-02] MEDS: CEFDINIR 300 MG (OMNICEF) CAP PO SCH (08:10)
[2022-04-02] MEDS: SPIRONOLACTONE 100 MG (ALDACTONE) TABLET PO SCH (08:10)
[2022-04-02] MEDS: PROPRANOLOL 20 MG (INDERAL) TABLET PO PRN ×2 (08:10→08:16)
[2022-04-02] MEDS: ARTIFICAL TEARS 0.4 ML UNIT DOSE (REFRESH PLUS) OD PRN (08:11)
[2022-04-02] MEDS: hydrOXYzine (ATARAX) 10 MG TAB PO SCH ×3 (08:11→20:09)
[2022-04-02] MEDS: SENNA W/DOCUSATE (SENOKOT S) TABLET PO SCH ×2 (08:11→19:29)
[2022-04-02] MEDS: FUROSEMIDE 40 MG (LASIX) TAB PO SCH (08:11)
[2022-04-02] MEDS: oxyCODONE ER 15 MG (oxyCONTIN CR) TAB PO SCH ×2 (08:11→20:09)
[2022-04-02] MEDS: toPIRamate 25 MG (TOPAMAX) TAB PO SCH ×2 (08:12→20:09)
[2022-04-02] MEDS: TRIAMCINOLONE 0.1% CR (KENALOG) 15 GM TUBE TOP SCH ×2 (08:14→20:12)
[2022-04-02] MEDS: LORazepam 1 MG (ATIVAN) TAB PO PRN (08:15)
[2022-04-02] MEDS: polyethylene glycoL POWDER 17 GM (MIRALAX) PACK PO SCH ×2 (09:04→19:28)
--- NOTE | 2022-04-02 10:09 | Occupational Ther Daily Note ---
OT Current Status-Daily Note Subjective Pt in bed, agreeable to OT Tx. Pt reports c/o depression, feelings of worthlessness, and pain being uncontrolled to the point of tears at start of session. OT provided therapeutic listening and communication with pt and talked with pt's nurse about his concerns. Mental Status/Objective Patient Orientation: Person, Confused, Place, Situation Attachments: Other-See Comments (back brace) ADL-Treatment Therapy Code Descriptions/Definitions Functional [place] Measure: 0=Not Assessed/NA 4=Minimal Assistance 1=Total Assistance 5=Supervision or Setup 2=Maximal Assistance 6=Modified [place] 3=Moderate Assistance 7=Complete IndependenceSCALE: Activities may be completed with or without assistive devices. 6-Tuwbflkrfu-tqdmqlq completes the activity by him/herself with no assistance from a helper. 5-Set-up or Clean-up Assistance-helper sets up or cleans up; patient completes activity. [place] assists only prior to or following the activity. 4-Supervision or Touching Assistance-helper provides verbal cues and/or touching/steadying and/or contact guard assistance as patient completes activity. Assistance may be provided throughout the activity or intermittently. 3-Partial/Moderate Assistance-helper does LESS THAN HALF the effort. [place] lifts, holds or supports trunk or limbs, but provides less than half the effort. 2-Substantial/Maximal Assistance-helper does MORE THAN HALF the effort. [place] lifts or holds trunk or limbs and provides more than half the effort. 5-Mborzjadt-ggldvx does ALL the effort. Patient does none of the effort to complete the activity. Or, the assistance of 2 or more helpers is required for the patient to complete the activity. If activity was not attempted, code reason: 7-Patient Refused. 9-Not Applicable-not attempted and the patient did not perform the activity before the current illness, exacerbation or injury. 10-Not Attempted due to Environmental Limitations-(lack of equipment, weather restraints, etc.). 88-Not Attempted due to Medical Conditions or Safety Concerns. Toileting Hygiene (QC): 3 (Mod A for thoroughness of hygiene and pant hike posteriorly) Toilet Transfer (QC): 4 (SBA on/off BSC over toilet.) Pt requires increased time with ADLs and functional mobility, cues for sequencing throughout session. Other Treatment Pt in bed, agreeable to OT tx. Pt transferred to EOB, back brace donned (OT a ssisted due to time), pt used FWW to perform functional mobility to therapy [facility]. Pt sat in chair, tearful with c/o depression, feelings of worthlessness, and pain being uncontrolled to the point of tears at start of session. OT provided therapeutic listening and communication with pt and talked with pt's nurse about his concerns.Pt completed heavy resistance (Green) theraputty task, removing beads from putty in order to increase fine motor strength and coordination. Pt used FWW to return to room, transferring to toilet. Pt incontinent of BM, requiring total assist to change lower body clothing due to time constraint. Mod A with toileting for hygiene and posterior clothing management. Pt used FWW to transfer to recliner [facility] due to pt reports of unsteadiness. Post tx, pt in recliner, call light in reach and all needs met, chair alarm activated. Pt requires increased time with all tasks and mobility due to slow movements, and cues for sequencing and safety throughout tx Education OT Patient Education: Correct positioning, Energy conservation, Exercise program, Modified ADL techniques, Progress toward Goal/Update tx plan, Purpose of tx/functional activities, Rehab process Teaching Recipient: Patient Teaching Methods: Discussion Response to Teaching: Reinforcement Needed OT Short Term Goals Short Term Goals Time Frame: Apr 09, 2022 Shower/bathe self: 3 Upper body dressin Lower body dressin Putting on/taking off footwear: 3 OT Care Home Goals Sales Consultant Residential Manager Goals Time Frame: Apr 18, 2022 Eating (QC): 6 Oral Hygiene (QC): 6 Toileting Hygiene (QC): 6 Shower/Bathe Self (QC): 6 Upper Body Dressing (QC): 6 Lower Body Dressing (QC): 6 On/Off Footwear (QC): 6 1=Demonstrate adherence to instructed precautions during ADL tasks. 2=Patient will verbalize/demonstrate understanding of assistive devices/modifications for ADL. 3=Patient will improve strength/tolerance for activity to enable patient to perform ADL's. OT Education/Plan Problem List/Assessment Assessment: Decreased Activ Tolerance, Decreased Safety Aware, Decreased UE Strength, Impaired Funct Balance, Impaired I ADL's, Impaired Self-Care Skills Discharge Recommendations Plan/Recommendations: Continue POC Treatment Plan/Plan of Care Patient would benefit from OT for education, treatment and training to promote independence in ADL's, mobility, safety and/or upper extremity function for ADL's. Plan of Care: ADL Retraining, Functional Mobility, Group Exercise/Act as Ind, UE Funct Exercise/Act Treatment Duration: Apr 18, 2022 Frequency: At least 5 of 7 days/Wk (IRF) Estimated Hrs Per Day: 1.5 hours per day Agreement: Yes Rehab Potential: Good Time/GCodes Start Time: 08:45 Stop Time: 10:10 Total Time Billed (hr/min): 85 Billed Treatment Time 1, FA 2 (25'), ADL 4 (60') ANDIE HELTON OT April 02, 2022 10:09
--- NOTE | 2022-04-02 10:54 | Progress Note ---
LAZARA CAMEJO 04/02/22 1054: Progress Note Subjective: CC: Debility Secondary to an Intraventricular Hemorrhage and a T10-11 Torn Disc HPI: The patient was laying in bed comfortably this morning. The patient is content with his inpatient rehab progress thus far. Rehab staff did report that the patient was having some emotional difficulties of crying during his rehab exercises. The patient reports that he has been having some cramping in the R calf that presents spontaneously and is not associated with exertion. His bowels are moving well. He continues to ambulate with a walker. ROS: Constitutional: no chills, temperature of 38 C this morning which has resolved EENTM: no vision changes Respiratory: no cough, no dyspnea Cardiovascular: no chest pain, no palpitations Gastrointestinal: no vomiting, no diarrhea Genitourinary: no hematuria Musculoskeletal: R calf cramping Skin: no concerning lesions, marcia in place on his head Psychiatric/Neurological: positive for anxiety, positive for emotional lability Objective: Vitals: T: 38 at 0744 (lowered to 36.6 at 0835), HR: 90, RR: 18, BP: 117/63, 97% room air. PE: General Appearance: No Apparent Distress, Chronically ill Eyes: Bilateral Eye Normal Inspection, Bilateral Eye PERRL HEENT: PERRL/EOMI, mocuous membranes moist Neck: Normal Inspection, normal ROM, Respiratory: Chest Non Tender, Lungs Clear, Normal Breath Sounds, No Accessory Muscle Use, No Respiratory Distress Cardiovascular: Regular Rate, Rhythm, Peripheral Edema of bilateral lower extremities, No Gallop, No JVD, No Murmur, Normal Peripheral Pulses Gastrointestinal: Normal Bowel Sounds, No Organomegaly, No Pulsatile Mass, Non Tender, Soft Extremity: Normal Range of Motion, Non Tender, No Calf Tenderness, Pedal Edema of bilateral lower extremities Back: Decreased ROM Neurologic/Psychiatric: Alert, Oriented x3, Bilateral tremor of the hands, Anxious, Emotional Lability, CN II-XII normal as tested, UE and LE strength 5/5 bilaterally Skin: Normal Color, Warm/Dry Assessment: Debility Intraventricular hemorrhage T10-11 torn disc Thrombocytopenia HTN R ureter obstructive uropathy S/P ureteral access cath DA Alcohol use disorder Cirrhosis Peripheral edema Anxiety Pain Hypokalemia Macrocytic anemia Plan: Debility Intraventricular hemorrhage T10-11 torn disc The patient will continue with inpatient rehab. He is content with his progress thus far. He will continue to work on improving his balance, ambulating ability, strength and stamina. We will continue to monitor his neurological and strength levels. We will d/c the marcia in his head today. Discharge planned for 04/09/22. Thrombocytopenia Last platelet count was 98 on 03/29/21. Continue to monitor. HTN Continue home medications. Continue to monitor blood pressure. R ureter obstructive uropathy S/P ureteral access cath Continue to monitor urinary status. Catheter in place. Urology following. We appreciate their recommendations. DA Last creatinine was 1.45 and GFR was 54 on 03/29/22. Continue to monitor renal function. Alcohol use disorder Alcohol abstinence recommended. Cirrhosis No acute management at this time. AST was 41 and ALT was 32 on 03/29/22. Continue to monitor. Peripheral edema Continue with diuretic therapy of Spironolactone 100mg daily, and Lasix 40mg daily. Closely monitor renal function. Continue with compression wrapping of the lower extremities. Anxiety Monitor mood and emotional status. Benzodiazepine therapy PRN. Dr. Mendosa consulted yesterday, we appreciate his recommendations. Pain Continue with Oxycodone 5mg Q4hr PRN. Hypokalemia Continue with oral potassium replacement therapy. Continue to monitor K+. His last K+ was 3.4 on 03/29/22. Macrocytic anemia Continue with multivitamin replacement therapy. Continue to monitor hemoglobin and MCV. Hemoglobin was 11.8 and MCV was 104 on 03/29/22. PIPER MONTILLA DO 04/02/222101: Supervisory-Addendum Brief Verification & Attestation Participated in pt care: history, MDM, physical Personally performed: exam, history, MDM, supervision of care Care discussed with: Medical Student Procedures: n/a Results interpretation: Verified all documentation Verification and Attestation of Medical Student E/M Service A medical student performed and documented this service in my presence. I reviewed and verified all information documented by the medical student and made modifications to such information, when appropriate. I personally performed the physical exam and medical decision making. Piper Montilla April 02, 2022,21:02 LAZARA CAMEJO April 02, 2022 10:54 PIPER MONTILLA DO April 02, 2022 21:02
--- NOTE | 2022-04-02 12:05 | Physical Therapy Daily Note ---
PT Daily Note-Current Subjective Pt sitting in recliner in room upon arrival. Pt reluctantly agrees to work with PT in room and with increased encouragement later outside of room. Pain Location Body Site: Back Comment: Reports back pain but doesn't rate Mental Status Patient Orientation: Person, Place Transfers SCALE: Activities may be completed with or without assistive devices. 8-Inaqfravei-vpemohw completes the activity by him/herself with no assistance from a helper. 5-Set-up or Clean-up Assistance-helper sets up or cleans up; patient completes activity. [place] assists only prior to or following the activity. 4-Supervision or Touching Assistance-helper provides verbal cues and/or touching/steadying and/or contact guard assistance as patient completes activity. Assistance may be provided throughout the activity or intermittently. 3-Partial/Moderate Assistance-helper does LESS THAN HALF the effort. [place] lifts, holds or supports trunk or limbs, but provides less than half the effort. 2-Substantial/Maximal Assistance-helper does MORE THAN HALF the effort. [place] lifts or holds trunk or limbs and provides more than half the effort. 6-Cpvwihsma-jikpeu does ALL the effort. Patient does none of the effort to complete the activity. Or, the assistance of 2 or more helpers is required for the patient to complete the activity. If activity was not attempted, code reason: 7-Patient Refused. 9-Not Applicable-not attempted and the patient did not perform the activity before the current illness, exacerbation or injury. 10-Not Attempted due to Environmental Limitations-(lack of equipment, weather restraints, etc.). 88-Not Attempted due to Medical Conditions or Safety Concerns. Sit to Stand (QC): 4 Weight Bearing Right Lower Extremity: Right Full Weight Bearing Left Lower Extremity: Left Full Weight Bearing TLSO donned at all times when up and donned prior to transferring out of bed. Gait Training Does the Patient Walk?: Yes Distance: 200' x2 Walk 10 feet (QC): 4 Walk 50 ft with 2 Turns(QC): 4 Walk 150 ft (QC): 4 Gait Persons Needed: 1 Gait Assistive Device: FWW Very slow kkie, VC for staying close to FWW Exercises Supine Ex: Ankle pumps, Quad Set, Glut sets, Heel Slides, Straight leg raise, Hip abd/add Supine Reps: 15 Seated Therapy Exercises: Ankle pumps, Long arc quads, Hip flexion, Hip abd/add Seated Reps: 15 Treatments Pt declines needing to use BR. Pt asks to not leave room and in fact to not work w/PT today. W/encouragement, pt works on written HEP issued by MACHINE HOOP MAKER for S upine & Seated Ex. Pt reluctantly agrees to TF to standing. Pt amb. in hallway, taking RB as needed. Pt amb. in hallway and returns to room to rest in recliner as lunch is soon to arrive. MACHINE HOOP MAKER encourages pt to try to sit up as much as possible for improved breathing & strength. MACHINE HOOP MAKER reviews back precautions and why back brace is used/needed. All needs met, call light in hand. Assessment Current Status: Fair Progress Continued need for encouragement, as well as poor retention of precautions & use of back brace PT Longterm Goals Job Estimator Goals PT Longterm Goals Time Frame: May 02, 2022 Roll Left & Right (QC): 6 Sit to Lying (QC): 6 Lying-Sitting on Side/Bed(QC): 6 Sit to Stand (QC): 6 Chair/Avc-nq-Jjpwn Xfer(QC): 6 Toilet Transfer (QC): 6 Car Transfer (QC): 6 Does the Patient Walk: Yes Walk 10 feet (QC): 6 Walk 50ft with 2 Turns (QC): 6 Walk 150 ft (QC): 6 Walking 10ft on Uneven Surface: 6 1 Step (curb) (QC): 6 4 Steps (QC): 6 12 Steps (QC): 6 Picking up an Object (QC): 4 Does the Pt use WC or Scooter?: No Wheel 50 feet with 2 turns (QC: 9 Wheel 150 feet: 9 PT Plan Problem List Problem List: Activity Tolerance, Safety Treatment/Plan Treatment Plan: Continue Plan of Care Treatment Plan: Bed Mobility, Education, Functional Activity Flex, Functional Strength, Group Therapy, Gait, Safety, Therapeutic Exercise, Transfers Treatment Duration: May 08, 2022 Frequency: At least 5 of 7 days/Wk (IRF) Estimated Hrs Per Day: 1.5 hours per day Patient and/or Family Agrees t: Yes Safety Risks/Education Patient Education: Gait Training, Transfer Techniques, Reviewed Precautions, Correct Positioning, Safety Issues Teaching Recipient: Patient Teaching Methods: Discussion Response to Teaching: Reinforcement Needed Time/GCodes Time In: 1045 Time Out: 1200 Total Billed Treatment Time: 75 Total Billed Treatment 1, EX x2 (30m), GT x2 (35m) & FA (10m) RAGHU ALMONTE MACHINE HOOP MAKER April 02, 2022 12:05
--- NOTE | 2022-04-02 12:07 | Speech Therapy Daily Note ---
Speech Daily Progress Note Subjective Date Seen by Provider: April 02, 2022 Time Seen by Provider: 00:31 Pt sitting upright in bed in room. Pt and cooperative. Willing to participate in ST treatment session. Objective Session targeted novel recall. Pt was 90% accurate with minimal verbal cues. Assessment Assessment Current Status: Excellent Progress Treatment Plan Continue Plan of Care Speech Short Term Goals Short Term Goals Short Term Goals The patient will demonstrate 90% accuracy with memory and functional problem solving with mild clinician verbal and visual cueing. Speech Camera Assembler Goals Camera Assembler Goals The patient will demonstrate improve cognitive linguistic skills for safe discharge to the least restricted environment. Speech-Plan Patient/Family Goals Patient/Family Goals: D/c planned for 04/09. Plans to return to home. Treatment Plan Speech Therapy Treatment Plan: Continue Plan of Care Pt presents with a mild neurocognitive impairment. Pt benefits from minimal verbal/visual cues for memory and problem solving tasks. Treatment Duration: Apr 09, 2022 Frequency: Modified Program (IRF) Estimated Hrs Per Day: Other Rehab Potential: Good Barriers to Learning: cognition, emotional regulation Pt/Family Agrees to Plan: Yes Safety Risks/Education Teaching Recipient: Patient Teaching Methods: Discussion Response to Teaching: Verbalize Understanding Education Topics Provided: ST goals, memory strategies, and room safety Time Speech Therapy Time In: 08:00 Speech Therapy Time Out: 08:31 Total Billed Time: 31 Billed Treatment Time 1FLOR SEAN ST April 02, 2022 12:07
--- NOTE | 2022-04-02 13:48 | Progress Note - Urology ---
Progress Note-Urology Progress Notes/Assess & Plan Progress/Assessment & Plan RT URETERAL STONE LITHOTRIPSY 03/24 WITH STENT, DR LATHAM. PLAN DC STENT NEXT WEEK AT BEDSIDE UNDER LOCAL Final Diagnosis RT URETERAL STONE AMEENA MOONEY MD April 02, 2022 13:48
[2022-04-02] MEDS: GABAPENTIN 100 MG (NEURONTIN) CAP PO SCH (20:09)
[2022-04-02] MEDS: toPIRamate 100 MG (TOPAMAX) TAB PO SCH (20:10)
[2022-04-02 20:54] VITALS: BP 97/62
[2022-04-03] MEDS: MULTIVIT W/MINERALS TAB (THERAGRAN M) PO SCH (06:31)
[2022-04-03] MEDS: KCL 10 MEQ TAB (MICRO K) PO SCH (06:32)
--- NOTE | 2022-04-03 06:35 | PM&R Progress Note ---
Subjective HPI/CC On Admission Date Seen by Provider: April 03, 2022 Time Seen by Provider: 12:00 Subjective/Events-last exam 04/03/2022: Pt is doing a lot better Fecal incontinence noted so holding stool softeners Still complaining of pain but I'm decreasing Oxycodone to q6 hours Oxycontin of 15 BID will be the next to discontinue Alcoholism presents its own issues 04/02/2022: Pt is doing really well Wrapping legs with GIORGIO wrap Bowels moved yesterday Using a back brace Overall having a lot of social issues due to chronic alcoholism 04/01/22: Patient doing well Decreasing pain meds tomorrow again BM+ Monitoring BP 03/31/22: Patient doing well Improved overall Decreasing Oxycodone to 5mg PO Q4 hours down from 10mg due to dependency potential BM+ 03/30/2022: Patient doing well Was found up by himself using the bedside table as a walker to get around Counseling regarding fall risk initiated by ROBERT Rios No falls Pain meds taken on a regular basis 03/29/2022: Patient doing better since giving pain meds I told him we need to wean down soon since dependency potential is noted with h/o alcoholism BM+ Resting pretty well right now Checked meds and labs Review of Systems General: Fatigue, Malaise Musculoskeletal: leg pain Objective Exam Vital Signs Vital Signs Date Time Temp Pulse Resp B/P (MAP) Pulse Ox O2 Delivery O2 Flow Rate FiO2 04/03/22 20:09 Room Air 04/03/22 20:04 36.9 69 18 103/57 (72) 95 Capillary Refill : General Appearance: No Apparent Distress, WD/WN, Anxious, Chronically ill HEENT: PERRL/EOMI, Normal ENT Inspection, Pharynx Normal Neck: Full Range of Motion, Normal Inspection, Non Tender, Supple, Carotid Bruit Respiratory: Chest Non Tender, Lungs Clear, Normal Breath Sounds, No Accessory Muscle Use, No Respiratory Distress Cardiovascular: Regular Rate, Rhythm, No Edema, No Gallop, No JVD, No Murmur, Normal Peripheral Pulses Gastrointestinal: Normal Bowel Sounds, No Organomegaly, No Pulsatile Mass, Non Tender, Soft Back: Decreased Range of Motion, Other Extremity: Normal Capillary Refill, Normal Inspection, Normal Range of Motion, Non Tender, No Calf Tenderness, No Pedal Edema Neurologic/Psychiatric: Alert, Oriented x3, Normal Mood/Affect, online content developer II-XII Norm as Tested, Abnormal Gait, Motor Weakness Skin: Normal Color, Warm/Dry Lymphatic: No Adenopathy Results/Procedures Lab Patient resulted labs reviewed. FIM Transfers Therapy Code Descriptions/Definitions Functional [place] Measure: 0=Not Assessed/NA 4=Minimal Assistance 1=Total Assistance 5=Supervision or Setup 2=Maximal Assistance 6=Modified [place] 3=Moderate Assistance 7=Complete IndependenceSCALE: Activities may be completed with or without assistive devices. 8-Cawdzvatpe-iaahkdu completes the activity by him/herself with no assistance from a helper. 5-Set-up or Clean-up Assistance-helper sets up or cleans up; patient completes activity. [place] assists only prior to or following the activity. 4-Supervision or Touching Assistance-helper provides verbal cues and/or touching/steadying and/or contact guard assistance as patient completes activity. Assistance may be provided throughout the activity or intermittently. 3-Partial/Moderate Assistance-helper does LESS THAN HALF the effort. [place] lifts, holds or supports trunk or limbs, but provides less than half the effort. 2-Substantial/Maximal Assistance-helper does MORE THAN HALF the effort. [place] lifts or holds trunk or limbs and provides more than half the effort. 1-Ygnmhdmyf-ikfjdv does ALL the effort. Patient does none of the effort to complete the activity. Or, the assistance of 2 or more helpers is required for the patient to complete the activity. If activity was not attempted, code reason: 7-Patient Refused. 9-Not Applicable-not attempted and the patient did not perform the activity before the current illness, exacerbation or injury. 10-Not Attempted due to Environmental Limitations-(lack of equipment, weather restraints, etc.). 88-Not Attempted due to Medical Conditions or Safety Concerns. Roll Left to Right (QC): 6 Sit to Lying (QC): 4 Sit to Stand (QC): 4 Chair/Vny-bn-Bqaoz Xfer(QC): 4 Car Transfer (QC): 4 Gait Training Does the Patient Walk?: Yes Distance: 200' x2 Walk 10 feet (QC): 4 Walk 50 ft with 2 Turns(QC): 4 Walk 150 ft (QC): 4 Walking 10ft/uneven surface-QC: 4 Gait Persons Needed: 1 Gait Assistive Device: FWW Wheelchair Training Does the Pt Use a Wheelchair?: No Wheel 50 ft with 2 turns (QC): 9 Wheel 150 ft (QC): 9 Stair Training #of Steps: 12 1 Step (curb) (QC): 3 4 Steps (QC): 3 12 Steps (QC): 3 Balance Picking up an Object (QC): 88 ADL-Treatment Eating (QC): 6 Oral Hygiene (QC): 6 (Pt independent seated at sink.) Shower/Bathe Self (QC): 4 (CGA) Upper Body Dressing (QC): 3 (Mod A overall. set up overhead shirt, max A with back brace.) Lower Body Dressing (QC): 3 (min A with threading LEs) On/Off Footwear (QC): 3 (mod A. Pt able to doff usin AE, assist to don.) Toileting Hygiene (QC): 3 (Mod A for thoroughness of hygiene and pant hike posteriorly) Toilet Transfer (QC): 4 (SBA on/off BSC over toilet.) Assessment/Plan Assessment and Plan Assess & Plan/Chief Complaint Assessment: IVH Alcoholism Cirrhosis Anxiety T10-T11 torn disc Macrocytic anemia Thrombocytopenia HTN Right ureter obstructive uropathy DA s/p post ureteral access cath Plan: Monitor pain Monitor kidneys Cirrhosis management Rehab protocol 03/29/2022: Pain control PT OT 03/30/2022: Consult Dr Harrison in morning 03/31/22: Dr Harrison consult 04/01/22: Urology consult Decrease pain meds 04/01/22: Decrease pain meds tomorrow 04/02/2022: Supportive care 04/03/2022: Decrease pain meds (1) Intracranial hemorrhage Status: Acute (2) Alcohol dependence with acute alcoholic intoxication Status: Acute (3) ETOH abuse Status: Acute (4) Kidney injury Status: Acute (5) Cirrhosis Status: Acute RAMSEY MONTILLA DO April 03, 2022 06:35
[2022-04-03 07:36] VITALS: BP 103/58
--- NOTE | 2022-04-03 07:55 | Behavioral Health ProgressNote ---
Standard Progress Note Progress Notes/Assess & Plan Date Seen 04/02/22 Time Seen by Provider: 14:10 Assess & Plan/Chief Complaint Date: 04/03/22 CPT Code: 63055 Psychotherapy (Session length 45 min.) Start Time: 2:10 PM Duration: 42 minutes End Time: 2:52 PM Subjective: Tavo, a 62 year-old male, is seen today for individual psychotherapy to address concerns and symptoms associated with F10.20 Alcohol Dependence. The primary clinical theme and problem discussed during the appointment was Tavo asked the nurse if the therapist could come back to see him again. Tavo was emotional as he discussed how much he has lost in his life due to alcohol. He appeared full of regret as he talked about awful things he has said to his . He states that he wants things to be different but was unable to identify what happens that leads to relapsing or how he feels. He admits that drinking covers up a number of things from his life including how he used to hear that nothing I ever did was good enough. Symptoms observed or reported requiring current level of care include: alcohol abuse/dependence, anxiety, depressed mood, familial stress/strain, frequent tearfulness, marital strain, and medical problems. Relevant changes in medical status: none reported, observed, or indicated. Current self-destructive behavior patterns/risk factors reported or indicated during session: none indicated. Level of functioning was low. Objective: Tavo arrived on time for the appointment.. Tavo was oriented to person, place, time, and situation. Overall appearance was appropriately dressed and groomed as he was lying in his hospital bed. Mychal approach to the session was cooperative. Mood was anxious with dysphoric affect. Eye contact was good. Tone of voice was normal and controlled. Speech was of slow rate and flow. Thought processes were found to be appropriate and focused during the appointment. Thought content appeared normal. Psychomotor functioning was within normal limits. Insight was fair. Concentration was fair. Mychal style of interacting during the appointment was appropriate and motivated. Assessment: Interventions utilized during [facility] appointment included insight- oriented therapy, active listening, and solution focused/brief therapy. The current long-term goal of treatment is accept chemical abuse/dependence and actively engage in an abstinence recovery program to stabilize physically, emotionally, and spiritually. Concerning progress to this point in treatment, Tavo appears to be making minimal progress towards treatment goals from observations during todays appointment. Tavo appeared to have no significant change in behavior and depressed mood since the last appointment. Overall, a high level of motivation was displayed towards treatment goals. Jims capacity to make changes/decisions is unclear at this time. Overall, prognosis is guarded. Diagnostic Impressions: F10.20 Alcohol Dependence Plan: The appointment ended on time. The current treatment/therapy plan will continue for the present time without significant modification. Tavo is recommended to reschedule within one week for follow-up. VANESSA CHAMBERS [facility] April 03, 2022 07:55
[2022-04-03] MEDS: DOCUSATE SODIUM 100 MG (COLACE) CAP PO SCH ×2 (08:36→19:57)
[2022-04-03] MEDS: oxyCODONE ER 15 MG (oxyCONTIN CR) TAB PO SCH ×2 (08:36→19:56)
[2022-04-03] MEDS: hydrOXYzine (ATARAX) 10 MG TAB PO SCH ×3 (08:36→19:56)
[2022-04-03] MEDS: SPIRONOLACTONE 100 MG (ALDACTONE) TABLET PO SCH (08:36)
[2022-04-03] MEDS: FUROSEMIDE 40 MG (LASIX) TAB PO SCH (08:36)
[2022-04-03] MEDS: toPIRamate 25 MG (TOPAMAX) TAB PO SCH ×2 (08:37→19:55)
[2022-04-03] MEDS: polyethylene glycoL POWDER 17 GM (MIRALAX) PACK PO SCH ×2 (09:00→19:58)
[2022-04-03] MEDS: TRIAMCINOLONE 0.1% CR (KENALOG) 15 GM TUBE TOP SCH ×2 (09:00→19:58)
[2022-04-03] MEDS: SENNA W/DOCUSATE (SENOKOT S) TABLET PO SCH ×2 (09:00→19:58)
--- NOTE | 2022-04-03 10:48 | Physical Therapy Daily Note ---
PT Daily Note-Current Subjective Pt. in bed at 730am as PT stepped in room to to let pt. know PT would begin at 800 am. At 800 am, pt. still eating brkfst and states they had forgotten his toast and he is just now getting it and just beginning to eat it. Pt. stops frequently while eating , becomes very emotional and shares that he battles depression and doesnt remember it being much worse that it is now. Pt. also states he knows he fell but he does not remember how he fell r what happened This OVEN LOADER sharing much encouragement and attempts to motivate pt. Pt. asked several times to begin the process of getting out of bed so that we might make sneed use of our scheduled time together. Toward end of Rx when this OVEN LOADER states we are near the end of our Rx time and That a schedule must be kept pt. states that he resents being told that this OVEN LOADER doesnt have time for him. It was reiterated that I had attempted to redirect pt. many times and will do better at this next Rx. Pt. c/o pain all over but does not rate. Appearance tearful, emotional , appears depressed Mental Status Attachments: Other-See Comments (LSO brace) Transfers SCALE: Activities may be completed with or without assistive devices. 2-Gjozcmybht-ikovaeb completes the activity by him/herself with no assistance from a helper. 5-Set-up or Clean-up Assistance-helper sets up or cleans up; patient completes activity. [place] assists only prior to or following the activity. 4-Supervision or Touching Assistance-helper provides verbal cues and/or touching/steadying and/or contact guard assistance as patient completes activity. Assistance may be provided throughout the activity or intermittently. 3-Partial/Moderate Assistance-helper does LESS THAN HALF the effort. [place] lifts, holds or supports trunk or limbs, but provides less than half the effort. 2-Substantial/Maximal Assistance-helper does MORE THAN HALF the effort. [place] lifts or holds trunk or limbs and provides more than half the effort. 2-Vhpanviry-aaausk does ALL the effort. Patient does none of the effort to complete the activity. Or, the assistance of 2 or more helpers is required for the patient to complete the activity. If activity was not attempted, code reason: 7-Patient Refused. 9-Not Applicable-not attempted and the patient did not perform the activity before the current illness, exacerbation or injury. 10-Not Attempted due to Environmental Limitations-(lack of equipment, weather restraints, etc.). 88-Not Attempted due to Medical Conditions or Safety Concerns. Roll Left & Right (QC): 6 Lying to Sitting/Side of Bed(Q: 6 Sit to Stand (QC): 6 Chair/Toq-wl-[place] Xfer(QC): 6 Weight Bearing Right Lower Extremity: Right Full Weight Bearing Left Lower Extremity: Left Full Weight Bearing TLSO donned at all times when up and donned prior to transferring out of bed. Gait Training Does the Patient Walk?: Yes Walk 10 feet (QC): 4 Walk 50 ft with 2 Turns(QC): 4 Walk 150 ft (QC): 4 Gait Persons Needed: 1 Gait Assistive Device: FWW pt. c/o dizziness x2 while on his feet and stops , then says its better but requests to sit then states it is resolved. 150ft x2 FWW CGA slow, no LOB, head down, Exercises Supine Ex: Ankle pumps, Quad Set, Heel Slides, Scooting, Hip abd/add Supine Reps: 15 Treatments as above Assessment Current Status: Good Progress pt. 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 High School Art Teacher Goals PT Senior Living Goals Time Frame: May 02, 2022 Roll Left & Right (QC): 6 Sit to Lying (QC): 6 Lying-Sitting on Side/Bed(QC): 6 Sit to Stand (QC): 6 Chair/Hns-rb-Wsrus Xfer(QC): 6 Toilet Transfer (QC): 6 Car Transfer (QC): 6 Does the Patient Walk: Yes Walk 10 feet (QC): 6 Walk 50ft with 2 Turns (QC): 6 Walk 150 ft (QC): 6 Walking 10ft on Uneven Surface: 6 1 Step (curb) (QC): 6 4 Steps (QC): 6 12 Steps (QC): 6 Picking up an Object (QC): 4 Does the Pt use WC or Scooter?: No Wheel 50 feet with 2 turns (QC: 9 Wheel 150 feet: 9 PT Plan Treatment/Plan Treatment Plan: Continue Plan of Care Treatment Plan: Bed Mobility, Education, Functional Activity Flex, Functional Strength, Group Therapy, Gait, Safety, Therapeutic Exercise, Transfers Treatment Duration: May 08, 2022 Frequency: At least 5 of 7 days/Wk (IRF) Estimated Hrs Per Day: 1.5 hours per day Patient and/or Family Agrees t: Yes Safety Risks/Education Patient Education: Gait Training, Transfer Techniques, Correct Positioning, Reviewed Don/Doff Brace, Disease Process, Safety Issues Teaching Recipient: Patient Teaching Methods: Demonstration, Discussion Response to Teaching: Verbalize Understanding, Return Demonstration, Rein forcement Needed Time/GCodes Time In: 800 Time Out: 900 Total Billed Treatment Time: 60 Total Billed Treatment 1,FA20m,EX15m,GT25m MECHELLE MOON OVEN LOADER April 03, 2022 10:48
--- NOTE | 2022-04-03 10:56 | Occupational Ther Daily Note ---
OT Current Status-Daily Note Subjective "I'm glad you asked how I'm feeling, because I have to tell you, I don't know where I'm at or how I got here." Appearance Pt left sitting in recliner, all needs within reach, chair alarm set at OT departure. Mental Status/Objective Patient Orientation: Person, Confused, Place Attachments: Rock Catheter ADL-Treatment Therapy Code Descriptions/Definitions Functional [place] Measure: 0=Not Assessed/NA 4=Minimal Assistance 1=Total Assistance 5=Supervision or Setup 2=Maximal Assistance 6=Modified [place] 3=Moderate Assistance 7=Complete IndependenceSCALE: Activities may be completed with or without assistive devices. 7-Cbdendvhin-smycuoc completes the activity by him/herself with no assistance from a helper. 5-Set-up or Clean-up Assistance-helper sets up or cleans up; patient completes activity. [place] assists only prior to or following the activity. 4-Supervision or Touching Assistance-helper provides verbal cues and/or touching/steadying and/or contact guard assistance as patient completes activity. Assistance may be provided throughout the activity or intermittently. 3-Partial/Moderate Assistance-helper does LESS THAN HALF the effort. [place] lifts, holds or supports trunk or limbs, but provides less than half the effort. 2-Substantial/Maximal Assistance-helper does MORE THAN HALF the effort. [place] lifts or holds trunk or limbs and provides more than half the effort. 6-Hjhhtoqxp-rrqmef does ALL the effort. Patient does none of the effort to complete the activity. Or, the assistance of 2 or more helpers is required for the patient to complete the activity. If activity was not attempted, code reason: 7-Patient Refused. 9-Not Applicable-not attempted and the patient did not perform the activity before the current illness, exacerbation or injury. 10-Not Attempted due to Environmental Limitations-(lack of equipment, weather restraints, etc.). 88-Not Attempted due to Medical Conditions or Safety Concerns. Oral Hygiene (QC): 6 Lower Body Dressing (QC): 3 (assist with catheter management) Toileting Hygiene (QC): 3 Toilet Transfer (QC): 4 Pt sitting in recliner at OT arrival. He has difficulty answering simple questions as he reports he has been having some memory issues. Education/reminders on spinal precautions as pt only able to recall "no twisting" as he visually demonstrates. Cues to not twist while explaining to therapist. While sitting, pt expresses how he doesn't know if he is having gas or a bowel movement and that when this happens he will usually try to "hold everything in." OT educated pt on sitting on toilet when this occurs vs "holding" it. With encouragement, Pt agreeable to sit on toilet. Once reaching toilet, pt found to be incontinent of bowels. Reminders on no twisting and on use of toilet tongs when reaching posteriorly for manohar care. Mod-max a still needed for thoroughness. He sat to don new briefs and LB clothing. Again, education on compensatory strategies and use of AE if needed in order to adhere to spinal precautions during clothing task. With cues, pt able to thread BLE's into brief/pants without physical assistance. He does exhibit incorrect use of advisory application developer but still able to perform step. He stood with SBA to manage clothing up to waist. He stood at the sink to complete grooming tasks, no cues or assist needed. While ambulating back to chair, pt is telling a story of a memory he had as a child. Once he sat in the chair, he states "I'm glad you asked how I'm feeling, because I have to tell you, I don't know where I'm at or how I got here." When OT asks if pt knows his name he verbalizes "well yes, that's easy. It's Tavo Pichardo. And for some reason, Aileen Murillo is ringing a kimbrough, and I know that is in [facility]." Pt does not appear to have memory issues with some tasks, such as recalling phone password or the name of his nurse." Education OT Patient Education: Correct positioning, Energy conservation, Modified ADL techniques, Purpose of tx/functional activities, Reviewed precautions, Rehab process, Safety issues, Transfer techniques, Use of adapted equipment Teaching Recipient: Patient Teaching Methods: Demonstration, Discussion Response to Teaching: Verbalize Understanding, Return Demonstration, Reinforcement Needed OT Short Term Goals Short Term Goals Time Frame: Apr 09, 2022 Shower/bathe self: 3 Upper body dressin Lower body dressin Putting on/taking off footwear: 3 OT Transcript Evaluator Goals [facility] Goals Time Frame: Apr 18, 2022 Eating (QC): 6 Oral Hygiene (QC): 6 Toileting Hygiene (QC): 6 Shower/Bathe Self (QC): 6 Upper Body Dressing (QC): 6 Lower Body Dressing (QC): 6 On/Off Footwear (QC): 6 1=Demonstrate adherence to instructed precautions during ADL tasks. 2=Patient will verbalize/demonstrate understanding of assistive devices/modifications for ADL. 3=Patient will improve strength/tolerance for activity to enable patient to perform ADL's. OT Education/Plan Problem List/Assessment Assessment: Decreased Activ Tolerance, Decreased Safety Aware, Edema, Impaired Cognition, Impaired Funct Balance, Impaired I ADL's, Impaired Self-Care Skills Discharge Recommendations Plan/Recommendations: Continue POC Treatment Plan/Plan of Care Treatment,Training & Education: Yes Patient would benefit from OT for education, treatment and training to promote independence in ADL's, mobility, safety and/or upper extremity function for ADL's. Plan of Care: ADL Retraining, Functional Mobility, Group Exercise/Act as Ind, UE Funct Exercise/Act Treatment Duration: Apr 18, 2022 Frequency: At least 5 of 7 days/Wk (IRF) Estimated Hrs Per Day: 1.5 hours per day Agreement: Yes Rehab Potential: Good Time/GCodes Start Time: 09:05 Stop Time: 10:35 Total Time Billed (hr/min): 90 Billed Treatment Time 1 visit ADL x6 Ting Rivas OT April 03, 2022 10:56
--- NOTE | 2022-04-03 11:47 | Physical Therapy Daily Note ---
PT Daily Note-Current Subjective Pt up in recliner, agrees to Rx, Asks if there is any way he can discontinue wearing the LSO brace. This AUTOMOTIVE BUYER response is that he must have an order form the Dr who ordered the brace. Pt. seems to accept this . Pain Location: No Pain Reported Mental Status Patient Orientation: Person Attachments: Other-See Comments (LSO) Transfers SCALE: Activities may be completed with or without assistive devices. 9-Qumzjeghnb-qphlxxq completes the activity by him/herself with no assistance from a helper. 5-Set-up or Clean-up Assistance-helper sets up or cleans up; patient completes activity. [place] assists only prior to or following the activity. 4-Supervision or Touching Assistance-helper provides verbal cues and/or touching/steadying and/or contact guard assistance as patient completes activity. Assistance may be provided throughout the activity or intermittently. 3-Partial/Moderate Assistance-helper does LESS THAN HALF the effort. [place] lifts, holds or supports trunk or limbs, but provides less than half the effort. 2-Substantial/Maximal Assistance-helper does MORE THAN HALF the effort. [place] lifts or holds trunk or limbs and provides more than half the effort. 8-Eklkzekvq-ytpghu does ALL the effort. Patient does none of the effort to complete the activity. Or, the assistance of 2 or more helpers is required for the patient to complete the activity. If activity was not attempted, code reason: 7-Patient Refused. 9-Not Applicable-not attempted and the patient did not perform the activity before the current illness, exacerbation or injury. 10-Not Attempted due to Environmental Limitations-(lack of equipment, weather restraints, etc.). 88-Not Attempted due to Medical Conditions or Safety Concerns. sit to stand all SBA, sit to supine, SBA Weight Bearing Right Lower Extremity: Right Full Weight Bearing Left Lower Extremity: Left Full Weight Bearing TLSO donned at all times when up and donned prior to transferring out of bed. Gait Training Does the Patient Walk?: Yes Gait Assistive Device: FWW 165 ft x 2 FWW CGA, no LOB, head down, flexed trunk Exercises Seated Therapy Exercises: Ankle pumps, Long arc quads, Hip abd/add Seated Reps: 10 Treatments in bed after Rx, LSO dogilbertd, kimbrough at hand, needs met Assessment Current Status: Good Progress difficult to motivate and redirect at times PT Trucking Manager Goals [facility] Goals PT [facility] Goals Time Frame: May 02, 2022 Roll Left & Right (QC): 6 Sit to Lying (QC): 6 Lying-Sitting on Side/Bed(QC): 6 Sit to Stand (QC): 6 Chair/Bdq-jk-Lzglp Xfer(QC): 6 Toilet Transfer (QC): 6 Car Transfer (QC): 6 Does the Patient Walk: Yes Walk 10 feet (QC): 6 Walk 50ft with 2 Turns (QC): 6 Walk 150 ft (QC): 6 Walking 10ft on Uneven Surface: 6 1 Step (curb) (QC): 6 4 Steps (QC): 6 12 Steps (QC): 6 Picking up an Object (QC): 4 Does the Pt use WC or Scooter?: No Wheel 50 feet with 2 turns (QC: 9 Wheel 150 feet: 9 PT Plan Treatment/Plan Treatment Plan: Continue Plan of Care Treatment Plan: Bed Mobility, Education, Functional Activity Flex, Functional Strength, Group Therapy, Gait, Safety, Therapeutic Exercise, Transfers Treatment Duration: May 08, 2022 Frequency: At least 5 of 7 days/Wk (IRF) Estimated Hrs Per Day: 1.5 hours per day Patient and/or Family Agrees t: Yes Safety Risks/Education Patient Education: Gait Training, Transfer Techniques, Reviewed Use of Ice, Reviewed Don/Doff Brace Time/GCodes Time In: 1115 Time Out: 1135 Total Billed Treatment Time: 20 Total Billed Treatment GT20m MECHELLE MOON AUTOMOTIVE BUYER April 03, 2022 11:47
--- NOTE | 2022-04-03 12:17 | Speech Therapy Daily Note ---
Speech Daily Progress Note Subjective Time Seen by Provider: 11:35 The pt was laying in bed, agreeable and cooperative. Patient reports he has had some memory difficulty for several years now. 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 Objective Pt oriented x4. Memory task completed with 70% accy. CONSTRUCTION EQUIPMENT TECHNICIAN provided memory strategy instruction to patient. Treatment Plan Continue Plan of Care Speech Short Term Goals Short Term Goals Short Term Goals The patient will demonstrate 90% accuracy with memory and functional problem solving with mild clinician verbal and visual cueing. Speech Claim Clinician Goals Prison Goals The patient will demonstrate improve cognitive linguistic skills for safe disc harge to the least restricted environment. Speech-Plan Treatment Plan Speech Therapy Treatment Plan: Continue Plan of Care Treatment Duration: Apr 09, 2022 Frequency: Modified Program (IRF) Estimated Hrs Per Day: Other Rehab Potential: Good Time Speech Therapy Time In: 11:35 Speech Therapy Time Out: 12:05 Billed Treatment Time 1, SLTS 30 mins NADER COLE April 03, 2022 12:17
[2022-04-03] MEDS ORDERED: POTA10CA43 PO (14:51)
[2022-04-03] MEDS ORDERED: LACT10SO27 PO (14:51)
[2022-04-03] MEDS ORDERED: PROP10TA8 PO (14:51)
[2022-04-03] MEDS ORDERED: SERT-413 PO (15:00)
[2022-04-03] MEDS ORDERED: SERT-414 PO (15:00)
[2022-04-03] MEDS: SERTRALINE 100 MG (ZOLOFT) TAB PO SCH (15:30)
[2022-04-03] MEDS: diphenhydrAMINE 25 MG TAB (BENADRYL) PO PRN (15:30)
[2022-04-03] MEDS: SERTRALINE 50 MG (ZOLOFT) TABLET PO SCH (15:30)
[2022-04-03] MEDS: ARTIFICAL TEARS 0.4 ML UNIT DOSE (REFRESH PLUS) OD PRN (17:22)
[2022-04-03] MEDS: toPIRamate 100 MG (TOPAMAX) TAB PO SCH (19:55)
[2022-04-03] MEDS: GABAPENTIN 100 MG (NEURONTIN) CAP PO SCH (19:56)
[2022-04-03] MEDS: MICONAZOLE 2% POWDER (DESENEX AF) 90 GM TOP SCH (19:58)
[2022-04-03 20:04] VITALS: BP 103/57
[2022-04-04] MEDS: KCL 10 MEQ TAB (MICRO K) PO SCH (05:29)
[2022-04-04] MEDS: MULTIVIT W/MINERALS TAB (THERAGRAN M) PO SCH (05:29)
[2022-04-04] MEDS: diphenhydrAMINE 25 MG TAB (BENADRYL) PO PRN ×3 (05:29→21:38)
--- NOTE | 2022-04-04 06:10 | PM&R Progress Note ---
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 04/03/2022: Pt is doing a lot better Fecal incontinence noted so holding stool softeners Still complaining of pain but I'm decreasing Oxycodone to q6 hours Oxycontin of 15 BID will be the next to discontinue Alcoholism presents its own issues 04/02/2022: Pt is doing really well Wrapping legs with GIORGIO wrap Bowels moved yesterday Using a back brace Overall having a lot of social issues due to chronic alcoholism 04/01/22: Patient doing well Decreasing pain meds tomorrow again BM+ Monitoring BP 03/31/22: Patient doing well Improved overall Decreasing Oxycodone to 5mg PO Q4 hours down from 10mg due to dependency potential BM+ 03/30/2022: Patient doing well Was found up by himself using the bedside table as a walker to get around Counseling regarding fall risk initiated by ROBERT Rios No falls Pain meds taken on a regular basis 03/29/2022: Patient doing better since giving pain meds I told him we need to wean down soon since dependency potential is noted with h/o alcoholism BM+ Resting pretty well right now Checked meds and labs Review of Systems General: Fatigue, Malaise Musculoskeletal: back pain, leg pain Objective Exam Vital Signs Vital Signs Date Time Temp Pulse Resp B/P (MAP) Pulse Ox O2 Delivery O2 Flow Rate FiO2 04/04/22 21:40 97 Room Air 04/04/22 19:31 37.2 62 16 94/58 (70) Capillary Refill : General Appearance: No Apparent Distress, WD/WN, Anxious, Chronically ill HEENT: PERRL/EOMI, Normal ENT Inspection, Pharynx Normal Neck: Full Range of Motion, Normal Inspection, Non Tender, Supple, Carotid Bruit Respiratory: Chest Non Tender, Lungs Clear, Normal Breath Sounds, No Accessory Muscle Use, No Respiratory Distress Cardiovascular: Regular Rate, Rhythm, No Edema, No Gallop, No JVD, No Murmur, Normal Peripheral Pulses Gastrointestinal: Normal Bowel Sounds, No Organomegaly, No Pulsatile Mass, Non Tender, Soft Back: Decreased Range of Motion, Other Extremity: Normal Capillary Refill, Normal Inspection, Normal Range of Motion, Non Tender, No Calf Tenderness, No Pedal Edema Neurologic/Psychiatric: Alert, Oriented x3, Normal Mood/Affect, motor equipment lieutenant II-XII Norm as Tested, Abnormal Gait, Motor Weakness Skin: Normal Color, Warm/Dry Lymphatic: No Adenopathy Results/Procedures Lab Patient resulted labs reviewed. FIM Transfers Therapy Code Descriptions/Definitions Functional [place] Measure: 0=Not Assessed/NA 4=Minimal Assistance 1=Total Assistance 5=Supervision or Setup 2=Maximal Assistance 6=Modified [place] 3=Moderate Assistance 7=Complete IndependenceSCALE: Activities may be completed with or without assistive devices. 0-Otnrmvvlcm-yhgwnuf completes the activity by him/herself with no assistance from a helper. 5-Set-up or Clean-up Assistance-helper sets up or cleans up; patient completes activity. [place] assists only prior to or following the activity. 4-Supervision or Touching Assistance-helper provides verbal cues and/or t ouching/steadying and/or contact guard assistance as patient completes activity. Assistance may be provided throughout the activity or intermittently. 3-Partial/Moderate Assistance-helper does LESS THAN HALF the effort. [place] lifts, holds or supports trunk or limbs, but provides less than half the effort. 2-Substantial/Maximal Assistance-helper does MORE THAN HALF the effort. [place] lifts or holds trunk or limbs and provides more than half the effort. 9-Bkhxjqlwc-cgxrzz does ALL the effort. Patient does none of the effort to complete the activity. Or, the assistance of 2 or more helpers is required for the patient to complete the activity. If activity was not attempted, code reason: 7-Patient Refused. 9-Not Applicable-not attempted and the patient did not perform the activity before the current illness, exacerbation or injury. 10-Not Attempted due to Environmental Limitations-(lack of equipment, weather restraints, etc.). 88-Not Attempted due to Medical Conditions or Safety Concerns. Roll Left to Right (QC): 6 Sit to Lying (QC): 4 Sit to Stand (QC): 6 Chair/Meb-ye-Xfswy Xfer(QC): 6 Car Transfer (QC): 4 Gait Training Does the Patient Walk?: Yes Distance: 200' x2 Walk 10 feet (QC): 4 Walk 50 ft with 2 Turns(QC): 4 Walk 150 ft (QC): 4 Walking 10ft/uneven surface-QC: 4 Gait Persons Needed: 1 Gait Assistive Device: FWW Wheelchair Training Does the Pt Use a Wheelchair?: No Wheel 50 ft with 2 turns (QC): 9 Wheel 150 ft (QC): 9 Stair Training #of Steps: 12 1 Step (curb) (QC): 3 4 Steps (QC): 3 12 Steps (QC): 3 Balance Picking up an Object (QC): 88 ADL-Treatment Eating (QC): 6 Oral Hygiene (QC): 6 Shower/Bathe Self (QC): 4 (CGA) Upper Body Dressing (QC): 3 (Mod A overall. set up overhead shirt, max A with back brace.) Lower Body Dressing (QC): 3 (assist with catheter management) On/Off Footwear (QC): 3 (mod A. Pt able to doff usin AE, assist to don.) Toileting Hygiene (QC): 3 Toilet Transfer (QC): 4 Assessment/Plan Assessment and Plan Assess & Plan/Chief Complaint Assessment: IVH Alcoholism Cirrhosis Anxiety T10-T11 torn disc Macrocytic anemia Thrombocytopenia HTN Right ureter obstructive uropathy DA s/p post ureteral access cath Plan: Monitor pain Monitor kidneys Cirrhosis management Rehab protocol 03/29/2022: Pain control PT OT 03/30/2022: Consult Dr Harrison in morning 03/31/22: Dr Harrison consult 04/01/22: Urology consult Decrease pain meds 04/01/22: Decrease pain meds tomorrow 04/02/2022: Supportive care 04/03/2022: Decrease pain meds 04/04/2022: Supportive care Catheter in place (1) Intracranial hemorrhage Status: Acute (2) Alcohol dependence with acute alcoholic intoxication Status: Acute (3) ETOH abuse Status: Acute (4) Kidney injury Status: Acute (5) Cirrhosis Status: Acute RAMSEY MONTILLA DO April 04, 2022 06:10
[2022-04-04 07:09] VITALS: BP 103/61
--- NOTE | 2022-04-04 08:58 | Physical Therapy Daily Note ---
PT Daily Note-Current Subjective Patient in bed pre tx, agrees to PT, has 7/10 pain, has some itching, says nurse is aware. Appearance Patient in bed post tx with nurse call, phone, tray, all needs met. Mental Status Patient Orientation: Person, Place, Situation TLSO Transfers SCALE: Activities may be completed with or without assistive devices. 0-Toxxafkrzr-sygfcth completes the activity by him/herself with no assistance from a helper. 5-Set-up or Clean-up Assistance-helper sets up or cleans up; patient completes activity. [place] assists only prior to or following the activity. 4-Supervision or Touching Assistance-helper provides verbal cues and/or touching/steadying and/or contact guard assistance as patient completes activity. Assistance may be provided throughout the activity or intermittently. 3-Partial/Moderate Assistance-helper does LESS THAN HALF the effort. [place] li fts, holds or supports trunk or limbs, but provides less than half the effort. 2-Substantial/Maximal Assistance-helper does MORE THAN HALF the effort. [place] lifts or holds trunk or limbs and provides more than half the effort. 4-Updaebdqt-dpcsmh does ALL the effort. Patient does none of the effort to complete the activity. Or, the assistance of 2 or more helpers is required for the patient to complete the activity. If activity was not attempted, code reason: 7-Patient Refused. 9-Not Applicable-not attempted and the patient did not perform the activity before the current illness, exacerbation or injury. 10-Not Attempted due to Environmental Limitations-(lack of equipment, weather restraints, etc.). 88-Not Attempted due to Medical Conditions or Safety Concerns. Roll Left & Right (QC): 6 Sit to Lying (QC): 6 Lying to Sitting/Side of Bed(Q: 6 Sit to Stand (QC): 4 Chair/Xed-mk-Azhsg Xfer(QC): 4 Weight Bearing Right Lower Extremity: Right Full Weight Bearing Left Lower Extremity: Left Full Weight Bearing TLSO donned at all times when up and donned prior to transferring out of bed. Gait Training Distance: 150'x2, 120' Walk 10 feet (QC): 4 Walk 50 ft with 2 Turns(QC): 4 Walk 150 ft (QC): 4 Gait Persons Needed: 1 Gait Assistive Device: FWW very slow ambulation but steady, slumped posture Exercises NuStep Minutes: 15 NuStep Workload: 5 Treatments bed mobility and transfers, ambulation, functional strengthening Assessment Current Status: Fair Progress slow progression with endurance, needs frequent rest breaks PT Custodial Goals Custodial Goals PT Custodial Goals Time Frame: May 02, 2022 Roll Left & Right (QC): 6 Sit to Lying (QC): 6 Lying-Sitting on Side/Bed(QC): 6 Sit to Stand (QC): 6 Chair/Pex-bg-Afttf Xfer(QC): 6 Toilet Transfer (QC): 6 Car Transfer (QC): 6 Does the Patient Walk: Yes Walk 10 feet (QC): 6 Walk 50ft with 2 Turns (QC): 6 Walk 150 ft (QC): 6 Walking 10ft on Uneven Surface: 6 1 Step (curb) (QC): 6 4 Steps (QC): 6 12 Steps (QC): 6 Picking up an Object (QC): 4 Does the Pt use WC or Scooter?: No Wheel 50 feet with 2 turns (QC: 9 Wheel 150 feet: 9 PT Plan Problem List Problem List: Activity Tolerance, Functional Strength, Safety, Balance, Gait, Transfer, Bed Mobility, ROM Treatment/Plan Treatment Plan: Continue Plan of Care Treatment Plan: Bed Mobility, Education, Functional Activity Flex, Functional Strength, Group Therapy, Gait, Safety, Therapeutic Exercise, Transfers Treatment Duration: May 08, 2022 Frequency: At least 5 of 7 days/Wk (IRF) Estimated Hrs Per Day: 1.5 hours per day Patient and/or Family Agrees t: Yes Safety Risks/Education Patient Education: Gait Training, Transfer Techniques, Correct Positioning, Reviewed Don/Doff Brace, Safety Issues Teaching Recipient: Patient Teaching Methods: Demonstration, Discussion Response to Teaching: Reinforcement Needed Time/GCodes Time In: 0800 Time Out: 0900 Total Billed Treatment Time: 60 Total Billed Treatment 1 visit EX 15' FA 45' TARAH ROSS PT April 04, 2022 08:58
[2022-04-04] MEDS: TRIAMCINOLONE 0.1% CR (KENALOG) 15 GM TUBE TOP SCH ×2 (09:00→21:44)
[2022-04-04] MEDS: SPIRONOLACTONE 100 MG (ALDACTONE) TABLET PO SCH (09:09)
[2022-04-04] MEDS: toPIRamate 25 MG (TOPAMAX) TAB PO SCH ×2 (09:09→21:39)
[2022-04-04] MEDS: SERTRALINE 50 MG (ZOLOFT) TABLET PO SCH (09:10)
[2022-04-04] MEDS: DOCUSATE SODIUM 100 MG (COLACE) CAP PO SCH ×2 (09:10→21:47)
[2022-04-04] MEDS: FUROSEMIDE 40 MG (LASIX) TAB PO SCH (09:10)
[2022-04-04] MEDS: oxyCODONE ER 15 MG (oxyCONTIN CR) TAB PO SCH ×2 (09:11→21:38)
[2022-04-04] MEDS: hydrOXYzine (ATARAX) 10 MG TAB PO SCH ×3 (09:11→21:38)
[2022-04-04] MEDS: SERTRALINE 100 MG (ZOLOFT) TAB PO SCH (09:12)
[2022-04-04] MEDS: polyethylene glycoL POWDER 17 GM (MIRALAX) PACK PO SCH ×2 (09:12→21:47)
[2022-04-04] MEDS: SENNA W/DOCUSATE (SENOKOT S) TABLET PO SCH ×2 (09:13→21:48)
--- NOTE | 2022-04-04 09:44 | Speech Therapy Daily Note ---
Speech Daily Progress Note Subjective Date Seen by Provider: April 04, 2022 Time Seen by Provider: 09:00 The patient was seated upright in his bed, awake and alert upon entrance to his room by the clinician. The patient greeted the clinician appropriately and was agreeable to participation in the cognitive linguistic treatment session. The patient remained pleasant and cooperative throughout the skilled therapy. Objective - Orientation: The patient was independently oriented to month, year, and location. The patient stated the day of the week was "" (one day prior) and was unable to recall the date. The patient was encouraged to utilize external memory strategies, such as his phone, to locate orientation information. - The patient participated in structured conversation with moderate verbal redirection to topic. The patient was aware of his tangential actions, as he would state, "I'm sorry, I know I'm veering off topic but..." - External Memory Strategies: External memory strategies were reviewed and discussed, including calendars, alarms, television, and phones. The patient stated he does not use a calendar but does often use his phone and the television to aid with orientation. Assessment Assessment Current Status: Fair Progress Treatment Plan Continue Plan of Care Speech Short Term Goals Short Term Goals Short Term Goals The patient will demonstrate 90% accuracy with memory and functional problem solving with mild clinician verbal and visual cueing. Speech Halfway Goals School Occupational Therapist Goals The patient will demonstrate improve cognitive linguistic skills for safe discharge to the least restricted environment. Speech-Plan Treatment Plan Speech Therapy Treatment Plan: Continue Plan of Care Treatment Duration: Apr 09, 2022 Frequency: Modified Program (IRF) Estimated Hrs Per Day: Other Rehab Potential: Good Pt/Family Agrees to Plan: Yes Safety Risks/Education Teaching Recipient: Patient Teaching Methods: Demonstration, Discussion Response to Teaching: Verbalize Understanding, Return Demonstration, Reinforcement Needed Education Topics Provided: External Memory Strategies Time Speech Therapy Time In: 09:00 Speech Therapy Time Out: 09:30 Total Billed Time: 30 Billed Treatment Time 1FL[address] [facility] April 04, 2022 09:44
--- NOTE | 2022-04-04 10:48 | Physical Therapy Daily Note ---
PT Daily Note-Current Subjective Patient sitting EOB pre tx, agrees to PT, voices no complaints of pain. Will be co-treating with OT due to poor patient mobility, strength, endurance, severe debility, coordinate UE and LE with activity, safety and reduce risk of falls, work on balance and endurance together. Appearance Patient in therapy gym post tx to continue with OT Mental Status Patient Orientation: Person, Place, Situation TLSO Transfers SCALE: Activities may be completed with or without assistive devices. 9-Hxoowsuvhu-bfvhvzw completes the activity by him/herself with no assistance from a helper. 5-Set-up or Clean-up Assistance-helper sets up or cleans up; patient completes activity. [place] assists only prior to or following the activity. 4-Supervision or Touching Assistance-helper provides verbal cues and/or touching/steadying and/or contact guard assistance as patient completes activity. Assistance may be provided throughout the activity or intermittently. 3-Partial/Moderate Assistance-helper does LESS THAN HALF the effort. [place] lifts, holds or supports trunk or limbs, but provides less than half the effort. 2-Substantial/Maximal Assistance-helper does MORE THAN HALF the effort. [place] lifts or holds trunk or limbs and provides more than half the effort. 3-Xytguvaqx-fvjveq does ALL the effort. Patient does none of the effort to complete the activity. Or, the assistance of 2 or more helpers is required for the patient to complete the activity. If activity was not attempted, code reason: 7-Patient Refused. 9-Not Applicable-not attempted and the patient did not perform the activity before the current illness, exacerbation or injury. 10-Not Attempted due to Environmental Limitations-(lack of equipment, weather restraints, etc.). 88-Not Attempted due to Medical Conditions or Safety Concerns. Sit to Stand (QC): 4 Chair/Seh-vy-Pvnff Xfer(QC): 4 Weight Bearing Right Lower Extremity: Right Full Weight Bearing Left Lower Extremity: Left Full Weight Bearing TLSO donned at all times when up and donned prior to transferring out of bed. Gait Training Distance: 120' Walk 10 feet (QC): 4 Walk 50 ft with 2 Turns(QC): 4 Gait Assistive Device: FWW SBA, very slow ambulation, slumped posture Exercises standing activity working on UE strength and endurance while standing on an airex to work on balance and well as endurance Treatments PT worked on transfers, ambulation, balance and endurance, OT worked on UE activity, UE positioning and safety during activity. Assessment Current Status: Fair Progress slowly progressing endurance and strength, tremors increase with fatigue PT Nursing Home Goals Groundman/Lineman Goals PT Nursing Home Goals Time Frame: May 02, 2022 Roll Left & Right (QC): 6 Sit to Lying (QC): 6 Lying-Sitting on Side/Bed(QC): 6 Sit to Stand (QC): 6 Chair/Mbc-tv-Zkzgh Xfer(QC): 6 Toilet Transfer (QC): 6 Car Transfer (QC): 6 Does the Patient Walk: Yes Walk 10 feet (QC): 6 Walk 50ft with 2 Turns (QC): 6 Walk 150 ft (QC): 6 Walking 10ft on Uneven Surface: 6 1 Step (curb) (QC): 6 4 Steps (QC): 6 12 Steps (QC): 6 Picking up an Object (QC): 4 Does the Pt use WC or Scooter?: No Wheel 50 feet with 2 turns (QC: 9 Wheel 150 feet: 9 PT Plan Problem List Problem List: Activity Tolerance, Functional Strength, Safety, Balance, Gait, Transfer, Bed Mobility, ROM Treatment/Plan Treatment Plan: Continue Plan of Care Treatment Plan: Bed Mobility, Education, Functional Activity Flex, Functional Strength, Group Therapy, Gait, Safety, Therapeutic Exercise, Transfers Treatment Duration: May 08, 2022 Frequency: At least 5 of 7 days/Wk (IRF) Estimated Hrs Per Day: 1.5 hours per day Patient and/or Family Agrees t: Yes Safety Risks/Education Patient Education: Gait Training, Transfer Techniques, Correct Positioning, Safety Issues Teaching Recipient: Patient Teaching Methods: Demonstration, Discussion Response to Teaching: Reinforcement Needed Time/GCodes Time In: 1015 Time Out: 1045 Total Billed Treatment Time: 30 Total Billed Treatment 1 visit GT 10' EX 20' co-treated for the whole DADAEKTARAH PT April 04, 2022 10:48
--- NOTE | 2022-04-04 11:10 | Occupational Ther Daily Note ---
OT Current Status-Daily Note Subjective Pt in bed, agreeable to OT tx. Mental Status/Objective Patient Orientation: Person, Confused, Place, Situation ADL-Treatment Therapy Code Descriptions/Definitions Functional [place] Measure: 0=Not Assessed/NA 4=Minimal Assistance 1=Total Assistance 5=Supervision or Setup 2=Maximal Assistance 6=Modified [place] 3=Moderate Assistance 7=Complete IndependenceSCALE: Activities may be completed with or without assistive devices. 9-Xdtwgxbxka-ffuvfqs completes the activity by him/herself with no assistance from a helper. 5-Set-up or Clean-up Assistance-helper sets up or cleans up; patient completes activity. [place] assists only prior to or following the activity. 4-Supervision or Touching Assistance-helper provides verbal cues and/or touching/steadying and/or contact guard assistance as patient completes activity. Assistance may be provided throughout the activity or intermittently. 3-Partial/Moderate Assistance-helper does LESS THAN HALF the effort. [place] lifts, holds or supports trunk or limbs, but provides less than half the effort. 2-Substantial/Maximal Assistance-helper does MORE THAN HALF the effort. [place] lifts or holds trunk or limbs and provides more than half the effort. 3-Pvxewkerh-mcjlih does ALL the effort. Patient does none of the effort to complete the activity. Or, the assistance of 2 or more helpers is required for the patient to complete the activity. If activity was not attempted, code reason: 7-Patient Refused. 9-Not Applicable-not attempted and the patient did not perform the activity before the current illness, exacerbation or injury. 10-Not Attempted due to Environmental Limitations-(lack of equipment, weather restraints, etc.). 88-Not Attempted due to Medical Conditions or Safety Concerns. Upper Body Dressing (QC): 3 (Min A with back brace.) Other Treatment Pt in bed, transferred supine to sit EOB. Pt donned back brace, requiring min A overall and moderate verbal cues for sequencing. OT/PT cotreat due to skill of 2 clinicians required which a erp technical lead could not perform in order to coordinate UE/LEs, decrease fall risk, focus on higher level balance tasks, and due to pt's limitations in strength and activity tolerance. Pt used FWW to perform functional mobility to therapy gym, SBA. Pt completed nut/bolt block, standing on AirEx mat to focus on balance while completing bimanual task. Pt completed x16 nut/bolts, 1 seated rest break required. end of cotx with PT, OT continued with tx. Pt removed beads from heavy resistance theraputty, able to locate all beads without cues in order to increase fine motor strength and coordination. Pt returned to his room using FWW, SBA, transferring to recliner. Post tx, pt in recliner, call light in reach and all needs met, chair alarm activated. Education OT Patient Education: Correct positioning, Energy conservation, Exercise program, Modified ADL techniques, Progress toward Goal/Update tx plan, Purpose of tx/functional activities, Rehab process Teaching Recipient: Patient Teaching Methods: Discussion Response to Teaching: Verbalize Understanding OT Short Term Goals Short Term Goals Time Frame: Apr 09, 2022 Shower/bathe self: 3 Upper body dressin Lower body dressin Putting on/taking off footwear: 3 OT Chairman President And Chief Executive Officer Goals Senior Living Goals Time Frame: Apr 18, 2022 Eating (QC): 6 Oral Hygiene (QC): 6 Toileting Hygiene (QC): 6 Shower/Bathe Self (QC): 6 Upper Body Dressing (QC): 6 Lower Body Dressing (QC): 6 On/Off Footwear (QC): 6 1=Demonstrate adherence to instructed precautions during ADL tasks. 2=Patient will verbalize/demonstrate understanding of assistive devices/modifications for ADL. 3=Patient will improve strength/tolerance for activity to enable patient to perform ADL's. OT Education/Plan Problem List/Assessment Assessment: Decreased Activ Tolerance, Decreased Safety Aware, Decreased UE Strength, Impaired Cognition, Impaired Coordination, Impaired Funct Balance, Impaired I ADL's, Impaired Self-Care Skills Discharge Recommendations Plan/Recommendations: Continue POC Treatment Plan/Plan of Care Patient would benefit from OT for education, treatment and training to promote independence in ADL's, mobility, safety and/or upper extremity function for ADL's. Plan of Care: ADL Retraining, Functional Mobility, Group Exercise/Act as Ind, UE Funct Exercise/Act Treatment Duration: Apr 18, 2022 Frequency: At least 5 of 7 days/Wk (IRF) Estimated Hrs Per Day: 1.5 hours per day Agreement: Yes Rehab Potential: Good Time/GCodes Start Time: 10:00 Stop Time: 11:15 Total Time Billed (hr/min): 75 Billed Treatment Time Cotreat x30, OT tx x45' 1, ADL (15'), FA 4 (60') ANDIE HELTON OT April 04, 2022 11:10
[2022-04-04] MEDS: MICONAZOLE 2% POWDER (DESENEX AF) 90 GM TOP SCH ×2 (14:25→21:47)
[2022-04-04 19:31] VITALS: BP 94/58
[2022-04-04] MEDS: GABAPENTIN 100 MG (NEURONTIN) CAP PO SCH (21:39)
[2022-04-04] MEDS: toPIRamate 100 MG (TOPAMAX) TAB PO SCH (21:41)
[2022-04-05] MEDS: MULTIVIT W/MINERALS TAB (THERAGRAN M) PO SCH (06:30)
[2022-04-05] MEDS: KCL 10 MEQ TAB (MICRO K) PO SCH (06:30)
--- NOTE | 2022-04-05 06:45 | PM&R Progress Note ---
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 04/03/2022: Pt is doing a lot better Fecal incontinence noted so holding stool softeners Still complaining of pain but I'm decreasing Oxycodone to q6 hours Oxycontin of 15 BID will be the next to discontinue Alcoholism presents its own issues 04/02/2022: Pt is doing really well Wrapping legs with GIORGIO wrap Bowels moved yesterday Using a back brace Overall having a lot of social issues due to chronic alcoholism 04/01/22: Patient doing well Decreasing pain meds tomorrow again BM+ Monitoring BP 03/31/22: Patient doing well Improved overall Decreasing Oxycodone to 5mg PO Q4 hours down from 10mg due to dependency potential BM+ 03/30/2022: Patient doing well Was found up by himself using the bedside table as a walker to get around Counseling regarding fall risk initiated by ROBERT Rios No falls Pain meds taken on a regular basis 03/29/2022: Patient doing better since giving pain meds I told him we need to wean down soon since dependency potential is noted with h/o alcoholism BM+ Resting pretty well right now Checked meds and labs Review of Systems Musculoskeletal: arm pain, back pain Objective Exam Vital Signs Vital Signs Date Time Temp Pulse Resp B/P (MAP) Pulse Ox O2 Delivery O2 Flow Rate FiO2 04/05/22 20:39 Room Air 04/05/22 20:00 37.0 58 18 81/51 (61) 95 Capillary Refill : General Appearance: No Apparent Distress, WD/WN, Anxious, Chronically ill HEENT: PERRL/EOMI, Normal ENT Inspection, Pharynx Normal Neck: Full Range of Motion, Normal Inspection, Non Tender, Supple, Carotid Bruit Respiratory: Chest Non Tender, Lungs Clear, Normal Breath Sounds, No Accessory Muscle Use, No Respiratory Distress Cardiovascular: Regular Rate, Rhythm, No Edema, No Gallop, No JVD, No Murmur, Normal Peripheral Pulses Gastrointestinal: Normal Bowel Sounds, No Organomegaly, No Pulsatile Mass, Non Tender, Soft Back: Decreased Range of Motion, Other Extremity: Normal Capillary Refill, Normal Inspection, Normal Range of Motion, Non Tender, No Calf Tenderness, No Pedal Edema Neurologic/Psychiatric: Alert, Oriented x3, Normal Mood/Affect, gas inspector II-XII Norm as Tested, Abnormal Gait, Motor Weakness Skin: Normal Color, Warm/Dry Lymphatic: No Adenopathy Results/Procedures Lab Patient resulted labs reviewed. FIM Transfers Therapy Code Descriptions/Definitions Functional [place] Measure: 0=Not Assessed/NA 4=Minimal Assistance 1=Total Assistance 5=Supervision or Setup 2=Maximal Assistance 6=Modified [place] 3=Moderate Assistance 7=Complete IndependenceSCALE: Activities may be completed with or without assistive devices. 7-Tnysmvxseh-xkowgjr completes the activity by him/herself with no assistance from a helper. 5-Set-up or Clean-up Assistance-helper sets up or cleans up; patient completes activity. [place] assists only prior to or following the activity. 4-Supervision or Touching Assistance-helper provides verbal cues and/or touching/steadying and/or contact guard assistance as patient completes activity. Assistance may be provided throughout the activity or intermittently. 3-Partial/Moderate Assistance-helper does LESS THAN HALF the effort. [place] lifts, holds or supports trunk or limbs, but provides less than half the effort. 2-Substantial/Maximal Assistance-helper does MORE THAN HALF the effort. [place] lifts or holds trunk or limbs and provides more than half the effort. 3-Bnuyvkmkz-dxehxg does ALL the effort. Patient does none of the effort to complete the activity. Or, the assistance of 2 or more helpers is required for the patient to complete the activity. If activity was not attempted, code reason: 7-Patient Refused. 9-Not Applicable-not attempted and the patient did not perform the activity before the current illness, exacerbation or injury. 10-Not Attempted due to Environmental Limitations-(lack of equipment, weather restraints, etc.). 88-Not Attempted due to Medical Conditions or Safety Concerns. Roll Left to Right (QC): 6 Sit to Lying (QC): 6 Sit to Stand (QC): 4 Chair/Eqa-pv-Zdxft Xfer(QC): 4 Car Transfer (QC): 4 Gait Training Does the Patient Walk?: Yes Distance: 120' Walk 10 feet (QC): 4 Walk 50 ft with 2 Turns(QC): 4 Walk 150 ft (QC): 4 Walking 10ft/uneven surface-QC: 4 Gait Persons Needed: 1 Gait Assistive Device: FWW Wheelchair Training Does the Pt Use a Wheelchair?: No Wheel 50 ft with 2 turns (QC): 9 Wheel 150 ft (QC): 9 Stair Training #of Steps: 12 1 Step (curb) (QC): 3 4 Steps (QC): 3 12 Steps (QC): 3 Balance Picking up an Object (QC): 88 ADL-Treatment Eating (QC): 6 Oral Hygiene (QC): 6 Shower/Bathe Self (QC): 4 (CGA) Upper Body Dressing (QC): 3 (Min A with back brace.) Lower Body Dressing (QC): 3 (assist with catheter management) On/Off Footwear (QC): 3 (mod A. Pt able to doff usin AE, assist to don.) Toileting Hygiene (QC): 3 Toilet Transfer (QC): 4 Assessment/Plan Assessment and Plan Assess & Plan/Chief Complaint Assessment: IVH Alcoholism Cirrhosis Anxiety T10-T11 torn disc Macrocytic anemia Thrombocytopenia HTN Right ureter obstructive uropathy DA s/p post ureteral access cath Plan: Monitor pain Monitor kidneys Cirrhosis management Rehab protocol 03/29/2022: Pain control PT OT 03/30/2022: Consult Dr Harrison in morning 03/31/22: Dr Harrison consult 04/01/22: Urology consult Decrease pain meds 04/01/22: Decrease pain meds tomorrow 04/02/2022: Supportive care 04/03/2022: Decrease pain meds 04/04/2022: Supportive care Catheter in place 04/05/2022: Supportive care Monitor closely (1) Intracranial hemorrhage Status: Acute (2) Alcohol dependence with acute alcoholic intoxication Status: Acute (3) ETOH abuse Status: Acute (4) Kidney injury Status: Acute (5) Cirrhosis Status: Acute RAMSEY MONTILLA DO April 05, 2022 06:44
[2022-04-05 07:04] VITALS: BP 100/70
[2022-04-05] MEDS: oxyCODONE ER 15 MG (oxyCONTIN CR) TAB PO SCH ×2 (09:06→20:02)
[2022-04-05] MEDS: SERTRALINE 100 MG (ZOLOFT) TAB PO SCH (09:07)
[2022-04-05] MEDS: SERTRALINE 50 MG (ZOLOFT) TABLET PO SCH (09:07)
[2022-04-05] MEDS: DOCUSATE SODIUM 100 MG (COLACE) CAP PO SCH ×2 (09:07→20:02)
[2022-04-05] MEDS: SPIRONOLACTONE 100 MG (ALDACTONE) TABLET PO SCH (09:07)
[2022-04-05] MEDS: hydrOXYzine (ATARAX) 10 MG TAB PO SCH ×3 (09:07→20:02)
[2022-04-05] MEDS: FUROSEMIDE 40 MG (LASIX) TAB PO SCH (09:07)
[2022-04-05] MEDS: polyethylene glycoL POWDER 17 GM (MIRALAX) PACK PO SCH ×2 (09:08→19:56)
[2022-04-05] MEDS: toPIRamate 25 MG (TOPAMAX) TAB PO SCH ×2 (09:08→20:02)
[2022-04-05] MEDS: MICONAZOLE 2% POWDER (DESENEX AF) 90 GM TOP SCH ×2 (09:09→20:04)
[2022-04-05] MEDS: TRIAMCINOLONE 0.1% CR (KENALOG) 15 GM TUBE TOP SCH ×2 (09:09→20:04)
[2022-04-05] MEDS: SENNA W/DOCUSATE (SENOKOT S) TABLET PO SCH ×2 (09:10→20:02)
--- NOTE | 2022-04-05 10:32 | Physical Therapy Daily Note ---
PT Daily Note-Current Subjective Pt in bed upon arrival and agrees to PT. Pt says he is tired today buts says he wants to get up and walk. Reports he feels a little lightheaded when he stands up but much improved after standing for a few seconds. Pain Numeric Pain Scale: 7 Location Body Site: Back Mental Status Patient Orientation: Person, Place, Time Attachments: Rock Catheter Transfers SCALE: Activities may be completed with or without assistive devices. 7-Cqmrbklutp-tjykolq completes the activity by him/herself with no assistance from a helper. 5-Set-up or Clean-up Assistance-helper sets up or cleans up; patient completes activity. [place] assists only prior to or following the activity. 4-Supervision or Touching Assistance-helper provides verbal cues and/or touching/steadying and/or contact guard assistance as patient completes activity. Assistance may be provided throughout the activity or intermittently. 3-Partial/Moderate Assistance-helper does LESS THAN HALF the effort. [place] lifts, holds or supports trunk or limbs, but provides less than half the effort. 2-Substantial/Maximal Assistance-helper does MORE THAN HALF the effort. [place] lifts or holds trunk or limbs and provides more than half the effort. 3-Nhydbubrp-akcaoz does ALL the effort. Patient does none of the effort to complete the activity. Or, the assistance of 2 or more helpers is required for the patient to complete the activity. If activity was not attempted, code reason: 7-Patient Refused. 9-Not Applicable-not attempted and the patient did not perform the activity before the current illness, exacerbation or injury. 10-Not Attempted due to Environmental Limitations-(lack of equipment, weather restraints, etc.). 88-Not Attempted due to Medical Conditions or Safety Concerns. Sit to Lying (QC): 4 Lying to Sitting/Side of Bed(Q: 4 Sit to Stand (QC): 4 Weight Bearing Right Lower Extremity: Right Full Weight Bearing Left Lower Extremity: Left Full Weight Bearing TLSO donned at all times when up and donned prior to transferring out of bed. Gait Training Does the Patient Walk?: Yes Distance: 200' Walk 10 feet (QC): 5 Walk 50 ft with 2 Turns(QC): 4 Walk 150 ft (QC): 4 Gait Persons Needed: 1 Gait Assistive Device: FWW Treatments Pt amb from room out in to the jack 200' and then TFs back to bed. Call light in hand and all needs met as PT departs. Assessment Current Status: Good Progress Pt required skilled verbal and tactile cues for correct foot and walker placement during amb and while performing TFs. Pt required Jong/modA in order to don brace. PT Switch House Operator Goals Switch House Operator Goals PT Alf Goals Time Frame: May 02, 2022 Roll Left & Right (QC): 6 Sit to Lying (QC): 6 Lying-Sitting on Side/Bed(QC): 6 Sit to Stand (QC): 6 Chair/Aoe-yu-Wekyg Xfer(QC): 6 Toilet Transfer (QC): 6 Car Transfer (QC): 6 Does the Patient Walk: Yes Walk 10 feet (QC): 6 Walk 50ft with 2 Turns (QC): 6 Walk 150 ft (QC): 6 Walking 10ft on Uneven Surface: 6 1 Step (curb) (QC): 6 4 Steps (QC): 6 12 Steps (QC): 6 Picking up an Object (QC): 4 Does the Pt use WC or Scooter?: No Wheel 50 feet with 2 turns (QC: 9 Wheel 150 feet: 9 PT Plan Problem List Problem List: Activity Tolerance, Functional Strength Treatment/Plan Treatment Plan: Continue Plan of Care Treatment Plan: Bed Mobility, Education, Functional Activity Flex, Functional Strength, Group Therapy, Gait, Safety, Therapeutic Exercise, Transfers Treatment Duration: May 08, 2022 Frequency: At least 5 of 7 days/Wk (IRF) Estimated Hrs Per Day: 1.5 hours per day Patient and/or Family Agrees t: Yes Safety Risks/Education Patient Education: Gait Training Teaching Recipient: Patient Teaching Methods: Discussion Response to Teaching: Return Demonstration Time/GCodes Time In: 830 Time Out: 900 Total Billed Treatment Time: 30 Total Billed Treatment 1, Ex (15min), FA (15min) JORY YOUSIF PTA April 05, 2022 10:32
[2022-04-05] MEDS: PROPRANOLOL 20 MG (INDERAL) TABLET PO PRN (12:39)
[2022-04-05 20:00] VITALS: BP 81/51
[2022-04-05] MEDS: GABAPENTIN 100 MG (NEURONTIN) CAP PO SCH (20:02)
[2022-04-05] MEDS: toPIRamate 100 MG (TOPAMAX) TAB PO SCH (20:02)
[2022-04-06] MEDS: MULTIVIT W/MINERALS TAB (THERAGRAN M) PO SCH (05:32)
[2022-04-06] MEDS: KCL 10 MEQ TAB (MICRO K) PO SCH (05:32)
[2022-04-06 07:00] VITALS: BP 93/60
--- NOTE | 2022-04-06 07:06 | PM&R Progress Note ---
Subjective HPI/CC On Admission Date Seen by Provider: April 06, 2022 Time Seen by Provider: 12:00 Subjective/Events-last exam 04/06/22: Patient doing the same No major issues Chronic pain issues 04/05/22: Patient is doing about the same Bowel regimen maintained On chronic pain issues continue Discharge on 04/09/2022 04/04/22: Pt is doing pretty well Bowels moved yesterday Pretty much the same status Complains of depression, I did restart his Zoloft 150 mg daily Alcoholism and social problems create a poor prognosis mcc 04/03/2022: Pt is doing a lot better Fecal incontinence noted so holding stool softeners Still complaining of pain but I'm decreasing Oxycodone to q6 hours Oxycontin of 15 BID will be the next to discontinue Alcoholism presents its own issues 04/02/2022: Pt is doing really well Wrapping legs with GIORGIO wrap Bowels moved yesterday Using a back brace Overall having a lot of social issues due to chronic alcoholism 04/01/22: Patient doing well Decreasing pain meds tomorrow again BM+ Monitoring BP 03/31/22: Patient doing well Improved overall Decreasing Oxycodone to 5mg PO Q4 hours down from 10mg due to dependency potential BM+ 03/30/2022: Patient doing well Was found up by himself using the bedside table as a walker to get around Counseling regarding fall risk initiated by ROBERT Rios No falls Pain meds taken on a regular basis 03/29/2022: Patient doing better since giving pain meds I told him we need to wean down soon since dependency potential is noted with h/o alcoholism BM+ Resting pretty well right now Checked meds and labs Review of Systems General: Fatigue, Malaise Objective Exam Vital Signs Vital Signs Date Time Temp Pulse Resp B/P (MAP) Pulse Ox O2 Delivery O2 Flow Rate FiO2 04/06/22 19:13 37.1 55 20 87/55 (66) 98 Room Air Capillary Refill : General Appearance: No Apparent Distress, WD/WN, Anxious, Chronically ill HEENT: PERRL/EOMI, Normal ENT Inspection, Pharynx Normal Neck: Full Range of Motion, Normal Inspection, Non Tender, Supple, Carotid Bruit Respiratory: Chest Non Tender, Lungs Clear, Normal Breath Sounds, No Accessory Muscle Use, No Respiratory Distress Cardiovascular: Regular Rate, Rhythm, No Edema, No Gallop, No JVD, No Murmur, Normal Peripheral Pulses Gastrointestinal: Normal Bowel Sounds, No Organomegaly, No Pulsatile Mass, Non Tender, Soft Back: Decreased Range of Motion, Other Extremity: Normal Capillary Refill, Normal Inspection, Normal Range of Motion, Non Tender, No Calf Tenderness, No Pedal Edema Neurologic/Psychiatric: Alert, Oriented x3, Normal 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 FIM Transfers Therapy Code Descriptions/Definitions Functional [place] Measure: 0=Not Assessed/NA 4=Minimal Assistance 1=Total Assistance 5=Supervision or Setup 2=Maximal Assistance 6=Modified [place] 3=Moderate Assistance 7=Complete IndependenceSCALE: Activities may be completed with or without assistive devices. 2-Dthrrayzwq-tuvqfmh completes the activity by him/herself with no assistance fr om a helper. 5-Set-up or Clean-up Assistance-helper sets up or cleans up; patient completes activity. [place] assists only prior to or following the activity. 4-Supervision or Touching Assistance-helper provides verbal cues and/or touching/steadying and/or contact guard assistance as patient completes activity. Assistance may be provided throughout the activity or intermittently. 3-Partial/Moderate Assistance-helper does LESS THAN HALF the effort. [place] lifts, holds or supports trunk or limbs, but provides less than half the effort. 2-Substantial/Maximal Assistance-helper does MORE THAN HALF the effort. [place] lifts or holds trunk or limbs and provides more than half the effort. 5-Dwljxcdyj-cztosv does ALL the effort. Patient does none of the effort to complete the activity. Or, the assistance of 2 or more helpers is required for the patient to complete the activity. If activity was not attempted, code reason: 7-Patient Refused. 9-Not Applicable-not attempted and the patient did not perform the activity before the current illness, exacerbation or injury. 10-Not Attempted due to Environmental Limitations-(lack of equipment, weather restraints, etc.). 88-Not Attempted due to Medical Conditions or Safety Concerns. Roll Left to Right (QC): 6 Sit to Lying (QC): 4 Sit to Stand (QC): 4 Chair/Frm-yd-Ldrfm Xfer(QC): 4 Car Transfer (QC): 4 Gait Training Does the Patient Walk?: Yes Distance: 200' Walk 10 feet (QC): 5 Walk 50 ft with 2 Turns(QC): 4 Walk 150 ft (QC): 4 Walking 10ft/uneven surface-QC: 4 Gait Persons Needed: 1 Gait Assistive Device: FWW Wheelchair Training Does the Pt Use a Wheelchair?: No Wheel 50 ft with 2 turns (QC): 9 Wheel 150 ft (QC): 9 Stair Training #of Steps: 12 1 Step (curb) (QC): 3 4 Steps (QC): 3 12 Steps (QC): 3 Balance Picking up an Object (QC): 88 ADL-Treatment Eating (QC): 6 Oral Hygiene (QC): 6 Shower/Bathe Self (QC): 4 (CGA) Upper Body Dressing (QC): 3 (Min A with back brace.) Lower Body Dressing (QC): 3 (assist with catheter management) On/Off Footwear (QC): 3 (mod A. Pt able to doff usin AE, assist to don.) Toileting Hygiene (QC): 3 Toilet Transfer (QC): 4 Assessment/Plan Assessment and Plan Assess & Plan/Chief Complaint Assessment: IVH Alcoholism Cirrhosis Anxiety T10-T11 torn disc Macrocytic anemia Thrombocytopenia HTN Right ureter obstructive uropathy DA s/p post ureteral access cath Plan: Monitor pain Monitor kidneys Cirrhosis management Rehab protocol 03/29/2022: Pain control PT OT 03/30/2022: Consult Dr Harrison in morning 03/31/22: Dr Harrison consult 04/01/22: Urology consult Decrease pain meds 04/01/22: Decrease pain meds tomorrow 04/02/2022: Supportive care 04/03/2022: Decrease pain meds 04/04/2022: Supportive care Catheter in place 04/05/2022: Supportive care Monitor closely 04/06/22: Monitor closely (1) Intracranial hemorrhage Status: Acute (2) Alcohol dependence with acute alcoholic intoxication Status: Acute (3) ETOH abuse Status: Acute (4) Kidney injury Status: Acute (5) Cirrhosis Status: Acute RAMSEY MONTILLA DO April 06, 2022 07:06
[2022-04-06] MEDS: oxyCODONE ER 15 MG (oxyCONTIN CR) TAB PO SCH ×2 (08:30→20:12)
[2022-04-06] MEDS: FUROSEMIDE 40 MG (LASIX) TAB PO SCH (08:30)
[2022-04-06] MEDS: SERTRALINE 100 MG (ZOLOFT) TAB PO SCH (08:30)
[2022-04-06] MEDS: toPIRamate 25 MG (TOPAMAX) TAB PO SCH ×2 (08:30→20:12)
[2022-04-06] MEDS: hydrOXYzine (ATARAX) 10 MG TAB PO SCH ×3 (08:30→20:12)
[2022-04-06] MEDS: SERTRALINE 50 MG (ZOLOFT) TABLET PO SCH (08:30)
[2022-04-06] MEDS: DOCUSATE SODIUM 100 MG (COLACE) CAP PO SCH ×2 (08:31→20:12)
[2022-04-06] MEDS: SENNA W/DOCUSATE (SENOKOT S) TABLET PO SCH ×2 (08:31→20:14)
[2022-04-06] MEDS: polyethylene glycoL POWDER 17 GM (MIRALAX) PACK PO SCH ×2 (08:33→20:14)
[2022-04-06] MEDS: TRIAMCINOLONE 0.1% CR (KENALOG) 15 GM TUBE TOP SCH ×2 (08:35→20:16)
[2022-04-06] MEDS: MICONAZOLE 2% POWDER (DESENEX AF) 90 GM TOP SCH ×2 (08:35→20:21)
[2022-04-06 19:13] VITALS: BP 87/55
[2022-04-06] MEDS: toPIRamate 100 MG (TOPAMAX) TAB PO SCH (20:12)
[2022-04-06] MEDS: GABAPENTIN 100 MG (NEURONTIN) CAP PO SCH (20:13)
[2022-04-07 05:27] LABS: BASOPHILS % (AUTO) 1 % (0-10); HEMATOCRIT 32 % (40-54)
[2022-04-07 05:28] LABS: EOSINOPHILS # (AUTO) 0.1 10^3/uL (0.0-0.3); EOSINOPHILS % (AUTO) 4 % (0-10); HEMOGLOBIN 10.8 g/dL (13.3-17.7); LYMPHOCYTES % (AUTO) 36 % (12-44); MEAN CORPUSCULAR HEMOGLOBIN 35 pg (25-34); MEAN CORPUSCULAR HGB CONC 33 g/dL (32-36); MEAN CORPUSCULAR VOLUME 104 fL (80-99); MEAN PLATELET VOLUME 11.1 fL (9.0-12.2); MONOCYTES # (AUTO) 0.3 10^3/uL (0.0-1.0); MONOCYTES % (AUTO) 11 % (0-12); NEUTROPHILS # (AUTO) 1.4 10^3/uL (1.8-7.8); NEUTROPHILS % (AUTO) 49 % (42-75); PLATELET COUNT 71 10^3/uL (130-400); WHITE BLOOD COUNT 2.9 10^3/uL (4.3-11.0)
[2022-04-07 05:37] LABS: ALBUMIN 2.9 GM/DL (3.2-4.5); POTASSIUM 3.8 MMOL/L (3.6-5.0)
[2022-04-07 05:38] LABS: CALCIUM 8.5 MG/DL (8.5-10.1)
[2022-04-07 05:40] LABS: TOTAL PROTEIN 6.2 GM/DL (6.4-8.2)
[2022-04-07 05:41] LABS: BILIRUBIN,TOTAL 0.4 MG/DL (0.1-1.0)
[2022-04-07 05:43] LABS: CREATININE SERUM 2.64 MG/DL (0.60-1.30)
[2022-04-07] MEDS: MULTIVIT W/MINERALS TAB (THERAGRAN M) PO SCH (06:25)
[2022-04-07] MEDS: KCL 10 MEQ TAB (MICRO K) PO SCH (06:25)
--- NOTE | 2022-04-07 07:22 | PM&R Progress Note ---
Subjective HPI/CC On Admission Date Seen by Provider: April 07, 2022 Time Seen by Provider: 11:00 Subjective/Events-last exam 04/07/22: Patient is the same Lab abnl noted Adjusted meds No pain issues reported Cath will be removed tomorrow during stent removal per Dr Harrison 04/06/22: Patient doing the same No major issues Chronic pain issues 04/05/22: Patient is doing about the same Bowel regimen maintained On chronic pain issues continue Discharge on 04/09/2022 04/04/22: Pt is doing pretty well Bowels moved yesterday Pretty much the same status Complains of depression, I did restart his Zoloft 150 mg daily Alcoholism and social problems create a poor prognosis 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 04/03/2022: Pt is doing a lot better Fecal incontinence noted so holding stool softeners Still complaining of pain but I'm decreasing Oxycodone to q6 hours Oxycontin of 15 BID will be the next to discontinue Alcoholism presents its own issues 04/02/2022: Pt is doing really well Wrapping legs with GIORGIO wrap Bowels moved yesterday Using a back brace Overall having a lot of social issues due to chronic alcoholism 04/01/22: Patient doing well Decreasing pain meds tomorrow again BM+ Monitoring BP 03/31/22: Patient doing well Improved overall Decreasing Oxycodone to 5mg PO Q4 hours down from 10mg due to dependency potential BM+ 03/30/2022: Patient doing well Was found up by himself using the bedside table as a walker to get around Counseling regarding fall risk initiated by ROBERT Rios No falls Pain meds taken on a regular basis 03/29/2022: Patient doing better since giving pain meds I told him we need to wean down soon since dependency potential is noted with h/o alcoholism BM+ Resting pretty well right now Checked meds and labs Review of Systems General: Fatigue, Malaise Musculoskeletal: back pain Objective Exam Vital Signs Vital Signs Date Time Temp Pulse Resp B/P (MAP) Pulse Ox O2 Delivery O2 Flow Rate FiO2 04/07/22 09:52 Room Air 04/07/22 07:30 37.1 55 16 90/52 (65) 98 Capillary Refill : General Appearance: No Apparent Distress, WD/WN, Anxious, Chronically ill HEENT: PERRL/EOMI, Normal ENT Inspection, Pharynx Normal Neck: Full Range of Motion, Normal Inspection, Non Tender, Supple, Carotid Bruit Respiratory: Chest Non Tender, Lungs Clear, Normal Breath Sounds, No Accessory Muscle Use, No Respiratory Distress Cardiovascular: Regular Rate, Rhythm, No Edema, No Gallop, No JVD, No Murmur, Normal Peripheral Pulses Gastrointestinal: Normal Bowel Sounds, No Organomegaly, No Pulsatile Mass, Non Tender, Soft Back: Decreased Range of Motion, Other Extremity: Normal Capillary Refill, Normal Inspection, Normal Range of Motion, Non Tender, No Calf Tenderness, No Pedal Edema Neurologic/Psychiatric: Alert, Oriented x3, Normal 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 FIM Transfers Therapy Code Descriptions/Definitions Functional [place] Measure: 0=Not Assessed/NA 4=Minimal Assistance 1=Total Assistance 5=Supervision or Setup 2=Maximal Assistance 6=Modified [place] 3=Moderate Assistance 7=Complete IndependenceSCALE: Activities may be completed with or without assistive devices. 9-Cqzeeneclj-inavarg completes the activity by him/herself with no assistance from a helper. 5-Set-up or Clean-up Assistance-helper sets up or cleans up; patient completes activity. [place] assists only prior to or following the activity. 4-Supervision or Touching Assistance-helper provides verbal cues and/or touching/steadying and/or contact guard assistance as patient completes activity. Assistance may be provided throughout the activity or intermittently. 3-Partial/Moderate Assistance-helper does LESS THAN HALF the effort. [place] lifts, holds or supports trunk or limbs, but provides less than half the effort. 2-Substantial/Maximal Assistance-helper does MORE THAN HALF the effort. [place] lifts or holds trunk or limbs and provides more than half the effort. 3-Kvysxlwvn-zvtsue does ALL the effort. Patient does none of the effort to complete the activity. Or, the assistance of 2 or more helpers is required for the patient to complete the activity. If activity was not attempted, code reason: 7-Patient Refused. 9-Not Applicable-not attempted and the patient did not perform the activity before the current illness, exacerbation or injury. 10-Not Attempted due to Environmental Limitations-(lack of equipment, weather restraints, etc.). 88-Not Attempted due to Medical Conditions or Safety Concerns. Roll Left to Right (QC): 6 Sit to Lying (QC): 4 Sit to Stand (QC): 4 Chair/Keh-md-Vsmhn Xfer(QC): 4 Car Transfer (QC): 4 Gait Training Does the Patient Walk?: Yes Distance: 200' Walk 10 feet (QC): 5 Walk 50 ft with 2 Turns(QC): 4 Walk 150 ft (QC): 4 Walking 10ft/uneven surface-QC: 4 Gait Persons Needed: 1 Gait Assistive Device: FWW Wheelchair Training Does the Pt Use a Wheelchair?: No Wheel 50 ft with 2 turns (QC): 9 Wheel 150 ft (QC): 9 Stair Training #of Steps: 12 1 Step (curb) (QC): 3 4 Steps (QC): 3 12 Steps (QC): 3 Balance Picking up an Object (QC): 88 ADL-Treatment Eating (QC): 6 Oral Hygiene (QC): 6 Shower/Bathe Self (QC): 4 (CGA) Upper Body Dressing (QC): 3 (Min A with back brace.) Lower Body Dressing (QC): 3 (assist with catheter management) On/Off Footwear (QC): 3 (mod A. Pt able to doff usin AE, assist to don.) Toileting Hygiene (QC): 3 Toilet Transfer (QC): 4 Assessment/Plan Assessment and Plan Assess & Plan/Chief Complaint Assessment: IVH Alcoholism Cirrhosis Anxiety T10-T11 torn disc Macrocytic anemia Thrombocytopenia HTN Right ureter obstructive uropathy DA s/p post ureteral access cath Catheter in place CKD Plan: Monitor pain Monitor kidneys Cirrhosis management Rehab protocol 03/29/2022: Pain control PT OT 03/30/2022: Consult Dr Harrison in morning 03/31/22: Dr Harrison consult 04/01/22: Urology consult Decrease pain meds 04/01/22: Decrease pain meds tomorrow 04/02/2022: Supportive care 04/03/2022: Decrease pain meds 04/04/2022: Supportive care Catheter in place 04/05/2022: Supportive care Monitor closely 04/06/22: Monitor closely 04/07/22: Adjust meds per creatinine issues Stent removal along with catheter tomorrow per Dr Harrison (1) Intracranial hemorrhage Status: Acute (2) Alcohol dependence with acute alcoholic intoxication Status: Acute (3) ETOH abuse Status: Acute (4) Kidney injury Status: Acute (5) Cirrhosis Status: Acute RAMSEY MONTILLA DO April 07, 2022 07:22
[2022-04-07 07:30] VITALS: BP 90/52
[2022-04-07] MEDS: hydrOXYzine (ATARAX) 10 MG TAB PO SCH ×3 (08:00→20:32)
[2022-04-07] MEDS: DOCUSATE SODIUM 100 MG (COLACE) CAP PO SCH ×2 (08:00→20:39)
[2022-04-07] MEDS: SENNA W/DOCUSATE (SENOKOT S) TABLET PO SCH ×2 (08:00→20:39)
[2022-04-07] MEDS: toPIRamate 25 MG (TOPAMAX) TAB PO SCH ×2 (08:00→20:32)
[2022-04-07] MEDS: polyethylene glycoL POWDER 17 GM (MIRALAX) PACK PO SCH ×2 (08:01→19:33)
[2022-04-07] MEDS ORDERED: SPIRONOLACTONE 25 MG (ALDACTONE) TAB PO SCH (09:00)
[2022-04-07] MEDS: oxyCODONE ER 15 MG (oxyCONTIN CR) TAB PO SCH ×2 (09:16→20:32)
[2022-04-07] MEDS: MICONAZOLE 2% POWDER (DESENEX AF) 90 GM TOP SCH ×2 (09:16→20:35)
[2022-04-07] MEDS: TRIAMCINOLONE 0.1% CR (KENALOG) 15 GM TUBE TOP SCH ×2 (09:16→20:35)
--- NOTE | 2022-04-07 09:19 | Physical Therapy Daily Note ---
PT Daily Note-Current Subjective Pt sitting up in bed eating breakfast upon arrival. Pt agrees to PT. Mental Status Patient Orientation: Person, Place Attachments: Other-See Comments (TLSO Brace) Transfers SCALE: Activities may be completed with or without assistive devices. 9-Xnuqucpcek-tehedmn completes the activity by him/herself with no assistance from a helper. 5-Set-up or Clean-up Assistance-helper sets up or cleans up; patient completes activity. [place] assists only prior to or following the activity. 4-Supervision or Touching Assistance-helper provides verbal cues and/or touching/steadying and/or contact guard assistance as patient completes activity. Assistance may be provided throughout the activity or intermittently. 3-Partial/Moderate Assistance-helper does LESS THAN HALF the effort. [place] lifts, holds or supports trunk or limbs, but provides less than half the effort. 2-Substantial/Maximal Assistance-helper does MORE THAN HALF the effort. [place] lifts or holds trunk or limbs and provides more than half the effort. 1-Trmojwdrw-zngvyb does ALL the effort. Patient does none of the effort to complete the activity. Or, the assistance of 2 or more helpers is required for the patient to complete the activity. If activity was not attempted, code reason: 7-Patient Refused. 9-Not Applicable-not attempted and the patient did not perform the activity before the current illness, exacerbation or injury. 10-Not Attempted due to Environmental Limitations-(lack of equipment, weather restraints, etc.). 88-Not Attempted due to Medical Conditions or Safety Concerns. Sit to Stand (QC): 5 Weight Bearing Right Lower Extremity: Right Full Weight Bearing Left Lower Extremity: Left Full Weight Bearing TLSO donned at all times when up and donned prior to transferring out of bed. Gait Training Does the Patient Walk?: Yes Distance: 150' x2 Walk 10 feet (QC): 5 Walk 50 ft with 2 Turns(QC): 5 Walk 150 ft (QC): 5 Gait Assistive Device: FWW Exercises Supine Ex: Ankle pumps, Quad Set, Glut sets, Heel Slides, Short Arc Quads, Straight leg raise, Hip abd/add Supine Reps: 15 Seated Therapy Exercises: Ankle pumps, Long arc quads, Hip flexion, Glut set Seated Reps: 15 Treatments (800-900) Pt still eating breakfast upon arrival. EDITOR MAP reviews notes for progress. Pt completes Supine EX in bed w/several RB & redirection to stay on task. Pt declines need for BR. TLSO Brace discussed for review of don/doffing as pt to d/c in couple of days. Pt reveals nervous about alcoholic relapse. Pt to schedule visit w/Dr Mendosa after d/c. EDITOR MAP advised completion of tasks is good during tx although pt struggles w/retention of back precautions & use of TLSO brace. This is ongoing struggle w/no change during tx. Pt sees OT at end of PT tx. ([id number]) Pt sitting in recliner upon arrival. Pt declines need for BR as pt has Pranav. TF to standing and amb. in hallway, taking RB as needed. Pt returns to room to rest in recliner. EDITOR MAP issues and reviews written HEP for Supine & Seated EX. Pt resting with all needs met, call light in hand. Assessment Current Status: Fair Progress Poor retention of back precautions & use of TLSO for proper back support. Pt reports being open for longer ARU stay if insurance allows to continue to gain more strength. PT Endocrinology Teacher Goals Endocrinology Teacher Goals PT Endocrinology Teacher Goals Time Frame: May 02, 2022 Roll Left & Right (QC): 6 Sit to Lying (QC): 6 Lying-Sitting on Side/Bed(QC): 6 Sit to Stand (QC): 6 Chair/Qar-mi-Laswu Xfer(QC): 6 Toilet Transfer (QC): 6 Car Transfer (QC): 6 Does the Patient Walk: Yes Walk 10 feet (QC): 6 Walk 50ft with 2 Turns (QC): 6 Walk 150 ft (QC): 6 Walking 10ft on Uneven Surface: 6 1 Step (curb) (QC): 6 4 Steps (QC): 6 12 Steps (QC): 6 Picking up an Object (QC): 4 Does the Pt use WC or Scooter?: No Wheel 50 feet with 2 turns (QC: 9 Wheel 150 feet: 9 PT Plan Problem List Problem List: Activity Tolerance, Functional Strength Treatment/Plan Treatment Plan: Continue Plan of Care Treatment Plan: Bed Mobility, Education, Functional Activity Flex, Functional Strength, Group Therapy, Gait, Safety, Therapeutic Exercise, Transfers Treatment Duration: May 08, 2022 Frequency: At least 5 of 7 days/Wk (IRF) Estimated Hrs Per Day: 1.5 hours per day Patient and/or Family Agrees t: Yes Safety Risks/Education Patient Education: Gait Training, Transfer Techniques, Reviewed Precautions, Correct Positioning, Reviewed Don/Doff Brace, Safety Issues Teaching Recipient: Patient Teaching Methods: Discussion Response to Teaching: Verbalize Understanding, Reinforcement Needed Time/GCodes Time In: 800 Time Out: 900 Total Billed Treatment Time: 60 Total Billed Treatment (800-900) 1, FA x2 (30m) & EX x2 (30m) ([id number]) 1, GT (20m) & EX (10m) RAGHU ALMONTE EDITOR MAP April 07, 2022 09:19
--- NOTE | 2022-04-07 10:28 | Occupational Ther Daily Note ---
OT Current Status-Daily Note Subjective Pt seen in room, up in bed, agreeable to OT. No pain reported but he did receive his pain meds during tx. Appearance Alert, cooperative, admits to some difficulty remembering ADL-Treatment Pt was able to set up his breakfast by himself and eat with no difficulty, per his report. He doffed and donned t shirt in bed with setup, no cues. He did need help threading saucedo and legs into pants but was able to pull them up over thighs and buttocks by rolling in bed, maintaining precautions. He was able to do sponge bath in bed, with some cues, and needed help to thoroughly clean buttocks and lower legs. Help was needed to don SWAPNA hose and slipper socks. He put on back brace with min assist and some cues, sitting at EOB. Sit to stand with CGA, FWW. Walked to bathroom and sat to brush teeth, comb hair, completed mod I. CGA, FWW sit to stand and walked to recliner. Therapy Code Descriptions/Definitions Functional [place] Measure: 0=Not Assessed/NA 4=Minimal Assistance 1=Total Assistance 5=Supervision or Setup 2=Maximal Assistance 6=Modified [place] 3=Moderate Assistance 7=Complete IndependenceSCALE: Activities may be completed with or without assistive devices. 2-Ayghs[place]uzuk-xdxrtou completes the activity by him/herself with no assistance from a helper. 5-Set-up or Clean-up Assistance-helper sets up or cleans up; patient completes activity. [place] assists only prior to or following the activity. 4-Supervision or Touching Assistance-helper provides verbal cues and/or touching/steadying and/or contact guard assistance as patient completes activity . Assistance may be provided throughout the activity or intermittently. 3-Partial/Moderate Assistance-helper does LESS THAN HALF the effort. [place] lifts, holds or supports trunk or limbs, but provides less than half the effort. 2-Substantial/Maximal Assistance-helper does MORE THAN HALF the effort. [place] lifts or holds trunk or limbs and provides more than half the effort. 7-Npejdcflt-xybtae does ALL the effort. Patient does none of the effort to complete the activity. Or, the assistance of 2 or more helpers is required for the patient to complete the activity. If activity was not attempted, code reason: 7-Patient Refused. 9-Not Applicable-not attempted and the patient did not perform the activity before the current illness, exacerbation or injury. 10-Not Attempted due to Environmental Limitations-(lack of equipment, weather restraints, etc.). 88-Not Attempted due to Medical Conditions or Safety Concerns. Eating (QC): 6 Oral Hygiene (QC): 6 (seated) Shower/Bathe Self (QC): 3 (help to wash lower legs and buttock, sponge bath in bed) Upper Body Dressing (QC): 4 (min assist back brace, setup t shirt) Lower Body Dressing (QC): 3 (Help to thread [place], get legs into pants. Help with TEDs. Able to pull up over hips) On/Off Footwear: 3 (Some help with slipper socks and TEDs. Can lift legs) Other Treatment Pt completed 10 reps bilat UE exercise with 1# weight, to help strengthen arms for transfers. Able to track reps without help and do exercises with verbal or visual instructions. Pt reported no pain from exercises. Pt left up in recliner, all needs met, chair alarm on. Education OT Patient Education: Exercise program, Modified ADL techniques, Progress toward Goal/Update tx plan, Reviewed precautions, Safety issues, Transfer techniques Teaching Recipient: Patient Teaching Methods: Demonstration, Discussion Response to Teaching: Return Demonstration OT Short Term Goals Short Term Goals Time Frame: Apr 09, 2022 Shower/bathe self: 3 Upper body dressin Lower body dressin Putting on/taking off footwear: 3 OT Mcfp Goals Mcfp Goals Time Frame: Apr 18, 2022 Eating (QC): 6 Oral Hygiene (QC): 6 Toileting Hygiene (QC): 6 Shower/Bathe Self (QC): 6 Upper Body Dressing (QC): 6 Lower Body Dressing (QC): 6 On/Off Footwear (QC): 6 1=Demonstrate adherence to instructed precautions during ADL tasks. 2=Patient will verbalize/demonstrate understanding of assistive devices/modifications for ADL. 3=Patient will improve strength/tolerance for activity to enable patient to perform ADL's. OT Education/Plan Discharge Recommendations Plan/Recommendations: Continue POC Treatment Plan/Plan of Care Patient would benefit from OT for education, treatment and training to promote independence in ADL's, mobility, safety and/or upper extremity function for ADL's. Plan of Care: ADL Retraining, Functional Mobility, Group Exercise/Act as Ind, UE Funct Exercise/Act Treatment Duration: Apr 18, 2022 Frequency: At least 5 of 7 days/Wk (IRF) Estimated Hrs Per Day: 1.5 hours per day Agreement: Yes Rehab Potential: Good Time/GCodes Start Time: 09:00 Stop Time: 10:15 Total Time Billed (hr/min): 75 Billed Treatment Time visit, ADL 65 minutes, exercise 10 minutes RUT HANN RANGEL OT April 07, 2022 10:28
--- NOTE | 2022-04-07 11:14 | Speech Therapy Daily Note ---
Speech Daily Progress Note Subjective Date Seen by Provider: April 07, 2022 Time Seen by Provider: 10:15 The patient was seated upright in his chair, awake and alert upon entrance to his room by the clinician. The patient greeted the clinician appropriately and was agreeable to participation in the cognitive linguistic treatment session. Objective - Orientation: The patient was independently oriented to month, day of week, date, year, location, and city. - Delayed Recall: The clinician introduced internal memory strategies including visualization, association, and repetition. The patient and clinician practiced visualization to recall five single words. Following a five minute delay, the patient was able to recall three of five single words. With a category cue, the patient could recall five of five single words. Assessment Assessment Current Status: Fair Progress Treatment Plan Continue Plan of Care Speech Short Term Goals Short Term Goals Short Term Goals The patient will demonstrate 90% accuracy with memory and functional problem solving with mild clinician verbal and visual cueing. Speech [facility] Goals Hall Clerk Goals The patient will demonstrate improve cognitive linguistic skills for safe discharge to the least restricted environment. Speech-Plan Treatment Plan Speech Therapy Treatment Plan: Continue Plan of Care Treatment Duration: Apr 09, 2022 Frequency: Modified Program (IRF) Estimated Hrs Per Day: Other Rehab Potential: Good Safety Risks/Education Teaching Recipient: Patient Teaching Methods: Demonstration, Discussion Response to Teaching: Return Demonstration, Reinforcement Needed Education Topics Provided: Internal Memory Strategies Time Speech Therapy Time In: 10:15 Speech Therapy Time Out: 10:45 Total Billed Time: 30 Billed Treatment Time Hong FLOR Tabby [address] April 07, 2022 11:14
[2022-04-07 20:00] VITALS: BP 91/52
[2022-04-07] MEDS: SERTRALINE 50 MG (ZOLOFT) TABLET PO SCH (20:31)
[2022-04-07] MEDS: SERTRALINE 100 MG (ZOLOFT) TAB PO SCH (20:31)
[2022-04-07] MEDS: GABAPENTIN 100 MG (NEURONTIN) CAP PO SCH (20:32)
[2022-04-07] MEDS: toPIRamate 100 MG (TOPAMAX) TAB PO SCH (20:32)
--- NOTE | 2022-04-08 06:20 | PM&R Progress Note ---
Subjective HPI/CC On Admission Date Seen by Provider: April 08, 2022 Time Seen by Provider: 11:00 Subjective/Events-last exam 04/08/22: Pt is doing about the same Creatinine is 2.2 Pain is the usual Blood pressure is 98/61 Xanax given to help 04/07/22: Patient is the same Lab abnl noted Adjusted meds No pain issues reported Cath will be removed tomorrow during stent removal per Dr Harrison 04/06/22: Patient doing the same No major issues Chronic pain issues 04/05/22: Patient is doing about the same Bowel regimen maintained On chronic pain issues continue Discharge on 04/09/2022 04/04/22: Pt is doing pretty well Bowels moved yesterday Pretty much the same status Complains of depression, I did restart his Zoloft 150 mg daily Alcoholism and social problems create a poor prognosis halfway 04/03/2022: Pt is doing a lot better Fecal incontinence noted so holding stool softeners Still complaining of pain but I'm decreasing Oxycodone to q6 hours Oxycontin of 15 BID will be the next to discontinue Alcoholism presents its own issues 04/02/2022: Pt is doing really well Wrapping legs with GIORGIO wrap Bowels moved yesterday Using a back brace Overall having a lot of social issues due to chronic alcoholism 04/01/22: Patient doing well Decreasing pain meds tomorrow again BM+ Monitoring BP 03/31/22: Patient doing well Improved overall Decreasing Oxycodone to 5mg PO Q4 hours down from 10mg due to dependency potential BM+ 03/30/2022: Patient doing well Was found up by himself using the bedside table as a walker to get around Counseling regarding fall risk initiated by ROBERT Rios No falls Pain meds taken on a regular basis 03/29/2022: Patient doing better since giving pain meds I told him we need to wean down soon since dependency potential is noted with h/o alcoholism BM+ Resting pretty well right now Checked meds and labs Review of Systems General: Fatigue, Malaise Neurological: Weakness, Numbness Objective Exam Vital Signs Vital Signs Date Time Temp Pulse Resp B/P (MAP) Pulse Ox O2 Delivery O2 Flow Rate FiO2 04/08/22 20:00 Room Air 04/08/22 19:56 36.7 55 16 95/60 (72) 97 Capillary Refill : General Appearance: No Apparent Distress, WD/WN, Anxious, Chronically ill HEENT: PERRL/EOMI, Normal ENT Inspection, Pharynx Normal Neck: Full Range of Motion, Normal Inspection, Non Tender, Supple, Carotid Bruit Respiratory: Chest Non Tender, Lungs Clear, Normal Breath Sounds, No Accessory Muscle Use, No Respiratory Distress Cardiovascular: Regular Rate, Rhythm, No Edema, No Gallop, No JVD, No Murmur, Normal Peripheral Pulses Gastrointestinal: Normal Bowel Sounds, No Organomegaly, No Pulsatile Mass, Non Tender, Soft Back: Decreased Range of Motion, Other Extremity: Normal Capillary Refill, Normal Inspection, Normal Range of Motion, Non Tender, No Calf Tenderness, No Pedal Edema Neurologic/Psychiatric: Alert, Oriented x3, Normal Mood/Affect, quarantine inspector II-XII Norm as Tested, Abnormal Gait, Motor Weakness Skin: Normal Color, Warm/Dry Lymphatic: No Adenopathy Results/Procedures Lab Laboratory Tests 04/08/22 06:55 Patient resulted labs reviewed. FIM Transfers Therapy Code Descriptions/Definitions Functional [place] Measure: 0=Not Assessed/NA 4=Minimal Assistance 1=Total Assistance 5=Supervision or Setup 2=Maximal Assistance 6=Modified [place] 3=Moderate Assistance 7=Complete IndependenceSCALE: Activities may be completed with or without assistive devices. 6-Wyevosqkec-tomkgku completes the activity by him/herself with no assistance from a helper. 5-Set-up or Clean-up Assistance-helper sets up or cleans up; patient completes activity. [place] assists only prior to or following the activity. 4-Supervision or Touching Assistance-helper provides verbal cues and/or touching/steadying and/or contact guard assistance as patient completes ac tivity. Assistance may be provided throughout the activity or intermittently. 3-Partial/Moderate Assistance-helper does LESS THAN HALF the effort. [place] lifts, holds or supports trunk or limbs, but provides less than half the effort. 2-Substantial/Maximal Assistance-helper does MORE THAN HALF the effort. [place] lifts or holds trunk or limbs and provides more than half the effort. 1-Fjcxxpntv-tonjac does ALL the effort. Patient does none of the effort to complete the activity. Or, the assistance of 2 or more helpers is required for the patient to complete the activity. If activity was not attempted, code reason: 7-Patient Refused. 9-Not Applicable-not attempted and the patient did not perform the activity before the current illness, exacerbation or injury. 10-Not Attempted due to Environmental Limitations-(lack of equipment, weather restraints, etc.). 88-Not Attempted due to Medical Conditions or Safety Concerns. Roll Left to Right (QC): 6 Sit to Lying (QC): 4 Sit to Stand (QC): 5 Chair/Ass-sj-Kwbkn Xfer(QC): 4 Car Transfer (QC): 4 Gait Training Does the Patient Walk?: Yes Distance: 150' x2 Walk 10 feet (QC): 5 Walk 50 ft with 2 Turns(QC): 5 Walk 150 ft (QC): 5 Walking 10ft/uneven surface-QC: 4 Gait Persons Needed: 1 Gait Assistive Device: FWW Wheelchair Training Does the Pt Use a Wheelchair?: No Wheel 50 ft with 2 turns (QC): 9 Wheel 150 ft (QC): 9 Stair Training #of Steps: 12 1 Step (curb) (QC): 3 4 Steps (QC): 3 12 Steps (QC): 3 Balance Picking up an Object (QC): 88 ADL-Treatment Eating (QC): 6 Oral Hygiene (QC): 6 (seated) Shower/Bathe Self (QC): 3 (help to wash lower legs and buttock, sponge bath in bed) Upper Body Dressing (QC): 4 (min assist back brace, setup t shirt) Lower Body Dressing (QC): 3 (Help to thread [place], get legs into pants. Help with TEDs. Able to pull up over hips) On/Off Footwear (QC): 3 (Some help with slipper socks and TEDs. Can lift legs) Toileting Hygiene (QC): 3 Toilet Transfer (QC): 4 Assessment/Plan Assessment and Plan Assess & Plan/Chief Complaint Assessment: IVH Alcoholism Cirrhosis Anxiety T10-T11 torn disc Macrocytic anemia Thrombocytopenia HTN Right ureter obstructive uropathy DA s/p post ureteral access cath Catheter in place CKD Plan: Monitor pain Monitor kidneys Cirrhosis management Rehab protocol 03/29/2022: Pain control PT OT 03/30/2022: Consult Dr Harrison in morning 03/31/22: Dr Harrison consult 04/01/22: Urology consult Decrease pain meds 04/01/22: Decrease pain meds tomorrow 04/02/2022: Supportive care 04/03/2022: Decrease pain meds 04/04/2022: Supportive care Catheter in place 04/05/2022: Supportive care Monitor closely 04/06/22: Monitor closely 04/07/22: Adjust meds per creatinine issues Stent removal along with catheter tomorrow per Dr Harrison 04/08/22: Monitor closely DC planning (1) Intracranial hemorrhage Status: Acute (2) Alcohol dependence with acute alcoholic intoxication Status: Acute (3) ETOH abuse Status: Acute (4) Kidney injury Status: Acute (5) Cirrhosis Status: Acute RAMSEY MONTILLA DO April 08, 2022 06:20
[2022-04-08] MEDS: MULTIVIT W/MINERALS TAB (THERAGRAN M) PO SCH (06:31)
--- NOTE | 2022-04-08 07:09 | Progress Note-Pre Operative ---
Pre-Operative Progress Note H&P Reviewed The H&P was reviewed, patient examined and no changes noted. Date Seen by Provider: April 08, 2022 Time Seen by Provider: 07:08 Date H&P Reviewed: April 08, 2022 Time H&P Reviewed: 07:08 Pre-Operative Diagnosis: RT URETERAL STONE AMEENA MOONEY MD April 08, 2022 07:09
[2022-04-08 07:21] LABS: CALCIUM 8.7 MG/DL (8.5-10.1)
[2022-04-08 07:25] LABS: CREATININE SERUM 2.22 MG/DL (0.60-1.30)
[2022-04-08 07:36] VITALS: BP 98/68
[2022-04-08] MEDS: ARTIFICAL TEARS 0.4 ML UNIT DOSE (REFRESH PLUS) OD PRN (07:53)
[2022-04-08] MEDS: hydrOXYzine (ATARAX) 10 MG TAB PO SCH ×3 (07:54→20:08)
[2022-04-08] MEDS: oxyCODONE ER 15 MG (oxyCONTIN CR) TAB PO SCH ×2 (07:54→20:09)
[2022-04-08] MEDS: DOCUSATE SODIUM 100 MG (COLACE) CAP PO SCH ×2 (07:54→20:08)
[2022-04-08] MEDS: toPIRamate 25 MG (TOPAMAX) TAB PO SCH ×2 (07:55→20:09)
[2022-04-08] MEDS: SENNA W/DOCUSATE (SENOKOT S) TABLET PO SCH ×2 (07:55→20:08)
[2022-04-08] MEDS: polyethylene glycoL POWDER 17 GM (MIRALAX) PACK PO SCH ×2 (07:56→19:58)
[2022-04-08] MEDS: ALPRAZolam 0.25 MG (XANAX) TAB PO PRN (08:05)
[2022-04-08] MEDS: TRIAMCINOLONE 0.1% CR (KENALOG) 15 GM TUBE TOP SCH ×2 (08:11→20:11)
[2022-04-08] MEDS: MICONAZOLE 2% POWDER (DESENEX AF) 90 GM TOP SCH ×2 (08:12→20:11)
--- NOTE | 2022-04-08 09:28 | Progress Note-Post Operative ---
Post-Operative Progess Note Surgeon (s)/Chief Administrative Officer (s) Surgeon AMEENA MOONEY MD Chief Administrative Officer: NONE Pre-Operative Diagnosis RT URETERAL STONE Post-Operative Diagnosis SAME Procedure & Operative Findings Date of Procedure 04/08/22 Procedure Performed/Findings CYSTOSCOPY WITH REMOVAL OF RT URETERAL STENT Anesthesia Type LOCAL Estimated Blood Loss Estimated blood loss (mL): NONE Specimens/Packing Specimens Removed NONE TO PATH Packing: NONE AMEENA MOONEY MD April 08, 2022 09:28
--- NOTE | 2022-04-08 10:46 | Physical Therapy Daily Note ---
PT Daily Note-Current Subjective Pt working with OT in Therapy Gym upon arrival. Pt agrees to PT/OT co-treat. Pain Numeric Pain Scale: 8 Location Body Site: Back Pain Description: Ache Mental Status Patient Orientation: Person, Place, Situation Attachments: Other-See Comments (TLSO Brace) Transfers SCALE: Activities may be completed with or without assistive devices. 2-Hxszvmuugb-ugcyowy completes the activity by him/herself with no assistance from a helper. 5-Set-up or Clean-up Assistance-helper sets up or cleans up; patient completes activity. [place] assists only prior to or following the activity. 4-Supervision or Touching Assistance-helper provides verbal cues and/or touching/steadying and/or contact guard assistance as patient completes activity. Assistance may be provided throughout the activity or intermittently. 3-Partial/Moderate Assistance-helper does LESS THAN HALF the effort. [place] lifts, holds or supports trunk or limbs, but provides less than half the effort. 2-Substantial/Maximal Assistance-helper does MORE THAN HALF the effort. [place] lifts or holds trunk or limbs and provides more than half the effort. 9-Myqybfqkg-bfwvmx does ALL the effort. Patient does none of the effort to complete the activity. Or, the assistance of 2 or more helpers is required for the patient to complete the activity. If activity was not attempted, code reason: 7-Patient Refused. 9-Not Applicable-not attempted and the patient did not perform the activity before the current illness, exacerbation or injury. 10-Not Attempted due to Environmental Limitations-(lack of equipment, weather restraints, etc.). 88-Not Attempted due to Medical Conditions or Safety Concerns. Roll Left & Right (QC): 5 Sit to Lying (QC): 5 Lying to Sitting/Side of Bed(Q: 5 Sit to Stand (QC): 5 Chair/Umk-nc-Fhpii Xfer(QC): 5 Toilet Transfer (QC): 5 Car Transfer (QC): 5 Weight Bearing Right Lower Extremity: Right Full Weight Bearing Left Lower Extremity: Left Full Weight Bearing TLSO donned at all times when up and donned prior to transferring out of bed. Gait Training Does the Patient Walk?: Yes Distance: 150' Walk 10 feet (QC): 5 Walk 50 ft with 2 Turns(QC): 5 Walk 150 ft (QC): 5 Walking 10ft/uneven surface-QC: 5 Gait Persons Needed: 1 Gait Assistive Device: FWW VC for safety at times but no TC needed. Wheelchair Training Does the Pt Use a Wheelchair?: No Stair Training Stair Training: Handrails/: 2 handrails #of Steps: 8 1 Step (curb) (QC): 4 4 Steps (QC): 4 12 Steps (QC): 7 Stairs: Pattern: Step to Balance Picking up an Object (QC): 5 Treatments [id number] OT/PT cotreat due to skill of 2 clinicians required which a director of rehabilitation could not perform in order to focus on higher level balance tasks, and due to pt's limitations in strength and activity tolerance. OT focused on UE placement and cues for sequencing and safety, PT focused gross overall movement, LE placement, transfers/mobility. Pt completed functional transfers/mobility including steps, uneven surface and picking up object off of floor using commercial producer. OT set up for higher level balance task with Airex mat, but urologist a rrived for procedure. Pt returns to room for bedside procedure. [id number] OT/PT cotreat due to skill of 2 clinicians required which a director of rehabilitation could not perform in order to focus on higher level balance tasks, and due to pt's limitations in strength and activity tolerance. OT focused on UE placement and cues for sequencing and safety, ADLs, PT focused gross overall movement, LE placement, transfers/mobility. Pt requests to urgently use toilet, transferred supine to sit EOB, SBA, back brace donned. Pt used FWW to transfer into bathroom and onto BSC over toilet, SBA. Pt completed toileting, then sat EOB. OT assisted with donning LB clothing due to time constraint. OT departs at this time. [id number] Pt stands and amb. in hallway to complete car transfer and finish QC scores. Pt takes extended walk in hallway. Pt returns to room to rest in recliner at end of tx. All needs met, call light in hand. Assessment Current Status: Fair Progress VC for safety as well as picking up feet and staying close to FWW as pt fatigues. PT Purchasing/Receiving Goals [facility] Goals PT Purchasing/Receiving Goals Time Frame: May 02, 2022 Roll Left & Right (QC): 6 Sit to Lying (QC): 6 Lying-Sitting on Side/Bed(QC): 6 Sit to Stand (QC): 6 Chair/Bqv-mi-Cwpsi Xfer(QC): 6 Toilet Transfer (QC): 6 Car Transfer (QC): 6 Does the Patient Walk: Yes Walk 10 feet (QC): 6 Walk 50ft with 2 Turns (QC): 6 Walk 150 ft (QC): 6 Walking 10ft on Uneven Surface: 6 1 Step (curb) (QC): 6 4 Steps (QC): 6 12 Steps (QC): 6 Picking up an Object (QC): 4 Does the Pt use WC or Scooter?: No Wheel 50 feet with 2 turns (QC: 9 Wheel 150 feet: 9 PT Plan Problem List Problem List: Safety Treatment/Plan Treatment Plan: Continue Plan of Care Treatment Plan: Bed Mobility, Education, Functional Activity Flex, Functional Strength, Group Therapy, Gait, Safety, Therapeutic Exercise, Transfers Treatment Duration: May 08, 2022 Frequency: At least 5 of 7 days/Wk (IRF) Estimated Hrs Per Day: 1.5 hours per day Patient and/or Family Agrees t: Yes Safety Risks/Education Patient Education: Reviewed Precautions, Correct Positioning, Reviewed Don/Doff Brace, Safety Issues Teaching Recipient: Patient Teaching Methods: Discussion Response to Teaching: Reinforcement Needed Time/GCodes Time In: 1005 Time Out: 1035 Total Billed Treatment Time: 30 Total Billed Treatment Co-treat w/OT ([id number]) & (0732-0807), Ind. PT ([id number]) 1, FA x2 (30m) & GT (15m) RAGHU ALMONTE PTA April 08, 2022 10:46
--- NOTE | 2022-04-08 10:55 | Occupational Ther Daily Note ---
OT Current Status-Daily Note Subjective Pt rates back pain 8/10, agreeable to OT tx. Pain Numeric Pain Scale: 8 Location Body Site: Back Mental Status/Objective Patient Orientation: Person, Confused, Place, Situation Attachments: Rcok Catheter, Other-See Comments (back brace) ADL-Treatment Therapy Code Descriptions/Definitions Functional Dickenson Measure: 0=Not Assessed/NA 4=Minimal Assistance 1=Total Assistance 5=Supervision or Setup 2=Maximal Assistance 6=Modified Dickenson 3=Moderate Assistance 7=Complete IndependenceSCALE: Activities may be completed with or without assistive devices. 9-Uyavzuyrnb-hhfnarq completes the activity by him/herself with no assistance from a helper. 5-Set-up or Clean-up Assistance-helper sets up or cleans up; patient completes activity. [place] assists only prior to or following the activity. 4-Supervision or Touching Assistance-helper provides verbal cues and/or touching/steadying and/or contact guard assistance as patient completes activity. Assistance may be provided throughout the activity or intermittently. 3-Partial/Moderate Assistance-helper does LESS THAN HALF the effort. [place] lifts, holds or supports trunk or limbs, but provides less than half the effort. 2-Substantial/Maximal Assistance-helper does MORE THAN HALF the effort. [place] lifts or holds trunk or limbs and provides more than half the effort. 9-Rfivlaqiu-oftrss does ALL the effort. Patient does none of the effort to complete the activity. Or, the assistance of 2 or more helpers is required for the patient to complete the activity. If activity was not attempted, code reason: 7-Patient Refused. 9-Not Applicable-not attempted and the patient did not perform the activity before the current illness, exacerbation or injury. 10-Not Attempted due to Environmental Limitations-(lack of equipment, weather restraints, etc.). 88-Not Attempted due to Medical Conditions or Safety Concerns. Upper Body Dressing (QC): 3 (Min A with back brace.) Toileting Hygiene (QC): 3 (Min A, assistance with hygiene post BM for thoroughness, able to manage pants.) Toilet Transfer (QC): 4 (SBA on/off BSC over toilet.) Other Treatment [id number]: Pt in bed, agreeable to OT tx. Pt transferred supine to sit EOB, SBA. Back brace donned at EOB. Pt used FWW to perform functional mobility to therapy gym, SBA. OT tx focused on UE strength, fine motor coordination, and activity tolerance. Pt completed nut/bolt block, x16, 2 lb weights BUEs. [id number] OT/PT cotreat due to skill of 2 clinicians required which a cardiac rehabilitation program director could not perform in order to focus on higher level balance tasks, and due to pt's limitations in strength and activity tolerance. OT focused on UE placement and cues for sequencing and safety, PT focused gross overall movement, LE placement, transfers/mobility. Pt completed functional transfers/mobility including steps, uneven surface and picking up object off of floor using travel sales consultant. OT set up for higher level balance task with airex mat, but urologist arrived for procedure. Pt left with PT to return to room. [id number] OT/PT cotreat due to skill of 2 clinicians required which a cardiac rehabilitation program director could not perform in order to focus on higher level balance tasks, and due to pt's limitations in strength and activity tolerance. OT focused on UE placement and cues for sequencing and safety, ADLs, PT focused gross overall movement, LE placement, transfers/mobility. Pt requests to urgently use toilet, transferred supine to sit EOB, SBA, back brace donned. Pt used FWW to transfer into bathroom and onto BSC over toilet, SBA. Pt completed toileting, then sat EOB. OT assisted with donning LB clothing due to time constraint. Post tx, pt with PT for continued tx, all needs met. Education OT Patient Education: Correct positioning, Energy conservation, Exercise program, Modified ADL techniques, Progress toward Goal/Update tx plan, Purpose of tx/functional activities, Rehab process, Safety issues, Transfer techniques Teaching Recipient: Patient Teaching Methods: Discussion Response to Teaching: Verbalize Understanding OT Short Term Goals Short Term Goals Time Frame: Apr 09, 2022 Shower/bathe self: 3 Upper body dressin Lower body dressin Putting on/taking off footwear: 3 OT Halfway Goals Halfway Goals Time Frame: Apr 18, 2022 Eating (QC): 6 (met) Oral Hygiene (QC): 6 (met) Toileting Hygiene (QC): 6 (not met) Shower/Bathe Self (QC): 6 (not met) Upper Body Dressing (QC): 6 (not met) Lower Body Dressing (QC): 6 (not met) On/Off Footwear (QC): 6 (not met) 1=Demonstrate adherence to instructed precautions during ADL tasks. 2=Patient will verbalize/demonstrate understanding of assistive devices/modifications for ADL. 3=Patient will improve strength/tolerance for activity to enable patient to perform ADL's. OT Education/Plan Problem List/Assessment Assessment: Decreased Activ Tolerance, Decreased Safety Aware, Decreased UE Strength, Impaired Coordination, Impaired Funct Balance, Impaired I ADL's, Impaired Self-Care Skills Discharge Recommendations Plan/Recommendations: Continue POC Therapy Discharge Recommendati: 24 Hour Supervision, Home & Family, Post Acute OT (HH OT) Equpiment Recommendations-D/C: Lap Maker, Sock Aide Treatment Plan/Plan of Care Patient would benefit from OT for education, treatment and training to promote independence in ADL's, mobility, safety and/or upper extremity function for ADL's. Plan of Care: ADL Retraining, Functional Mobility, Group Exercise/Act as Ind, UE Funct Exercise/Act Treatment Duration: Apr 18, 2022 Frequency: At least 5 of 7 days/Wk (IRF) Estimated Hrs Per Day: 1.5 hours per day Agreement: Yes Rehab Potential: Good Time/GCodes Start Time: 09:30 ([id number]) Stop Time: 11:10 ([id number]) Total Time Billed (hr/min): 75 Billed Treatment Time [id number] OT tx, [id number] Cotreat, [id number] Cotreat. 1, ADL (15'), FA 4 (60') ANDIE HELTON OT April 08, 2022 10:54
--- NOTE | 2022-04-08 11:52 | Speech Therapy Daily Note ---
Speech Daily Progress Note Subjective Date Seen by Provider: April 08, 2022 Time Seen by Provider: 09:00 The patient was seated upright in his bed, awake and alert upon entrance to his room by the clinician. The patient greeted the clinician appropriately and was agreeable to participation in the cognitive linguistic treatment session. Objective The patient was provided the MoCA on this date with results of +26/30 correla ting to a score within normal limits. The patient displayed one error while repeating three digits in reverse, one error by providing eight "f" words (WNL=11), and two errors while recalling three of five single words following a five minute delay. Expression of Ideas/Wants: Expression (4) Understanding Verbal Content: Understands (4) Brief Interview-Mental Status: Yes Repetition of Three Words: Three (3) Temporal Orientation: Year: Correct (3) Temporal Orientation: Month: Accurate within 5 days(2) Temporal Orientation: Day: Correct (1) Recall : Wear to say "Sock": Yes, no cue required (2) Recall : Color: Yes, no cue required (2) Recall : Bed: Yes, no cue required (2) Memory/Recall Ability: That he or she is in a hsp/hsp unit, season Assessment Assessment Current Status: Good Progress Treatment Plan Continue Plan of Care Speech Short Term Goals Short Term Goals Short Term Goals The patient will demonstrate 90% accuracy with memory and functional problem solving with mild clinician verbal and visual cueing. Speech Retirement Goals Retirement Goals The patient will demonstrate improve cognitive linguistic skills for safe discharge to the least restricted environment. Speech-Plan Treatment Plan Speech Therapy Treatment Plan: Discontinue ST Treatment Duration: Apr 09, 2022 Frequency: Modified Program (IRF) Estimated Hrs Per Day: Other Rehab Potential: Good Pt/Family Agrees to Plan: Yes Safety Risks/Education Teaching Recipient: Patient Teaching Methods: Discussion Response to Teaching: Verbalize Understanding Education Topics Provided: Plan of Care Time Speech Therapy Time In: 09:00 Speech Therapy Time Out: 09:30 Total Billed Time: 30 Billed Treatment Time 1FLOR [address] ST April 08, 2022 11:52
--- NOTE | 2022-04-08 11:53 | Therapy Team Discharge Summary ---
Therapy Discharge Summary Discharge Recommendations Date of Discharge Physical Therapy Roll Left to Right (QC): 5 Sit to Lying (QC): 5 Lying to Sitting/Side of Bed(Q: 5 Sit to Stand (QC): 5 Chair/Gqf-bc-Oidzu Xfer(QC): 4 Toilet Transfer (QC): 4 Car Transfer (QC): 4 Does the Patient Walk: Yes Mode of Locomotion: Walk Anticipated Mode of Locomotion: Walk Walk 10 feet (QC): 5 Walk 50 ft with 2 Turns(QC): 5 Walk 150 ft (QC): 5 Walking 10ft on uneven surface: 5 Distance: 300 feet Gait Assistive Device: FWW Does the Pt Use a Wheelchair: No Wheel 50 ft with 2 turns (QC): 9 Wheel 150 ft (QC): 9 #of Steps: 8 1 Step (curb) (QC): 4 4 Steps (QC): 4 12 Steps (QC): 7 Balance Sitting Static: Normal Balance Sitting Dynamic: Good Balance-Standing Static: Fair Picking up an Object (QC): 5 Occupational Therapy Decreased Activ Tolerance, Decreased Safety Aware, Decreased UE Strength, Impaired Coordination, Impaired Funct Balance, Impaired I ADL's, Impaired Self- Care Skills Eating (QC): 6 Oral Hygiene (QC): 6 (seated) Shower/Bathe Self (QC): 3 (help to wash lower legs and buttock, sponge bath in bed) Upper Body Dressing (QC): 3 (Min A with back brace.) Lower Body Dressing (QC): 3 (Help to thread Rock, get legs into pants. Help with TEDs. Able to pull up over hips) On/Off Footwear (QC): 3 (Some help with slipper socks and TEDs. Can lift legs) Toileting Hygiene (QC): 3 (Min A, assistance with hygiene post BM for thoroughness, able to manage pants.) Speech-Language Pathology Expression of Ideas/Wants: Expression (4) Understanding Verbal Content: Understands (4) Brief Interview-Mental Status: Yes Repetition of Three Words: Three (3) Temporal Orientation: Year: Correct (3) Temporal Orientation: Month: Accurate within 5 days(2) Temporal Orientation: Day: Correct (1) Recall : Wear to say "Sock": Yes, no cue required (2) Recall : Color: Yes, no cue required (2) Recall : Bed: Yes, no cue required (2) Memory/Recall Ability: That he or she is in a hsp/hsp unit, season PT Metallurgical Inspector Goals Metallurgical Inspector Goals PT Metallurgical Inspector Goals Time Frame: May 02, 2022 Roll Left to Right (QC): 6 Sit to Lying (QC): 6 Lying-Sitting on Side/Bed(QC): 6 Sit to Stand (QC): 6 Chair/Oiw-vl-Xowpz Xfer(QC): 6 Car Transfer (QC): 6 Does the Patient Walk: Yes Walk 10 feet (QC): 6 Walk 10ft-Uneven Surface(QC): 6 Walk 50ft with 2 Turns (QC): 6 Walk 150 ft (QC): 6 Does the Pt use WC or Scooter?: No Wheel 50 feet with 2 turns (QC: 9 1 Step (curb) (QC): 6 4 Steps (QC): 6 12 Steps (QC): 6 Picking up an Object (QC): 4 OT Metallurgical Inspector Goals Metallurgical Inspector Goals Time Frame: Apr 18, 2022 Eating (QC): 6 (met) Oral Hygiene (QC): 6 (met) Shower/Bathe Self (QC): 6 (not met) Upper Body Dressing (QC): 6 (not met) Lower Body Dressing (QC): 6 (not met) On/Off Footwear (QC): 6 (not met) Toileting Hygiene (QC): 6 (not met) Toilet/Commode Transfer (QC): 6 1=Demonstrate adherence to instructed precautions during ADL tasks. 2=Patient will verbalize/demonstrate understanding of assistive devices/modifications for ADL. 3=Patient will improve strength/tolerance for activity to enable patient to perform ADL's. Speech Metallurgical Inspector Goals Metallurgical Inspector Goals The patient will demonstrate improved cognitive linguistic skills for safe discharge to the least restricted environment. MET MEDINA STEINER April 08, 2022 11:53
--- NOTE | 2022-04-08 14:45 | Diagnostic Imaging Report ---
INDICATION: Right ureteral stone. TIME OF EXAM: 2:27 PM. COMPARISON: 03/31/2022. FINDINGS: There is a large amount of stool throughout the colon. The right-sided stent has been removed. A calcific density in the left abdomen persists and could be ureteral. No definite calculi along the expected course of the right ureter are identified. IMPRESSION: Left abdominal calcification which could be ureteral. No other significant abnormality is seen. Dictated by: Dictated on workstation # [id number]
[2022-04-08 19:56] VITALS: BP 95/60
[2022-04-08] MEDS: SERTRALINE 50 MG (ZOLOFT) TABLET PO SCH (20:08)
[2022-04-08] MEDS: GABAPENTIN 100 MG (NEURONTIN) CAP PO SCH (20:08)
[2022-04-08] MEDS: SERTRALINE 100 MG (ZOLOFT) TAB PO SCH (20:08)
[2022-04-08] MEDS: toPIRamate 100 MG (TOPAMAX) TAB PO SCH (20:09)
[2022-04-09] MEDS ORDERED: POTA10CA43 PO (06:26)
[2022-04-09] MEDS ORDERED: SPIR25TA5 PO (06:26)
[2022-04-09] MEDS ORDERED: OXYC5TAB PO (06:26)
[2022-04-09] MEDS ORDERED: FURO40TA4 PO (06:26)
[2022-04-09] MEDS ORDERED: HYDR-3584 PO (06:26)
--- NOTE | 2022-04-09 06:28 | Discharge Summary ---
Diagnosis/Chief Complaint Date of Admission March 28, 2022 at 15:12 Date of Discharge Discharge Date: Apr 09, 2022 Discharge Diagnosis Assessment: IVH Alcoholism Cirrhosis Anxiety T10-T11 torn disc Macrocytic anemia Thrombocytopenia HTN Right ureter obstructive uropathy DA s/p post ureteral access cath Catheter in place CKD Plan: Monitor pain Monitor kidneys Cirrhosis management Rehab protocol 03/29/2022: Pain control PT OT 03/30/2022: Consult Dr Harrison in morning 03/31/22: Dr Harrison consult 04/01/22: Urology consult Decrease pain meds 04/01/22: Decrease pain meds tomorrow 04/02/2022: Supportive care 04/03/2022: Decrease pain meds 04/04/2022: Supportive care Catheter in place 04/05/2022: Supportive care Monitor closely 04/06/22: Monitor closely 04/07/22: Adjust meds per creatinine issues Stent removal along with catheter tomorrow per Dr Harrison 04/08/22: Monitor closely DC planning (1) Intracranial hemorrhage Status: Acute (2) Alcohol dependence with acute alcoholic intoxication Status: Acute (3) ETOH abuse Status: Acute (4) Kidney injury Status: Acute (5) Cirrhosis Status: Acute Discharge Summary Discharge Physical Examination Allergies: Coded Allergies: No Known Drug Allergies (Unverified , 12/28/19) Vitals & I&Os Vital Signs Date Time Temp Pulse Resp B/P (MAP) Pulse Ox O2 Delivery O2 Flow Rate FiO2 04/09/22 08:37 Room Air 04/09/22 07:23 37.1 56 18 103/61 (75) 94 General Appearance: Alert, Oriented X3, Cooperative Respiratory: Clear to Auscultation Cardiovascular: Regular Rate Psych/Mental Status: Mental Status NL Hospital Course Was the Problem List Reviewed?: Yes Pt had a lengthy hospital course for 13 days when he was admitted following an intraventricular hemorrhage. After he sustained a fall when he was intoxicated and hit a door with his head. He required maintained on a catheter until Dr. Harrison removed the stent. He will have close follow up with Dr. Harrison and neurosurgeon. Alcohol cessation counseled. Overall he remained stable on pain medication, although was titrated down since he has a dependency issue. Bowel function returned back to normal. Creatinine did increase. I did hold Spirinalactone and Lasix. I recommend close follow up with Dr. Crabtree, pt's PCP to check creatinine in order to restart Spironolactone and Lasix for liver cirrhosis management. Labs (last 24 hrs) Laboratory Tests 03/29/22 05:15: White Blood Count 4.0L, Red Blood Count 3.37L, Hemoglobin 11.8L, Hematocrit 35L, Mean Corpuscular Volume 104H, Mean Corpuscular Hemoglobin 35H, Mean Corpuscular Hemoglobin Concent 34, Red Cell Distribution Width 13.8, Platelet Count 98L, Mean Platelet Volume 9.8, Immature Granulocyte % (Auto) 0, Neutrophils (%) (Auto) 48, Lymphocytes (%) (Auto) 35, Monocytes (%) (Auto) 12, Eosinophils (%) (Auto) 4, Basophils (%) (Auto) 1, Neutrophils # (Auto) 1.9, Lymphocytes # (Auto) 1.4, Monocytes # (Auto) 0.5, Eosinophils # (Auto) 0.2, Basophils # (Auto) 0.0, Immature Granulocyte # (Auto) 0.0, Percent Immature Platelet Fraction 2.3, Sodium Level 139, Potassium Level 3.4L, Chloride Level 106, Carbon Dioxide Level 21, Anion Gap 12, Blood Urea Nitrogen 28H, Creatinine 1.45H, Estimat Glomerular Filtration Rate 54, BUN/Creatinine Ratio 19, Glucose Level 85, Calcium Level 8.8, Corrected Calcium 9.7, Total Bilirubin 0.6, Aspartate Amino Transf (AST/SGOT) 41H, Alanine Aminotransferase (ALT/SGPT) 32, Alkaline Phosphatase 94, Total Protein 6.3L, Albumin 2.9L 04/07/22 05:15: White Blood Count 2.9L, Red Blood Count 3.12L, Hemoglobin 10.8L, Hematocrit 32L, Mean Corpuscular Volume 104H, Mean Corpuscular Hemoglobin 35H, Mean Corpuscular Hemoglobin Concent 33, Red Cell Distribution Width 12.6, Platelet Count 71L, Mean Platelet Volume 11.1, Immature Granulocyte % (Auto) 0, Neutrophils (%) (Auto) 49, Lymphocytes (%) (Auto) 36, Monocytes (%) (Auto) 11, Eosinophils (%) (Auto) 4, Basophils (%) (Auto) 1, Neutrophils # (Auto) 1.4L, Lymphocytes # (Auto) 1.0, Monocytes # (Auto) 0.3, Eosinophils # (Auto) 0.1, Basophils # (Auto) 0.0, Immature Granulocyte # (Auto) 0.0, Percent Immature Platelet Fraction 3.3, Sodium Level 139, Potassium Level 3.8, Chloride Level 109H, Carbon Dioxide Level 19L, Anion Gap 11, Blood Urea Nitrogen 43H, Creatinine 2.64H, Estimat Glomerular Filtration Rate 26, BUN/Creatinine Ratio 16, Glucose Level 99, Calcium Level 8.5, Corrected Calcium 9.4, Total Bilirubin 0.4, Aspartate Amino Transf (AST/SGOT) 24, Alanine Aminotransferase (ALT/SGPT) 17, Alkaline Phosphatase 81, Total Protein 6.2L, Albumin 2.9L 04/08/22 06:55: Sodium Level 141, Potassium Level 4.0, Chloride Level 111H, Carbon Dioxide Level 19L, Anion Gap 11, Blood Urea Nitrogen 40H, Creatinine 2.22H, Estimat Glomerular Filtration Rate 32, BUN/Creatinine Ratio 18, Glucose Level 87, Calcium Level 8.7 Pending Labs Laboratory Tests 03/29/22 05:15: White Blood Count 4.0, Red Blood Count 3.37, Hemoglobin 11.8, Hematocrit 35, Mean Corpuscular Volume 104, Mean Corpuscular Hemoglobin 35, Mean Corpuscular Hemoglobin Concent 34, Red Cell Distribution Width 13.8, Platelet Count 98, Mean Platelet Volume 9.8, Immature Granulocyte % (Auto) 0, Neutrophils (%) (Auto) 48, Lymphocytes (%) (Auto) 35, Monocytes (%) (Auto) 12, Eosinophils (%) (Auto) 4, Basophils (%) (Auto) 1, Neutrophils # (Auto) 1.9, Lymphocytes # (Auto) 1.4, Monocytes # (Auto) 0.5, Eosinophils # (Auto) 0.2, Basophils # (Auto) 0.0, Immature Granulocyte # (Auto) 0.0, Percent Immature Platelet Fraction 2.3, Sodium Level 139, Potassium Level 3.4, Chloride Level 106, Carbon Dioxide Level 21, Anion Gap 12, Blood Urea Nitrogen 28, Creatinine 1.45, Estimat Glomerular Filtration Rate 54, BUN/Creatinine Ratio 19, Glucose Level 85, Calcium Level 8.8, Corrected Calcium 9.7, Total Bilirubin 0.6, Aspartate Amino Transf (AST/SGOT) 41, Alanine Aminotransferase (ALT/SGPT) 32, Alkaline Phosphatase 94, Total Protein 6.3, Albumin 2.9 04/07/22 05:15: White Blood Count 2.9, Red Blood Count 3.12, Hemoglobin 10.8, Hematocrit 32, Mean Corpuscular Volume 104, Mean Corpuscular Hemoglobin 35, Mean Corpuscular Hemoglobin Concent 33, Red Cell Distribution Width 12.6, Platelet Count 71, Mean Platelet Volume 11.1, Immature Granulocyte % (Auto) 0, Neutrophils (%) (Auto) 49, Lymphocytes (%) (Auto) 36, Monocytes (%) (Auto) 11, Eosinophils (%) (Auto) 4, Basophils (%) (Auto) 1, Neutrophils # (Auto) 1.4, Lymphocytes # (Auto) 1.0, Monocytes # (Auto) 0.3, Eosinophils # (Auto) 0.1, Basophils # (Auto) 0.0, Immature Granulocyte # (Auto) 0.0, Percent Immature Platelet Fraction 3.3, Sodium Level 139, Potassium Level 3.8, Chloride Level 109, Carbon Dioxide Level 19, Anion Gap 11, Blood Urea Nitrogen 43, Creatinine 2.64, Estimat Glomerular Filtration Rate 26, BUN/Creatinine Ratio 16, Glucose Level 99, Calcium Level 8.5, Corrected Calcium 9.4, Total Bilirubin 0.4, Aspartate Amino Transf (AST/SGOT) 24, Alanine Aminotransferase (ALT/SGPT) 17, Alkaline Phosphatase 81, Total Protein 6.2, Albumin 2.9 04/08/22 06:55: Sodium Level 141, Potassium Level 4.0, Chloride Level 111, Carbon Dioxide Level 19, Anion Gap 11, Blood Urea Nitrogen 40, Creatinine 2.22, Estimat Glomerular Filtration Rate 32, BUN/Creatinine Ratio 18, Glucose Level 87, Calcium Level 8.7 Discharge Home Medications: Active Scripts Active Hydroxyzine HCl 10 Mg Tablet 10 Mg PO TID Spironolactone 25 Mg Tablet 50 Mg PO DAILY 14 Days Hold this medicine until see Dr Crabtree Potassium Chloride 10 Meq Capsule.er 10 Meq PO DAILY 14 Days hold until see dr crabtree Furosemide 40 Mg Tablet 40 Mg PO DAILY 14 Days hold until see dr crabtree Oxycodone HCl 5 Mg Tablet 5 Mg PO TID PRN Reported Sertraline HCl 100 Mg Tablet 100 Mg PO DAILY TAKES 50MG +100MG TOGETHER TO EQUAL 150MG Sertraline HCl 50 Mg Tablet 50 Mg PO DAILY TAKES 50MG +100MG TOGETHER TO EQUAL 150MG Lactulose 10 Gram/15 Ml (15 Ml) Solution 15 Ml PO DAILY PRN Propranolol HCl 10 Mg Tablet 10 Mg PO DAILY Gabapentin 100 Mg Capsule 100 Mg PO HS Ativan (Lorazepam) 1 Mg Tablet 1 Mg PO Q8H PRN Multivitamins with Minerals (Multivitamin with Minerals) 1 Each Tablet 1 Each PO DAILY Topiramate 50 Mg Tablet 50 Mg PO DAILY Topiramate 50 Mg Tablet 150 Mg PO HS TAKES 3 (50MG) CAPS Propranolol HCl 10 Mg Tablet 10 Mg PO BID PRN Instructions to patient/family Please see electronic discharge instructions given to patient. Diagnosis/Problems Diagnosis/Problems (1) Intracranial hemorrhage Status: Acute (2) Alcohol dependence with acute alcoholic intoxication Status: Acute (3) ETOH abuse Status: Acute (4) Kidney injury Status: Acute (5) Cirrhosis Status: Acute RAMSEY MONTILLA DO Apr 09, 2022 06:28
--- NOTE | 2022-04-09 06:28 | D/C HH Face to Face Order ---
D/C Face to Face Orders Reconcile Patient Problems Problems Reviewed?: Yes Instructions for Patient Via [facility], Patient Instructions/FollowUp: PCP 1 week Physician to follow Patient: Bro Discharge Diet for Home: No Restrictions Patient Problems: Debility Cirrhosis Patient Data-Allergies,Ht & Wt Patient Allergies: Coded Allergies: No Known Drug Allergies (Unverified , 12/28/19) Home Health Need/Face to Face Date of Face to Face: Apr 09, 2022 Clinical Findings: Generalized weakness and fatigue, Instability, Muscle weakness, Pain with ambulation, Unsteady gait I have seen Pt [id number]: Yes Discharged To: Home Diagnosis/Conditions: Debiity Patient is Homebound due to: Danyell fall risk due to instabilty, Muscle weakness Homebound Status Due to the above stated illness, injury or surgical procedure (medical condition or diagnosis) and associated clinical findings, the patient is homebound because of his/her inability to leave home except with aid of a supportive device and/or person AND leaving the home requires a considerable and taxing effort or is medically contraindicated. Pt req the following assistanc: Walker Home Health Nursing Orders Home Health Services Order: Nursing Services, Stockroom Supervisor-Evaluate & Treat, Physical Therapy-Evaluate & Treat Certify Stmt I certify that this patient is under my care and that I, a nurse practitioner or a physician; a orthopedic assistant working with me, had a face to face encounter that - meets the physician face to face encounter requirements with this patient as dated. RAMSEY MONTILLA DO Apr 09, 2022 06:28
[2022-04-09] MEDS: MULTIVIT W/MINERALS TAB (THERAGRAN M) PO SCH (06:35)
[2022-04-09 07:23] VITALS: BP 103/61
[2022-04-09] MEDS: hydrOXYzine (ATARAX) 10 MG TAB PO SCH (08:00)
[2022-04-09] MEDS: SENNA W/DOCUSATE (SENOKOT S) TABLET PO SCH (08:00)
[2022-04-09] MEDS: toPIRamate 25 MG (TOPAMAX) TAB PO SCH (08:01)
[2022-04-09] MEDS: oxyCODONE ER 15 MG (oxyCONTIN CR) TAB PO SCH (08:01)
[2022-04-09] MEDS: TRIAMCINOLONE 0.1% CR (KENALOG) 15 GM TUBE TOP SCH (08:07)
[2022-04-09] MEDS: DOCUSATE SODIUM 100 MG (COLACE) CAP PO SCH (08:07)
[2022-04-09] MEDS: polyethylene glycoL POWDER 17 GM (MIRALAX) PACK PO SCH (08:07)
[2022-04-09] MEDS: MICONAZOLE 2% POWDER (DESENEX AF) 90 GM TOP SCH (08:11)
--- NOTE | 2022-04-09 09:01 | Progress Note - Urology ---
Progress Note-Urology Progress Notes/Assess & Plan Progress/Assessment & Plan DOING WELL DHILLON. VOIDING WELL. EMPTIES. FOLLOW UP OP Final Diagnosis RT URETERAL STONE AMEENA MOONEY MD Apr 09, 2022 09:00
--- NOTE | 2022-04-09 09:23 | Therapy Team Discharge Summary ---
Therapy Discharge Summary Discharge Recommendations Date of Discharge Physical Therapy Patient came to rehab post head injury. Upon evaluation patient performed rolling and supine <-> sit with min/mod assist, sit <-> stand min/mod assist, transfers and car transfer with CGA/SBA, ambulated 300' with a rolling walker with CGA/SBA (including 50' with at least 2 turns of 90 degrees and 10' over an uneven surface), and went up and down 12 steps using 2 handrails with min/mod assist. Patient has been performing bed mobility and transfer training, balance and endurance training, functional strengthening, stair training, gait training, and education. Patient has made fair progress but has not met his snf goals except for picking up an object from the floor. Now, patient performs rolling and supine <-> sit with setup, sit <-> stand and transfers with setup, car transfer with setup, ambulates over 150' with a rolling walker with setup (including 50' with at least 2 turns of 90 degrees and 10' over an uneven surface), can go up and down 8 steps using 2 handrails with CGA/SBA (patient refused to do 12 steps), and can sampler pickup an object from the floor with setup. Patient is being discharged from this facility today and will be discharged from PT at this time. Roll Left to Right (QC): 5 Sit to Lying (QC): 5 Lying to Sitting/Side of Bed(Q: 5 Sit to Stand (QC): 5 Chair/Njk-wu-Qvlso Xfer(QC): 5 Toilet Transfer (QC): 4 Car Transfer (QC): 5 Does the Patient Walk: Yes Mode of Locomotion: Walk Anticipated Mode of Locomotion: Walk Walk 10 feet (QC): 5 Walk 50 ft with 2 Turns(QC): 5 Walk 150 ft (QC): 5 Walking 10ft on uneven surface: 5 Distance: 300 feet Gait Assistive Device: FWW Does the Pt Use a Wheelchair: No Wheel 50 ft with 2 turns (QC): 9 Wheel 150 ft (QC): 9 #of Steps: 8 1 Step (curb) (QC): 4 4 Steps (QC): 4 12 Steps (QC): 7 Balance Sitting Static: Normal Balance Sitting Dynamic: Good Balance-Standing Static: Fair Picking up an Object (QC): 5 Occupational Therapy Decreased Activ Tolerance, Decreased Safety Aware, Decreased UE Strength, Impaired Coordination, Impaired Funct Balance, Impaired I ADL's, Impaired Self- Care Skills Eating (QC): 6 Oral Hygiene (QC): 6 (seated) Shower/Bathe Self (QC): 3 (help to wash lower legs and buttock, sponge bath in bed) Upper Body Dressing (QC): 3 (Min A with back brace.) Lower Body Dressing (QC): 3 (Help to thread Rock, get legs into pants. Help with TEDs. Able to pull up over hips) On/Off Footwear (QC): 3 (Some help with slipper socks and TEDs. Can lift legs) Toileting Hygiene (QC): 3 (Min A, assistance with hygiene post BM for thoroughness, able to manage pants.) PT Half-Way Goals Motorboat Mechanic Inboard Goals PT Motorboat Mechanic Inboard Goals Time Frame: May 02, 2022 Roll Left to Right (QC): 6 Sit to Lying (QC): 6 Lying-Sitting on Side/Bed(QC): 6 Sit to Stand (QC): 6 Chair/Ana-wy-Xtere Xfer(QC): 6 Car Transfer (QC): 6 Does the Patient Walk: Yes Walk 10 feet (QC): 6 Walk 10ft-Uneven Surface(QC): 6 Walk 50ft with 2 Turns (QC): 6 Walk 150 ft (QC): 6 Does the Pt use WC or Scooter?: No Wheel 50 feet with 2 turns (QC: 9 1 Step (curb) (QC): 6 4 Steps (QC): 6 12 Steps (QC): 6 Picking up an Object (QC): 4 OT Half-Way Goals Motorboat Mechanic Inboard Goals Time Frame: Apr 18, 2022 Eating (QC): 6 (met) Oral Hygiene (QC): 6 (met) Shower/Bathe Self (QC): 6 (not met) Upper Body Dressing (QC): 6 (not met) Lower Body Dressing (QC): 6 (not met) On/Off Footwear (QC): 6 (not met) Toileting Hygiene (QC): 6 (not met) Toilet/Commode Transfer (QC): 6 1=Demonstrate adherence to instructed precautions during ADL tasks. 2=Patient will verbalize/demonstrate understanding of assistive devices/modifications for ADL. 3=Patient will improve strength/tolerance for activity to enable patient to perform ADL's. Speech Motorboat Mechanic Inboard Goals Motorboat Mechanic Inboard Goals The patient will demonstrate improved cognitive linguistic skills for safe discharge to the least restricted environment. MET TARAH ROSS PT Apr 09, 2022 09:23
--- NOTE | 2022-04-09 11:01 | Therapy Team Discharge Summary ---
Therapy Discharge Summary Discharge Recommendations Date of Discharge Therapy D/C Recommendations: Occupational Therapy Home Care Physical Therapy Roll Left to Right (QC): 5 Sit to Lying (QC): 5 Lying to Sitting/Side of Bed(Q: 5 Sit to Stand (QC): 5 Chair/Bnc-qy-Kddgj Xfer(QC): 5 Toilet Transfer (QC): 4 Car Transfer (QC): 5 Does the Patient Walk: Yes Mode of Locomotion: Walk Anticipated Mode of Locomotion: Walk Walk 10 feet (QC): 5 Walk 50 ft with 2 Turns(QC): 5 Walk 150 ft (QC): 5 Walking 10ft on uneven surface: 5 Distance: 300 feet Gait Assistive Device: FWW Does the Pt Use a Wheelchair: No Wheel 50 ft with 2 turns (QC): 9 Wheel 150 ft (QC): 9 #of Steps: 8 1 Step (curb) (QC): 4 4 Steps (QC): 4 12 Steps (QC): 7 Balance Sitting Static: Normal Balance Sitting Dynamic: Good Balance-Standing Static: Fair Picking up an Object (QC): 5 Occupational Therapy Pt admitted to ARU with IV. At [facility], pt was independent with ADLs and functional mobility using a cane. Upon initial evaluation, pt was independent with eating and oral care, required min A with showering, CGA toileting, and max A UE/LE dressing and footwear. OT txs focused on increasing BUE strength and activity tolerance and increasing safety and independence with ADLs and functional mobility. Pt made some functional progress towards goals, attaining goals for eating and oral care. Pt to discharge home with caregiver support, d/c from OT. Decreased Activ Tolerance, Decreased Safety Aware, Decreased UE Strength, Impaired Coordination, Impaired Funct Balance, Impaired I ADL's, Impaired Self- Care Skills Eating (QC): 6 Oral Hygiene (QC): 6 (seated) Shower/Bathe Self (QC): 3 (help to wash lower legs and buttock, sponge bath in bed) Upper Body Dressing (QC): 3 (Min A with back brace.) Lower Body Dressing (QC): 3 (Help to thread Rock, get legs into pants. Help with TEDs. Able to pull up over hips) On/Off Footwear (QC): 3 (Some help with slipper socks and TEDs. Can lift legs) Toileting Hygiene (QC): 3 (Min A, assistance with hygiene post BM for thoroughness, able to manage pants.) PT Boat And Plant Utility Supervisor Goals Assisted Goals PT Boat And Plant Utility Supervisor Goals Time Frame: May 02, 2022 Roll Left to Right (QC): 6 Sit to Lying (QC): 6 Lying-Sitting on Side/Bed(QC): 6 Sit to Stand (QC): 6 Chair/Lay-mm-Bzaha Xfer(QC): 6 Car Transfer (QC): 6 Does the Patient Walk: Yes Walk 10 feet (QC): 6 Walk 10ft-Uneven Surface(QC): 6 Walk 50ft with 2 Turns (QC): 6 Walk 150 ft (QC): 6 Does the Pt use WC or Scooter?: No Wheel 50 feet with 2 turns (QC: 9 1 Step (curb) (QC): 6 4 Steps (QC): 6 12 Steps (QC): 6 Picking up an Object (QC): 4 OT Assisted Goals Assisted Goals Time Frame: Apr 18, 2022 Eating (QC): 6 (met) Oral Hygiene (QC): 6 (met) Shower/Bathe Self (QC): 6 (not met) Upper Body Dressing (QC): 6 (not met) Lower Body Dressing (QC): 6 (not met) On/Off Footwear (QC): 6 (not met) Toileting Hygiene (QC): 6 (not met) Toilet/Commode Transfer (QC): 6 1=Demonstrate adherence to instructed precautions during ADL tasks. 2=Patient will verbalize/demonstrate understanding of assistive devices/modifications for ADL. 3=Patient will improve strength/tolerance for activity to enable patient to perform ADL's. Speech Assisted Goals Assisted Goals The patient will demonstrate improved cognitive linguistic skills for safe discharge to the least restricted environment. MET ANDIE HELTON OT Apr 09, 2022 11:01
== END 2022-04-09 11:45 | disposition home health service (06) | DRG 949 ==
PROVIDERS: ADMIT Internal Medicine; ATTEND Internal Medicine
DX: S06.369D Traumatic hemorrhage of cerebrum, unspecified, with loss of consciousness of unspecified duration, subsequent encounter (principal); N17.9 Acute kidney failure, unspecified; S23.0 Traumatic rupture of thoracic intervertebral disc; F10.20 Alcohol dependence, uncomplicated; N20.0 Calculus of kidney; I12.9 Hypertensive chronic kidney disease with stage 1 through stage 4 chronic kidney disease, or unspecified chronic kidney disease; N18.9 Chronic kidney disease, unspecified; R15.9 Full incontinence of feces; E78.00 Pure hypercholesterolemia, unspecified; G25.0 Essential tremor; F41.9 Anxiety disorder, unspecified; F32.A Depression, unspecified; R33.9 Retention of urine, unspecified; K74.60 Unspecified cirrhosis of liver; D53.9 Nutritional anemia, unspecified; D69.6 Thrombocytopenia, unspecified; N13.9 Obstructive and reflux uropathy, unspecified; W19.XXXD Unspecified fall, subsequent encounter
CPT/HCPCS: 36415; 74018; 80048; 80053; 85025; 94664

== ENCOUNTER → 2022-04-08 | Day surgery (SDC) | payer MEDICARE, OTHER ==
[~2022-04-08] MED LIST changes: +DIPH25TA65 PO; +FURO40TA4 PO; +GABA-486 PO; +HYDR-3584 PO; +LACT10SO27 PO; +LIDOCAINE UROJET 2% GEL 10 ML PKG ONE; +LORA-405 PO; +MULT-166 PO; +OXYC5TAB PO; +POTA10CA43 PO; +SERT-413 PO; +SPIR100T4 PO; +SPIR25TA5 PO; +TR1C15 TOP
--- NOTE | 2022-04-08 19:57 | OPERATIVE REPORT ---
DATE OF SERVICE: 04/08/2022 PREOPERATIVE DIAGNOSIS: Right distal ureteral stone post-lithotripsy and stent. POSTOPERATIVE DIAGNOSIS: Right distal ureteral stone post-lithotripsy and stent. OPERATION PERFORMED: Cystoscopy and removal of right stent. SURGEON: Lamont Mooney MD. ANESTHESIA: Local. COMPLICATIONS: None. DESCRIPTION OF PROCEDURE: With the patient supine in his bed noted again the Rock type with the ureteral catheter, taped to 8, the balloon was deflated and both catheters were removed intact. The genitalia were prepped and draped in the usual sterile fashion. Urethra was infiltrated with lidocaine jelly 2%. Penile clamp was applied. This was then removed. Flexible cystoscope introduced under vision. The anterior urethra was normal. The prostate was not significantly enlarged with mild obstruction. The bladder was entered and revealed some trabeculations. Ureteric orifices normal in shape, size and configuration with clear efflux, equal on both sides. There was no foreign body or bladder tumor visualized. There were no more stents. Cystoscopy was confirmed in an antegrade fashion and the cystoscope was removed. The patient tolerated the procedure and anesthesia well, remained in his bed in stable condition. Job ID: [id number] DocumentID: [id number] Dictated Date: 04/08/2022 10:58:14 Blue Leather Sorter Date: 04/08/2022 15:04:51 Dictated By: LAMONT MOONEY MD
== END ==
LOC: SDC 07:33
PROVIDERS: ATTEND Urology
DX: Z46.6 Encounter for fitting and adjustment of urinary device (principal); N20.1 Calculus of ureter

== ENCOUNTER → 2023-06-25 | Outpatient (CLI) | payer MEDICARE, OTHER ==
[~2023-06-25] MED LIST changes: -LACT10SO27 PO; +LACT10SO84 PO; -LIDOCAINE UROJET 2% GEL 10 ML PKG ONE; +POTA-177 PO; -POTA10CA43 PO; +POTA10CA84 PO; -POTA10TA37 PO; +TOPI-241 PO; -TOPI50TA13 PO
--- NOTE | 2023-06-25 11:35 | Diagnostic Imaging Report ---
EXAMINATION: MRI of the abdomen without contrast. MRCP TECHNIQUE: Multiplanar, multisequence MR images of the abdomen were obtained without intravenous contrast including 3D MIP MRCP images generated at an independent workstation. HISTORY: Cirrhosis. COMPARISON: 08/29/2020 FINDINGS: Liver: There is a nodular contour of the liver with background fibrosis. Evaluation for hepatocellular carcinoma is limited without IV contrast but there are no abnormal areas of T2 hyperintense signal or restricted diffusion to raise suspicion of a parenchymal lesion. Gallbladder and Bile Ducts: The gallbladder is unremarkable without filling defect. There is no intrahepatic or extrahepatic bile duct dilation. There are no filling defects within the biliary tree. Pancreas: The pancreas is normal in signal and volume. No dilation of the pancreatic duct. Spleen: The spleen is enlarged measuring up to 15.8 cm. Adrenal glands: The adrenal glands are unremarkable. Kidneys: There is atrophy of the right kidney with prominent right extrarenal pelvis. There is also some cortical atrophy of the left kidney without hydronephrosis. Lymph Nodes: No suspicious lymphadenopathy. Other: No ascites. IMPRESSION: 1. Morphologic changes of cirrhosis. Limited evaluation for hepatocellular carcinoma without IV contrast. 2. Splenomegaly. Dictated by: Dictated on workstation # [id number]
== END ==
LOC: RAD 09:30
PROVIDERS: ATTEND Pediatrics
DX: K72.90 Hepatic failure, unspecified without coma (principal); K74.60 Unspecified cirrhosis of liver; C22.0 Liver cell carcinoma; N18.31 Chronic kidney disease, stage 3a; R16.1 Splenomegaly, not elsewhere classified
CPT/HCPCS: 74181

== ENCOUNTER → 2023-07-14 | Outpatient (CLI) | payer MEDICARE, OTHER ==
--- NOTE | 2023-07-14 13:44 | Diagnostic Imaging Report ---
EXAMINATION: CT chest without contrast. TECHNIQUE: Multiple contiguous axial images were obtained through the chest without the use of intravenous contrast. All CT scans use one or more of the following dose optimizing techniques: automated exposure control, MA and/or KvP adjustment based on patient size and exam type or iterative reconstruction. HISTORY: Hepatocellular carcinoma. COMPARISON: None available. FINDINGS: There is no edema or pneumonia. No pleural effusion. No pneumothorax. No suspicious nodules. There is no axillary or supraclavicular lymphadenopathy. There is no mediastinal lymphadenopathy. Heart size is normal. There are moderate coronary artery calcifications. No pericardial effusion. Aorta is normal in caliber. Limited views of the upper abdomen show cirrhosis of the liver. There are no suspicious osseus lesions. IMPRESSION: 1. No metastatic disease in the chest. 2. Cirrhotic liver. Dictated by: Dictated on workstation # [id number]
== END ==
LOC: RAD 11:53
PROVIDERS: ATTEND Internal Medicine
DX: C22.0 Liver cell carcinoma (principal); K70.30 Alcoholic cirrhosis of liver without ascites
CPT/HCPCS: 71250

== ENCOUNTER → 2023-07-16 | Outpatient (CLI) | payer MEDICARE, OTHER ==
[2023-07-16 12:10] LABS: CALCIUM 7.7 MG/DL (8.5-10.1); CREATININE SERUM 2.28 MG/DL (0.60-1.30); POTASSIUM 3.8 MMOL/L (3.6-5.0)
== END ==
LOC: LAB 11:34
PROVIDERS: ATTEND Internal Medicine
DX: K70.30 Alcoholic cirrhosis of liver without ascites (principal)
CPT/HCPCS: 36415; 80048

== ENCOUNTER 2023-08-22 13:33 | Emergency (ER) | payer MEDICARE, OTHER ==
[~2023-08-22] VITALS: Ht 177 cm; Wt 104.0 kg
--- NOTE | 2023-08-22 13:57 | ED Head Injury ---
General Chief Complaint: Trauma-Non Activation Stated Complaint: FALL HIT HEAD, LAC ON HEAD Source: patient, family Exam Limitations: clinical condition History of Present Illness Date Seen by Provider: Aug 22, 2023 Time Seen by Provider: 13:36 Initial Comments 63-year-old male presents to the ER with after a possible syncopal episode. He states that he got up to use the restroom, and next thing he knew he woke up on the floor. Fall/syncope was unwitnessed, his was not home at the time. He presents with laceration to his left posterior head, and left-sided neck pain. He denies headache, dizziness, chest pain, shortness of air. Does not remember having dizziness prior to the fall. Does not take any blood thinners. Patient's reports that he is an alcoholic, she states that she was not home, but thinks that he may have drank alcohol today, states she can smell on his breath. Patient is alert and oriented x4. She reports that there was blood on the wooden cabinet where the TV sits, believes this is where he hit his head. Patient has a history of dementia, and liver cancer. He currently takes lorazepam, topiramate, propranolol, sertraline, and Lasix for edema. denies history of heart failure or any other heart conditions. Allergies and Home Medications Allergies Coded Allergies: No Known Drug Allergies (Unverified , 12/28/19) Patient Home Medication List Home Medication List Reviewed: Yes Cefuroxime Axetil (Cefuroxime) 500 Mg Tablet, 500 MG PO BID Prescribed by: Nakita Schofield on 08/22/23 1547 Furosemide (Furosemide) 40 Mg Tablet, 40 MG PO DAILY Prescribed by: RAMSEY MONTILLA on 04/09/22 0626 Gabapentin (Gabapentin) 100 Mg Capsule, 100 MG PO HS, (Reported) Entered as Reported by: HARSHIL PETERSON on 03/28/22 1412 Hydroxyzine HCl (Hydroxyzine HCl) 10 Mg Tablet, 10 MG PO TID Prescribed by: RAMSEY MONTILLA on 04/09/22 0626 Lactulose (Lactulose) 10 Gram/15 Ml (15 Ml) Solution, 15 ML PO DAILY PRN for CONFUSION, (Reported) Entered as Reported by: HARSHIL PETERSON on 04/03/22 1451 Lorazepam (Ativan) 1 Mg Tablet, 1 MG PO Q8H PRN for ANXIETY, (Reported) Entered as Reported by: HARSHIL PETERSON on 03/28/22 141 Multivitamin with Minerals (Multivitamins with Minerals) 1 Each Tablet, 1 EACH PO DAILY, (Reported) Entered as Reported by: HARSHIL PETERSON on 03/28/22 1412 Oxycodone HCl (Oxycodone HCl) 5 Mg Tablet, 5 MG PO TID PRN for PAIN-SEVERE (8- 10) Prescribed by: RAMSEY MONTILLA on 04/09/22 06 Potassium Chloride (Potassium Chloride) 10 Meq Capsule.er, 10 MEQ PO DAILY Prescribed by: RAMSEY MONTILLA on 04/09/22 06 Propranolol HCl (Propranolol HCl) 10 Mg Tablet, 10 MG PO BID PRN for TREMORS, (Reported) Entered as Reported by: ARLEEN LUO on 12/29/19 1111 Propranolol HCl (Propranolol HCl) 10 Mg Tablet, 10 MG PO DAILY, (Reported) Entered as Reported by: HARSHIL PETERSON on 04/03/22 1451 Sertraline HCl (Sertraline HCl) 50 Mg Tablet, 50 MG PO DAILY, (Reported) Entered as Reported by: HARSHIL PETERSON on 04/03/22 1500 Sertraline HCl (Sertraline HCl) 100 Mg Tablet, 100 MG PO DAILY, (Reported) Entered as Reported by: HARSHIL PETERSON on 04/03/22 1500 Spironolactone (Spironolactone) 25 Mg Tablet, 50 MG PO DAILY Prescribed by: RAMSEY MONTILLA on 04/09/22 06 Topiramate (Topiramate) 50 Mg Tablet, 150 MG PO HS, (Reported) Entered as Reported by: HARSHIL PETERSON on 04/17/20 1019 Topiramate (Topiramate) 50 Mg Tablet, 50 MG PO DAILY, (Reported) Entered as Reported by: HARSHIL PETERSON on 03/28/22 141 Review of Systems Review of Systems Constitutional: see HPI Past Sbirfwr-Nlhpuz-Xzicnj Hx Immunizations Up To Date Tetanus Booster (TDap): Unknown PED Vaccines UTD: Yes Seasonal Allergies Seasonal Allergies: No Past Medical History Surgery/Hospitalization HX: LIPOMA TUMER REMOVED FROM NECK. 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, alcoholism) Traumatic Brain Injury Genitourinary: No Gastrointestinal: Yes Liver Disease/Jaundice Musculoskeletal: No Endocrine: No HEENT: No Loss of Vision: Denies Hearing Impairment: Denies Cancer: No Psychosocial: Yes (ETOH ABUSE HX) Anxiety, Depression Integumentary: No Blood Disorders: No Adverse Reaction/Blood Tranf: No Family Medical History FH: breast cancer 19 MOTHER Hypertension 19 MOTHER Cancer, Hypertension Physical Exam Vital Signs Vital Signs - First Documented 08/22/23 13:43 Temp 36.5 Pulse 60 Resp 18 B/P (MAP) 146/78 (100) Pulse Ox 99 O2 Delivery Room Air Capillary Refill : Height, Weight, BMI Height: '" Weight: lbs. oz. kg; 36.70 BMI Method: General Appearance: WD/WN, no apparent distress, other (Alcohol smell on breath) HEENT: PERRL/EOMI, TMs normal Neck: full range of motion, supple, normal inspection, tender lateral; No tender midline Cardiovascular: regular rate, rhythm Respiratory: lungs clear, normal breath sounds, no respiratory distress, no accessory muscle use Extremities: normal range of motion, normal inspection, pedal edema Psychiatric: alert, oriented x 3 Crainal Nerves: normal hearing, normal speech, PERRL Coordination/Gait: normal finger to nose Motor/Sensory: no motor deficit, no sensory deficit Skin: normal color, warm/dry Procedures/Interventions Wound Location: Scalp Other Wound Location Left posterior Wound Length (cm): 4 Wound's Depth, Shape: linear Wound Explored: clean Irrigated w/ Saline (ccs): 150 Anesthesia: 1% Lidocaine Volume Anesthetic (ccs): 2 Wound Debrided: minimal Staple Repair: Stapler 35W Number of Sutures: 10 Progress/Results/Core Measures Results/Orders Lab Results Laboratory Tests Test 08/22/23 13:50 08/22/23 13:52 08/22/23 14:35 Range/Units White Blood Count 4.5 4.3-11.0 10^3/uL Red Blood Count 2.64 L 4.30-5.52 10^6/uL Hemoglobin 9.1 L 13.3-17.7 g/dL Hematocrit 29 L 40-54 % Mean Corpuscular Volume 108 H 80-99 fL Mean Corpuscular Hemoglobin 35 H 25-34 pg Mean Corpuscular Hemoglobin Concent 32 32-36 g/dL Red Cell Distribution Width 15.1 H 10.0-14.5 % Platelet Count 114 L 130-400 10^3/uL Mean Platelet Volume 9.9 9.0-12.2 fL Immature Granulocyte % (Auto) 0 % Neutrophils (%) (Auto) 42 42-75 % Lymphocytes (%) (Auto) 38 12-44 % Monocytes (%) (Auto) 14 H 0-12 % Eosinophils (%) (Auto) 5 0-10 % Basophils (%) (Auto) 1 0-10 % Neutrophils # (Auto) 1.9 1.8-7.8 10^3/uL Lymphocytes # (Auto) 1.7 1.0-4.0 10^3/uL Monocytes # (Auto) 0.6 0.0-1.0 10^3/uL Eosinophils # (Auto) 0.2 0.0-0.3 10^3/uL Basophils # (Auto) 0.0 0.0-0.1 10^3/uL Immature Granulocyte # (Auto) 0.0 0.0-0.1 10^3/uL Percent Immature Platelet Fraction 2.1 0.0-7.6 % Prothrombin Time 13.8 12.2-14.7 SEC INR Comment 1.0 0.8-1.4 Activated Partial Thromboplast Time 30 24-35 SEC Sodium Level 145 135-145 MMOL/L Potassium Level 4.1 3.6-5.0 MMOL/L Chloride Level 120 H 98-107 MMOL/L Carbon Dioxide Level 15 L 21-32 MMOL/L Anion Gap 10 5-14 MMOL/L Blood Urea Nitrogen 37 H 7-18 MG/DL Creatinine 3.36 H 0.60-1.30 MG/DL Estimat Glomerular Filtration Rate 20 BUN/Creatinine Ratio 11 Glucose Level 87 70-105 MG/DL Calcium Level 7.8 L 8.5-10.1 MG/DL Corrected Calcium 8.8 8.5-10.1 MG/DL Magnesium Level 2.3 1.6-2.4 MG/DL Total Bilirubin 0.3 0.1-1.0 MG/DL Aspartate Amino Transf (AST/SGOT) 17 5-34 U/L Alanine Aminotransferase (ALT/SGPT) 11 0-55 U/L Alkaline Phosphatase 62 40-136 U/L Total Creatine Kinase 39 30-200 U/L Troponin I < 0.028 <0.028 NG/ML Total Protein 5.9 L 6.4-8.2 GM/DL Albumin 2.8 L 3.2-4.5 GM/DL Serum Alcohol 253 H <10 MG/DL Glucometer 86 70-110 MG/DL Urine Color YELLOW Urine Clarity CLEAR Urine pH 6.0 5-9 Urine Specific [place] 1.025 H 1.016-1.022 Urine Protein 3+ H NEGATIVE Urine Glucose (UA) NEGATIVE NEGATIVE Urine Ketones NEGATIVE NEGATIVE Urine Nitrite NEGATIVE NEGATIVE Urine Bilirubin NEGATIVE NEGATIVE Urine Urobilinogen 0.2 < = 1.0 MG/DL Urine Leukocyte Esterase TRACE H NEGATIVE Urine RBC (Auto) 3+ H NEGATIVE Urine RBC 25-50 H /HPF Urine WBC 10-25 H /HPF Urine Crystals NONE /LPF Urine Bacteria MODERATE H /HPF Urine Casts NONE /LPF Urine Mucus NEGATIVE /LPF Urine Yeast FEW H /HPF Urine Culture Indicated YES Urine Opiates Screen NEGATIVE NEGATIVE Urine Oxycodone Screen NEGATIVE NEGATIVE Urine Methadone Screen NEGATIVE NEGATIVE Urine Propoxyphene Screen NEGATIVE NEGATIVE Urine Barbiturates Screen NEGATIVE NEGATIVE Ur Tricyclic Antidepressants Screen NEGATIVE NEGATIVE Urine Phencyclidine Screen NEGATIVE NEGATIVE Urine Amphetamines Screen NEGATIVE NEGATIVE Urine Methamphetamines Screen NEGATIVE NEGATIVE Urine Benzodiazepines Screen NEGATIVE NEGATIVE Urine Cocaine Screen NEGATIVE NEGATIVE Urine Cannabinoids Screen NEGATIVE NEGATIVE My Orders Orders - [facility] Cbc And Automated Diff (08/22/23 13:47) Magnesium (08/22/23 13:47) Chest 1 View, Ap/Pa Only (08/22/23 13:47) Ekg Tracing (08/22/23 13:47) Comprehensive Metabolic Panel (08/22/23 13:47) Protime With Inr (08/22/23 13:47) Partial Thromboplastin Time (08/22/23 13:47) Monitor-Rhythm Ecg Trace Only (08/22/23 13:47) Ed Iv/Invasive Line Start (08/22/23 13:47) Creatine Kinase (08/22/23 13:47) Ua Culture If Indicated (08/22/23 13:47) Drug Screen Stat (Urine) (08/22/23 13:47) Alcohol (08/22/23 13:47) Ct Head/Cervical Spine Wo (08/22/23 13:47) Accucheck Stat ONCE (08/22/23 13:58) Troponin I Chang (08/22/23 14:34) Lidocaine 1% Inj 10 Ml (Xylocaine 1% Inj (08/22/23 15:00) Orthostatic Vital Signs (Adult (08/22/23 14:55) Urine Culture (08/22/23 14:35) Ns Iv 500 Ml (Ns Iv 500 Ml) (08/22/23 15:15) Medications Given in ED Current Medications Medications Dose Ordered Sig/Una Route Start Time Stop Time Status Last Admin Dose Admin Lidocaine HCl 10 ml ONCE ONCE INJ 08/22/23 15:00 08/22/23 15:01 DC 08/22/23 15:08 10 ML Sodium Chloride 500 ml @ 0 mls/hr Q0M ONCE IV 08/22/23 15:15 08/22/23 15:16 DC 08/22/23 15:07 1,000 MLS/HR Vital Signs/I&O 08/22/23 08/22/23 13:43 15:18 Temp 36.5 Pulse 60 63 72 73 Resp 18 B/P (MAP) 146/78 (100) 143/91 (108) 143/105 (118) 144/84 (104) Pulse Ox 99 O2 Delivery Room Air Progress Progress Note : Progress Note Patient seen and evaluated, resting comfortably in bed, no acute distress. Alcohol smell noted on breath. Based on exam and symptoms, work-up initiated included CBC, CMP, coags, troponin, EKG, Accu-Chek, urinalysis, urine drug screen, alcohol level, CT head and neck. 1501 Labs and imaging reviewed. CBC shows decreased RBC 2.64, decreased hemoglobin 9.1, decreased hematocrit 29, elevated MCV 108. Previous hemoglobin from March 2022 was 10.8, and hematocrit was 32. CMP shows elevated chloride 120, decreased CO2 15, normal anion gap 10, BUN elevated 37, creatinine elevated 3.36, GFR decreased 20. Previous labs drawn on July 2023 showed chloride 113, BUN 45, creatinine 2.28, GFR 31. Troponin negative. Total creatinine kinase 39. Coags normal. Alcohol level elevated 253. Urine drug screen negative. Urinalysis shows elevated urine specific gravity 1.025, 3+ protein, trace leukocytes, 25-50 RBCs, 10-25 WBCs, moderate bacteria. It also shows few yeast. 500 mL of fluid ordered for likely dehydration as evidenced by elevated chloride, decreased CO2, elevated creatinine and decreased GFR. Will treat urinary tract infection. Chest x-ray shows mild atelectasis, otherwise no acute findings. CT shows no acute hemorrhage or intracranial process, does show resolution of prior trace intraventricular hemorrhage. CT spine shows chronic degenerative changes, no acute fracture. 1535 I questioned patient regarding possible bleeding sources due to decrease in hemoglobin and hematocrit. He states he has been having black-colored stools. Rectal exam performed, light brown-colored stool noted. Hemoccult was negative. Patient and instructed to follow-up with primary care provider if he continues to have black-colored stools. I instructed patient and to follow-up with primary care provider regarding decreased kidney function. Decreased hemoglobin and hematocrit may also be related to chronic kidney disease. Orthostatic vitals remained stable. Laceration on the back of the head was repaired with marcia, see procedure note. Patient is stable for discharge. Discharge instructions and return precautions provided. Initial ECG Impression Date: Aug 22, 2023 Initial ECG Impression Time: 14:00 Initial ECG Rate: 66 Initial ECG Rhythm: Normal Sinus, SVT Initial ECG Intervals: PA (229) Initial ECG Impression: Nonspecific Changes Initial ECG Comparisson: Changed Comment New first-degree block. Diagnostic Imaging Diagonstic Imaging: Xray Plain Films/CT/US/NM/MRI: chest Comments [facility] [place] NAME: JORGE A FIELD [facility] REC#: [id number] PT STATUS: REG ER : 1960 PHYSICIAN: NAKITA SHIRLEY APRN ADMIT DATE: 08/22/23/ER Signed Date of Exam:08/22/23 CHEST 1 VIEW, AP/PA ONLY EXAMINATION: Chest, 1 view. HISTORY: Chest pain. COMPARISON: 09/11/2020. FINDINGS: There is mild bibasilar atelectasis. Otherwise, the lungs are clear without edema or pneumonia. No pleural effusion or pneumothorax. Heart size is normal. IMPRESSION: Mild atelectasis; otherwise, clear lungs. Dictated by: Dictated on workstation # [id number] Dict: 08/22/231421 Trans: 08/22/231514 [id number] Interpreted by: AMARIS POOLE MD Electronically signed by: AMARIS POOLE MD 08/22/23 1515 Diagonstic Imaging: CT Plain Films/CT/US/NM/MRI: abdomen, pelvis Comments [facility] [place] NAME: JORGE A FIELD [facility] REC#: [id number] PT STATUS: REG ER : 1960 PHYSICIAN: NAKITA SHIRLEY APRN ADMIT DATE: 08/22/23/ER Draft Date of Exam:08/22/23 CT HEAD/CERVICAL SPINE WO PROCEDURE: CT head and CT cervical spine without contrast. TECHNIQUE: Multiple contiguous axial images were obtained through the brain and cervical spine without the use of intravenous contrast. Sagittal and coronal reformations through the cervical spine were then performed. Auto Exposure Controls were utilized during the CT exam to meet ALARA standards for radiation dose reduction. INDICATION: Fall found down Compared with the head and cervical CT of 03/22/2022. CT HEAD: There is no hemorrhage, hydrocephalus, cerebral edema, mass or mass effect. No calvarial fracture deformity. No hemo-sinus. No pneumocephalus. There has been interval resolution of the prior trace intraventricular blood with no adverse interval development. CERVICAL SPINE: Bridging osteophytes anteriorly at the mid cervical levels present spondylosis greatest at C5-C6. There has been no change from prior. No fracture or malalignment. The craniocervical relationship of the central skull base appeared intact. There is no paraspinal mass, hemorrhage or fluid collection. IMPRESSION: CT head: Resolution of prior trace intraventricular hemorrhage, no residual or recurrent intracranial hemorrhage or acute pathology. No adverse change. Cervical spine: Chronic degenerative changes aligned anatomically with no fracture. Dictated on workstation # [id number] Dict: 08/22/231419 Trans: 08/22/23 143 [facility] [id number] Interpreted by: RIYA STARR Electronically signed by: Departure Impression Primary Impression: Syncope Qualified Codes: R55 - Syncope and collapse Additional Impressions: Head injury Qualified Codes: S09.90XA - Unspecified injury of head, initial encounter Laceration Chronic kidney disease Qualified Codes: N18.9 - Chronic kidney disease, unspecified Anemia Qualified Codes: N18.9 - Chronic kidney disease, unspecified; D63.1 - Anemia in chronic kidney disease UTI (urinary tract infection) Qualified Codes: N30.01 - Acute cystitis with hematuria Alcohol intoxication Qualified Codes: F10.920 - Alcohol use, unspecified with intoxication, uncomplicated Disposition: HOME, SELF-CARE Condition: Stable Departure-Patient Inst. Decision time for Depature: 15:44 Referrals: ELYSSA VICTORIA MD (PCP/Family) Primary Care Physician Patient Instructions: Head injury in adults Add. Discharge Instructions: Complete full course of antibiotic as prescribed. Follow-up with primary care provider regarding decreased kidney function and if he continues to have black-colored stools. You need to stop drinking. Return in 7 to 10 days to have the sutures removed. You may wash your head, let water and soap run over it, do not scrub, do not soak. Return for severe headache, recurrent vomiting, abnormal behavior, difficulty with normal activities, or any other new, concerning, or worsening symptoms. All discharge instructions reviewed with patient and/or family. Voiced understanding. Scripts Cefuroxime Axetil (Cefuroxime) 500 Mg Tablet 500 MG PO BID for 7 Days, #14 TAB 0 Refills Prov: NAKITA SHIRLEY APRN 08/22/23 Copy Copies To 1: ELYSSA VICTORIA MD, BRITTANY R APRN Aug 22, 2023 13:57
[2023-08-22 14:10] LABS: HEMOGLOBIN 9.1 g/dL (13.3-17.7)
[2023-08-22 14:11] LABS: BASOPHILS % (AUTO) 1 % (0-10); EOSINOPHILS # (AUTO) 0.2 10^3/uL (0.0-0.3); EOSINOPHILS % (AUTO) 5 % (0-10); HEMATOCRIT 29 % (40-54); LYMPHOCYTES # (AUTO) 1.7 10^3/uL (1.0-4.0); LYMPHOCYTES % (AUTO) 38 % (12-44); MEAN CORPUSCULAR HEMOGLOBIN 35 pg (25-34); MEAN CORPUSCULAR HGB CONC 32 g/dL (32-36); MEAN CORPUSCULAR VOLUME 108 fL (80-99); MEAN PLATELET VOLUME 9.9 fL (9.0-12.2); MONOCYTES # (AUTO) 0.6 10^3/uL (0.0-1.0); MONOCYTES % (AUTO) 14 % (0-12); NEUTROPHILS # (AUTO) 1.9 10^3/uL (1.8-7.8); NEUTROPHILS % (AUTO) 42 % (42-75); PLATELET COUNT 114 10^3/uL (130-400); WHITE BLOOD COUNT 4.5 10^3/uL (4.3-11.0)
[2023-08-22 14:24] LABS: ALBUMIN 2.8 GM/DL (3.2-4.5)
--- NOTE | 2023-08-22 14:24 | Diagnostic Imaging Report ---
EXAMINATION: Chest, 1 view. HISTORY: Chest pain. COMPARISON: 09/11/2020. FINDINGS: There is mild bibasilar atelectasis. Otherwise, the lungs are clear without edema or pneumonia. No pleural effusion or pneumothorax. Heart size is normal. IMPRESSION: Mild atelectasis; otherwise, clear lungs. Dictated by: Dictated on workstation # [id number]
[2023-08-22 14:25] LABS: POTASSIUM 4.1 MMOL/L (3.6-5.0); PROTHROMBIN TIME PATIENT 13.8 SEC (12.2-14.7)
[2023-08-22 14:26] LABS: CALCIUM 7.8 MG/DL (8.5-10.1)
[2023-08-22 14:27] LABS: TOTAL PROTEIN 5.9 GM/DL (6.4-8.2)
[2023-08-22 14:29] LABS: BILIRUBIN,TOTAL 0.3 MG/DL (0.1-1.0)
[2023-08-22 14:31] LABS: CREATININE SERUM 3.36 MG/DL (0.60-1.30)
[2023-08-22 14:33] LABS: MAGNESIUM 2.3 MG/DL (1.6-2.4)
--- NOTE | 2023-08-22 14:39 | Diagnostic Imaging Report ---
PROCEDURE: CT head and CT cervical spine without contrast. TECHNIQUE: Multiple contiguous axial images were obtained through the brain and cervical spine without the use of intravenous contrast. Sagittal and coronal reformations through the cervical spine were then performed. Auto Exposure Controls were utilized during the CT exam to meet ALARA standards for radiation dose reduction. INDICATION: Fall found down Compared with the head and cervical CT of 03/22/2022. CT HEAD: There is no hemorrhage, hydrocephalus, cerebral edema, mass or mass effect. No calvarial fracture deformity. No hemo-sinus. No pneumocephalus. There has been interval resolution of the prior trace intraventricular blood with no adverse interval development. CERVICAL SPINE: Bridging osteophytes anteriorly at the mid cervical levels present spondylosis greatest at C5-C6. There has been no change from prior. No fracture or malalignment. The craniocervical relationship of the central skull base appeared intact. There is no paraspinal mass, hemorrhage or fluid collection. IMPRESSION: CT head: Resolution of prior trace intraventricular hemorrhage, no residual or recurrent intracranial hemorrhage or acute pathology. No adverse change. Cervical spine: Chronic degenerative changes aligned anatomically with no fracture. Dictated by: Dictated on workstation # [id number]
[2023-08-22 14:52] LABS: BILIRUBIN,URINE NEGATIVE (NEGATIVE); CLARITY,URINE CLEAR; COLOR,URINE YELLOW; GLUCOSE, URINE (UA) NEGATIVE (NEGATIVE); KETONES,URINE NEGATIVE (NEGATIVE); NITRITE,URINE NEGATIVE (NEGATIVE); PROTEIN,URINE 3+ (NEGATIVE)
[2023-08-22 14:53] LABS: LEUKOCYTE ESTERASE ,URINE TRACE (NEGATIVE)
[2023-08-22 14:56] LABS: BACTERIA,URINE MODERATE /HPF; RBC,URINE 25-50 /HPF; YEAST,URINE FEW /HPF
[2023-08-22 15:00] LABS: AMPHETAMINE SCREEN, URINE NEGATIVE (NEGATIVE); BARBITURATE SCREEN URINE NEGATIVE (NEGATIVE); CANNABINOID SCREEN, URINE NEGATIVE (NEGATIVE); COCAINE SCREEN URINE NEGATIVE (NEGATIVE); METHADONE STAT NEGATIVE (NEGATIVE); OPIATE SCREEN URINE NEGATIVE (NEGATIVE); OXYCODONE STAT NEGATIVE (NEGATIVE); PROPOXYPHENE STAT NEGATIVE (NEGATIVE); TRICYCLIC ANTIDEPRESSANTS SCRE NEGATIVE (NEGATIVE)
[2023-08-22] MEDS ORDERED: LIDOCAINE 1% INJ 10 ML VIAL INJ ONE (15:00)
[2023-08-22] MEDS ORDERED: NS IV 500 ML 500 ML IV ONE (15:15)
[2023-08-22 15:18] VITALS: BP_SYST 143; BP_SYST 144; BP_DIAS 105; BP_DIAS 84; BP_DIAS 91
[2023-08-22] MEDS ORDERED: CEFU500T63 PO (15:47)
[2023-08-22 16:00] VITALS: BP 144/84
== END 2023-08-22 16:00 | disposition home or self-care (01) ==
LOC: EDUNIT# 13:33 → ER 13:35
DX: R55 Syncope and collapse (principal); S09.90XA Unspecified injury of head, initial encounter; F10.129 Alcohol abuse with intoxication, unspecified; N39.0 Urinary tract infection, site not specified; D63.1 Anemia in chronic kidney disease; I12.9 Hypertensive chronic kidney disease with stage 1 through stage 4 chronic kidney disease, or unspecified chronic kidney disease; N18.9 Chronic kidney disease, unspecified; W19.XXXA Unspecified fall, initial encounter
CPT/HCPCS: 12002; 70450; 71045; 72125; 80053; 80306; 81000; 82274; 82550; 82947; 83735; 84484; 85025; 85610; 85730; 87088; 93041; 99284; G0480; 36415; 80320; 87077; 93005

== ENCOUNTER → 2023-10-05 | Outpatient (CLI) | payer MEDICARE, OTHER ==
[~2023-10-05] MED LIST changes: +CEFU500T63 PO; +GADOTERATE 0.5 MMOL/ML (CLARISCAN) 20 ML VIAL IV ONE
--- NOTE | 2023-10-05 13:30 | Diagnostic Imaging Report ---
EXAMINATION: MRI of the abdomen with and without contrast. TECHNIQUE: Multiplanar, multisequence MR images of the abdomen were obtained with and without intravenous contrast. HISTORY: Cirrhosis, liver lesion evaluation. COMPARISON: 06/25/2023. FINDINGS: Liver: There is a nodular morphology of the liver with background fibrosis. There is a peripherally enhancing lesion within hepatic segment IVb near the gallbladder measuring 2.4 x 1.5 cm, which demonstrates T1 and T2 isointensity, mild peripheral restricted diffusion and enhancement. There does not appear to be significant progressive enhancement or washout. No other suspicious arterial enhancing lesion. The hepatic and portal veins are patent. Gallbladder and Bile Ducts: The gallbladder is unremarkable without filling defect. No significant biliary ductal dilatation. Pancreas: The pancreas is normal in volume, signal intensity and enhancement. There is no dilation of the main pancreatic duct. Spleen: The spleen is mildly enlarged measuring up to 15.2 cm. Adrenal glands: The adrenal glands are unremarkable without focal nodule. Kidneys: There is asymmetric atrophy of the right kidney. There is a small right extrarenal pelvis. No hydronephrosis. No suspicious enhancing lesion within the visualized kidneys. Lymph Nodes: There is no suspicious lymphadenopathy. Other: There is no ascites. IMPRESSION: 1. An indeterminate 2.5 cm peripherally enhancing lesion within hepatic segment IVb. This does not demonstrate imaging characteristics typical of hepatocellular carcinoma, but given the background cirrhosis, this lesion remains suspicious, and short-term CT or MRI follow-up liver protocol in three months would be recommended. 2. Mild splenomegaly. Dictated by: Dictated on workstation # [id number]
== END ==
LOC: RAD 08:20
PROVIDERS: ATTEND Nurse Practitioner Family
DX: C22.0 Liver cell carcinoma (principal); R16.1 Splenomegaly, not elsewhere classified; K70.30 Alcoholic cirrhosis of liver without ascites
CPT/HCPCS: 74183